=== PATIENT | male | born 1950 | race Caucasian/White ===

== ENCOUNTER → 2020-04-26 11:08 | Outpatient (BNVA) | payer OTHER, SELFPAY | PROVIDERS: Visit Provider Internal Medicine | DX: Z76.89 Persons encountering health services in other specified circumstances (principal) ==

== ENCOUNTER → 2020-10-27 07:27 | Outpatient (BNVA) | payer OTHER, SELFPAY | PROVIDERS: Visit Provider Internal Medicine ==

== ENCOUNTER 2020-11-18 07:53 | Outpatient (REF) | payer OTHER, SELFPAY ==
--- NOTE | ~2020-11-18 | US_ITS ---
EXAMINATION: US ABDOMEN COMPLETE CLINICAL INFORMATION: Epigastric pain. COMPARISON: CT abdomen and pelvis 09/20/2018. TECHNIQUE: Real-time imaging of the abdominal viscera. FINDINGS: PANCREAS: The pancreatic duct measures 0.15 cm. The pancreas has homogeneous echotexture. ABDOMINAL AORTA: The proximal, mid, and distal segments are normal in caliber. INFERIOR VENA CAVA: Visualized portions are normal. LIVER: The liver is normal in size. The liver contour is normal. Parenchymal echogenicity is normal. There is an anechoic cyst in the right hepatic lobe measuring 1.5 x 1.1 x 1.2 cm. There is no intrahepatic biliary duct dilatation seen. GALLBLADDER: Normal. The gallbladder is physiologically distended without evidence of stones, sludge, polyps, wall thickening or pericholecystic fluid. COMMON BILE DUCT: Normal in caliber measuring 0.3 cm in diameter. RIGHT KIDNEY: Multiple echogenic stones the largest in the midpole measuring 0.8 x 0.6 cm. There is anechoic cyst midpole measuring 0.8 x 0.5 x 0.4 cm. No hydronephrosis. The kidney measures 10.0 cm in maximum dimension. LEFT KIDNEY: There is anechoic cyst with thin septations measuring 2.4 x 2.0 x 1.5 cm. There is an echogenic stone in lower pole measuring 0.6 x 0.4 cm. There is no caliectasis or hydronephrosis. The kidney measures 11.2 cm in maximum dimension. SPLEEN: Normal. The spleen measures 11.7 cm in maximum dimension. FREE FLUID: None. US/US abdomen complete IMPRESSION: Right hepatic lobe cyst. Bilateral nonobstructive echogenic renal calculi. There is no caliectasis or hydronephrosis. Simple cyst midpole right kidney and complex cyst with thin septations lower pole left kidney.
== END 2020-11-18 07:54 | disposition home or self-care (01) ==
LOC: HO.US 07:53
PROVIDERS: PCP Nurse Practitioner Family; Visit Provider Internal Medicine
DX: R10.13 Epigastric pain (principal)
CPT/HCPCS: 76700

== ENCOUNTER → 2020-12-27 07:44 | Outpatient (BNVA) | payer OTHER, SELFPAY | PROVIDERS: Visit Provider Internal Medicine ==

== ENCOUNTER 2021-05-02 12:17 | Day surgery (SDC) | payer OTHER, SELFPAY ==
--- NOTE | 2021-04-29 09:48 | HO.ANESPROP2 ---
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 Mother No problems noted. Surgical History Surgical History History of surgery on wrist Hx of cataract surgery Hx of colonoscopy Hx of esophagogastroduodenoscopy Social History Social History Patient Tobacco Use Status: Former Tobacco user Second Hand Smoke Exposure: No Use of substances other than those prescribed or required for medical reasons: No Are you DNR?: No Advance Directives: No Advance Directives Information Provided: Yes Advance Directives on File: No Meds Allergies Allergy/AdvReac Type Severity Reaction Status Date / Time allopurinol Allergy Unknown Rash Verified 04/26/21 13:17 chlorthalidone Allergy Unknown Unknown Verified 04/26/21 13:17 colchicine [COLCHICINE] Allergy Unknown RASH Verified 04/26/21 13:17 flunisolide [FLUNISOLIDE] Allergy Unknown RASH Verified 04/26/21 13:17 meloxicam [MELOXICAM] Allergy Unknown SEVERE Verified 04/26/21 13:17 HIVES omeprazole [OMEPRAZOLE] Allergy Unknown RASH Verified 04/26/21 13:17 pravastatin Allergy Unknown Unknown Verified 04/26/21 13:17 zoledronic acid Allergy Unknown RASH Verified 04/26/21 13:17 [ZOLEDRONIC ACID] lisinopril AdvReac Cough Verified 04/26/21 13:29 Alendronate Sodium Allergy Unknown Unknown Uncoded 04/26/21 13:17 Contrast media Allergy Unknown Unknown Uncoded 04/26/21 13:17 Home Medications Medication Instructions Recorded Confirmed Last Taken Type amlodipine 10 mg tablet 10 mg PO DAILY 03/24/20 04/26/21 05/02/21 History aspirin 81 mg tablet,delayed 81 mg PO DAILY 03/24/20 04/26/21 Unknown History release (Adult Aspirin Regimen) atorvastatin 20 mg tablet 20 mg PO DAILY 03/24/20 04/26/21 Unknown History denosumab 60 mg/mL subcutaneous 60 mg SUBCUT [id number] 03/24/20 04/26/21 Unknown History syringe (Prolia) multivitamin 1 tab PO DAILY 03/24/20 04/26/21 Unknown History omega 1-jok-lhx-fish oil 60 mg-90 1 cap PO DAILY 03/24/20 04/26/21 Unknown History mg-500 mg capsule (Fish Oil) pantoprazole 40 mg tablet,delayed 40 mg PO DAILY 03/24/20 04/26/21 Unknown History release sildenafil 100 mg tablet 100 mg PO DAILY PRN 03/24/20 04/26/21 Unknown History tamsulosin 0.4 mg capsule 0.4 mg PO DAILY 03/24/20 04/26/21 Unknown History trazodone 100 mg tablet 100 mg PO BEDTIME PRN 03/24/20 04/26/21 Unknown History amiloride 5 mg tablet 10 mg PO BID tab 04/26/20 04/26/21 Unknown History doxazosin 2 mg tablet 8 mg PO DAILY tab 04/26/20 04/26/21 05/02/21 History atenolol 25 mg tablet 25 mg PO DAILY 04/26/21 04/26/21 05/02/21 History Exam Exam Date and Time: April 29, 2021 0948 Assessment and Plan Assessment Anesthesia Assessment: Chart Reviewed Documented by User: Reema Miranda MD 05/02/21 13:59 PMFSH Past Medical History Medical History (Updated 04/26/21 @ 13:22 by Hanane Abraham RN) Adrenal cortical adenoma of right adrenal gland Back pain BPH (benign prostatic hyperplasia) Elevated cholesterol Former smoker GERD (gastroesophageal reflux disease) Gout HTN (hypertension) Hx of migraines Hyperaldosteronism Hyperparathyroidism Osteoporosis Vitamin D deficiency Functional capacity: independent ambulation Family History Family History Father No problems noted. Mother No problems noted. Family history of problems with anesthesia: No Surgical History Surgical History History of surgery on wrist Hx of cataract surgery Hx of colonoscopy Hx of esophagogastroduodenoscopy History of Problems with Anesthesia: No Social History Social History Patient Tobacco Use Status: Former Tobacco user Second Hand Smoke Exposure: No Use of substances other than those prescribed or required for medical reasons: No Are you DNR?: No Advance Directives: No Advance Directives Information Provided: Yes Advance Directives on File: No Meds Allergies Allergy/AdvReac Type Severity Reaction Status Date / Time allopurinol Allergy Unknown Rash Verified 04/26/21 13:17 chlorthalidone Allergy Unknown Unknown Verified 04/26/21 13:17 colchicine [COLCHICINE] Allergy Unknown RASH Verified 04/26/21 13:17 flunisolide [FLUNISOLIDE] Allergy Unknown RASH Verified 04/26/21 13:17 meloxicam [MELOXICAM] Allergy Unknown SEVERE Verified 04/26/21 13:17 HIVES omeprazole [OMEPRAZOLE] Allergy Unknown RASH Verified 04/26/21 13:17 pravastatin Allergy Unknown Unknown Verified 04/26/21 13:17 zoledronic acid Allergy Unknown RASH Verified 04/26/21 13:17 [ZOLEDRONIC ACID] lisinopril AdvReac Cough Verified 04/26/21 13:29 Alendronate Sodium Allergy Unknown Unknown Uncoded 04/26/21 13:17 Contrast media Allergy Unknown Unknown Uncoded 04/26/21 13:17 Home Medications Medication Instructions Recorded Confirmed Last Taken Type amlodipine 10 mg tablet 10 mg PO DAILY 03/24/20 04/26/21 05/02/21 History aspirin 81 mg tablet,delayed 81 mg PO DAILY 03/24/20 04/26/21 Unknown History release (Adult Aspirin Regimen) atorvastatin 20 mg tablet 20 mg PO DAILY 03/24/20 04/26/21 Unknown History denosumab 60 mg/mL subcutaneous 60 mg SUBCUT [id number] 03/24/20 04/26/21 Unknown History syringe (Prolia) multivitamin 1 tab PO DAILY 03/24/20 04/26/21 Unknown History omega 1-zgf-drs-fish oil 60 mg-90 1 cap PO DAILY 03/24/20 04/26/21 Unknown History mg-500 mg capsule (Fish Oil) pantoprazole 40 mg tablet,delayed 40 mg PO DAILY 03/24/20 04/26/21 Unknown History release sildenafil 100 mg tablet 100 mg PO DAILY PRN 03/24/20 04/26/21 Unknown History tamsulosin 0.4 mg capsule 0.4 mg PO DAILY 03/24/20 04/26/21 Unknown History trazodone 100 mg tablet 100 mg PO BEDTIME PRN 03/24/20 04/26/21 Unknown History amiloride 5 mg tablet 10 mg PO BID tab 04/26/20 04/26/21 Unknown History doxazosin 2 mg tablet 8 mg PO DAILY tab 04/26/20 04/26/21 05/02/21 History atenolol 25 mg tablet 25 mg PO DAILY 04/26/21 04/26/21 05/02/21 History Exam Airway TM Dist: >3cm Neck ROM: Full Denture: Upper Heart: RRR Lungs: CTA Assessment and Plan Final Anesthetic Review Family History of Problems with Anesthesia: No History of Problems with Anesthesia: No ASA Class: II Final Preanesthetic Review: No Changes in Pt Med Stat Patient Risk: Intermediate Procedure Risk: Low Anesthetic Plan Anesthetic Plan: MAC: Disposition: Standard PACU
[2021-05-02 12:21] VITALS: BMI 24.3
[2021-05-02 12:55] VITALS: BP 124/62; PULSE 61; RESP 18; TEMP 36.7; O2SAT 94
[2021-05-02] MEDS: Lactated Ringers 1,000 ML 100 ML IVCONT (13:02)
--- NOTE | 2021-05-02 14:11 | P.CONAN_ITS ---
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 Mother No problems noted. Family history of problems with anesthesia: No Surgical History Surgical History History of surgery on wrist Hx of cataract surgery Hx of colonoscopy Hx of esophagogastroduodenoscopy History of Problems with Anesthesia: No Social History Social History Patient Tobacco Use Status: Former Tobacco user Second Hand Smoke Exposure: No Use of substances other than those prescribed or required for medical reasons: No Are you DNR?: No Advance Directives: No Advance Directives Information Provided: Yes Advance Directives on File: No Meds Allergies Allergy/AdvReac Type Severity Reaction Status Date / Time allopurinol Allergy Unknown Rash Verified 04/26/21 13:17 chlorthalidone Allergy Unknown Unknown Verified 04/26/21 13:17 colchicine [COLCHICINE] Allergy Unknown RASH Verified 04/26/21 13:17 flunisolide [FLUNISOLIDE] Allergy Unknown RASH Verified 04/26/21 13:17 meloxicam [MELOXICAM] Allergy Unknown SEVERE Verified 04/26/21 13:17 HIVES omeprazole [OMEPRAZOLE] Allergy Unknown RASH Verified 04/26/21 13:17 pravastatin Allergy Unknown Unknown Verified 04/26/21 13:17 zoledronic acid Allergy Unknown RASH Verified 04/26/21 13:17 [ZOLEDRONIC ACID] lisinopril AdvReac Cough Verified 04/26/21 13:29 Alendronate Sodium Allergy Unknown Unknown Uncoded 04/26/21 13:17 Contrast media Allergy Unknown Unknown Uncoded 04/26/21 13:17 Active Medications: Current Medications Lactated Ringer's (Lr) 1,000 mls @ 100 mls/hr IVCONT .Q10H CRISTELA Last Admin: 05/02/21 13:02 Dose: 100 mls/hr Documented by: Sodium Biphosphate/Sodium Phosphate (Sodium Phosphate,Nobles-Dibasic 133 Ml Enema) 133 ml IA ONCE PRN PRN Reason: Poor Colonoscopy Prep Results Home Medications Medication Instructions Recorded Confirmed Last Taken Type amlodipine 10 mg tablet 10 mg PO DAILY 03/24/20 04/26/21 05/02/21 History aspirin 81 mg tablet,delayed 81 mg PO DAILY 03/24/20 04/26/21 Unknown History release (Adult Aspirin Regimen) atorvastatin 20 mg tablet 20 mg PO DAILY 03/24/20 04/26/21 Unknown History denosumab 60 mg/mL subcutaneous 60 mg SUBCUT [id number] 03/24/20 04/26/21 Unknown History syringe (Prolia) multivitamin 1 tab PO DAILY 03/24/20 04/26/21 Unknown History omega 3-jon-nqs-fish oil 60 mg-90 1 cap PO DAILY 03/24/20 04/26/21 Unknown History mg-500 mg capsule (Fish Oil) pantoprazole 40 mg tablet,delayed 40 mg PO DAILY 03/24/20 04/26/21 Unknown History release sildenafil 100 mg tablet 100 mg PO DAILY PRN 03/24/20 04/26/21 Unknown History tamsulosin 0.4 mg capsule 0.4 mg PO DAILY 03/24/20 04/26/21 Unknown History trazodone 100 mg tablet 100 mg PO BEDTIME PRN 03/24/20 04/26/21 Unknown History amiloride 5 mg tablet 10 mg PO BID tab 04/26/20 04/26/21 Unknown History doxazosin 2 mg tablet 8 mg PO DAILY tab 04/26/20 04/26/21 05/02/21 History atenolol 25 mg tablet 25 mg PO DAILY 04/26/21 04/26/21 05/02/21 History Exam Exam Date and Time: May 02, 2021 1411 Height,Weight and Vital Signs: Height 5 ft 7 in Weight 70.307 kg Last Vital Signs Temp 98.0 F 05/02/21 12:55 Pulse 61 05/02/21 12:55 Resp 18 05/02/21 12:55 BP 124/62 05/02/21 12:55 Pulse Ox 94 05/02/21 12:55 Airway Mallampati Class: II TM Dist: >3cm Heart: RRR Lungs: CTA Assessment and Plan Final Anesthetic Review Family History of Problems with Anesthesia: No History of Problems with Anesthesia: No ASA Class: III Final Preanesthetic Review: No Changes in Pt Med Stat Patient Risk: Low Anesthetic Plan Anesthetic Plan: MAC:
[2021-05-02 14:55] VITALS: BP 105/58; PULSE 56; RESP 12; TEMP 36.4; O2SAT 96
--- NOTE | 2021-05-02 14:56 | P.BOP_ITS ---
Brief Operative Note Date of Service: 05/02/21 Pre-op diagnosis: Screening Post-op diagnosis: other (Colon polyp) Procedure: Colonoscopy to the cecum and TI with hot snare polypectomy Surgeon: Kevyn Rosenberg Anesthesia: MAC Was an Finance Business Manager used for this Procedure?: No Estimated blood loss (mL): 0 Pathology: other (A. Cecal polyp) Condition: stable Disposition: PACU
--- NOTE | 2021-05-02 15:09 | OP_ITS ---
SURGEON: Kevyn Rosenberg MD PREOPERATIVE DIAGNOSIS: Colorectal cancer screening. POSTOPERATIVE DIAGNOSIS: PROCEDURE PERFORMED: Colonoscopy to the cecum and terminal ileum with snare polypectomy. Full consent has been obtained from him for this, including risks of bleeding and perforation. ESTIMATED BLOOD LOSS: COMPLICATIONS: ANESTHESIA: Monitored anesthesia care. ASSISTANTS: SPECIMENS: POSTOPERATIVE DIAGNOSES: Colorectal cancer screening, colon polyp, diverticulosis and internal hemorrhoids. DESCRIPTION OF PROCEDURE: The patient was placed in the left lateral decubitus position. The digital rectal exam revealed no abnormalities. The Olympus video pediatric colonoscope was entered into the rectum and advanced easily to the cecum. Once in the cecum, I did identify cecal pouch with appendiceal orifice and a normal-appearing ileocecal valve. The terminal ileum was cannulated and appeared normal. Scope was withdrawn back in the colon. The entire cecum was well visualized. In the cecum, was an approximately 5 mm x 10 mm polyp, which was snared and recovered by suction with the hot snare. The polypectomy site appeared clean, without any sign of residual polyp nor bleeding. The remainder of the cecum appeared normal. The scope was then slowly withdrawn assessing all mucosal surfaces carefully. For the most part, preparation was excellent, although there was some small areas of liquid stool, which were irrigated and suctioned away as best as possible. I did not visualize any other polyps, colitis, nor angiodysplasia. There was a mild amount of sigmoid diverticulosis. In the rectum, scope was retroflexed visualizing small internal hemorrhoids, but no other pathology. The rectal mucosa appeared normal. The scope was straightened out and withdrawn from the patient. He tolerated the procedure well and was returned to the recovery area in stable condition. IMPRESSION: 1. Colon polyp, status post snare polypectomy. 2. Diverticulosis. 3. Internal hemorrhoids. PLAN: The results of the pathology will be checked. I would recommend a repeat colonoscopy in 3 years for further surveillance given his history of polyps and the somewhat limited prep. He was advised not to use any aspirin and NSAIDs for 1 week. MD KAMRON Martinez/CELIO / [id number]
[2021-05-02 15:10] VITALS: BP 117/69; PULSE 65; RESP 16; TEMP 36.4; O2SAT 94
== END 2021-05-02 15:38 | disposition home or self-care (01) ==
PROVIDERS: PCP Nurse Practitioner Family; Visit Provider Internal Medicine
PROC: 0DJD8ZZ Inspection of Lower Intestinal Tract, Via Natural or Artificial Opening Endoscopic (ICD-10-PCS; CPT 45378; principal; 2021-05-02 13:40)
DX: Z12.11 Encounter for screening for malignant neoplasm of colon (principal); Z86.010 Personal history of colon polyps; D12.0 Benign neoplasm of cecum; K57.30 Diverticulosis of large intestine without perforation or abscess without bleeding; K64.8 Other hemorrhoids; K21.9 Gastro-esophageal reflux disease without esophagitis; R97.20 Elevated prostate specific antigen [PSA]; I10 Essential (primary) hypertension; E55.9 Vitamin D deficiency, unspecified; M81.0 Age-related osteoporosis without current pathological fracture; Z79.899 Other long term (current) drug therapy; Z88.8 Allergy status to other drugs, medicaments and biological substances; Z87.891 Personal history of nicotine dependence
CPT/HCPCS: 45385; 88305

== ENCOUNTER → 2022-07-27 08:44 | Outpatient (BNVA) | payer OTHER, SELFPAY | PROVIDERS: PCP Nurse Practitioner Family; Visit Provider Urology | DX: Z13.9 Encounter for screening, unspecified (principal); N20.0 Calculus of kidney; N28.1 Cyst of kidney, acquired; N40.1 Benign prostatic hyperplasia with lower urinary tract symptoms; R35.1 Nocturia; N52.9 Male erectile dysfunction, unspecified | CPT/HCPCS: 51798; 99202 ==

== ENCOUNTER 2022-08-28 08:46 | Outpatient (REF) | payer OTHER, SELFPAY ==
--- NOTE | ~2022-08-28 | CT_ITS ---
EXAMINATION: CT ABDOMEN AND PELVIS WITHOUT AND WITH CONTRAST CLINICAL INFORMATION: Acquired cyst of kidneys. COMPARISON: None available. TECHNIQUE: Multidetector volumetric imaging was performed of the abdomen and pelvis before and after the IV administration of 85 mL of Omnipaque 300 intravenous contrast. Sagittal and coronal reformatted images were obtained on the technologist's workstation. This CT examination was performed using dose optimization techniques as appropriate, variously including the following: *Automated exposure control *Adjustment of mA and/or kV according to patient size (this includes techniques or standardized protocols for targeted exams where dose is matched to indication/reason for exam; i.e. extremities or head) *Use of iterative reconstruction technique DLP: 570 mGy-cm FINDINGS: LUNG BASES: There is mild emphysematous lung bases with no acute process. The heart size is enlarged. LIVER, GALLBLADDER, AND BILIARY TREE: The liver is normal in size, shape, and attenuation. There is a 6 mm hypodensity, left hepatic lobe, probable cyst, axial image 14/4. No probable punctate hypodensities in left hepatic lobe on either side of ligament teres. The gallbladder is unremarkable with no evidence of radiopaque gallstones, gallbladder wall thickening, or obvious pericholecystic inflammatory changes. PANCREAS: Unremarkable SPLEEN: Unremarkable ADRENAL GLANDS: There is a 1.0 x 1.0 cm right adrenal nodule measuring 12 Hounsfield units on precontrast and 62 Hounsfield units on postcontrast. The left adrenal gland is unremarkable. KIDNEYS AND URETERS: On noncontrast exam, there are several small 3 mm radiopaque calculi upper and lower pole kidneys. There are symmetrical bilateral nephrograms with lobulated contours and mild thinning of mid pole right renal cortex. There are bilateral small nonenhancing renal cysts, the largest cyst measures 2.4 cm in midpole left kidney. Postcontrast it measures 8 Hounsfield units and a simple cyst. Most likely all the small cysts are also simple cysts. No caliectasis or hydronephrosis seen. The ureters are normal caliber. BLADDER: There is mild anterior bladder wall thickening GASTROINTESTINAL TRACT: There is scattered stool, gas and diverticuli seen throughout the colon without significant distention. The small bowel loops are normal caliber. The appendix is normal caliber. There is no free fluid, inflammatory process or free air. ABDOMINAL WALL: No significant hernia is appreciated. LYMPH NODES: No abnormal size retroperitoneal lymph nodes seen. VASCULAR: There is atherosclerotic calcification of abdominal aorta without aneurysmal dilatation. PELVIC VISCERA: The prostate gland is normal size with central gland calcification. Periprostatic fat planes are preserved. OSSEOUS STRUCTURES: There is degenerative disc changes at the L4-L5 and L5-S1 disc levels with mild spondylosis. There is grade 1 anterolisthesis L4 over L5. No aggressive lytic or sclerotic process seen. CT/CT abdomen pelvis wo/w IV con IMPRESSION: 1. Bilateral simple renal cysts. There are bilateral small radiopaque renal calculi without caliectasis or hydronephrosis. 2. Mild anterior bladder wall thickening. 3. Colonic diverticulosis without diverticulitis. 4. Right adrenal 1.0 cm enhancing nodule. If clinically indicated, evaluation with CT adrenal protocol can be performed 5. Small left hepatic lobe cyst. 6. Emphysematous lung bases with mild cardiomegaly. 7. Degenerative disc changes L4-L5 and L5-S1 disc levels with grade 1 anterolisthesis L4 over L5. Fleischner guidelines were followed.
[2022-08-28] MEDS: iohexoL 350 MG/ML 100 ML INFUS..BTL IV (10:02)
[2022-08-30 11:20] LABS: Creatinine POC 0.9 mg/dL (0.5-1.4); GFR POC > 60
[2022-09-01 01:24] LABS: PSA, Ultra Sensitive 1.36 ng/mL
== END 2022-08-28 08:47 | disposition home or self-care (01) ==
LOC: HO.CT 08:46
PROVIDERS: PCP Nurse Practitioner Family; Visit Provider Urology
DX: Z12.5 Encounter for screening for malignant neoplasm of prostate (principal); N28.1 Cyst of kidney, acquired; N40.1 Benign prostatic hyperplasia with lower urinary tract symptoms
CPT/HCPCS: 36415; 74178; 82565; 84153; Q9967

== ENCOUNTER → 2022-09-15 11:23 | Outpatient (BNVA) | payer OTHER, SELFPAY | PROVIDERS: PCP Nurse Practitioner Family; Visit Provider Urology ==

== ENCOUNTER 2022-12-27 11:17 | Outpatient (AMB) | payer OTHER, SELFPAY ==
--- NOTE | 2022-12-27 11:21 | A.OFFVIS_ITS ---
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: No Accompanied by: Self / Same As Patient Allergies allopurinol Allergy (Unknown, Verified 12/27/22 11:22) Rash chlorthalidone Allergy (Unknown, Verified 12/27/22 11:22) Unknown colchicine [COLCHICINE] Allergy (Unknown, Verified 12/27/22 11:22) RASH flunisolide [FLUNISOLIDE] Allergy (Unknown, Verified 12/27/22 11:22) RASH meloxicam [MELOXICAM] Allergy (Unknown, Verified 12/27/22 11:22) SEVERE HIVES omeprazole [OMEPRAZOLE] Allergy (Unknown, Verified 12/27/22 11:22) RASH pravastatin Allergy (Unknown, Verified 12/27/22 11:22) Unknown zoledronic acid [ZOLEDRONIC ACID] Allergy (Unknown, Verified 12/27/22 11:22) RASH lisinopril Adverse Reaction (Verified 12/27/22 11:22) Cough Alendronate Sodium Allergy (Unknown, Uncoded 12/27/22 11:22) Unknown Contrast media Allergy (Unknown, Uncoded 12/27/22 11:22) Unknown HPI HPI Comments History of Present Illness Details Aj is a 72-year-old male who presents to the clinic today to review 24-hour urine results. 12/27/22-- He was last seen in the office on 09/15/22. He is followed for kidney stones and BPH. He has had urinary symptoms of urgency and nocturia. He has been [facility]. He previously was prescribed oxybutynin by me, but did not have significant improvement. However, I want him to continue the oxybutynin as well as the tamsulosin. Discussed 24 hour urine results Total volume 1.02 L, uine calcium 123 mg; Oxalate 46 mg, Sodium was 129, Citrate 282 mg. Instructed on importance of fluid intake, Low oxalate diet, low sodium diet. Evaluation today-- UA -- Blood: 10 Leonel/uL. Leukocytes: negative. Bladder scan PVR is 4 mm. Plan: FU in 6 months. 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 Mother No problems noted. Social History Patient Tobacco Use Status: Former Tobacco user Second Hand Smoke Exposure: No Review of Systems Const All systems reviewed & are unremarkable except as noted in HPI and below Reports no additional complaints Eyes Reports no additional complaints ENT Reports no additional complaints Card Denies dyspnea Resp Denies cough and Denies dyspnea GI Reports no additional complaints Musc Reports no additional complaints Skin/Breast Denies rash and Denies unusual bruising Neuro Reports no additional complaints Psych Reports no additional complaints Endo Reports no additional complaints Adam/Lymph Reports no additional complaints Aller/Immun Reports no additional complaints Office Procedures Post Void Residual Post Residual Void Post Void Residual (PVR): 4 52680-Liyn Void Residual by ultrasound Results AMB Urinalysis, Automated UA Leukoctes 0 Milena/uL Last Edit by SUMMER Owens on 12/27/22 11:47 UA Nitrite Negative Last Edit by SUMMER Owens on 12/27/22 11:47 UA Urobilinogen 0.2 mg/dL Last Edit by Rosey Bairdirez, A on 12/27/22 11:4 7 UA Protein 15 mg/dL Last Edit by Rosey Erasmo, A on 12/27/22 11:47 UA pH 6.0 Last Edit by Rosey Hendricksonz, RMA on 12/27/22 11:47 UA Blood 10 Leonel/uL Last Edit by Rosey Zimmerman A on 12/27/22 11:47 UA Specific [place] 1.020 Last Edit by Nicolejaqueline Erasmo, RMA on 12/27/22 11: 47 UA Ketone Negative Last Edit by Rosey Erasmo, RMA on 12/27/22 11:47 UA Bilirubin 0 mg/dL Last Edit by Rosey Erasmo, A on 12/27/22 11:47 UA Glucose 0 mg/dL Last Edit by Nicolejaqueline Erasmo, A on 12/27/22 11:47 Results Reviewed Results Reviewed: Laboratory Last Values Urine pH (Auto) 6.0 12/27/22 11:33 Specific [place] (Auto) 1.020 12/27/22 11:33 Urine Protein (Auto) 15 mg/dL 12/27/22 11:33 Glucose (UA)(Auto) 0 mg/dL 12/27/22 11:33 Urine Ketones (Auto) Negative 12/27/22 11:33 Urine Blood (Auto) 10 Leonel/uL 12/27/22 11:33 Urine Nitrite (Auto) Negative 12/27/22 11:33 Urine Bilirubin (Auto) 0 mg/dL 12/27/22 11:33 Urine Urobilinogen (Auto) 0.2 mg/dL 12/27/22 11:33 Leukocyte Esterase (Auto) 0 Milena/uL 12/27/22 11:33 Date - 08/28/22 FINDINGS: LUNG BASES: There is mild emphysematous lung bases with no acute process. The heart size is enlarged.? LIVER, GALLBLADDER, AND BILIARY TREE: The liver is normal in size, shape, and attenuation. There is a 6 mm hypodensity, left hepatic lobe, probable cyst, axial image 14/4. No probable punctate hypodensities in left hepatic lobe on either side of ligament teres. The gallbladder is unremarkable with no evidence of radiopaque gallstones, gallbladder wall thickening, or obvious pericholecystic inflammatory changes.? PANCREAS: Unremarkable? SPLEEN: Unremarkable? ADRENAL GLANDS: There is a 1.0 x 1.0 cm right adrenal nodule measuring 12 Hounsfield units on precontrast and 62 Hounsfield units on postcontrast. The left adrenal gland is unremarkable. KIDNEYS AND URETERS: On noncontrast exam, there are several small 3 mm radiopaque calculi upper and lower pole kidneys. There are symmetrical bilateral nephrograms with lobulated contours and mild thinning of mid pole right renal cortex. There are bilateral small nonenhancing renal cysts, the largest cyst measures 2.4 cm in midpole left kidney. Postcontrast it measures 8 Hounsfield units and a simple cyst. Most likely all the small cysts are also simple cysts. No caliectasis or hydronephrosis seen. The ureters are normal caliber.? BLADDER: There is mild anterior bladder wall thickening? GASTROINTESTINAL TRACT: There is scattered stool, gas and diverticuli seen throughout the colon without significant distention. The small bowel loops are normal caliber. The appendix is normal caliber. There is no free fluid, inflammatory process or free air.? ABDOMINAL WALL: No significant hernia is appreciated.? LYMPH NODES: No abnormal size retroperitoneal lymph nodes seen. VASCULAR: There is atherosclerotic calcification of abdominal aorta without aneurysmal dilatation. PELVIC VISCERA: The prostate gland is normal size with central gland calcification. Periprostatic fat planes are preserved.? OSSEOUS STRUCTURES: There is degenerative disc changes at the L4-L5 and L5-S1 disc levels with mild spondylosis. There is grade 1 anterolisthesis L4 over L5. No aggressive lytic or sclerotic process seen.? CT/CT abdomen pelvis wo/w IV con IMPRESSION: 1.? Bilateral simple renal cysts. There are bilateral small radiopaque renal calculi without caliectasis or hydronephrosis. ? 2. Mild anterior bladder wall thickening. ? 3. Colonic diverticulosis without diverticulitis. ? 4. Right adrenal 1.0 cm enhancing nodule. If clinically indicated, evaluation with CT adrenal protocol can be performed ? 5. Small left hepatic lobe cyst. ? 6. Emphysematous lung bases with mild cardiomegaly. ? 7. Degenerative disc changes L4-L5 and L5-S1 disc levels with grade 1 anterolisthesis L4 over L5. Assessment & Plan Assessment & Plan (1) Complex renal cyst: Code(s): N28.1 - Cyst of kidney, acquired (2) Bilateral kidney stones: Code(s): N20.0 - Calculus of kidney (3) OAB (overactive bladder): Code(s): N32.81 - Overactive bladder (4) BPH loc w urin obs/LUTS: Code(s): N40.1 - Benign prostatic hyperplasia with lower urinary tract symptoms Plan FU in 6 months. renal sono prior Orders: Orders AMB Urinalysis Automated 12/27/22 Z13.9 - Encounter for screening, unspecified AMB Post Void Residual by ultrasound 12/27/22 N39.8 - Other specified disorders of urinary system Patient Instructions: The patient had an opportunity to ask questions regarding treatment plan. All questions were answered. Imaging, Laboratory studies and physical exam results were discussed and reviewed in detail. No major barriers to understanding were identified. The patient expressed understanding and agreement with the above treatment plan. The patient is aware they should contact our office by phone for worsening of their current condition or the appearance of new symptoms. Compliance is encouraged with any medications and followup testing that is ordered. It is a privilege to be allowed the opportunity to participate in the urologic care of your patient. If you have any questions or concerns regarding treatment for the above conditions please do not hesitate to contact me. The office telephone contact is [phone]. This note is constructed in part using voice recognition software. While every effort has been made to ensure accuracy auto washer errors may have been included. Yours sincerely, Farzad Easley MD Coding Level of Care Code Est Pt Level 3 (41655) Diagnoses Complex renal cyst N28.1 Bilateral kidney stones N20.0 OAB (overactive bladder) N32.81 BPH loc w urin obs/LUTS N40.1 CPT Codes Post Residual Void - PVR CPT Code: 59144-Jgzo Void Residual by ultrasound ([id number])
== END 2022-12-28 10:33 | disposition left against medical advice (07) ==
PROVIDERS: Visit Provider Urology
DX: N28.1 Cyst of kidney, acquired (principal); N20.0 Calculus of kidney; N32.81 Overactive bladder; N40.1 Benign prostatic hyperplasia with lower urinary tract symptoms
CPT/HCPCS: 99213

== ENCOUNTER → 2022-12-27 11:17 | Outpatient (BNVA) | payer OTHER, SELFPAY | PROVIDERS: Visit Provider Urology | DX: N28.1 Cyst of kidney, acquired (principal); N20.0 Calculus of kidney; N32.81 Overactive bladder; N40.1 Benign prostatic hyperplasia with lower urinary tract symptoms; R35.1 Nocturia | CPT/HCPCS: 51798; 99212 ==

== ENCOUNTER 2024-09-24 10:44 | Outpatient (AMB) | payer OTHER, SELFPAY ==
[2024-09-24 10:56] VITALS: BMI 22.6
--- NOTE | 2024-09-24 10:56 | MHC.OFFVIS ---
Vital Signs 09/24/24 10:56 Height 5 ft 7 in Weight 144 lb BMI 22.6 Intake Visit Reasons: Bilateral shoulder pains, Neck pain Intake Note: Jah is a 74 year old right hand dominant male who presents with complaints of progressively worsening neck pain which radiates into his right arm as well as ?numbness and tingling? which runs from his neck down to his right hand. He states that the sensory changes involve all of his fingers. His symptoms have gotten worse over the last few years. He also reports intermittent bilateral shoulder pains. He has done physical therapy exercises which aggravated his pain. He has also tried Tylenol and anti-inflammatory medicines which gave him minimal relief. He also reports intermittent weakness in his right arm. Allergies allopurinol Allergy (Unknown, Verified 09/24/24 11:00) Rash chlorthalidone Allergy (Unknown, Verified 09/24/24 11:00) Unknown colchicine [COLCHICINE] Allergy (Unknown, Verified 09/24/24 11:00) RASH flunisolide [FLUNISOLIDE] Allergy (Unknown, Verified 09/24/24 11:00) RASH meloxicam [MELOXICAM] Allergy (Unknown, Verified 09/24/24 11:00) SEVERE HIVES omeprazole [OMEPRAZOLE] Allergy (Unknown, Verified 09/24/24 11:00) RASH pravastatin Allergy (Unknown, Verified 09/24/24 11:00) Unknown zoledronic acid [ZOLEDRONIC ACID] Allergy (Unknown, Verified 09/24/24 11:00) RASH lisinopril Adverse Reaction (Verified 09/24/24 11:00) Cough Alendronate Sodium Allergy (Unknown, Uncoded 09/24/24 11:00) Unknown Contrast media Allergy (Unknown, Uncoded 09/24/24 11:00) Unknown Medication List - Last Reviewed 09/24/24 by SUMMER Penn amiloride 10 mg PO BID amlodipine 10 mg PO DAILY aspirin (Adult Aspirin Regimen) 81 mg PO DAILY atorvastatin 20 mg PO DAILY cetirizine (Zyrtec) 10 mg PO DAILY PRN colchicine 0.3 mg PO DAILY denosumab 60 mg subcut [id number] diclofenac sodium 75 mg PO BID doxazosin 8 mg PO DAILY garlic 300 mg PO DAILY losartan 25 mg PO DAILY magnesium oxide 400 mg PO DAILY multivitamin 1 tab PO DAILY omega 6-xje-ppm-fish oil 60-90-500 mg (Fish Oil) 1 cap PO DAILY oxybutynin chloride ER 5 mg PO DAILY pantoprazole 40 mg PO DAILY potassium chloride ER 10 mEq PO DAILY tamsulosin (Flomax) 0.4 mg PO DAILY trazodone 100 mg PO BEDTIME PRN PFSH Medical History Abdominal hernia without obstruction and without gangrene 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 Mother No problems noted. Social History (Updated 09/24/24 @ 11:03 by SUMMER Penn) Patient Tobacco Use Status: Former Tobacco user Second Hand Smoke Exposure: No Current occupation: rt handed Physical Exam Vital Signs: BMI result Body Mass Index 22.6 Const Other: Well-nourished well-developed very friendly male awake alert and oriented x3 in no acute distress Neck Other: Cervical spine examination shows right-sided paraspinal muscle tenderness, pain with range of motion, positive Spurling's test, 4/5 strength with testing of his right biceps and wrist extensors when compared to 5/5 strength on his left side Extrem Other: Right wrist examination shows positive Tinel's test over his carpal tunnel, moderate thenar muscle wasting, decreased sensation to light touch along his median nerve distribution Bilateral shoulder examination shows forward flexion to 150 degrees, external rotation at 30 degrees, positive impingement signs, tenderness over his acromioclavicular joint, no instability Results Reviewed Results Reviewed: X-rays of the patient's bilateral shoulder show severe acromioclavicular joint narrowing, type 2 acromion, moderate glenohumeral joint degenerative changes Assessment & Plan Assessment & Plan (1) Right carpal tunnel syndrome: Code(s): G56.01 - Carpal tunnel syndrome, right upper limb Category: Medical (2) Neck pain, chronic: Code(s): M54.2 - Cervicalgia; G89.29 - Other chronic pain Category: Medical Plan Mr. Morgan presents with progressively worsening neck pain as well as associated right arm weakness possibly due to cervical stenosis or a disc herniation. Thus, I will send the patient for an MRI of his cervical spine for further evaluation. The patient also has numbness and tingling in his right hand possibly due to carpal tunnel syndrome. Thus, I will send him for nerve conduction studies. He also has bilateral shoulder pains due to glenohumeral joint degenerative changes, impingement syndrome and adhesive capsulitis. At this point his shoulder pains are tolerable to him. I will see him back after his EMG and MRI are completed to discuss the findings and treatment options. Feel free to call me at any time should questions regarding his orthopedic management arise. I spent 21 minutes in reviewing the patient's records and imaging studies, seeing the patient and documenting in the medical record. Orders: Orders XR shoulder LT min 2V 09/24/24 M25.512 - Pain in left shoulder XR shoulder RT min 2V 09/24/24 M25.511 - Pain in right shoulder NE electromyogram (EMG) Today G56.01 - Carpal tunnel syndrome, right upper limb MR cervical spine wo con Today G89.29 - Other chronic pain, M54.2 - Cervicalgia Coding Level of Care Code New Pt Level 3 (90911) Complex EM visit Add On G2211 Diagnoses Right carpal tunnel syndrome G56.01 Neck pain, chronic M54.2; G89.29
--- OUTSIDE RECORDS SUMMARY | 2024-09-24 12:43 | XMS_ITS ---
Author Organization [facility] Address [address] [place] [address] Care Team Providers Care Radiological Metallurgist Name Role Phone Alfreda Self N.P Primary Care Provider Unavail able Kevyn Rosenberg [phone] REASON FOR VISIT Pt no show Encounters Encounter Location Date Provider Diagnosis [facility] [address] [place] [address] 07/11/2024 Kevyn Rosenberg Plan Of Treatment Next Appt Details Provider Name:Kevyn Rosenberg , 12/02/2024 09:30:00 AM, [address], [address], [place], [address], Progress Notes * AYLINEZEQUIEL HermosilloESHADOB: [birth year] (74 yo M)Acc No.[id number]:07/11/2024 Patient:?NIGEL VIERA :1950???Age:74 Y???Sex:Male Address[address], [place], [address] * true * Date:? Generated for Printi ng/Famarcig/eTransmitting on:?09/24/2024 12:43 PM EDT
--- OUTSIDE RECORDS SUMMARY | 2024-09-24 12:43 | XMS_ITS | Patient Health Record ---
Author Organization [facility] Address [address] [place] [address] Care Team Providers Care Ticket Sales Supervisor Name Role Phone Alfreda Self N.P Primary Care Provider Unavail able Kevyn Rosenberg Unavailable [phone] Allergies Allergen (clinical drug ingredient) Drug/Non Drug Allergy documented on EMR Reaction Allergy Type Onset Date Status colchicine Colchicine rash Drug Allergy Activ e chlorthalidone Chlorthalidone Unknown Drug Allergy Active allopurinol Allopurinol Sodium rash Drug Allergy Active alendronate Alendronate Sodium Unknown Drug Allergy Active contrast (uncoded) Unknown Allergy A ctive pravastatin Pravastatin Unknown Drug Allergy Act anahi zoledronic acid Zoledronic Acid rash Drug Allergy Active omeprazole Omeprazole rash Drug Allergy Activ e meloxicam Meloxicam severe hives Drug Allergy Acti ve lisinopril Lisinopril cough Drug Allergy Activ e flunisolide Flunisolide rash Drug Allergy Act anahi Reason For Referral Referring Provider First Name Alfreda Referring Provider Last Name Clair Referred Organization [facility] Referred Provider Kevyn Rosenberg Referred Address [address] [place] [address],[address],[place], [place],[address], Referred Provider Specialty Gastroentero logy Referral Priority Routine Medications Medication SIG (Take, Route, Frequency, Duration) Notes Start Date End Date Status Calcium 500 MG 2 tablet with meals Orally Twice a day Active Prednisone 20 mg Not-Takin g Vitamin D 25 MCG (1000 UT) 1 tablet Orally Once a day Active Atenolol 25 MG 1 tablet Orally Once a day Active Pantoprazole Sodium 20 MG 1 tablet Orally Once a day 40 mg daily Active Allopurinol 100 MG as directed Orally Active Denosumab 60 MG/ML as directed Subcutaneous q6m Active Atorvastatin Calcium 20 MG 1 tablet Orally Once a day for 30 day(s) Active [place] 3 Active Doxazosin Mesylate 8 MG 1 tablet Orally Once a day for 30 day(s) Active Multivitamin - 1 tablet Orally Once a day for 30 day(s) Active Tamsulosin HCl 0.4 MG 1 capsule Orally O nce a day for 30 day(s) Active Aspirin Adult Low Dose 81 MG 1 tablet Orally Once a day for 30 day(s) Active traZODone HCl 100 MG 1 tablet at bedtime Orally Once a day for 30 day(s) Active amLODIPine Besylate 10 MG 1 tablet Orally Once a day for 30 day(s) Active Sildenafil Citrate 100 mg A ctive aMILoride HCl 5 MG 1 tablet with food Orally Once a day for 30 day(s) Active Tylenol 500 mg Active Immunizations Vaccine Route Administration Date Status Comme nts Influenza Unknown 03/05/2019 Refused Influenza Unknown 11/03/2020 Refused Social History Tobacco Use: Social History Observation Description Date Details (start date - stop date) Former Smoker NA - NA Tobacco Use/Smoking Question Answer Notes Patient is a former smoker How long has it been since you last smoked? > 10 years Alcohol Screen Question Answer Notes Did you have a drink containing alcohol in the p ast year? No Points 0 Interpretation Negative Section Notes: Nonsmoker, no sig alcohol Nonsmoker, no sig alcohol Nonsmoker, no sig alcohol Problems Problem Type SNOMED Code ICD Code Onset Dates Problem Status W/U Status Risk Notes Problem 78258564 Epigastric pain (R10.13) Active confirmed Problem 989431531 Encounter for screening for malignant neoplasm of colon (Z12.11) Active confirmed Problem 271686907 History of adenomatous polyp of colon (Z86.010) Active confirmed Problem 037793663 Personal history of colonic polyps (Z86.010) Active confirmed Problem 82932764 Weight loss (R63.4) Active confirmed Problem 734358348 Abdominal pain, generalized (R10.84) Active confirmed Problem Abdominal discomfort (39327218) Abdominal discomfort (R10.9) Active confirmed Problem Diverticulosis of colon (656049814) Diverticulosis of colon (K57.30) Active confirmed Encounters Encounter Location Date Provider Diagnosis [facility] [address] [place] [address] 07/11/2024 Kevyn Rosenberg Plan Of Treatment Pending Test Test Name Order Date US ABD 11/03/2020 Future Test Test Name Order Date UPPER GI ENDOSCOPY 03/05/2019 COLONOSCOPY 03/05/2019 COLONOSCOPY 04/19/2021 Next Appt Details Provider Name:Kevyn Rosenberg , 12/02/2024 09:30:00 AM, [address], [address], [place], [address], Insurance Providers Payer Name Payer Address Payer Phone Subscriber Number Group Number Insured Name Patient Relationship to Insured Coverage Start Date Coverage End Date [facility] [employer] [address] [place] [address] [id number] NIGEL VIERA Self - patient is the insured Medical (General) History Medical History History ICD Code Gastroesophageal reflux disease Hypertension Pseudogout Back pain Hyperlipidemia BPH Insomnia Osteoporosis Right Adrenal adenoma followed by Dr. Hung manuel from Endocrinology EGD 04/[address] Renato desir-no esophagitis nor Ellsworth's; mild gastritis, Negative H.pylori; normal duodenal biopsies-negative for celiac disease Colonoscopy 04/[address] Mckenzie-poor prep, single tubular adenoma removed Denies [place],DM,CVA,Lung disease,renal dise ase Finisihed 3 months of treatment for pulm onary TB in 03/2021 Colonoscopy in 04/2021 with removal of a single tubular adenoma, although prep was limited Surgical History Surgery Date(Month/Year) Right wrist surgery with scews and plate s Cataracts Shrapnel during [place] War
--- OUTSIDE RECORDS SUMMARY | 2024-09-24 12:43 | XMS_ITS ---
Author Organization [facility] Address [address] [place] [address] Care Team Providers Care Station Mechanic Helper Name Role Phone Alfreda Self N.P Primary Care Provider Kevyn Harris [phone] REASON FOR VISIT Patient presents today for a screening colon Encounters Encounter Location Date Provider Diagnosis [facility] [address] [place] [address] [address] [place] [address] 07/11/2024 Kevyn Rosenberg Plan Of Treatment Next Appt Details Provider Name:Kevyn Rosenberg , 12/02/2024 09:30:00 AM, [address], [address], [place], [address], Progress Notes * AYLINEZEQUIEL CHOUDHARYESHADOB: [birth year] (74 yo M)Acc No.[id number]:07/11/2024 Progress Notes Patient:?NIGEL VIERA Provider:?Kevyn Rosenberg MD :1950???Age:74 Y???Sex:Male Mata e:07/11/2024 Address:[address], [facility] Pcp:Alfreda Self N.P Subjective: * Chief Complaints: * ???1. Patient presents today for a screening colon. * Medical History:? Objective: * Vitals:? Assessment: Plan: * Treatment: * * The named appointment provid er may or may not be the originator of this progress note, and it is not deemed complete until electronically signed by the appointment provider. Sign off status: Pending * Provider:?Kevyn Rosenberg MD Date:? 025 Generated for Lauren steele/Yumiko/Malika on:?09/24/2024 12:43 PM EDT
== END 2024-09-24 11:16 | disposition home or self-care (01) ==
LOC: HO.HOS 10:44
PROVIDERS: PCP Nurse Practitioner Family; Visit Provider Orthopaedic Surgery
DX: G56.01 Carpal tunnel syndrome, right upper limb (principal); M54.2 Cervicalgia; M75.42 Impingement syndrome of left shoulder; M75.41 Impingement syndrome of right shoulder
CPT/HCPCS: 99203; G2211

== ENCOUNTER → 2024-09-24 10:46 | Outpatient (BNV) | payer OTHER, SELFPAY | PROVIDERS: Visit Provider Radiology Diagnostic Radiology | DX: M19.012 Primary osteoarthritis, left shoulder (principal); M25.511 Pain in right shoulder | CPT/HCPCS: 73030 ==

== ENCOUNTER 2024-09-24 11:06 | Outpatient (REF) | payer OTHER, SELFPAY ==
--- NOTE | ~2024-09-24 | XR_ITS ---
EXAMINATION: XR SHOULDER, RIGHT. CLINICAL INFORMATION: M25.511 - Pain in right shoulder COMPARISON: None available. TECHNIQUE: 2 views of the right shoulder. FINDINGS: There is loss of right glenohumeral and AC joint space with periarticular spurring. No acute fracture, dislocation or lytic process seen. The paravertebral soft tissues are normal. XR/XR shoulder RT min 2V IMPRESSION: Mild degenerative changes right shoulder joint. No acute fracture or dislocation seen. Electronically signed by: Jason Byrnes MD 09/25/2024 07:18 AM EDT
--- NOTE | ~2024-09-24 | XR_ITS ---
EXAMINATION: XR SHOULDER 2 OR MORE VIEWS LEFT HISTORY: M25.512 - Pain in left shoulder COMPARISON: There are no prior studies available for comparison. FINDINGS: Two views of the left shoulder are submitted. Osseous mineralization is normal. There is no fracture or dislocation. There is severe osteoarthritis of the glenohumeral joint, with joint space narrowing and osteophyte formation. There is mild degenerative change involving the AC joint. The soft tissues are unremarkable. XR/XR shoulder LT min 2V IMPRESSION: Osteoarthritis of the left shoulder as described. Electronically signed by: Kevyn Escamilla MD 09/25/2024 08:02 AM EDT
--- OUTSIDE RECORDS SUMMARY | 2024-09-25 13:38 | XMS_ITS ---
Author Organization [facility] Address [address] [place] [address] Care Team Providers Care Fish Pitcher Name Role Phone Alfreda Self N.P Primary Care Provider Unavail able Kevyn Rosenberg [phone] REASON FOR VISIT Pt no show Encounters Encounter Location Date Provider Diagnosis [facility] [address] [place] [address] 07/11/2024 Kevyn Rosenberg Plan Of Treatment Next Appt Details Provider Name:Kevyn Rosenberg , 12/02/2024 09:30:00 AM, [address], [address], [place], [address], Progress Notes * AYLINEZEQUIEL HermosilloESHADOB: [birth year] (74 yo M)Acc No.[id number]:07/11/2024 Patient:?NIGEL VIERA :1950???Age:74 Y???Sex:Male Address[address], [address] * true * Date:? Generated for Printi ng/Yumiko/eTransmitting on:?09/25/2024 01:37 PM EDT
--- OUTSIDE RECORDS SUMMARY | 2024-09-25 13:38 | XMS_ITS ---
Author Organization [facility] Address [address] [place] [address] Care Team Providers Care Senior Digital Designer Name Role Phone Alfreda Self N.P Primary Care Provider Kevyn Harris [phone] REASON FOR VISIT Patient presents today for a screening colon Encounters Encounter Location Date Provider Diagnosis [facility] [address] [place] [address] [address] [place] [address] 07/11/2024 Kevyn Rosenberg Plan Of Treatment Next Appt Details Provider Name:Kevyn Rosenberg , 12/02/2024 09:30:00 AM, [address], [address], [place], [address], Progress Notes * AYLINEZEQUIEL CHOUDHARYESHADOB: [birth year] (74 yo M)Acc No.[id number]:07/11/2024 Progress Notes Patient:?NIGEL VIERA Provider:?Kevyn Rosenberg MD :1950???Age:74 Y???Sex:Male Mata e:07/11/2024 Address[place], [facility] Pcp:Alfreda Self N.P Subjective: * Chief Complaints: [...] MD Date:? 025 Generated for Lauren steele/Yumiko/Malika on:?09/25/2024 01:37 PM EDT
--- OUTSIDE RECORDS SUMMARY | 2024-09-25 13:38 | XMS_ITS | Patient Health Record ---
Author Organization [facility] Address [address] [place] [address] Care Team Providers Care Maintenance Trainer Name Role Phone Alfreda Self N.P Primary Care Provider Unavail able Kevyn Rosenberg Unavailable [phone] Allergies Allergen (clinical drug ingredient) Drug/Non Drug [...] Referring Provider Last Name Clair Referred Organization [facility] Referred Provider Kevyn Rosenberg Referred Address [address] [place] [address],[address],[place], [place],[address], Referred Provider Specialty Gastroentero logy Referral Priority [...] Once a day for 30 day(s) Active [place] 3 Active Doxazosin Mesylate 8 MG 1 [...] Problem Status W/U Status Risk Notes Problem 70001689 Epigastric pain (R10.13) Active confirmed Problem 153467239 Encounter for screening for malignant neoplasm of colon (Z12.11) Active confirmed Problem 643314830 History of adenomatous polyp of colon (Z86.010) Active confirmed Problem 883188665 Personal history of colonic polyps (Z86.010) Active confirmed Problem 32079451 Weight loss (R63.4) Active confirmed Problem 606191657 Abdominal pain, generalized (R10.84) Active confirmed Problem Abdominal discomfort (83884294) Abdominal discomfort (R10.9) Active confirmed Problem Diverticulosis of colon (169830003) Diverticulosis of colon (K57.30) Active confirmed Encounters Encounter Location Date [facility] [address] [place] [address] 07/11/2024 Kevyn Rosenberg Plan Of Treatment Pending Test Test Name Order Date US ABD 11/03/2020 Future Test Test Name Order Date UPPER GI ENDOSCOPY 03/05/2019 COLONOSCOPY 03/05/2019 COLONOSCOPY 04/19/2021 Next Appt Details Provider Name:Kevyn Rosenberg , 12/02/2024 09:30:00 AM, [address], [address], [place], [address], Insurance Providers Payer Name Payer Address Payer Phone Subscriber Number Group Number Insured Name Patient Relationship to Insured Coverage Start Date Coverage End Date [facility] [employer] [address] [place] [address] [phone] [id number] NIGEL VIERA Self - patient is the [...] Mckenzie-poor prep, single tubular adenoma removed Denies [place],DM,CVA,Lung disease,renal dise ase Finisihed 3 months of treatment for pulm onary TB in 03/2021 Colonoscopy in 04/2021 with removal of a single tubular adenoma, although prep was limited Surgical History Surgery Date(Month/Year) Right wrist surgery with scews and plate s Cataracts Shrapnel during [place] War
== END 2024-09-24 11:07 | disposition home or self-care (01) ==
LOC: HO.HOSX 11:06
PROVIDERS: Visit Provider Orthopaedic Surgery
DX: G56.01 Carpal tunnel syndrome, right upper limb (principal); M54.2 Cervicalgia; G89.29 Other chronic pain; M25.512 Pain in left shoulder; M25.511 Pain in right shoulder; R20.0 Anesthesia of skin; R20.2 Paresthesia of skin
CPT/HCPCS: 73030; 99202

== ENCOUNTER 2024-10-04 07:46 | Outpatient (REF) | payer OTHER, SELFPAY ==
--- OUTSIDE RECORDS SUMMARY | 2024-10-04 07:51 | XMS_ITS ---
Author Name [facility] Address [address] [place] [id number] Care Team Providers Care Md Pediatric Allergist Name Role Phone LALA DUNBAR Primary Care Provider Unavailabl e Insurance Providers: [...] PART A Mar 11, 2013 PART A [id number] [phone] FR [place]O MORGAN PATIENT MEDICARE (WNR) MEDICARE (M) PART A Mar 11, 2013 PART A [id number] [phone] FR [place] MORGAN PATIENT MEDICARE (WNR) MEDICARE (M) PART A Mar 11, 2013 PART A [id number] [phone] FR [place] MORGAN PATIENT MEDICARE (WNR) MEDICARE (M) PART A Mar 11, 2013 PART A [id number] [phone] FR [place] MORGAN PATIENT Selected Encounter This section includes the information on record at [place] for the Encounter. Date/Time Encounter Type Encounter Description Reason Provider Source Oct 09, 2023 07:30 AM MANUAL THERAPY 1/> [facility] ICD-10-CM M77.02 Medial epicondylitis , left elbow DONNA SALMERON IHE Encounter Template Text not used by [facility] Assessments - Encounter Diagnoses This section includes the primary and secondary diagnoses documented for the Encounter. Date/Time Primary/Secondary Diagnosis Diagnosis Name Provider Source Oct 09, 2023 01:19 PM PRIMARY Medial epicondylitis, left elbow DONNA SALMERON E [facility] Plan of Treatment: Future Appointments (+ 6 months) and Future Tests (+/- 45 days) The Plan of Treatment section includes future care activities for the patient from all [place] treatmentfacilities. This section includes future appointments and future orders which are active, pending or scheduled. Future Appointments This section includes appointments that were scheduled to occur 6 months from the date of the Encounter, up to a maximum of 20 appointments. The data comes from all [place] treatment facilities. Appointment Date/Time Appointment Type Appointme nt Facility Name October 16, 2023 09:00 AM [facility]UL[facility]INE [facility] October 25, 2023 10:30 AM AMBULATORY - NONE [facility] October 31, 2023 09:00 AM AM[facility]ULATORY [facility] MEDICINE [facility] November 01, 2023 09:30 AM [facility]ULATORY [facility] MEDICINE [facility] Nov 12, 2023 11:00 AM AMBULATORY [facility] MEDICINE [facility] Nov 15, 2023 10:30 AM AMBULATORY - NONE [facility] Dec 11, 2023 09:00 AM [facility]ULATORY [facility] MEDICINE [facility] Jan 01, 2024 10:00 AM [facility]UL[facility]INE [facility] Jan 07, 2024 01:30 PM AMBULATORY - NONE [facility] Feb 20, 2024 09:00 AM AM[facility]ULATORY [facility]ICINE [facility] Mar 04, 2024 02:00 PM AMBULATORY - MEDICINE [facility] Mar 05, 2024 10:00 AM AM[facility]UL[facility]ORY [facility]INE [facility] Mar 25, 2024 02:30 PM AMBULATORY - MEDICINE [facility] Mar 27, 2024 10:30 AM AMBULATORY - MEDICINE [facility] Lab Results: +/- 30 days of the encounter This section includes the Chemistry and Hematology Lab Results on record with [place] for the patient. Radiology Reports and Pathology Reports are provided separately, in subsequent sections. Lab Results This section contains the Chemistry/Hematology Results that were resulted 30 days before or 30 daysafter the date of the Encounter. Date/Time Source Result Type Result - Unit Interpretation Reference Range Specimen Type Comment Sep 11, 2023 08:37 AM [facility] CALCIUM SERUM Specimen Type: SERUM No comment entered. Ordering Provider: MARCO ANTONIO LARKIN Report Released Date/Time: Aug 15, 2023 03:21 PM Reporting Lab: [address] [address] Performing Lab: [address] [address] CALCIUM 8.9 mg/dL 8.5-10.2 Sep 11, 2023 08:37 AM [facility] VITAMIN D (25-OH) SERUM Specimen Type: SERUM No comment entered. Ordering Provider: MARCO ANTONIO LARKIN Report Released Date/Time: Aug 15, 2023 03:21 PM Reporting Lab: [address] [address] Performing Lab: [address] [address] VITAMIN D (25-OH) 70 ng/mL H 20-50 Social History: Smoking Status (Most current) and Tobacco Use (All prior to encounter date) This section includes the most current, and the historical, smoking and tobacco- related health factors from the [place] facility where the Encounter took place. Current Smoking Status This section includes the most current smoking, or tobacco-related health factor, from the [place] facility where the Encounter took place. Date/Time Current Smoking Status Comment Facil [facility] May 09, 2023 09:00 AM VA-TOBACCO QUIT 15 YRS OR MORE [facility] Tobacco Use History This section includes a history of the smoking, or tobacco-related health factors, that were collected on or before the date of the Encounter. The data comes from the [place] facility where the Encounter took place. Date/Time Smoking Status/Tobac co Use Comment Facility May 09, 2023 09:00 AM VA-TOBACCO QUIT 15 YRS OR MORE [facility] Mar 30, 2022 09:45 AM VA-TOBACCO FORMER USER [facility] Mar 30, 2022 09:45 AM VA-TOBACCO QUIT 15 YRS OR MORE [facility] Mar 29, 2021 08:30 AM VA-TOBACCO FORMER USER [facility] Mar 29, 2021 08:30 AM VA-TOBACCO QUIT 15 YRS OR MORE [facility] Apr 05, 2020 08:00 AM VA-TOBACCO FORMER USER [facility] Apr 05, 2020 08:00 AM VA-TOBACCO QUIT 15 YRS OR MORE [facility] Dec 19, 2018 09:16 AM VA-TOBACCO FORMER USER [facility] Dec 19, 2018 09:16 AM VA-TOBACCO QUIT 15 YRS OR MORE [facility] Jan 25, 2018 08:57 AM QUIT TOBACCO USE > 7 YEARS AGO [facility] November 07, 2016 10:23 AM QUIT TOBACCO USE > 7 YEARS AGO [facility] Sep 15, 2015 09:35 AM LIFETIME NON-TOBACCO USER [facility] Feb 27, 2005 03:58 PM LIFETIME NON-SMOKER [facility] October 17, 2002 08:32 AM HISTORY OF SMOKING Smoke free since 1967 (35years) [facility] Jan 30, 2002 03:15 PM QUIT TOBACCO USE > 7 YEARS AGO [facility] Jul 25, 2001 03:17 PM HISTORY OF SMOKING [facility] Jul 25, 2001 03:17 PM NON-TOBACCO USER [facility] Radiology Reports: +/- 30 days of the encounter Radiology Reports For cases when an order for radiology services may have been completed prior to the date of the Encounter, the report list includes the Radiology Reports that were completed up to 30 days before dateof the Encounter. For cases when an order for radiology services may have been completed after the date of the Encounter, the report list also includes the Radiology Reports that were completed up to30 days after date of the Encounter. The data comes from all [place] treatment facilities. Date/Time Radiology Report Provider Source October 25, 2023 09:[address] NECK SOFT TISSUE W/O CONT: NIGEL MORGAN [id number] -[id number] M Exm Date: OCTOBER 25, 2023@09:59 Req Phys: FLACO VYAS Loc: CWM/NO/OTOLARYNGOLOGY (Req'g L Img Loc: [facility]/CT Service: Unknown [facility] , (Case [id number] COMPLETE) CT NECK SOFT TISSUE W/O CONT (CT Detailed) CPT:51397 Proc Modifiers : RIGHT Reason for Study: RIGHT NECK MASS Clinical History: RIGHT NECK MASS, STONE VS MASS Report Status: Verified Date Reported: OCTOBER 28, 2023 Date Verified: OCTOBER 28, 2023 Housing Director E-Sig: Report: CT NECK SOFT TISSUE W/O CONT HISTORY: 73 years-old Male with RIGHT NECK MASS. COMPARISON: None. TECHNIQUE: Noncontrast CT of the neck with multiplanar reformats was performed at the local [place] facility. 1171 images were received by the [place] National T[facility]ad[facility] (NTP) for interpretation. Lack of IV contrast limits the sensitivity examination. RADIATION DOSE (mGy*cm): 360 IV CONTRAST: None administered. FINDINGS: Lymph Nodes: No enlarged or abnormal appearing lymph nodes. Suprahyoid Neck: 4 mm nonobstructing stone is identified in the distal right sublingual duct at the floor the mouth (series 5, image 333). The nasopharynx, oropharynx, oral cavity, parapharyngeal space, and retropharyngeal space are normal. Infrahyoid Neck: The larynx and hypopharynx are normal. Salivary Glands: 2 mm small stone right submandibular gland. The remaining salivary glands are unremarkable. Thyroid: Normal. Brain and Skull Base: The visualized portions of the brain and skull base are normal. Orbits: Normal. Paranasal Sinuses: Normal. Partially Visualized Thorax: The visualized lung apices and upper thorax are within normal limits. Aberrant origin right subclavian artery. Mandible: Poor dentition. Edentulous upper jaw. Vasculature: Lack of IV contrast limited evaluation. Bilateral carotid arterial calcifications. Atherosclerotic vascular calcification is also identified in the thoracic aorta. Bones: No lytic or blastic osseous lesions. Minimal retrolisthesis C3 over C4 level. Facet and uncovertebral arthrosis identified throughout the cervical spine. Impression: 1. 2 mm small stone right submandibular gland. 4 mm nonobstructing stone in the right distal right sublingual duct at the floor the mouth. 2. Chronic findings in the cervical spine. 3. The remaining soft tissue neck unremarkable. READING PHYSICIAN: Adalid Neely M.D. -[id number] 10/28/2023 7:20 CDT [facility] National Teleradiology Program [phone] (For Medical Practitioner Use Only) Attention Patients / Veterans: If you have questions or concerns about these test results, please contact your ordering provider or primary care team. Primary Diagnostic Code: NO ALERT REQUIRED Primary Interpreting Staff: RADIOLOGY,OUTSIDE SERVICE, Staff Physician / RADIOLOGY,OUTSIDE SERVICE [facility] Encounter Notes: All associated encounter notes This section contains the clinical notes associated to the Encounter. Date/Time Encounter Note(s) Provider Source Oct 09, 2023 07:02 AM OCCUPATIONAL MEDICINE CONSULT: [facility] TITLE: CONSULT REPORT/OCCUPATIONAL THERAPY STANDARD TITLE: OCCUPATIONAL MEDICINE CONSULT DATE OF NOTE: OCT 09, 2023@07:02 ENTRY DATE: OCT 09, 2023@07:02:22 AUTHOR: DONNA SALMERON COSIGNER: LALA DUNBAR URGENCY: STATUS: COMPLETED Initial Evaluation date: Sep Progress Note Date: Treatment #: eval Treatment time: 45 minutes Diagnosis: Medial Epicondylitis, left Elbow(ICD-10-CM M77.02) Provider: [facility] OT Treatment Precautions: Patient identified by full name and date of S: Mr. Morgan is a 73 y/o 70% SC male who was referred to OT for L elbow pain. He was seen in the OT clinic on 10/09/2023. PMH: Active problems - Computerized Problem List is the source for the followin. Benign essential hypertension 2. Insomnia 3. Pain of right knee 4. Exposure to potentially hazardous substance 5. LTBI - Latent tuberculosis infection 6. Gynecomastia 7. Recent weight loss 8. Osteoporosis 9. Hernia of abdominal wall 10. Adrenal adenoma 11. Osteoarthritis of knee 12. Calcium pyrophosphate deposition disease 13. 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 Posterior Vitreous Detachment 16. Osteoporosis (SNOMED CT 87372604) 17. Low back pain (SNOMED CT 104010426) 18. Hyperlipidemia 19. Benign prostatic hypertrophy (SNOMED CT 516554300) 20. Pseudogout 21. Rhinitis (SNOMED CT 61127537) 22. Dermatitis or Eczema * 23. History of polyp of colon 24. Posttraumatic Stress Disorder 25. Erectile dysfunction (SNOMED CT 403483028) 26. Gastroesophageal reflux disease (SNOMED CT 036906405) PATRICK: Pt was seen in the OT clinic for pain at L medial elbow. Pt reports the pain started a couple months ago and has stayed the same since onset. He reports pain with pushing and pulling objects, flushing the toilet, wrist flexion, supination, and pronation. The pain wakes him at night if he rolls onto his arm or moves it at all. Pain Level: 7/10 at rest, increasing to 10/10 at worst Pain Location: medial epi Aggravating Factors: lifting, flexing/extending elbow, raking, shoveling Alleviating Factors: not moving it O: Pt is R hand dominant. 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 hx; [employer] -, Retired. Enjoys traveling, driving, and yardwork. Clinical Presentation: no edema nor erythema about lateral/medial elbow. pt grimacing when flexing elbow and wrist. Special Testing: Resisted Supination: (+) L Resisted Pronation: (+) L Resisted Wrist Flexion: (+) L Palpation: ttp and tightness noted throughout common flexor tendon and flexor musculature [employer] Pilot Strength Per Dynamometer: measured in pounds per pressure (norms: age) [R] [L] 1. 52# (norm:85#) 14# (norm:80#) 2. 59# 17# 3. 52# 18# Ext Elbow: 51# 22# (+) pain 10/10 on L Sensation: pt endorses intermittent paresthesia's b/l; will monitor. TX: *US 1.4 w/cm2 100% 3MHz over L common flexor tendon/mobile wad, x7' *mobilization/IASTM/FDM to L common flexor tendon/mobile wad, x8' *instructed pt in prayer stretch and wrist flexor stretch, 30 second hold x2. pt able to r/d and v/u. *issued pt MEDIUM neoprene elbow sleeve from [employer]. pt understands wear, care and precautions. able to don/doff I'ly. Access Code: [email or web address] URL: [email or web address] Date: 10/09/2023 Prepared by: [facility] Exercises - Wrist Prayer Stretch - 1 x daily - 7 x weekly - 3 sets - 3 reps - 30 hold - Wrist Flexor Stretch in Pronation - 1 x daily - 7 x weekly - 3 sets - 3 reps - 30 hold ASSESSMENT: Filiberto is a 73 y/o male who presents to the OT clinic w/ s/s of L non- dominant medial epicondylitis as evidenced by pt report, clinical presentation and positive provocative testing. 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 Pt was interested in trialing tx. He tolerated tx well this date but reports some discomfort following tx. He will trial HEP and sleeve and report back re: progress. PLAN: pt will f/u in 2 weeks and may engage in another tx. he will also trial HEP and sleeve wear. he may cx that appt if his sx's resolve. Pt is in agreement w/ this POC. GOALS: (4 weeks) 1. compliant w/ HEP, sleeve wear 2. pt will report 50% improvement in sx's since initiating tx 3. pain <7/10 at rest This treatment was primarily performed by ODESSA Ortega, however, I, Donna Salmeron, MS GREYR/RANDY Vicente, was present during the course of this treatment in its entirety providing direct supervision for this student, I agree with treatment and plan of care as stated above. The practitioner's co-signature on this note signifies agreement with plan of care and clinical diagnosis code. /sharla/ MS ZAINA Sue/RANDY Vicente Occupational Therapist Signed: 10/09/2023 13:19 /sharla/ PIPPA CALVERT Nurse Practitioner Cosigned: 10/09/2023 14:12 Receipt Acknowledged By: 10/09/2023 14:30 /es/ KORY VALLADARES OCCUPATIONAL THERAPY STUDENT DONNA SALMERON [facility]
--- OUTSIDE RECORDS SUMMARY | 2024-10-04 07:51 | XMS_ITS | Encounter Summary ---
Author Name [facility] Organization [facility] [place] Address [address] [place] [id number] Care Team Providers Care Director Regulatory Compliance Name Role Phone LALA DUNBAR Primary Care [...] PART A Mar 11, 2013 PART A [id number] [phone] FR [place] VI[place]A PATIENT MEDICARE (WNR) MEDICARE (M) PART A Mar 11, 2013 PART A [id number] [phone] FR [place] PATIENT MEDICARE (WNR) MEDICARE (M) PART A Mar 11, 2013 PART A [id number] [phone] FR [place]A PATIENT MEDICARE (WNR) MEDICARE (M) PART A Mar 11, 2013 PART A [id number] [phone] FR [place] VIERA PATIENT Selected Encounter This section includes the information on record at [place] for the Encounter. Date/Time Encounter Type Encounter Description Reason Pro vider Source October 31, 2023 09:00 AM Outpatient Encounter OTOLARYNGOLOGY/ENT IHE Encounter Template Text not used by [place] Plan of Treatment: Future Appointments (+ 6 months) and Future Tests (+/- 45 days) The Plan of Treatment section includes future care activities for the patient from [facility] [place] [facility] This section includes future appointments and future orders which are active, pending or scheduled. Future Appointments This section includes appointments that were scheduled to occur 6 months from the date of the Encounter, up to a maximum of 20 appointments. The data comes from all [place] treatment facilities. Appointment Date/Time Appointment Type Appointme nt Facility Name November 01, 2023 09:30 AM AMBULATORY - MEDICINE [place] [facility] [place] [facility] Nov 12, 2023 11:00 AM AMBULATORY - MEDICINE [facility] [place] [facility] Nov 15, 2023 10:30 AM AMBULATORY - NONE [facility] [place] [facility] Dec 11, 2023 09:00 AM AMBULATORY - MEDICINE [facility] [place] [facility] Jan 01, 2024 10:00 AM AMBULATORY - MEDICINE [place] [facility] [place] [facility] Jan 07, 2024 01:30 PM AMBULATORY - NONE [facility] [place] [facility] Feb 20, 2024 09:00 AM AMBULATORY - MEDICINE [facility] [place] [facility] Mar 04, 2024 02:00 PM AMBULATORY - MEDICINE [facility] [place] [facility] Mar 05, 2024 10:00 AM AMBULATORY - MEDICINE [facility] [place] [facility] Mar 25, 2024 02:30 PM AMBULATORY - MEDICINE [facility] [place] [facility] Mar 27, 2024 10:30 AM AMBULATORY - MEDICINE [facility] [place] [facility] Apr 25, 2024 08:30 AM AMBULATORY - NONE [facility] [place] [facility] Social History: Smoking Status (Most current) and Tobacco Use (All prior to encounter date) This section includes the most current, and the historical, smoking and tobacco- related health factors from the [facility] facility where the Encounter took place. Current Smoking Status This section includes the most current smoking, or tobacco-related health factor, from the [place] facility where the Encounter took place. Date/Time Current Smoking Status Comment Facil ity May 09, 2023 09:00 AM VA-TOBACCO FORMER USER [place] [facility] [place] [facility] Tobacco Use History This section includes a history of the smoking, or tobacco-related health factors, that were collected on or before the date of the Encounter. The data comes from the [place] facility where the Encounter took place. Date/Time Smoking Status/Tobac co Use Comment Facility May 09, 2023 09:00 AM VA-TOBACCO QUIT 15 YRS OR MORE [facility] [place] [facility] Mar 30, 2022 09:45 AM VA-TOBACCO FORMER USER [facility] [place] [facility] Mar 30, 2022 09:45 AM VA-TOBACCO QUIT 15 YRS OR MORE [facility] [place] [facility] Mar 29, 2021 08:30 AM VA-TOBACCO FORMER USER [facility] [place] [facility] Mar 29, 2021 08:30 AM VA-TOBACCO QUIT 15 YRS OR MORE [facility] [place] [facility] Apr 05, 2020 08:00 AM VA-TOBACCO FORMER USER [facility] [place] [facility] Apr 05, 2020 08:00 AM VA-TOBACCO QUIT 15 YRS OR MORE [facility] [place] [facility] Dec 19, 2018 09:16 AM VA-TOBACCO FORMER USER [facility] [place] [facility] Dec 19, 2018 09:16 AM VA-TOBACCO QUIT 15 YRS OR MORE [facility] [place] [facility] Jan 25, 2018 08:57 AM QUIT TOBACCO USE > 7 YEARS AGO [facility] [place] [facility] November 07, 2016 10:23 AM QUIT TOBACCO USE > 7 YEARS AGO [facility] [place] [facility] Sep 15, 2015 09:35 AM LIFETIME NON-TOBACCO USER [facility] [place] [facility] Feb 27, 2005 03:58 PM LIFETIME NON-SMOKER [facility] [place] [facility] October 17, 2002 08:32 AM HISTORY OF SMOKING Smoke free since 1967 (35years) [facility] [place] [facility] Jan 30, 2002 03:15 PM QUIT TOBACCO USE > 7 YEARS AGO [facility] [place] [facility] Jul 25, 2001 03:17 PM HISTORY OF SMOKING [facility] Jul 25, 2001 03:17 PM NON-TOBACCO USER [facility] Radiology Reports: +/- 30 days of the [...] the Encounter. The data comes from all [place] treatment facilities. Date/Time Radiology Report Provider Source Nov 12, 2023 11:38 AM FOOT 3 OR MORE VIEWS(LEFT): NIGEL VIERA [id number] -1950 M Exm Date: NOV 12, 2023@11:38 Req Phys: LALA DUNBAR Pat Loc: CWM/NO/PACT 5 (Req'g Loc) Img Loc: [facility] 1 Service: Unknown [facility] , (Case [id number] COMPLETE) FOOT 3 OR MORE VIEWS(LEFT) (RAD Detailed) CPT:59239 Proc Modifiers : LEFT CPT Modifiers : LT LEFT SIDE Reason for Study: right plantar foot base of pinky Clinical History: Left lateral base of toe pain with center punctum ? Foreign body denies stepping on glass although I know that is not readiopaque Report Status: Verified Date Reported: NOV 12, 2023 Date Verified: NOV 12, 2023 Priming Machine Operator E-Sig:/ES/CANDI LEZAMA JR Report: Study: AP, lateral, and oblique views of the left foot COMPARISON: None. FINDINGS: No radiopaque foreign body is identified. No subcutaneous gas or abnormal soft tissue calcifications are seen. The plantar arch is maintained. No calcaneal spurs are identified. The left foot joint spaces are normal and well-maintained. No bony fracture, dislocation or subluxation is identified. Impression: No focal abnormality identified. Primary Diagnostic Code: No immediate attention required Primary Interpreting Staff: CANDI LEZAMA JR, Radiologist (Priming Machine Operator) /CANDI BENNETT JR [facility] October 25, 2023 09:[address] NECK SOFT TISSUE W/O CONT: NIGEL VIERA [id number] -1950 M Exm Date: OCTOBER 25, 2023@09:59 Req Phys: FLACO VYAS Loc: CWM/NO/OTOLARYNGOLOGY (Req'g L Img Loc: [facility]/CT Service: Unknown [facility] , (Case [id number] COMPLETE) CT NECK SOFT TISSUE W/O CONT (CT Detailed) CPT:84216 Proc Modifiers : RIGHT Reason for Study: RIGHT NECK MASS Clinical History: RIGHT NECK MASS, STONE VS MASS Report Status: Verified Date Reported: OCTOBER 28, 2023 Date Verified: OCTOBER 28, 2023 Priming Machine Operator E-Sig: Report: CT NECK SOFT TISSUE W/O CONT HISTORY: 73 years-old Male with RIGHT NECK MASS. COMPARISON: None. TECHNIQUE: Noncontrast CT of the neck with multiplanar reformats was performed at the local [place] facility. 1171 images were received by the [place] National [facility] (NTP) for interpretation. Lack [...] neck unremarkable. READING PHYSICIAN: Adalid Neely M.D. -[id number] 10/28/2023 7:20 CDT [facility] National Teleradiology Program [phone] (For Medical Practitioner Use Only) Attention Patients / Veterans: If you have questions or concerns about these test results, please contact your ordering provider or primary care team. Primary Diagnostic Code: NO ALERT REQUIRED Primary Interpreting Staff: RADIOLOGY,OUTSIDE SERVICE, Staff Physician / RADIOLOGY,OUTSIDE SERVICE [facility] Encounter Notes: All associated encounter notes This section contains the clinical notes associated to the Encounter. Date/Time Encounter Note(s) Provider Source October 31, 2023 02:46 PM CLERICAL NOTE: LOCAL TITLE: APPOINTMENT NO SHOW STANDARD TITLE: CLERICAL NOTE DATE OF NOTE: OCTOBER 31, 2023@14:46 ENTRY DATE: OCTOBER 31, 2023@14:46:12 AUTHOR: WOODY BRAVO EXP COSIGNER: URGENCY: STATUS: COMPLETED Patient Name: NIGEL VIERA Patient SSN: [id number] Date and time of Appointment No show : 10/31/23 09:00 PATIENT PHONE - PHONE NUMBER [CELLULAR] - NONE FOUND Patient's medical record was reviewed. 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
--- OUTSIDE RECORDS SUMMARY | 2024-10-04 07:51 | XMS_ITS ---
Author Name [facility] [place] Organization [place] Address [address] [place] [address] Care Team Providers Care Automotive Specialty Technician Name Role Phone LALA DUNBAR Primary Care [...] PART A Mar 11, 2013 PART A [id number] [phone] FR AUGUSTO VIERA PATIENT MEDICARE (WNR) MEDICARE (M) PART A Mar 11, 2013 PART A [id number] [phone] FR AUG[place]O VIERA PATIENT MEDICARE (WNR) MEDICARE (M) PART A Mar 11, 2013 PART A [id number] [phone] FR AUG[place]O VIERA PATIENT MEDICARE (WNR) MEDICARE (M) PART A Mar 11, 2013 PART A [id number] [phone] FR AUGUSTO VIERA PATIENT Selected Encounter This section includes the information on record at CT for the Encounter. Date/Time Encounter Type Encounter Description Reason Provider Source Mar 04, 2024 02:00 PM OFFICE O/P EST MOD 30 MIN PODIATRY ICD-10-CM M77.42 Metatarsalgia , left foot SURINDER MONTOYA [facility] Encounter Template Text not used by CT Assessments - Encounter Diagnoses This section includes the primary and secondary diagnoses documented for the Encounter. Date/Time Primary/Secondary Diagnosis Diagnosis Name Provider Source Mar 04, 2024 02:43 PM PRIMARY Metatarsalgia, left foot SURINDER MONTOYA [facility] [place] [facility] Mar 04, 2024 02:43 PM SECONDARY Nondisp fx of distal phalanx of right great toe, init [facility] [place] [facility] Plan of Treatment: Future Appointments (+ 6 months) and Future Tests (+/- 45 days) The Plan of Treatment section includes future care activities for the [facility] This section includes future appointments and future orders which are active, pending or scheduled. Future Appointments This section includes appointments that were scheduled to occur 6 months from the date of the Encounter, up to a maximum of 20 appointments. The data comes from all CT treatment facilities. Appointment Date/Time Appointment Type Appointme nt Facility Name Mar 05, 2024 10:00 AM AMBULATORY - MEDICINE CT C [facility] [place] [facility] Mar 25, 2024 02:30 PM AMBULATORY - MEDICINE CT C [place] [place] [facility] Mar 27, 2024 10:30 AM AMBULATORY - MEDICINE CT C [place] [place] [facility] Apr 25, 2024 08:30 AM AMBULATORY - NONE CT [facility] [place] [facility] May 27, 2024 11:00 AM AMBULATORY - MEDICINE CT C [place] [place] [facility] Jul 11, 2024 01:40 PM AMBULATORY - NONE CT [facility] [place] [facility] Jul 21, 2024 09:00 AM AMBULATORY - MEDICINE CT C [place] [place] [facility] Aug 05, 2024 09:30 AM AMBULATORY - MEDICINE CT C [place] [place] [facility] Aug 27, 2024 09:00 AM AMBULATORY - MEDICINE CT C [place] [place] [facility] Active, Pending, and Scheduled Orders This section includes a listing of several types of active, pending, and scheduled orders, including clinic medications orders, diagnostic test orders, procedure orders and consult orders; where the start date of the order is 45 days before the date of the Encounter or 45 days after the date of theEncounter. The data comes from all CT treatment facilities. Test Date/Time Test Type Test Details Facility Name Mar 05, 2024 10:55 AM Consult Order [facility]-COLONOSCOPY SCREENING Cons Bulk System Operator's Choice [facility] Lab Results: +/- 30 days of the encounter This section includes the Chemistry and Hematology Lab Results on record with CT for the patient. Radiology Reports and Pathology Reports are provided separately, in subsequent sections. Lab Results This section contains the Chemistry/Hematology Results that were resulted 30 days before or 30 daysafter the date of the Encounter. Date/Time Source Result Type Result - Unit Interpretation Reference Range Specimen Type Comment Mar 25, 2024 03:29 PM [facility] FERRITIN SERUM Specimen Type: SERUM No comment entered. Ordering Provider: LALA DUNBAR Report Released Date/Time: Mar 25, 2024 03:12 PM Reporting Lab: [facility] [place] [facility] [address] [address] Performing Lab: [facility] [address] [address] FERRITIN 140 ng/mL 20-300 Mar 25, 2024 03:29 PM [facility] MAGNESIUM SERUM Specimen Type: SERUM No comment entered. Ordering Provider: LALA DUNBAR Report Released Date/Time: Mar 25, 2024 03:12 PM Reporting Lab: [facility] [place] [facility] [address] [address] Performing Lab: [facility] [address] [address] MAGNESIUM 2.3 mg/dL 1.6-2.6 Mar 25, 2024 03:29 PM [facility] CALCIUM SERUM Specimen Type: SERUM No comment entered. Ordering Provider: LALA DUNBAR Report Released Date/Time: Mar 25, 2024 03:17 PM Reporting Lab: [facility] [address] [address] Performing Lab: [facility] [address] [address] CALCIUM 8.5 mg/dL 8.5-10.2 Mar 25, 2024 03:29 PM [facility] BASIC METABOLIC PANEL (non-fasting) SERUM Spe cimen Type: SERUM No comment entered. Ordering Provider: LALA DUNBAR Report Released Date/Time: Mar 25, 2024 03:12 PM Reporting Lab: [address] [address] Performing Lab: [address] [address] UREA NITROGEN 20 mg/dL 7-25 GLUCOSE 94 mg/dL 65-100 SODIUM 140 mmol/L 135-145 POTASSIUM 3.7 mmol/L 3.5-5.0 CHLORIDE 107 mmol/L 100-110 CO2 24 meq/L 20-30 CREATININE, Serum 1.14 mg/dL 0.50-1.40 eGFR(CKD-EPI 2020) 67 mL/min >60 Mar 11, 2024 10:15 AM [facility] BASIC METABOLIC PANEL (non-fasting) SERUM Spe cimen Type: SERUM No comment entered. Ordering Provider: LALA DUNBAR Report Released Date/Time: Mar 05, 2024 10:44 AM Reporting Lab: [address] [address] Performing Lab: [address] [address] UREA NITROGEN 19 mg/dL 7-25 GLUCOSE 218 mg/dL H 65-100 SODIUM 138 mmol/L 135-145 POTASSIUM 4.6 mmol/L 3.5-5.0 CHLORIDE 106 mmol/L 100-110 CO2 18 meq/L L 20-30 CREATININE, Serum 1.41 mg/dL H 0.50-1.40 eGFR(CKD-EPI 2020) 52 mL/min L >60 Mar 05, 2024 08:14 AM [facility] BASIC METABOLIC PANEL (non-fasting) SERUM Spe cimen Type: SERUM No comment entered. Ordering Provider: LALA DUNBAR Report Released Date/Time: Mar 04, 2024 06:37 PM Reporting Lab: [facility] [address] [address] Performing Lab: [facility] [address] [address] UREA NITROGEN 17 mg/dL 7-25 GLUCOSE 157 mg/dL H 65-100 SODIUM 143 mmol/L 135-145 POTASSIUM 3.9 mmol/L 3.5-5.0 CHLORIDE 104 mmol/L 100-110 CO2 28 meq/L 20-30 CREATININE, Serum 1.08 mg/dL 0.50-1.40 eGFR(CKD-EPI 2020) 71 mL/min >60 Mar 05, 2024 08:14 AM [facility] RENIN ACTIVITY (PLASMA) PLASMA Specimen Type: PLASMA Comment: This test was developed and its analytical performance characteristics have been determined by [employer] [place], [place]. It has not been cleared or approved by the U.S. Food and Drug Administration. This assay has been validated pursuant to the CLIA regulations and is used for clinical purposes. Test Performed by [facility], [employer] [facility], [address] [place] [address] Pb Gilmore M.D., Ph.D., Director of Laboratories , CLIA [id number] TEST PERFORMED AT: , Ordering Provider: MARCO ANTONIO LARKIN Report Released Date/Time: Mar 05, 2024 07:05 AM Reporting Lab: [facility] [address] [address] Performing Lab: [facility] [address] [address] RENIN ACTIVITY (PLASMA) 0.47 0.25-5.8 2 Mar 05, 2024 08:14 AM [facility] ALDOSTERONE UPRIGHT,LC/MS/MS SERUM Specimen T ype: SERUM Comment: Unable to flag abnormal result(s), please refer Unable to flag abnormal result(s), please refer to reference range(s) below: to reference range(s) below: Adult Reference Ranges for Aldosterone, LC/MS/MS: Adult Reference Ranges for Aldosterone, LC/MS/MS: Upright 8:00 - 10:00 am < or = 28 ng/dL Upright 8:00 - 10:00 am < or = 28 ng/dL Upright 4:00 - 6:00 pm < or = 21 ng/dL Upright 4:00 - 6:00 pm < or = 21 ng/dL Supine 8:00 - 10:00 am 3 - 16 ng/dL Supine 8:00 - 10:00 am 3 - 16 ng/dL This test was developed and its analytical performance This test was developed and its analytical performance characteristics have been determined by [employer] characteristics have been determined by [employer] [place], [place]. It has Diagnostics [place], [place]. It has not been cleared or approved by the U.S. Food and Drug not been cleared or approved by the U.S. Food and Drug Administration. This assay has been validated pursuant Administration. This assay has been validated pursuant to the CLIA regulations and is used for clinical to the CLIA regulations and is used for clinical purposes. purposes. Test Performed by [employer] [place], Test Performed by [employer], [employer], [address] [place] [address] [place] [address] Pb Gilmore M.D., Ph.D., Director of Laboratories Pb Gilmore M.D., Ph.D., Director of Laboratories , CLIA [id number] , CLIA [id number] TEST PERFORMED AT: TEST PERFORMED AT: , , Ordering Provider: MARCO ANTONIO LARKIN Report Released Date/Time: Mar 05, 2024 07:05 AM Reporting Lab: [facility] Contemporary [facility]UN[facility] [address] [address] Performing Lab: [facility] [address] [address] ALDOSTERONE UPRIGHT,LC/MS/MS 18 ng/dL * Mar 04, 2024 01:21 PM [facility] BASIC METABOLIC PANEL (non-fasting) SERUM Spe cimen Type: SERUM Comment: Verified by repeat analysis. POTASSIUM Ordering Provider: LALA DUNBAR Report Released Date/Time: Feb 20, 2024 09:25 AM Reporting Lab: [facility] [address] [address] Performing Lab: [facility] [address] [address] UREA NITROGEN 17 mg/dL 7-25 GLUCOSE 103 mg/dL H 65-100 SODIUM 144 mmol/L 135-145 POTASSIUM 2.7 mmol/L LL 3.5-5.0 CHLORIDE 103 mmol/L 100-110 CO2 32 meq/L H 20-30 CREATININE, Serum 1.10 mg/dL 0.50-1.40 eGFR(CKD-EPI 2020) 70 mL/min >60 Feb 13, 2024 09:45 AM [facility] ALDOSTERONE UPRIGHT,LC/MS/MS SERUM Specimen T ype: SERUM Comment: Unable to flag abnormal result(s), please refer Unable to flag abnormal result(s), please refer to reference range(s) below: to reference range(s) below: Adult Reference Ranges for Aldosterone, LC/MS/MS: Adult Reference Ranges for Aldosterone, LC/MS/MS: Upright 8:00 - 10:00 am < or = 28 ng/dL Upright 8:00 - 10:00 am < or = 28 ng/dL Upright 4:00 - 6:00 pm < or = 21 ng/dL Upright 4:00 - 6:00 pm < or = 21 ng/dL Supine 8:00 - 10:00 am 3 - 16 ng/dL Supine 8:00 - 10:00 am 3 - 16 ng/dL This test was developed and its analytical performance This test was developed and its analytical performance characteristics have been determined by [employer] characteristics have been determined by [employer] [place], [place]. It has Diagnostics [employer] [place], [place]. It has not been cleared or approved by the U.S. Food and Drug not been cleared or approved by the U.S. Food and Drug Administration. This assay has been validated pursuant Administration. This assay has been validated pursuant to the CLIA regulations and is used for clinical to the CLIA regulations and is used for clinical purposes. purposes. Test Performed by [facility], Test Performed by [facility], [employer] [facility], [employer], [address] [place] [address] [place] [address] Pb Gilmore M.D., Ph.D., Director of Laboratories Pb Gilmore M.D., Ph.D., Director of Laboratories , CLIA [id number] , CLIA [id number] TEST PERFORMED AT: TEST PERFORMED AT: , , Ordering Provider: MARCO ANTONIO LARKIN Report Released Date/Time: Dec 18, 2023 05:49 PM Reporting Lab: [facility]N [facility]UN[facility] [address] [address] Performing Lab: [facility] [address] [address] ALDOSTERONE UPRIGHT,LC/MS/MS 142 ng/dL Feb 13, 2024 09:45 AM [facility] RENIN ACTIVITY (PLASMA) PLASMA Specimen Type: PLASMA Comment: This test was developed and its analytical performance characteristics have been determined by [employer] [place], [place]. It has not been cleared or approved by the U.S. Food and Drug Administration. This assay has been validated pursuant to the CLIA regulations and is used for clinical purposes. Test Performed by [facility], [employer] [place], [address] [place] [address] Pb Gilmore M.D., Ph.D., Director of Laboratories , CLIA [id number] TEST PERFORMED AT: , Ordering Provider: MARCO ANTONIO LARKIN Report Released Date/Time: Dec 18, 2023 05:49 PM Reporting Lab: [facility] TechnologiesN [facility]USEBRUNSWICK [facility] [address] [address] Performing Lab: [facility] [address] [address] RENIN ACTIVITY (PLASMA) 0.50 0.25-5.8 2 Feb 13, 2024 09:45 AM [facility] CALCIUM SERUM Specimen Type: SERUM No comment entered. Ordering Provider: MARCO ANTONIO LARKIN Report Released Date/Time: Dec 18, 2023 05:49 PM Reporting Lab: [facility] [address] [address] Performing Lab: [address] [address] CALCIUM 8.5 mg/dL 8.5-10.2 Feb 13, 2024 09:45 AM [facility] BASIC METABOLIC PANEL (non-fasting) SERUM Spe cimen Type: SERUM No comment entered. Ordering Provider: MARCO ANTONIO LARKIN Report Released Date/Time: Dec 18, 2023 05:49 PM Reporting Lab: [address] [address] Performing Lab: [address] [address] UREA NITROGEN 18 mg/dL 7-25 GLUCOSE 90 mg/dL 65-100 SODIUM 142 mmol/L 135-145 POTASSIUM 4.4 mmol/L 3.5-5.0 CHLORIDE 110 mmol/L 100-110 CO2 25 meq/L 20-30 CREATININE, Serum 1.33 mg/dL 0.50-1.40 eGFR(CKD-EPI 2020) 55 mL/min L >60 Feb 13, 2024 09:44 AM [facility] HEMOGLOBIN A1C PANEL BLOOD Specimen Type: BLO OD Comment: Values obtained from A1C measurements can vary. For atypical A1C assays, a reported value of 7.0 could actually be between 6.72 and 7.28 if measured by a reference method. A reported value of 9.0 could actually be between 8.73 and 9.27. Ref: http://www.ngsp.org/CAPdata.asp Ordering Provider: LALA DUNBAR Report Released Date/Time: Feb 08, 2024 02:19 PM Reporting Lab: [address] [address] Performing Lab: [address] [address] HEMOGLOBIN A1C 5.2 4.0-5.6 Feb 13, 2024 09:44 AM [facility] LIPID PANEL FASTING SERUM Specimen Type: SERU M No comment entered. Ordering Provider: LALA DUNBAR Report Released Date/Time: Feb 08, 2024 02:19 PM Reporting Lab: [address] [address] Performing Lab: [address] [address] CHOLESTEROL 126 mg/dL TRIGLYCERIDE 73 mg/dL 0-150 LDL calculated 55 mg/dL 0-129 CHOL/HDL 2.3 HDL CHOLESTEROL 56 mg/dL 40-60 Feb 13, 2024 09:44 AM [facility] LIVER FUNCTION SERUM Specimen Type: SERUM No comment entered. Ordering Provider: LALA DUNBAR Report Released Date/Time: Feb 08, 2024 02:19 PM Reporting Lab: [address] [address] Performing Lab: [address] [address] PROTEIN,TOTAL 6.0 g/dL 6.0-8.3 ALBUMIN 3.9 g/dL 3.5-5.0 ALKALINE PHOSPHATASE 64 U/L 40-150 AST 13 U/L 5-34 ALT 13 U/L BILIRUBIN, TOTAL 1.0 mg/dL 0.2-1.2 Feb 13, 2024 09:44 AM [facility] BASIC METABOLIC PANEL (fasting) SERUM Specime n Type: SERUM No comment entered. Ordering Provider: LALA DUNBAR Report Released Date/Time: Feb 08, 2024 02:19 PM Reporting Lab: [address] [address] Performing Lab: [address] [address] UREA NITROGEN 18 mg/dL 7-25 GLUCOSE 91 mg/dL 65-100 SODIUM 143 mmol/L 135-145 POTASSIUM 4.1 mmol/L 3.5-5.0 CHLORIDE 110 mmol/L 100-110 CO2 25 meq/L 20-30 CREATININE, Serum 1.30 mg/dL 0.50-1.40 eGFR(CKD-EPI 2020) 57 mL/min L >60 Feb 13, 2024 09:44 AM [facility] TSH SERUM Specimen Type: SERUM No comment entered. Ordering Provider: LALA DUNBAR Report Released Date/Time: Feb 08, 2024 02:19 PM Reporting Lab: [facility] [address] [address] Performing Lab: [address] [address] TSH 1.40 u[IU]/mL 0.35-5.00 Feb 13, 2024 09:44 AM [facility] CBC AND DIFF (AUTO) BLOOD Specimen Type: BLOO D No comment entered. Ordering Provider: LALA DUNBAR Report Released Date/Time: Feb 08, 2024 02:19 PM Reporting Lab: [facility] [address] [address] Performing Lab: [address] [address] WBC 6.59 10*3/uL 4.50-11.00 RBC 5.11 10*6/uL 4.23-5.66 HGB 15.4 g/dL 12.8-17 HCT 44.5 39.2-50.4 MCV 87.1 fL 82-99 MCHC 34.6 g/dL 30.8-35.1 PLT 216 10*3/uL 140-360 RDW-CV 12.9 12.0-16.0 MONO, ABS 0.39 10*3/uL 0.30-1.10 MCH 30.1 pg 26.2-32.6 NEUT % 60.4 43.7-75.8 LYMPH % 30.0 14.0-42.3 MONO % 5.9 5.1-13.7 EOS % 2.6 0.4-6.8 BASO % 0.8 0.1-2.0 NEUT, ABS 3.98 10*3/uL 2.20-7.60 LYMPH, ABS 1.98 10*3/uL 1.00-3.20 EOS, ABS 0.17 10*3/uL 0.03-0.44 BASO, ABS 0.05 10*3/uL 0.01-0.13 IMMATURE GRAN % 0.3 0.0-0.7 IMMATURE GRAN, ABS 0.02 10*3/uL 0.00-0.0 6 NRBC % 0.0 0.0-0.0 NRBC, ABS 0.00 10*3/uL 0.00-0.00 Vital Signs: All taken on the encounter date This section contains inpatient and outpatient Vital Signs collected on the date of the Encounter. Date/Time Temperature Pulse Blood Pressure Respiratory Rate SP02 Pain Height Weight Body Mass Index Source Mar 04, 2024 01:53 PM 98.8 68 144/[address] [facility] Social History: Smoking Status (Most current) and Tobacco Use (All prior to encounter date) This section includes the most current, and the historical, smoking and tobacco- related health factors from the CT facility where the Encounter took place. Current Smoking Status This section includes the most current smoking, or tobacco-related health factor, from the CT facility where the Encounter took place. Date/Time Current Smoking Status Comment [facility] May 09, 2023 09:00 AM VA-TOBACCO FORMER USER [facility] Tobacco Use History This section includes a history of the smoking, or tobacco-related health factors, that were collected on or before the date of the Encounter. The data comes from the CT facility where the Encounter took place. Date/Time Smoking Status/Tobac co Use Comment Facility May 09, 2023 09:00 AM VA-TOBACCO QUIT [address] [facility] Mar 30, 2022 09:45 AM VA-TOBACCO FORMER USER [facility] Mar 30, 2022 09:45 AM VA-TOBACCO QUIT [address] [facility] Mar 29, 2021 08:30 AM VA-TOBACCO FORMER USER [facility] Mar 29, 2021 08:30 AM VA-TOBACCO QUIT 15 YRS OR MORE [facility] [place] [facility] Apr 05, 2020 08:00 AM VA-TOBACCO FORMER USER CT [facility] [place] [facility] Apr 05, 2020 08:00 AM VA-TOBACCO QUIT [address] [facility] Dec 19, 2018 09:16 AM VA-TOBACCO FORMER USER CT [facility] [place] [facility] Dec 19, 2018 09:16 AM VA-TOBACCO QUIT [facility] YRS OR [facility] Jan 25, 2018 08:57 AM QUIT TOBACCO USE > [address] [facility] [place] [place] [facility] November 07, 2016 10:23 AM QUIT TOBACCO USE > [address] [facility] [place] [facility] Sep 15, 2015 09:35 AM LIFETIME NON-TOBACCO USER [facility] [place] [facility] Feb 27, 2005 03:58 PM LIFETIME NON-SMOKER [facility] October 17, 2002 08:32 AM HISTORY OF SMOKING Smoke free since 1967 (33years) [facility] Jan 30, 2002 03:15 PM QUIT TOBACCO USE > [address] [facility] Jul 25, 2001 03:17 PM HISTORY OF SMOKING [facility] Jul 25, 2001 03:17 PM NON-TOBACCO USER [facility]TR[facility] Radiology Reports: +/- 30 days of the [...] the Encounter. The data comes from all CT treatment facilities. Date/Time Radiology Report Provider Source Mar 04, 2024 02:16 PM TOE(S) 2 OR MORE V IEWS: NIGEL VIERA [id number] -[phone] M Exm Date: MAR 04, 2024@14:16 Req Phys: FOSTER,SURINDER D Pat Loc: C[facility]/NO/PODIATRY A (Req'g Loc) Img Loc: [facility]/BUILDING 1 Service: Unknown [place] [id number] (Case [id number] COMPLETE) TOE(S) 2 OR MORE VIEWS (RAD Detailed) CPT:62821 Proc Modifiers : RIGHT Reason for Study: subbed hallux. r/o fxt Clinical History: 3 weeks ago stubbed on a pallet parts remover, was deeply BnB according to his report. 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 Comparison: None. Findings: Mild soft tissue swelling is seen around the right first distal phalanx. No radiopaque foreign body or abnormal soft tissue calcifications are identified. Moderate degenerative osteoarthritic changes are present to the first MTP joint space with hypertrophic bone formation resulting. There is a nondisplaced transverse fracture through the midportion of the right first distal phalanx with some bone callus formation present dorsally consistent with subacute, healing fracture without significant fracture fragment displacement. There is no evidence of involvement of the first IP joint. No other acute bony abnormality is identified. Incidental bifid lateral first ray sesamoid. Impression: Healing transverse fracture of the right first distal phalanx, as described above. Primary Diagnostic Code: Significant Abnormality Attention Needed Primary Interpreting Staff: CANDI LEZAMA JR, Radiologist (Insole Channeler) /CANDI BENNETT JR [facility] Encounter Notes: All associated encounter notes This section contains the clinical notes associated to the Encounter. Date/Time Encounter Note(s) Provider Source Mar 04, 2024 01:59 PM PODIATRY CONSULT: LOCAL TITLE: CONSULT REPORT/PODIATRY STANDARD TITLE: PODIATRY CONSULT DATE OF NOTE: MAR 04, 2024@13:59 ENTRY DATE: MAR 04, 2024@14:01:06 AUTHOR: SURINDER MONTOYA EXP COSIGNER: URGENCY: STATUS: COMPLETED Podiatry [facility] New Consult Provider: Surinder Montoya Date: MAR 04, 2024 NIGEL VIERA [address] [place] [id number] Mar 73 MALE [phone] PATIENT PHONE - [employer] FROM Jun TO Apr Primary Care: LALA DUNBAR Consult Concern:Patient referred by primary for Nodule lesion under the fifth metatarsal left foot. Patient with second complaint of stubbed right great toe 3 weeks ago still painful. Noted significant amount of black and blue stubbed it on a pallet parts remover leg got stuck and pallet parts remover rammed into foot came over top. Patient remains tender at IP joint and MPJ but has degenerative changes on clinical exam at baseline at the MPJ. Primary gave patient topical salicylic acid gel to apply to lesion he has been using every day or every other day for several days to week. Medical problems active: Active Problem Benign essential hypertension I10. 08/08/2022 LALA DUNBAR Insomnia G47.00 08/08/2022 LALA DUNBAR Pain of right knee M25.561 08/08/2022 JAMMIE CASH Exposure to potentially hazardous s 06/29/2022 YEFRI GUERRA [facility]BI - Latent tuberculosis infectio 12/29/2020 JIMMY WILLSON Gynecomastia R69., Onset 05/16/2019 LUIS ENRIQUE ZAIDI Recent weight loss R63.4, Onset 09/24/2020 LEONARDO WALLS Osteoporosis M81.8 06/16/2019OctoberTRINIDAD Hernia of abdominal wall K45.8 12/25/2018 LUIS ENRIQUE ZAIDI Adrenal adenoma I10. 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 08/18/2011 ARLENE DELUCA Posterior Vitreous Detachment 379.2 08/26/2010 ARLENE DELUCA Osteoporosis (SNOMED CT 90259081) M 08/17/2021 MARCO ANTONIO LARKIN Low back pain (SNOMED CT 267969622) 11/07/2022 BETTINA,LALA THANG Hyperlipidemia (SNOMED CT 07983334) 02/20/2024 BETTINA,LALA THANG Benign prostatic hypertrophy (SNOME 03/30/2015 JIMMY JASON Gout (SNOMED CT 82913807) M10.9 02/20/2024 BETTINA,LALA THANG Rhinitis (SNOMED CT 56466813) J30.2 08/08/2022 BETTINA,LALA THANG Dermatitis or Eczema * (ICD-9-CM 69 07/07/2008 JIMMY JASON History of polyp of colon K63.5 04/21/2022 JAMMIE CASH Posttraumatic stress disorder (SNOM 02/20/2024 BETTINA,LALA THANG Erectile dysfunction (SNOMED CT 860 08/08/2022 BETTINA,LALA THANG Gastroesophageal reflux disease (SN 09/15/2015 JIMMY JASON Active mediciation: Active Outpatient Medications (including Supplies): Active Outpatient Medications Status 1) AMILORIDE HCL 5MG TAB TAKE TWO TABLETS BY MOUTH TWICE ACTIVE DAILY WITH FOOD 2) AMLODIPINE BESYLATE 10MG TAB TAKE ONE TABLET BY MOUTH ACTIVE ONCE DAILY FOR BLOOD PRESSURE/HEART, DO NOT TAKE WITH GRAPEFRUIT JUICE 3) ATORVASTATIN CALCIUM 20MG TAB TAKE ONE TABLET BY ACTIVE MOUTH ONCE DAILY FOR CHOLESTEROL 4) CALCIUM 500MG (CA CARB-1.25GM) TAB TAKE TWO TABLETS ACTIVE BY MOUTH ONCE DAILY 5) CAPSAICIN 0.075% CREAM APPLY A THIN FILM TOPICALLY ACTIVE TWICE DAILY FOR BACKACHE 6) CETIRIZINE HCL 10MG TAB TAKE ONE TABLET BY MOUTH ONCE ACTIVE DAILY FOR ALLERGIES FOR ALLERGIES 7) CHOLECALCIF 25MCG (D3-1,000UNIT) TAB TAKE ONE TABLET ACTIVE BY MOUTH ONCE DAILY FOR VITAMIN SUPPLEMENTATION 8) DOXAZOSIN MESYLATE 8MG TAB TAKE ONE TABLET BY MOUTH ACTIVE ONCE DAILY DIRECTED BY PRESCRIBER. NOTE TABLET STRENGTH 9) FLUTICASONE PROP 50MCG 120D NASAL INHL INSTILL 1 ACTIVE SPRAY INTO EACH NOSTRIL ONCE DAILY 10) GUAIFENESIN 200MG TAB TAKE ONE TABLET BY MOUTH TWICE ACTIVE (S) DAILY FOR COUGH 11) KETOCONAZOLE 2% CREAM APPLY A THIN LAYER TOPICALLY ACTIVE TWICE DAILY FUNGAL RASH APPLY TO AFFECTED AREAS ON CHEST FOR 4 WEEKS, THEN NEEDED 12) LOSARTAN 25MG TAB TAKE ONE TABLET BY MOUTH ONCE DAILY ACTIVE FOR BLOOD PRESSURE/HEART 13) MAGNESIUM OXIDE 400MG TAB TAKE ONE TABLET BY MOUTH ACTIVE ONCE DAILY FOR MAGNESIUM SUPPLEMENTATION 14) PANTOPRAZOLE NA 40MG EC TAB TAKE ONE TABLET BY MOUTH ACTIVE (S) EVERY MORNING 30 MINUTES BEFORE BREAKFAST 15) PREDNISONE 20MG TAB TAKE THREE TABLETS BY MOUTH ONCE ACTIVE DAILY FOR 3 DAYS, THEN TAKE TWO TABLETS ONCE DAILY FOR 3 DAYS, THEN TAKE ONE TABLET ONCE DAILY FOR 3 DAYS GOUT FLARE 16) SALICYLIC ACID 17% SOLN,TOP APPLY DIRECTED ACTIVE TOPICALLY TWICE DAILY FOR PLANTAR WARTS (APPLY TO WART ONLY) 17) SILDENAFIL CITRATE 100MG TAB TAKE ONE TABLET BY MOUTH ACTIVE ONCE DAILY FOR ERECTILE DYSFUNCTION TAKE 1 HOUR PRIOR TO SEXUAL ACTIVITY 18) TAMSULOSIN HCL 0.4MG CAP TAKE ONE CAPSULE BY MOUTH ACTIVE ONCE DAILY DIRECTED BY PROVIDER 19) TRAZODONE HCL 100MG TAB TAKE TWO TABLETS BY MOUTH AT ACTIVE (S) BEDTIME - MAY TAKE A 3RD TABLET IF NOT ASLEEP BY 2AM 20) TRIAMCINOLONE ACETONIDE 0.1% CREAM APPLY A THIN LAYER ACTIVE TOPICALLY TWICE DAILY NEEDED FOR ITCHING -MAX 14 DAYS PER MONTH Active Non-VA Medications Status 1) Non-VA ASPIRIN 81MG EC TAB 81MG BY MOUTH EVERY DAY ACTIVE 2) Non-VA FLAXSEED MISCELLANEOUS EVERY DAY ACTIVE 3) Non-VA FLUTICASONE NASAL SOLN,NASAL INTO EACH ACTIVE NOSTRIL 4) Non-VA GARLIC CAP,ORAL BY MOUTH EVERY DAY ACTIVE 5) Non-VA MULTIVITAMIN W/MINERAL TAB BY MOUTH ACTIVE 25 Total Medications Allergies: Data on this list may not be complete. Please check [facility]. FACILITY ALLERGY/ADR -------- [facility] ALENDRONATE [facility] CETIR[facility] CHLORTHALIDONE [facility] COLCHICINE [facility] CONTRAST MEDIA [facility] CYCLOB[facility]ZAPRINE [facility] EPLERENONE [facility] FLUNISOL[facility] L[facility]INOPRIL [facility] OMEPRAZO[facility] PRAVASTATIN [facility] SPIRONOLACTONE [facility] ZOLEDRONIC [facility] Lab data: CBC TREND Collection DT Spec WBC RBC HGB HCT MCV MCH PLT 02/13/2024 09:44 BLOOD 6.59 5.11 15.4 44.5 87.1 30.1 216 05/09/2023 10:03 BLOOD 7.52 5.58 16.4 48.6 87.1 29.4 227 07/10/2022 12:10 BLOOD 9.11 5.36 15.5 46.3 86.4 28.9 254 04/19/2022 10:20 BLOOD 7.01 5.22 15.3 45.7 87.5 29.3 217 12/20/2021 09:16 BLOOD 7.70 5.02 15.3 45.2 90.0 30.5 198 -- -- PT INR TREND Collection DT Spec INR PT 05/29/2009 10:23 PLASM 1.3 14.7 H 04/11/2002 12:28 PLASM 1.2 12.4 -- Imaging Reports: === Include data from 03/05/2023 to 03/04/2024 03/04/2024 14:01 CONFIDENTIAL IMAGING REPORTS SUMMARY pg. 1 AYLINNIGEL J [id number] : 1950 II - Imaging Impression (max 1 occurrence) Date Procedure CPT Status Case # 01/07/2024 ULTRASOUND EXTREMITY, [id number] Verified 39 NONVASCULAR (COMPLETE) No foreign body identified, as described above. === REVIEW OF SYSTEMS: Except for above chief complaint unremarkable CONSTITUTIONAL: No fever/chills, unintended wgt loss. SKIN: No rashes, pruritis, new/changed skin lesions. ENDOCRINE: No excess thirst, heat/cold intolerance ALLERGY/IMMUNE: No recurrent infections. HEMATOL/LYMPH: No hx of abnl bleeding/bruising, no night sweats. EYES: No change in vision, no eye pain. ENMT: no tinnitus and hearing loss, has had audiology exam. No nasal yuliana/rhinorrhea, sore throat/gums/mouth, difficulty swallowing. CARDIOVASCULAR: No chest pain, palpitations, no orthopnea/pnd. RESPIRATORY: No dyspnea at rest or with exertion. No cough, wheezing GI: No n/v, abd pain, change in bowel habits, blood in stool, melena. : No dysuria, hematuria, frequency. No difficulty starting the stream, hesitancy, nocturia. No difficulty achieving or maintaining erection. MSC-SKEL: No arthralgias, myalgias. NEURO: No vertigo, espinosa, numbness/weakness, unstable balance or falls. PSYCHIATRIC: no depressed mood, racing thought, anxiety, or difficulty sleeping Vital signs: Date Vital Measurement Qualifiers 03/04/2024 13:53 Temp F (C) 98.8 (37.1) Pulse 68 Respir 18 BP 144/64 POx (L/Min)(%) 94 At Rest LE Exam: Palpable pulses warm pink skin no edema bilateral Area of concern under fifth metatarsal MPJ left foot under magnification shows erosion of skin with early breakdown, skin lines not interrupted, no capitalization, no pinpoint bleeding. Area is somewhat tender but no clinical sign of infection structural exam reveals mild pes planus Right foot with palpable enlargement without edema of the first MPJ characteristic of degenerative arthritis. No erythema or ecchymosis. But swelling at the IP joint dorsally and pain with palpation. Structural deformity of hallux valgus also present. X-rays taken: X-rays show nondisplaced fracture of the proximal phalanx healing. Impression: -Because of implementation of salicylic acid area of concern is distorted but there at present is no clinical sign of a wart there. The skin is irritated and breaking down and salicylic acid should be discontinued. It may be that because of patient's foot type he is developing callus and metatarsalgia rather than a wart in this area and at least at present this is what things look like. At one time he was getting arch supports but has not had them in many years may benefit from a gel insert with gentle support for cushioning and arch support. X-rays of right great toe show degenerative changes and nondisplaced fracture of right great toe proximal phalanx. Plan: -Discontinue salicylic acid -Start applying Band-Aids over area until healed -Fit and dispensed size 9 gel inserts/patient felt improved comfort over what he had in his shoes -With regard to right great toe...... no heavy pushing or pulling lifting. Stiff soled shoes boots. Should go on to heal without consequence Follow-up: Offered follow-up into my admin time in 2 to 3 weeks but patient states he is traveling and will be in [place] and then going south. Feels okay to come back in July. Will call sooner if any issues. /sharla/ SURINDER MONTOYA DPM PODIATRY ATTENDING Signed: 03/04/2024 14:42 SURINDER MONTOYA [facility]
--- OUTSIDE RECORDS SUMMARY | 2024-10-04 07:52 | XMS_ITS | Encounter Summary ---
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 Date/Time Encounter Type Encounter Description Reason Provider Source Sep 08, 2024 08:30 AM COMPRE OPH EXAM EST PT 1/> OPTOMETRY ICD-10-CM 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, bilateral ELENA DELUCA Lien Encounter Template Text not used by [place] Assessments - Encounter Diagnoses This section includes the primary and secondary diagnoses documented for the Encounter. Date/Time Primary/Secondary Diagnosis Diagnosis Name Provider Source Sep 08, 2024 08:46 AM PRIMARY Focal chorioretin inflammation of posterior pole, bilateral ELENA DELUCA [place] [facility] [place] [facility] Sep 08, 2024 08:46 AM SECONDARY Presence of intraocular lens ELENA DELUCA [facility] [place] [facility] Sep 08, 2024 08:46 AM SECONDARY Puckering of macula, bilateral ELENA DELUCA [facility] [place] [facility] Sep 08, 2024 08:46 AM SECONDARY Unspecified disorder of refraction ELENA DELUCA [facility] [place] [facility] Plan of Treatment: Future Appointments (+ 6 months) and Future Tests (+/- 45 days) The Plan of Treatment section includes future care activities for the patient from all [place] treatmentfacilities. This section includes future appointments and future orders which are active, pending or scheduled. Future Appointments This section includes appointments that were scheduled to occur 6 months from the date of the Encounter, up to a maximum of 20 appointments. The data comes from all [place] treatment facilities. Appointment Date/Time Appointment Type Appointme nt Facility Name Sep 12, 2024 09:30 AM AMBULATORY - PSYCHIATRY [facility] [place] [facility] Sep 16, 2024 02:15 PM AMBULATORY - MEDICINE [facility] [place] [facility] Sep 16, 2024 02:45 PM AMBULATORY - MEDICINE [facility] [place] [facility] Sep 24, 2024 11:00 AM AMBULATORY - MEDICINE [facility] [place] [facility] Oct 07, 2024 09:30 AM AMBULATORY - PS[facility]IATRY [facility] [place] [facility] October 30, 2024 01:00 PM AMBULATORY - MEDICINE [facility] [place] [facility] November 06, 2024 09:45 AM AMBULATORY - NONE [facility] [place] [facility] Dec 02, 2024 09:30 AM AMBULATORY - NONE [facility] [place] [facility] Dec 03, 2024 10:00 AM AMBULATORY - MEDICINE [facility] [place] [facility] Jan 20, 2025 09:30 AM AMBULATORY - MEDICINE [facility] [place] [facility] Jan 21, 2025 09:30 AM [facility] Active, Pending, and Scheduled Orders This section includes a listing of several types of active, pending, and scheduled orders, including clinic medications orders, diagnostic test orders, procedure orders and consult orders; where the start date of the order is 45 days before the date of the Encounter or 45 days after the date of theEncounter. The data comes from all [place] treatment facilities. Test Date/Time Test Type Test Details Facility Name Aug 12, 2024 11:50 AM Consult Order [facility] Cons Sterilization Specialist's Choice [facility] Lab Results: +/- 30 days of the encounter This section includes the Chemistry and Hematology Lab Results on record with [place] for the patient. Radiology Reports and Pathology Reports are provided separately, in subsequent sections. Lab Results This section contains the Chemistry/Hematology Results that were resulted 30 days before or 30 daysafter the date of the Encounter. Date/Time Source Result Type Result - Unit Interpretation Reference Range Specimen Type Comment Sep 12, 2024 07:31 AM [facility] CALCIUM SERUM Specimen Type: SERUM No comment entered. Ordering Provider: MARCO ANTONIO LARKIN Report Released Date/Time: Sep 09, 2024 01:54 PM Reporting Lab: [facility] [address] Performing Lab: [facility] [address] CALCIUM 8.6 mg/dL 8.5-10.2 Sep 12, 2024 07:31 AM [facility] VITAMIN D (25-OH) SERUM Specimen Type: SERUM No comment entered. Ordering Provider: MARCO ANTONIO LARKIN Report Released Date/Time: Sep 09, 2024 01:54 PM Reporting Lab: [address] [address] Performing Lab: [facility] [address] [facility] [address] VITAMIN D (25-OH) 72 ng/mL H 20-50 Sep 12, 2024 07:31 AM [facility] BASIC METABOLIC PANEL (non-fasting) SERUM Spe cimen Type: SERUM No comment entered. Ordering Provider: MARCO ANTONIO LARKIN Report Released Date/Time: Sep 09, 2024 01:54 PM Reporting Lab: [facility] [address] [facility] [address] Performing Lab: [address] [address] UREA NITROGEN 11 mg/dL 7-25 GLUCOSE 90 mg/dL 65-100 SODIUM 140 mmol/L 135-145 POTASSIUM 4.0 mmol/L 3.5-5.0 CHLORIDE 106 mmol/L 100-110 CO2 23 meq/L 20-30 CALCIUM 8.6 mg/dL 8.5-10.2 CREATININE, Serum 0.98 mg/dL 0.50-1.40 eGFR(CKD-EPI 2020) 79 mL/min >60 Social History: Smoking Status (Most current) and Tobacco Use (All prior to encounter date) This section includes the most current, and the historical, smoking and tobacco- related health factors from the [place] facility where the Encounter took place. Current Smoking Status This section includes the most current smoking, or tobacco-related health factor, from the [place] facility where the Encounter took place. Date/Time Current Smoking Status Comment Keith garcia May 27, 2024 11:00 AM VA-TOBACCO USE FOR COLLIN CIGARETTES [facility] Tobacco Use History This section includes a history of the smoking, or tobacco-related health factors, that were collected on or before the date of the Encounter. The data comes from the [place] facility where the Encounter took place. Date/Time Smoking Status/Tobac co Use Comment Facility May 27, 2024 11:00 AM VA-TOBACCO USE FORMER CIGARETTES [facility] May 09, 2023 09:00 AM VA-TOBACCO FORMER USER [facility] May 09, 2023 09:00 AM VA-TOBACCO QUIT 15 YRS OR MORE [facility] Mar 30, 2022 09:45 AM VA-TOBACCO FORMER USER [facility] [place] [facility] Mar 30, 2022 09:45 AM VA-TOBACCO QUIT 15 YRS OR MORE [facility] [place] [facility] Mar 29, 2021 08:30 AM VA-TOBACCO FORMER USER [facility] [place] [facility] Mar 29, 2021 08:30 AM VA-TOBACCO QUIT 15 YRS OR MORE [facility] [place] [facility] Apr 05, 2020 08:00 AM VA-TOBACCO FORMER USER [facility] [place] [facility] Apr 05, 2020 08:00 AM VA-TOBACCO QUIT 15 YRS OR MORE [facility] [place] [facility] Dec 19, 2018 09:16 AM VA-TOBACCO FORMER USER [facility] [place] [facility] Dec 19, 2018 09:16 AM VA-TOBACCO QUIT 15 YRS OR MORE [facility] [place] [facility] Jan 25, 2018 08:57 AM QUIT TOBACCO USE > 7 YEARS AGO [facility] [place] [facility] November 07, 2016 10:23 AM QUIT TOBACCO USE > 7 YEARS AGO [facility] [place] [facility] Sep 15, 2015 09:35 AM LIFETIME NON-TOBACCO USER [facility] [place] [facility] Feb 27, 2005 03:58 PM LIFETIME NON-SMOKER [facility] [place] [facility] October 17, 2002 08:32 AM HISTORY OF SMOKING Smoke free since 1967 (35years) [facility] [place] [facility] Jan 30, 2002 03:15 PM QUIT TOBACCO USE > 7 YEARS AGO [facility] [place] [facility] Jul 25, 2001 03:17 PM HISTORY OF SMOKING [facility] [place] [facility] Jul 25, 2001 03:17 PM NON-TOBACCO USER [facility] [place] [facility] Encounter Notes: All associated encounter notes This section contains the clinical notes associated to the Encounter. Date/Time Encounter Note(s) Provider Source Sep 08, 2024 11:26 AM ADDENDUM: LOCAL TITLE: Addendum STANDARD TITLE: ADDENDUM DATE OF NOTE: SEP 08, 2024@11:26:39 ENTRY DATE: SEP 08, 2024@11:26:40 AUTHOR: ARLENE DELUCA EXP COSIGNER: URGENCY: STATUS: COMPLETED Please order the following: RX INFORMATION OD +2.25 -2.00 X106 Add:+2.50 Pzm:0.00 Dir: Prz2:0.00 Dir2: OS +1.00 -3.00 X60 Add:+2.50 Pzm:0.00 Dir: Prz2:0.00 Dir2: FITTING INFORMATION FPD:66 NPD:63 Dolores:R: L: SEG HT:R:14 L:14 Tint:None Shade:None [facility] Billable Items FRAME: MINOR ZEE 60-20-524 Right Lens: PLASTIC BIFOCAL FT28 PHOTOCHROMIC AVILES 1.498 PLASTIC CR39 Left Lens: PLASTIC BIFOCAL FT28 PHOTOCHROMIC AVILES 1.498 PLASTIC CR39 /es/ ARLENE DELUCA OD STAFF BULK RECEIVER Signed: 09/08/2024 11:27 Receipt Acknowledged By: 09/08/2024 14:00 /sharla/ Susana Valdivia [facility] Pipe Layer Helper --- Original Document --- 09/08/24 OPTOMETRY NOTE(T): Active Problems: Active Problem Benign essential hypertension I10. 08/08/2022 LALA DUNBAR Insomnia G47.00 08/08/2022 LALA DUNBAR Pain of right knee M25.561 08/08/2022 JAMMIE CASH Exposure to potentially hazardous s 06/29/2022 YEFRI GUERRA LTBI - Latent tuberculosis infectio 12/29/2020 JIMMY WILLSON Gynecomastia R69., Onset 05/16/2019 LUIS ENRIQUE ZAIDI Recent weight loss R63.4, Onset 09/24/2020 LEONARDO WALLS Osteoporosis M81.8 06/16/2019 MAYTRINIDAD Hernia of abdominal wall K45.8 12/25/2018 LUIS ENRIQUE ZAIDI Adrenal adenoma I10. 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.3 08/18/2011 ARLENE DELUCA Posterior Vitreous Detachment 379.2 08/26/2010 ARLENE DELUCA Osteoporosis (SNOMED CT 78572274) M 08/17/2021 MARCO ANTONIO LARKIN Low back pain (SNOMED CT 333245741) 11/07/2022 BETTINA,LALA THANG Hyperlipidemia (SNOMED CT 28724558) 02/20/2024 BETTINA,LALA THANG Benign prostatic hypertrophy (SNOME 03/30/2015 JIMMY JASON Gout (SNOMED CT 43056302) M10.9 02/20/2024 BETTINA,LALA THANG Rhinitis (SNOMED CT 93201118) J30.2 08/08/2022 BETTINA,LALA THANG Dermatitis or Eczema * (ICD-9-CM 69 07/07/2008 JIMMY JASON History of polyp of colon K63.5 04/21/2022 JAMMIE CASH Posttraumatic stress disorder (SNOM 02/20/2024 BETTINA,LALA THANG Erectile dysfunction (SNOMED CT 860 08/08/2022 BETTINA,LALA THANG Gastroesophageal reflux disease (SN 09/15/2015 JIMMY JASON Medications ([facility]): Active Outpatient Medications (including Supplies): Active Outpatient [...] FOR EXCESSIVE PRODUCTION OF STOMACH ACID 10) PREDNISONE 20MG TAB TAKE THREE TABLETS BY MOUTH ONCE DAILY ACTIVE FOR 3 DAYS, THEN TAKE TWO TABLETS ONCE DAILY FOR 3 DAYS, THEN TAKE ONE TABLET ONCE DAILY FOR 3 DAYS FOR Indication: GOUT FLARE 11) SILDENAFIL CITRATE 100MG TAB TAKE ONE TABLET BY MOUTH ONCE ACTIVE DAILY TAKE 1 HOUR PRIOR TO SEXUAL ACTIVITY Indication: FOR ERECTILE DYSFUNCTION 12) SODIUM FLUORIDE 1.1% TOOTHPASTE BRUSH SMALL AMOUNT TO TEETH ACTIVE TWICE DAILY Indication: FOR TOOTH DECAY PREVENTION 13) TAMSULOSIN HCL 0.4MG CAP TAKE ONE CAPSULE BY MOUTH ONCE ACTIVE DAILY DIRECTED BY PROVIDER 14) TRAMADOL HCL 50MG TAB TAKE ONE TABLET BY MOUTH AT BEDTIME ACTIVE NEEDED Indication: FOR PAIN 15) TRAZODONE HCL 100MG TAB TAKE TWO TABLETS BY MOUTH AT BEDTIME ACTIVE - MAY TAKE A 3RD TABLET IF NOT ASLEEP BY 2AM Indication: FOR INSOMNIA ASSOCIATED WITH DEPRESSION Active Non-VA Medications Status 1) Non-VA ASPIRIN 81MG EC TAB 81MG BY MOUTH EVERY DAY ACTIVE 2) Non-VA FLAXSEED MISCELLANEOUS EVERY DAY ACTIVE 3) Non-VA GARLIC CAP,ORAL BY MOUTH EVERY DAY ACTIVE 4) Non-VA MULTIVITAMIN W/MINERAL TAB BY MOUTH ACTIVE 19 Total Medications Allergies: OMEPRAZOLE, FLUNISOLIDE, ZOLEDRONIC, PRAVASTATIN, ALENDRONATE, CHLORTHALIDONE CONTRAST MEDIA, SPIRONOLACTONE, EPLERENONE, CETIRIZINE, LISINOPRIL CYCLOBENZAPRINE S: 74-year-old male is in for annual follow-up with a history of toxoplasmosis scarring OU and trace epiretinal membrane OU and posterior chamber lenses.OS is slightly weaker than OD over the past few years. He wears bifocals for driving and reading and denies any eye injury or disease since his last exam. He also notices floaters OU. CANDIDA 09/07/2023 (-) Pain: (-) IRVIN: (-) Diplopia: (-) Flashes: (-) Floaters: (-) Amaurosis Fugax/Tia's: (-) Eye Injury: (-) Eye Surgery: CE with PCIOL OU and YAG CAP OS (-) TBI O: Visual acuity with current correction was 20/25+ OD and 20/20 OS. Pupils were equal and round and reactive to light with no afferent defect. Extraocular muscles were intact and facial confrontation richardson were full. Dermatochalasis was seen OU with lid edema and eyelid bags OD greater than OS. Also OD lower lid punctum is stenosed. Corneas and conjunctiva were clear both eyes. Anterior chambers were deep clear and quiet with open angles. Iris was flat both eyes. Posterior chamber lenses were in place with peripheral posterior capsular opacity not in his line of sight OS. Current Rx with last BCVA: OD: +1.50-1.78a192 20/20 OS: +0.75-3.15p730 20/20- Add: +2.25 20/25 Refraction OD: + 2.25-2.00 X1 106 20/25+ OS: + 1.00-3.00 x 60 20/20 Add: +2.25 20/20 Intraocular pressures at 8:20 AM were 16 mmHg OU. Dilating Drops: 1GTT 1 % Tropicamide OU & 1GTT 2.5% Phenylephrine OU (Pt. ed. on side effects, dilation warning given and verbal consent obtained) Patient advised not to drive if they feel they have any symptoms which could affect their ability to drive safely. Patient advised not to engage in any activities which could put themselves or others at risk if they feel they have any symptoms which could affect their ability to perform those activities safely. Vitreous syneresis was floaters OS greater than OD was seen. Approximately 35% horizontal and vertical cupping was seen OU with healthy rims and margins. Normal pigmentary architecture of the macula was seen with a two third artery to vein ratio. Couple chorioretinal scars were seen at the posterior pole OU away from the macula. Trace ERM was seen OU. Retinal peripheries were intact in all quadrants OU. A: Toxoplasmosis chorioretinitis stable and inactive OU. Trace epiretinal membrane OU. Pseudophakia OU. Refraction disorder. P: Ordered bifocals at the patient's request with photo marino extra (secondary to glare sensitivity.) The patient will return in 12 months or sooner if any problems arise. Education: After discussion and answering all 's questions, demonstrated and verbalized understanding of diagnosis and treatment. Yes [x] No [ ] Medication Reconciliation: Outpatient: Has the patient been taking medications as documented in the EMLR? YES: The patient has been taking medications as documented in the EMLR. Essential Medication List for Review used to complete this medication reconciliation. INCLUDED IN THIS LIST: Alphabetical list of active outpatient prescriptions dispensed from this [facility] (local) and dispensed from another VA or DoD facility (remote) as well as inpatient orders [...] whether with a VA or non-VA provider. /sharla/ ARLENE DELUCA OD STAFF BULK RECEIVER Signed: 09/08/2024 08:46 ARLENE DELUCA [place] [facility] [place] [facility] Sep 08, 2024 08:10 AM OPTOMETRY NOTE: LOCAL TITLE: OPTOMETRY NOTE(T) STANDARD TITLE: OPTOMETRY NOTE DATE OF NOTE: SEP 08, 2024@08:10 ENTRY DATE: SEP 08, 2024@08:10:27 AUTHOR: ARLENE DELUCA EXP COSIGNER: URGENCY: STATUS: COMPLETED OPTOMETRY NOTE(T) Has ADDENDA Active Problems: Active Problem Benign essential hypertension I10. 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 08/18/2011 ARLENE DELUCA Posterior Vitreous Detachment 379.2 08/26/2010 ARLENE DELUCA Osteoporosis (SNOMED CT 88544954) M 08/17/2021 MARCO ANTONIO LARKIN Low back pain (SNOMED CT 446031505) 11/07/2022 BETTINA,LALA THANG Hyperlipidemia (SNOMED CT 66523909) 02/20/2024 BETTINA,LALA THANG Benign prostatic hypertrophy (SNOME 03/30/2015 JIMMY JASON Gout (SNOMED CT 32503234) M10.9 02/20/2024 BETTINA,LALA THANG Rhinitis (SNOMED CT 56767724) J30.2 08/08/2022 BETTINA,LALA THANG Dermatitis or Eczema * (ICD-9-CM 69 07/07/2008 JIMMY JASON History of polyp of colon K63.5 04/21/2022 JAMMIE CASH Posttraumatic stress disorder (SNOM 02/20/2024 LALA DUNBAR Erectile dysfunction (SNOMED CT 860 08/08/2022 LALA DUNBAR Gastroesophageal reflux disease (SN 09/15/2015 JIMMY JASON Medications ([facility]): Active Outpatient Medications (including Supplies): Active Outpatient [...] FOR EXCESSIVE PRODUCTION OF STOMACH ACID 10) PREDNISONE 20MG TAB TAKE THREE TABLETS BY MOUTH ONCE DAILY ACTIVE FOR 3 DAYS, THEN TAKE TWO TABLETS ONCE DAILY FOR 3 DAYS, THEN TAKE ONE TABLET ONCE DAILY FOR 3 DAYS FOR Indication: GOUT FLARE 11) SILDENAFIL CITRATE 100MG TAB TAKE ONE TABLET BY MOUTH ONCE ACTIVE DAILY TAKE 1 HOUR PRIOR TO SEXUAL ACTIVITY Indication: FOR ERECTILE DYSFUNCTION 12) SODIUM FLUORIDE 1.1% TOOTHPASTE BRUSH SMALL AMOUNT TO TEETH ACTIVE TWICE DAILY Indication: FOR TOOTH DECAY PREVENTION 13) TAMSULOSIN HCL 0.4MG CAP TAKE ONE CAPSULE BY MOUTH ONCE ACTIVE DAILY DIRECTED BY PROVIDER 14) TRAMADOL HCL 50MG TAB TAKE ONE TABLET BY MOUTH AT BEDTIME ACTIVE NEEDED Indication: FOR PAIN 15) TRAZODONE HCL 100MG TAB TAKE TWO TABLETS BY MOUTH AT BEDTIME ACTIVE - MAY TAKE A 3RD TABLET IF NOT ASLEEP BY 2AM Indication: FOR INSOMNIA ASSOCIATED WITH DEPRESSION Active Non-VA Medications Status 1) Non-VA ASPIRIN 81MG EC TAB 81MG BY MOUTH EVERY DAY ACTIVE 2) Non-VA FLAXSEED MISCELLANEOUS EVERY DAY ACTIVE 3) Non-VA GARLIC CAP,ORAL BY MOUTH EVERY DAY ACTIVE 4) Non-VA MULTIVITAMIN W/MINERAL TAB BY MOUTH ACTIVE 19 Total Medications Allergies: OMEPRAZOLE, FLUNISOLIDE, ZOLEDRONIC, PRAVASTATIN, ALENDRONATE, CHLORTHALIDONE CONTRAST MEDIA, SPIRONOLACTONE, EPLERENONE, CETIRIZINE, LISINOPRIL CYCLOBENZAPRINE S: 74-year-old male is in for annual follow-up with a history of toxoplasmosis scarring OU and trace epiretinal membrane OU and posterior chamber lenses.OS is slightly weaker than OD over the past few years. He wears bifocals for driving and reading and denies any eye injury or disease since his last exam. He also notices floaters OU. CANDIDA 09/07/2023 (-) Pain: (-) IRVIN: (-) Diplopia: (-) Flashes: (-) Floaters: (-) Amaurosis Fugax/Tia's: (-) Eye Injury: (-) Eye Surgery: CE with PCIOL OU and YAG CAP OS (-) TBI O: Visual acuity with current correction was 20/25+ OD and 20/20 OS. Pupils were equal and round and reactive to light with no afferent defect. Extraocular muscles were intact and facial confrontation richardson were full. Dermatochalasis was seen OU with lid edema and eyelid bags OD greater than OS. Also OD lower lid punctum is stenosed. Corneas and conjunctiva were clear both eyes. Anterior chambers were deep clear and quiet with open angles. Iris was flat both eyes. Posterior chamber lenses were in place with peripheral posterior capsular opacity not in his line of sight OS. Current Rx with last BCVA: OD: +1.50-1.61f814 20/20 OS: +0.75-3.75c021 20/20- Add: +2.25 20/25 Refraction OD: + 2.25-2.00 X1 106 20/25+ OS: + 1.00-3.00 x 60 20/20 Add: +2.25 20/20 Intraocular pressures at 8:20 AM were 16 mmHg OU. Dilating Drops: 1GTT 1 % Tropicamide OU & 1GTT 2.5% Phenylephrine OU (Pt. ed. on side effects, dilation warning given and verbal consent obtained) Patient advised not to drive if they feel they have any symptoms which could affect their ability to drive safely. Patient advised not to engage in any activities which could put themselves or others at risk if they feel they have any symptoms which could affect their ability to perform those activities safely. Vitreous syneresis was floaters OS greater than OD was seen. Approximately 35% horizontal and vertical cupping was seen OU with healthy rims and margins. Normal pigmentary architecture of the macula was seen with a two third artery to vein ratio. Couple chorioretinal scars were seen at the posterior pole OU away from the macula. Trace ERM was seen OU. Retinal peripheries were intact in all quadrants OU. A: Toxoplasmosis chorioretinitis stable and inactive OU. Trace epiretinal membrane OU. Pseudophakia OU. Refraction disorder. P: Ordered bifocals at the patient's request with photo marino extra (secondary to glare sensitivity.) The patient will return in 12 months or sooner if any problems arise. Education: After discussion and answering all 's questions, demonstrated and verbalized understanding of diagnosis and treatment. Yes [x] No [ ] Medication Reconciliation: Outpatient: Has the patient been taking medications as documented in the EMLR? YES: The patient has been taking medications as documented in the EMLR. Essential Medication List for Review used to complete this medication reconciliation. INCLUDED IN THIS LIST: Alphabetical list of active outpatient prescriptions dispensed from this [facility] (local) and dispensed from another VA or [facility]D facility (remote) as well as inpatient orders [...] whether with a VA or non-VA provider. /sharla/ ARLENE DELUCA OD STAFF BULK RECEIVER Signed: 09/08/2024 08:46 09/08/2024 ADDENDUM STATUS: COMPLETED Please order the following: RX INFORMATION OD +2.25 -2.00 X106 Add:+2.50 Pzm:0.00 Dir: Prz2:0.00 Dir2: OS +1.00 -3.00 X60 Add:+2.50 Pzm:0.00 Dir: Prz2:0.00 Dir2: FITTING INFORMATION FPD:66 NPD:63 Dolores:R: L: SEG HT:R:14 L:14 Tint:None Shade:None VA Billable Items FRAME: MINOR ZEE 54-20-140 Right Lens: PLASTIC BIFOCAL FT28 PHOTOCHROMIC AVILES 1.498 PLASTIC CR39 Left Lens: PLASTIC BIFOCAL FT28 PHOTOCHROMIC AVILES 1.498 PLASTIC CR39 /sharla/ ARLENE DELUCA OD STAFF BULK RECEIVER Signed: 09/08/2024 11:27 Receipt Acknowledged By: 09/08/2024 14:00 /celia Valdivia [facility] Pipe Layer Helper 09/08/2024 ADDENDUM STATUS: COMPLETED [facility] Pipe Layer Helper ordered patient 1 pair(s) of ft28 eyeglasses on 09/08/24 as directed by provider. OPT HT entered consult(s) for order on behalf of provider. /celia Valdivia [facility] Pipe Layer Helper Signed: 09/08/2024 14:02 ARLENE DELUCA [facility]
--- OUTSIDE RECORDS SUMMARY | 2024-10-04 07:52 | XMS_ITS ---
Author Name [facility] Organization [facility] [place] Address [address] [place] [id number] Care Team Providers Care Senior Financial Reporting Accountant Name Role Phone LALA DUNBAR Primary Care [...] PART A Mar 11, 2013 PART A [id number] [phone] FR AUGUSTO VIERA PATIENT MEDICARE (WNR) MEDICARE (M) PART A Mar 11, 2013 PART A [id number] [phone] FR AUGUSTO VIERA PATIENT MEDICARE (WNR) MEDICARE (M) PART A Mar 11, 2013 PART A [id number] [phone] FR AUGUSTO VIERA PATIENT MEDICARE (WNR) MEDICARE (M) PART A Mar 11, 2013 PART A [id number] [phone] FR AUGUSTO VIERA PATIENT Selected Encounter This section includes the information on record at [place] for the Encounter. Date/Time Encounter Type Encounter Description Reason Provider Source October 16, 2023 09:00 AM OFFICE O/P EST MOD 30 MIN DERMATOLOGY ICD-10-CM I78.1 Nevus, non-neoplasti c IZABEL ARAUZ IN IHE Encounter Template Text not used by [place] Assessments - Encounter Diagnoses This section includes the primary and secondary diagnoses documented for the Encounter. Date/Time Primary/Secondary Diagnosis Diagnosis Name Provider Source October 16, 2023 09:35 AM PRIMARY Nevus, non-neoplastic [facility] [place] [facility] October 16, 2023 09:35 AM SECONDARY Dermatitis, unspecified [facility] [place] [facility] October 16, 2023 09:35 AM SECONDARY Hemangioma of skin and subcutaneous tissue [facility] [place] [facility] October 16, 2023 09:35 AM SECONDARY Other hypertrophic disorders of the skin [facility] [place] [facility] October 16, 2023 09:35 AM SECONDARY Other melanin hyperpigmentation [facility] [place] [facility] October 16, 2023 09:35 AM SECONDARY Other seborrheic keratosis [facility] [place] [facility] Plan of Treatment: Future Appointments (+ 6 months) and Future Tests (+/- 45 days) The Plan of Treatment section includes future care activities for the [facility] This section includes future appointments and future orders which are active, pending or scheduled. Future Appointments This section includes appointments that were scheduled to occur 6 months from the date of the Encounter, up to a maximum of 20 appointments. The data comes from all [place] treatment facilities. Appointment Date/Time Appointment Type Appointme nt Facility Name October 25, 2023 10:30 AM AMBULATORY - NONE [facility] [place] [facility] October 31, 2023 09:00 AM AMBULATORY - MEDICINE [place] [facility] [place] [facility] November 01, 2023 09:30 AM AMBULATORY - MEDICINE [facility] [place] [facility] Nov 12, 2023 11:00 AM AMBULATORY - MEDICINE [place] [facility] [place] [facility] Nov 15, 2023 10:30 AM AMBULATORY - NONE [facility] [place] [facility] Dec 11, 2023 09:00 AM AMBULATORY - MEDICINE [facility] [place] [facility] Jan 01, 2024 10:00 AM AMBULATORY - MEDICINE [facility] [place] [facility] Jan 07, 2024 01:30 PM AMBULATORY - NONE [facility] [place] [facility] Feb 20, 2024 09:00 AM AMBULATORY - MEDICINE [facility] [place] [facility] Mar 04, 2024 02:00 PM AMBULATORY - MEDICINE [facility] [place] [facility] Mar 05, 2024 10:00 AM AMBULATORY - MEDICINE [facility] [place] [facility] Mar 25, 2024 02:30 PM AMBULATORY - MEDICINE [facility] [place] [facility] Mar 27, 2024 10:30 AM AMBULATORY - MEDICINE [facility] [place] [facility] Social History: Smoking Status (Most current) and Tobacco Use (All prior to encounter date) This section includes the most current, and the historical, smoking and tobacco- related health factors from the NE facility where the Encounter took place. Current Smoking Status This section includes the most current smoking, or tobacco-related health factor, from the NE facility where the Encounter took place. Date/Time Current Smoking Status Comment [facility] May 09, 2023 09:00 AM VA-TOBACCO QUIT 15 YRS OR MORE [place] [facility] [place] [facility] Tobacco Use History This section includes a history of the smoking, or tobacco-related health factors, that were collected on or before the date of the Encounter. The data comes from the NE facility where the Encounter took place. Date/Time Smoking Status/Tobac co Use Comment Facility May 09, 2023 09:00 AM VA-TOBACCO QUIT 15 YRS OR MORE [facility] [place] [facility] Mar 30, 2022 09:45 AM VA-TOBACCO FORMER USER [facility] [place] [facility] Mar 30, 2022 09:45 AM VA-TOBACCO QUIT 15 YRS OR MORE [facility] [place] [facility] Mar 29, 2021 08:30 AM VA-TOBACCO FORMER USER [facility] [place] [facility] Mar 29, 2021 08:30 AM VA-TOBACCO QUIT 15 YRS OR MORE [facility] [place] [facility] Apr 05, 2020 08:00 AM VA-TOBACCO FORMER USER [place] [facility] [place] [facility] Apr 05, 2020 08:00 AM VA-TOBACCO QUIT 15 YRS OR MORE [facility] Dec 19, 2018 09:16 AM VA-TOBACCO FORMER USER [place] [facility] [place] [facility] Dec 19, 2018 09:16 AM VA-TOBACCO QUIT 15 YRS OR MORE [facility] Jan 25, 2018 08:57 AM QUIT TOBACCO USE > 7 YEARS AGO [facility] [place] [facility] November 07, 2016 10:23 AM QUIT TOBACCO USE > 7 YEARS AGO [facility] [place] [facility] Sep 15, 2015 09:35 AM LIFETIME NON-TOBACCO USER [place] [facility] [place] [facility] Feb 27, 2005 03:58 PM LIFETIME NON-SMOKER [facility] October 17, 2002 08:32 AM HISTORY OF SMOKING Smoke free since 1967 (35years) [facility] Jan 30, 2002 03:15 PM QUIT TOBACCO USE > 7 YEARS AGO [facility] Jul 25, 2001 03:17 PM HISTORY OF SMOKING NE [facility] Jul 25, 2001 03:17 PM [facility]-TO[facility]ACCO [facility] Radiology Reports: +/- 30 days of [...] the Encounter. The data comes from all [place] treatment facilities. Date/Time Radiology Report Provider Source Nov 12, 2023 11:38 AM FOOT 3 OR MORE VIEWS(LEFT): NIGEL VIERA [id number] -1950 M Exm Date: NOV 12, 2023@11:38 Req Phys: LALA DUNBAR Loc: CWM/NO/PACT 5 (Req'g Loc) Img Loc: [facility]/BUILDING 1 Service: Unknown [facility] , (Case [id number] COMPLETE) FOOT 3 OR MORE VIEWS(LEFT) (RAD Detailed) CPT:09014 Proc Modifiers : LEFT CPT Modifiers : LT LEFT SIDE Reason for Study: right plantar foot base of pinky Clinical History: Left lateral base of toe pain with center punctum ? Foreign body denies stepping on glass although I know that is not readiopaque Report Status: Verified Date Reported: NOV 12, 2023 Date Verified: NOV 12, 2023 Ballpoint Pen Assembly Machine Operator E-Sig:/ES/CANDI LEZAMA JR Report: Study: [...] Primary Interpreting Staff: CANDI LEZAMA JR, Radiologist (Ballpoint Pen Assembly Machine Operator) /EACANDI SAUNDERS JR [facility] October 25, 2023 09:[address] NECK SOFT TISSUE W/O CONT: NIGEL VIERA [id number] -1950 M Ex Date: OCTOBER 25, 2023@09:59 Req Phys: FLACO VYAS Loc: CWM/NO/OTOLARYNGOLOGY (Req'g L Img Loc: [place] Service: Unknown [facility] , (Case [id number] COMPLETE) CT NECK SOFT TISSUE W/O CONT (CT Detailed) CPT:66762 Proc Modifiers : RIGHT Reason for Study: RIGHT NECK MASS Clinical History: RIGHT NECK MASS, STONE VS MASS Report Status: Verified Date Reported: OCTOBER 28, 2023 Date Verified: OCTOBER 28, 2023 Ballpoint Pen Assembly Machine Operator E-Sig: Report: CT NECK SOFT TISSUE W/O CONT HISTORY: 73 years-old Male with RIGHT NECK MASS. COMPARISON: None. TECHNIQUE: Noncontrast CT of the neck with multiplanar reformats was performed at the local [place] facility. 1171 images were received by the [place] National Teleradiology Program (NTP) for interpretation. Lack [...] neck unremarkable. READING PHYSICIAN: Adalid Neely M.D. -[id number] 10/28/2023 7:20 CDT [facility] National Teleradiology Program [phone] (For Medical Practitioner Use Only) Attention Patients / Veterans: If you have questions or concerns about these test results, please contact your ordering provider or primary care team. Primary Diagnostic Code: NO ALERT REQUIRED Primary Interpreting Staff: RADIOLOGY,OUTSIDE SERVICE, Staff Physician / RADIOLOGY,OUTSIDE SERVICE [facility] Encounter Notes: All associated encounter notes This section contains the clinical notes associated to the Encounter. Date/Time Encounter Note(s) Provider Source October 16, 2023 08:56 AM DERMATOLOGY OUTPATIENT NOTE: LOCAL TITLE: DERMATOLOGY CLINIC NOTE STANDARD TITLE: DERMATOLOGY OUTPATIENT NOTE DATE OF NOTE: OCTOBER 16, 2023@08:56 ENTRY DATE: OCTOBER 16, 2023@08:56:43 AUTHOR: SOLO ARAUZ EXP COSIGNER: URGENCY: STATUS: COMPLETED OCTOBER 16, 2023 NIGEL VIERA Jaycob Mar 73 PATIENT PHONE - Patient here for Annual Full Body Skin Screening Exam CHIEF COMPLAINT: Eczema, Skin Tags HPI: [place] reports to still have red itchy rash on occasion that flares on chest, upper legs, groin since [place]. Unsure if he trialed the topical ketoconazole or topical steroid prescribed from last year. denies any other new/changing/bleeding/non- healing lesions. Reviewed records from last Dermatology visit: 10/10/22 REVIEW OF SYSTEMS: Constitutional-neg Skin/Hair/Nails-see HPI DermHx: Denies h/o MM and NMSC Family Hx: Denies known fam h/o MM PastMedHx: Reviewed. History of Sun Exposure/Sunburns: Denies h/o blistering nelson Active Outpatient Medications (including Supplies): Active Outpatient Medications Status 1) AMILORIDE HCL 5MG TAB TAKE TWO TABLETS BY MOUTH TWICE ACTIVE DAILY WITH FOOD 2) ATORVASTATIN CALCIUM 20MG TAB TAKE ONE TABLET BY ACTIVE MOUTH ONCE DAILY FOR CHOLESTEROL 3) CALCIUM 500MG (CA CARB-1.25GM) TAB TAKE TWO TABLETS ACTIVE BY MOUTH ONCE DAILY 4) CAPSAICIN 0.075% CREAM APPLY A THIN FILM TOPICALLY ACTIVE TWICE DAILY FOR BACKACHE 5) CETIRIZINE HCL 10MG TAB TAKE ONE TABLET BY MOUTH ONCE ACTIVE DAILY FOR ALLERGIES FOR ALLERGIES 6) CHOLECALCIF 25MCG (D3-1,000UNIT) TAB TAKE ONE TABLET ACTIVE BY MOUTH ONCE DAILY FOR VITAMIN SUPPLEMENTATION 7) GUAIFENESIN 200MG TAB TAKE ONE TABLET BY MOUTH TWICE ACTIVE DAILY FOR COUGH 8) LOSARTAN 25MG TAB TAKE ONE TABLET BY MOUTH ONCE DAILY ACTIVE FOR BLOOD PRESSURE/HEART 9) MAGNESIUM OXIDE 400MG TAB TAKE ONE TABLET BY MOUTH ACTIVE ONCE DAILY FOR MAGNESIUM SUPPLEMENTATION 10) PANTOPRAZOLE NA 40MG EC TAB TAKE ONE TABLET BY MOUTH ACTIVE EVERY MORNING 30 MINUTES BEFORE BREAKFAST 11) SILDENAFIL CITRATE 100MG TAB TAKE ONE TABLET BY MOUTH ACTIVE ONCE DAILY FOR ERECTILE DYSFUNCTION TAKE 1 HOUR PRIOR TO SEXUAL ACTIVITY 12) TAMSULOSIN HCL 0.4MG CAP TAKE ONE CAPSULE BY MOUTH ACTIVE ONCE DAILY DIRECTED BY PROVIDER 13) TRAZODONE HCL 100MG TAB TAKE TWO TABLETS BY MOUTH AT ACTIVE BEDTIME - MAY TAKE A 3RD TABLET IF NOT ASLEEP BY 2AM Active Non-VA Medications Status 1) Non-VA ASPIRIN 81MG EC TAB 81MG BY MOUTH EVERY DAY ACTIVE 2) Non-VA FLAXSEED MISCELLANEOUS EVERY DAY ACTIVE 3) Non-VA FLUTICASONE NASAL SOLN,NASAL INTO EACH ACTIVE NOSTRIL 4) Non-VA GARLIC CAP,ORAL BY MOUTH EVERY DAY ACTIVE 5) Non-VA MULTIVITAMIN W/MINERAL TAB BY MOUTH ACTIVE 18 Total Medications PHYSICAL EXAM: Martinez Skintype II General-AxOx3, NAD, pleasant, breathing unlabored, speech clear Cutaneous examination, as permitted by the patient, including scalp, face, eyes, ears, neck, chest, back, abdomen, arms, hands, fingers, legs, feet, toes Pertinent findings per below: -Multiple scattered stuck-on appearing waxy harris and brown papules and plaques with noted milia-like cysts, comedo-like openings and fissures/ridges on dermoscopy. -Scattered uniformly pigmented light harris and brown jagged macules in sun distributed areas. -Mutiple discrete, soft, fleshy, skin-tone pedunculated papules around the neck and bilateral axillae, <5mm -Scattered fabian-red dome shaped papules on chest/back and L cheek and L upper back with ~5mm violaceous papule, all with noted red-blue homogeneous areas and lacunes on dermoscopy -Multiple scattered symmetrical evenly pigmented brown macules and papules, most under 6mm. -Upper chest scattered with faint pink maculopapular eruption Diagnosis/Plan: #Benign Appearing Nevi: -ABCDEs of melanotic lesions discussed, self examinations encouraged -No concerning lesions today on examination -A full body skin check is recommended yearly -Photoprotection discussed. #Skin Tags -The [place] was educated regarding the benign nature. #Seborrheic Keratoses: -The was educated regarding the benign nature, but to return with any growth, change or symptoms in area. #Solar Lentigines -The was educated regarding the benign nature and relation to chronic sun exposure, but to return with any growth, change or symptoms in area. -Photoprotection discussed. #Fabian Angiomas #Hemangiomas #Venous Melo -The was educated regarding the benign nature, but to return with any growth, change or symptoms in area. #Dermatitis, Unspecified -Chronic, unclear etiology. -Location: chest -DDx: tinea vs atopic dermatitis. -Keto 2% cream and TAC 0.1% cream renewed. RTC 1 yr sooner PRN * [place] educated to RTC geeta if any new, changing, non-healing, or symptomatic lesions. * Education on sun protection and avoidance strategies was provided. * Encouraged monthly skin self exams for lesions changing in size, shape, or color, or non-healing lesions * Differential diagnosis, prescription options and risks/benefits were discussed with the patient, who consented to treatment plan. * [place] consented to photography for documentation if indicated. * A dermatoscope was used during the exam. * NUB = Neoplasm of Uncertain Behavior of Skin ------TIME ESTIMATION To include but not limied to: -Review of medical records -Time spent with patient including obtaining history, physical exam, shared decision making, procedures and counseling -Post visit documentation; HPI and physical exam findings, clinical researching, medical decision making, medication and lab ordering Total estimated time = 30 min ------- Medication Reconciliation: Outpatient: Has the patient been taking medications as documented in the EMLR? YES: The patient has been taking medications as documented in the EMLR. Essential Medication List for Review used to complete this medication reconciliation. INCLUDED IN THIS LIST: Alphabetical list of active outpatient prescriptions dispensed from this [facility] (local) and dispensed from another [place] or [facility] facility (remote) as well as inpatient [...] whether with a VA or non-VA provider. JLV Link Data on this list may not be complete. Please check JLV. Allergies/ADRs (Tool #5) FACILITY ALLERGY/ADR -------- [facility] [place] [...] SPIRONOLACTONE [facility] [place] [facility] Med Recon NoGloary (Tool #1) INCLUDED IN THIS LIST: Alphabetical list of active outpatient prescriptions dispensed from this [facility] (local) and dispensed from another [place] or [facility] facility (remote) as well as inpatient orders (local pending and active), local clinic medications, locally documented non-VA medications, and local prescriptions that have or been discontinued in the past 90 days. Non-VA Meds Last Documented On: Oct 01, 2023 NOTE The display of VA prescriptions dispensed from another NE or [facility] facility (remote) is limited to active outpatient prescription entries matched to National Drug File at the originating site and may not include some items such as investigational drugs, compounds, etc. NOT INCLUDED IN THIS LIST: Medications self-entered by the patient into personal health records (i.e. [employer]) are NOT included in this list. Non-VA medications documented outside this [place], remote inpatient orders (regardless of status) and remote clinic medications are NOT included in this list. The patient and provider must always discuss medications the patient is taking, regardless of where the medication was dispensed or obtained. OUTPT AMILORIDE HCL 5MG TAB (Status = Active) TAKE TWO TABLETS BY MOUTH TWICE DAILY WITH FOOD Rx# [id number] Last Released: 07/18/23 Qty/Days Supply: 360/ Rx Expiration Date: 01/09/24 Refills Remainin OUTPT AMLODIPINE BESYLATE 10MG TAB (Status = ) TAKE ONE TABLET BY MOUTH ONCE DAILY FOR BLOOD PRESSURE/HEART, DO NOT TAKE WITH GRAPEFRUIT JUICE Rx# [id number] Last Released: 09/14/23 Qty/Days Supply: Rx Expiration Date: 09/29/23 Refills Remainin Non-VA ASPIRIN 81MG EC TAB TAKE ONE TABLET BY MOUTH DAILY Patient wants to buy from Non-VA pharmacy. Medication prescribed by Non-VA provider. OUTPT ATORVASTATIN CALCIUM 20MG TAB (Status = Discontinued) TAKE ONE TABLET BY MOUTH ONCE DAILY FOR CHOLESTEROL Rx# [id number] Last Released: 04/26/23 Qty/Days Supply: 90 Rx Expiration Date: 07/25/23 Refills Remainin OUTPT ATORVASTATIN CALCIUM 20MG TAB (Status = Active) TAKE ONE TABLET BY MOUTH ONCE DAILY FOR CHOLESTEROL Rx# [id number] Last Released: 08/14/23 Qty/Days Supply: Rx Expiration Date: 08/14/24 Refills Remainin OUTPT CALCIUM 500MG (CA CARB-1.25GM) TAB (Status = Active) TAKE TWO TABLETS BY MOUTH ONCE DAILY Rx# [id number] Last Released: 05/02/23 Qty/Days Supply: Rx Expiration Date: 01/09/24 Refills Remainin OUTPT CAPSAICIN 0.075% CREAM (Status = Discontinued) APPLY A THIN FILM TOPICALLY TWICE DAILY FOR BACKACHE Rx# [id number] Last Released: 05/09/23 Qty/Days Supply: 60 Rx Expiration Date: 05/09/24 Refills Remainin Indication: FOR BACKACHE OUTPT CAPSAICIN 0.075% CREAM (Status = Active) APPLY A THIN FILM TOPICALLY TWICE DAILY FOR BACKACHE Rx# [id number] Last Released: 08/02/23 Qty/Days Supply: Rx Expiration Date: 08/02/24 Refills Remainin Indication: FOR BACKACHE OUTPT CETIRIZINE HCL 10MG TAB (Status = Active) TAKE ONE TABLET BY MOUTH ONCE DAILY FOR ALLERGIES FOR ALLERGIES Rx# [id number] Last Released: 08/17/23 Qty/Days Supply: Rx Expiration Date: 05/09/24 Refills Remainin Indication: FOR ALLERGIES OUTPT CHOLECALCIF 25MCG (D3-1,000UNIT) TAB (Status = Active) TAKE ONE TABLET BY MOUTH ONCE DAILY FOR VITAMIN SUPPLEMENTATION Rx# [id number] Last Released: 08/17/23 Qty/Days Supply: Rx Expiration Date: 04/23/24 Refills Remainin Indication: FOR VITAMIN D DEFICIENCY OUTPT DENOSUMAB 60MG/ML INJ SYRINGE 1ML (Status = ) INJECT 60MG/1ML SUBCUTANEOUSLY ONE TIME FOR OSTEOPOROSIS Rx# [id number] Last Released: 08/14/23 Qty/Days Supply: 07/10 Rx Expiration Date: 09/13/23 Refills Remainin Indication: FOR OSTEOPOROSIS OUTPT DICLOFENAC NA 1% TOP GEL (Status = Discontinued) APPLY 2 GRAMS TOPICALLY FOUR TIMES A DAY FOR OSTEOARTHRITIS - USE DOSING CARD PROVIDED IN BOX Rx# [id number] Last Released: 07/31/23 Qty/Days Supply: 10030 Rx Expiration Date: 08/30/23 Refills Remainin Indication: FOR JOINT PAIN OUTPT DOXAZOSIN MESYLATE 8MG TAB (Status = ) TAKE ONE TABLET BY MOUTH ONCE DAILY DIRECTED BY PRESCRIBER. NOTE TABLET STRENGTH Rx# [id number] Last Released: 07/19/23 Qty/Days Supply: 90 Rx Expiration Date: 09/29/23 Refills Remainin Non-VA FLAXSEED MISCELLANEOUS EVERY DAY Non-VA FLUTICASONE NASAL SOLN,NASAL INSTILL INTO EACH NOSTRIL OUTPT FLUTICASONE PROP 50MCG 120D NASAL INHL (Status = ) INSTILL 1 SPRAY INTO EACH NOSTRIL ONCE DAILY Rx# [id number] Last Released: 08/17/23 Qty/Days Supply: 07/10 Rx Expiration Date: 09/14/23 Refills Remainin Indication: FOR NASAL IRRITATION/INFLAMMATION Non-VA GARLIC CAP,ORAL TAKE BY MOUTH EVERY DAY OUTPT GUAIFENESIN 200MG TAB (Status = Active) TAKE ONE TABLET BY MOUTH TWICE DAILY FOR COUGH Rx# [id number] Last Released: 09/27/23 Qty/Days Supply: 180/ Rx Expiration Date: 12/25/23 Refills Remainin Indication: FOR COUGH OUTPT LOSARTAN 25MG TAB (Status = Active) TAKE ONE TABLET BY MOUTH ONCE DAILY FOR BLOOD PRESSURE/HEART Rx# [id number] Last Released: 09/14/23 Qty/Days Supply: 90 Rx Expiration Date: 05/09/24 Refills Remainin Indication: FOR HIGH BLOOD PRESSURE OUTPT MAGNESIUM OXIDE 250MG TAB (Status = Discontinued) TAKE ONE TABLET BY MOUTH ONCE DAILY Rx# [id number] Last Released: 07/31/23 Qty/Days Supply: 90 Rx Expiration Date: 10/29/23 Refills Remainin Indication: FOR MAGNESIUM SUPPLEMENTATION OUTPT MAGNESIUM OXIDE 400MG TAB (Status = Active) TAKE ONE TABLET BY MOUTH ONCE DAILY FOR MAGNESIUM SUPPLEMENTATION Rx# [id number] Last Released: 08/10/23 Qty/Days Supply: 120/90 Rx Expiration Date: 08/08/24 Refills Remainin Indication: FOR MAGNESIUM SUPPLEMENTATION Non-VA MULTIVITAMIN W/MINERAL TAB TAKE BY MOUTH OUTPT PANTOPRAZOLE NA 40MG EC TAB (Status = Active) TAKE ONE TABLET BY MOUTH EVERY MORNING 30 MINUTES BEFORE BREAKFAST Rx# [id number] Last Released: 09/14/23 Qty/Days Supply: 90 Rx Expiration Date: 06/15/24 Refills Remainin Indication: FOR EXCESSIVE PRODUCTION OF STOMACH ACID OUTPT SILDENAFIL CITRATE 100MG TAB (Status = Active) TAKE ONE TABLET BY MOUTH ONCE DAILY FOR ERECTILE DYSFUNCTION TAKE 1 HOUR PRIOR TO SEXUAL ACTIVITY Rx# [id number] Last Released: 05/09/23 Qty/Days Supply: 12/08 Rx Expiration Date: 05/09/24 Refills Remainin Indication: FOR ERECTILE DYSFUNCTION OUTPT TAMSULOSIN HCL 0.4MG CAP (Status = Active) TAKE ONE CAPSULE BY MOUTH ONCE DAILY DIRECTED BY PROVIDER Rx# [id number] Last Released: 09/27/23 Qty/Days Supply: Rx Expiration Date: 01/09/24 Refills Remainin OUTPT TRAZODONE HCL 100MG TAB (Status = Active) TAKE TWO TABLETS BY MOUTH AT BEDTIME - MAY TAKE A 3RD TABLET IF NOT ASLEEP BY 2AM Rx# [id number] Last Released: 08/17/23 Qty/Days Supply: 180 Rx Expiration Date: 02/17/24 Refills Remainin Indication: FOR INSOMNIA ASSOCIATED WITH DEPRESSION SUPPLIES /sharla/ SOLO ARAUZ DNP, ASPHALT HEATER OPERATOR-C NURSE PRACTITIONER Signed: 10/16/2023 09:35 SOLO ARAUZ [facility]
--- OUTSIDE RECORDS SUMMARY | 2024-10-04 07:52 | XMS_ITS ---
Author Name [facility] [place] Organization [facility] [place] Address [address] [place] [address] Care Team Providers Care Media Senior Recruiter Name Role Phone LALA DUNBAR Primary Care [...] PART A Mar 11, 2013 PART A [id number] [phone] FR [place] VIERA PATIENT MEDICARE (WNR) MEDICARE (M) PART A Mar 11, 2013 PART A [id number] [phone] FR [place] VIERA PATIENT MEDICARE (WNR) MEDICARE (M) PART A Mar 11, 2013 PART A [id number] [phone] FR [place] VIERA PATIENT MEDICARE (WNR) MEDICARE (M) PART A Mar 11, 2013 PART A [id number] [phone] FR AUG[place]O VIERA PATIENT Selected Encounter This section includes the information on record at [place] for the Encounter. Date/Time Encounter Type Encounter Description Reason Provider Source Mar 05, 2024 10:00 AM OFFICE O/P EST MOD 30 MIN PRIMARY CARE/MEDICINE ICD-10-CM E87.6 Hypokalemia LALA DUNBAR [facility] Encounter Template Text not used by [place] Assessments - Encounter Diagnoses This section includes the primary and secondary diagnoses documented for the Encounter. Date/Time Primary/Secondary Diagnosis Diagnosis Name Provider Source Mar 05, 2024 10:55 AM PRIMARY Hypokalemia LALA DUNBAR [facility] Plan of Treatment: Future Appointments (+ 6 months) and Future Tests (+/- 45 days) The Plan of Treatment section includes future care activities for the patient from all [place] [facility]. This section includes future appointments and future orders which are active, pending or scheduled. Future Appointments This section includes appointments that were scheduled to occur 6 months from the date of the Encounter, up to a maximum of 20 appointments. The data comes from all [facility]. Appointment Date/Time Appointment Type Appointme nt Facility Name Mar 25, 2024 02:30 PM AMBULATORY - MEDICINE [place] [facility] [place] [facility] Mar 27, 2024 10:30 AM AMBULATORY - MEDICINE [place] [facility] [place] [facility] Apr 25, 2024 08:30 AM AMBULATORY - NONE [place] [facility] [facility] May 27, 2024 11:00 AM AMBULATORY - MEDICINE [place] [facility] [place] [facility] Jul 11, 2024 01:40 PM AMBULATORY - NONE [place] [facility] [facility] Jul 21, 2024 09:00 AM AMBULATORY - MEDICINE [place] [facility] [place] [facility] Aug 05, 2024 09:30 AM AMBULATORY - MEDICINE [place] [facility] [place] [facility] Aug 27, 2024 09:00 AM AM[facility]ULATORY - MEDICINE [facility] [place] [facility] Active, Pending, and Scheduled Orders This section includes a listing of several types of active, pending, and scheduled orders, including clinic medications orders, diagnostic test orders, procedure orders and consult orders; where the start date of the order is 45 days before the date of the Encounter or 45 days after the date of theEncounter. The data comes from all [facility]. Test Date/Time Test Type Test Details Facility Name Mar 05, 2024 10:55 AM Consult Order COMMUNITY CARE-COLONOSCOPY SCREENING Cons Project Systems Engineer's Choice [facility] Lab Results: +/- 30 days of the encounter This section includes the Chemistry and Hematology Lab Results on record with [place] for the patient. Radiology Reports and Pathology Reports are provided separately, in subsequent sections. Lab Results This section contains the Chemistry/Hematology Results that were resulted 30 days before or 30 daysafter the date of the Encounter. Date/Time Source Result Type Result - Unit Interpretation Reference Range Specimen Type Comment Mar 25, 2024 03:29 PM [facility] FERRITIN SERUM Specimen Type: SERUM No comment entered. Ordering Provider: LALA DUNBAR Report Released Date/Time: Mar 25, 2024 03:12 PM Reporting Lab: [facility] [address] [address] Performing Lab: [facility] [address] [address] FERRITIN 140 ng/mL 20-300 Mar 25, 2024 03:29 PM [facility] CALCIUM SERUM Specimen Type: SERUM No comment entered. Ordering Provider: LALA DUNBAR Report Released Date/Time: Mar 25, 2024 03:17 PM Reporting Lab: [facility] [address] [address] Performing Lab: [facility] [address] [address] CALCIUM 8.5 mg/dL 8.5-10.2 Mar 25, 2024 03:29 PM [facility] MAGNESIUM SERUM Specimen Type: SERUM No comment entered. Ordering Provider: LALA DUNBAR Report Released Date/Time: Mar 25, 2024 03:12 PM Reporting Lab: [facility] [address] [address] Performing Lab: [facility] [address] [address] MAGNESIUM 2.3 mg/dL 1.6-2.6 Mar 25, 2024 03:29 PM [facility] BASIC METABOLIC PANEL (non-fasting) SERUM Spe cimen Type: SERUM No comment entered. Ordering Provider: LALA DUNBAR Report Released Date/Time: Mar 25, 2024 03:12 PM Reporting Lab: [address] [address] Performing Lab: [address] [address] UREA NITROGEN 20 mg/dL 7-25 GLUCOSE 94 mg/dL 65-100 SODIUM 140 mmol/L 135-145 POTASSIUM 3.7 mmol/L 3.5-5.0 CHLORIDE 107 mmol/L 100-110 CO2 24 meq/L 20-30 CREATININE, Serum 1.14 mg/dL 0.50-1.40 eGFR(CKD-EPI 2020) 67 mL/min >60 Mar 11, 2024 10:15 AM [facility] BASIC METABOLIC PANEL (non-fasting) SERUM Spe cimen Type: SERUM No comment entered. Ordering Provider: LALA DUNBAR Report Released Date/Time: Mar 05, 2024 10:44 AM Reporting Lab: [address] [address] Performing Lab: [address] [address] UREA NITROGEN 19 mg/dL 7-25 GLUCOSE 218 mg/dL H 65-100 SODIUM 138 mmol/L 135-145 POTASSIUM 4.6 mmol/L 3.5-5.0 CHLORIDE 106 mmol/L 100-110 CO2 18 meq/L L 20-30 CREATININE, Serum 1.41 mg/dL H 0.50-1.40 eGFR(CKD-EPI 2020) 52 mL/min L >60 Mar 05, 2024 08:14 AM [facility] BASIC METABOLIC PANEL (non-fasting) SERUM Spe cimen Type: SERUM No comment entered. Ordering Provider: LALA DUNBAR Report Released Date/Time: Mar 04, 2024 06:37 PM Reporting Lab: [address] [address] Performing Lab: [address] [address] UREA NITROGEN 17 mg/dL 7-25 GLUCOSE 157 mg/dL H 65-100 SODIUM 143 mmol/L 135-145 POTASSIUM 3.9 mmol/L 3.5-5.0 CHLORIDE 104 mmol/L 100-110 CO2 28 meq/L 20-30 CREATININE, Serum 1.08 mg/dL 0.50-1.40 eGFR(CKD-EPI 2020) 71 mL/min >60 Mar 05, 2024 08:14 AM [facility] RENIN ACTIVITY (PLASMA) PLASMA Specimen Type: PLASMA Comment: This test was developed and its analytical performance characteristics have been determined by [facility] [place], [place]. It has not been cleared or approved by the U.S. Food and Drug Administration. This assay has been validated pursuant to the CLIA regulations and is used for clinical purposes. Test Performed by [facility], [employer] [facility], [address] [place] [address] Pb Gilmore M.D., Ph.D., Director of Laboratories , CLIA [id number] TEST PERFORMED AT: , Ordering Provider: MARCO ANTONIO LARKIN Report Released Date/Time: Mar 05, 2024 07:05 AM Reporting Lab: [facility] [address] [address] Performing Lab: [facility] [address] [address] RENIN ACTIVITY (PLASMA) 0.47 0.25-5.8 2 Mar 05, 2024 08:14 AM [facility] ALDOSTERONE UPRIGHT,LC/MS/MS SERUM Specimen T ype: SERUM [...] analytical performance characteristics have been determined by [employer] characteristics have been determined by [employer] [place], [place]. It has [facility] [place]. It has not been cleared or approved by the U.S. Food and Drug not been cleared or approved by the U.S. Food and Drug Administration. This assay has been validated pursuant Administration. This assay has been validated pursuant to the CLIA regulations and is used for clinical to the CLIA regulations and is used for clinical purposes. purposes. Test Performed by [facility], Test Performed by [employer] [place], [employer] [facility], [facility] [place], [address] [place] [address] [place] [address] Pb Gilmore M.D., Ph.D., Director of Laboratories Pb Gilmore M.D., Ph.D., Director of Laboratories , CLIA [id number] , CLIA [id number] TEST PERFORMED AT: TEST PERFORMED AT: , , Ordering Provider: MARCO ANTONIO LARKIN Report Released Date/Time: Mar 05, 2024 07:05 AM Reporting Lab: [address] [address] Performing Lab: [facility] [address] [address] ALDOSTERONE UPRIGHT,LC/MS/MS 18 ng/dL * Mar 04, 2024 01:21 PM [facility] BASIC METABOLIC PANEL (non-fasting) SERUM Spe cimen Type: SERUM Comment: Verified by repeat analysis. POTASSIUM Ordering Provider: LALA DUNBAR Report Released Date/Time: Feb 20, 2024 09:25 AM Reporting Lab: [facility] [address] [address] Performing Lab: [facility] [address] [address] UREA NITROGEN 17 mg/dL 7-25 GLUCOSE 103 mg/dL H 65-100 SODIUM 144 mmol/L 135-145 POTASSIUM 2.7 mmol/L LL 3.5-5.0 CHLORIDE 103 mmol/L 100-110 CO2 32 meq/L H 20-30 CREATININE, Serum 1.10 mg/dL 0.50-1.40 eGFR(CKD-EPI 2020) 70 mL/min >60 Feb 13, 2024 09:45 AM [facility] RENIN ACTIVITY (PLASMA) PLASMA Specimen Type: PLASMA Comment: This test was developed and its analytical performance characteristics have been determined by [employer] [place]. It has not been cleared or approved by the U.S. Food and Drug Administration. This assay has been validated pursuant to the CLIA regulations and is used for clinical purposes. Test Performed by [facility], [employer] [facility], [address] [place] [address] Pb Gilmore M.D., Ph.D., Director of Laboratories , CLIA [id number] TEST PERFORMED AT: , Ordering Provider: MARCO ANTONIO LARKIN Report Released Date/Time: Dec 18, 2023 05:49 PM Reporting Lab: [facility] [address] [address] Performing Lab: [facility] [address] [address] RENIN ACTIVITY (PLASMA) 0.50 0.25-5.8 2 Feb 13, 2024 09:45 AM [facility] ALDOSTERONE UPRIGHT,LC/MS/MS SERUM Specimen T ype: SERUM [...] analytical performance characteristics have been determined by [employer] characteristics have been determined by [employer] [place]. It has [facility] [place]. It has not been cleared or approved by the U.S. Food and Drug not been cleared or approved by the U.S. Food and Drug Administration. This assay has been validated pursuant Administration. This assay has been validated pursuant to the CLIA regulations and is used for clinical to the CLIA regulations and is used for clinical purposes. purposes. Test Performed by [facility], Test Performed by [facility], [employer] [facility] [facility], [employer] [facility], [address] [place] [address] [place] [address] Pb Gilmore M.D., Ph.D., Director of Laboratories Pb Gilmore M.D., Ph.D., Director of Laboratories , CLIA [id number] , CLIA [id number] TEST PERFORMED AT: TEST PERFORMED AT: , , Ordering Provider: MARCO ANTONIO LARKIN Report Released Date/Time: Dec 18, 2023 05:49 PM Reporting Lab: [facility] [address] [address] Performing Lab: [facility] [address] [address] ALDOSTERONE UPRIGHT,LC/MS/MS 142 ng/dL Feb 13, 2024 09:45 AM [facility] CALCIUM SERUM Specimen Type: SERUM No comment entered. Ordering Provider: MARCO ANTONIO LARKIN Report Released Date/Time: Dec 18, 2023 05:49 PM Reporting Lab: [facility] [address] [address] Performing Lab: [facility] [address] [address] CALCIUM 8.5 mg/dL 8.5-10.2 Feb 13, 2024 09:45 AM [facility] BASIC METABOLIC PANEL (non-fasting) SERUM Spe cimen Type: SERUM No comment entered. Ordering Provider: MARCO ANTONIO LARKIN Report Released Date/Time: Dec 18, 2023 05:49 PM Reporting Lab: [facility] [address] [address] Performing Lab: [facility] [address] [address] UREA NITROGEN 18 mg/dL 7-25 GLUCOSE 90 mg/dL 65-100 SODIUM 142 mmol/L 135-145 POTASSIUM 4.4 mmol/L 3.5-5.0 CHLORIDE 110 mmol/L 100-110 CO2 25 meq/L 20-30 CREATININE, Serum 1.33 mg/dL 0.50-1.40 eGFR(CKD-EPI 2020) 55 mL/min L >60 Feb 13, 2024 09:44 AM [facility] HEMOGLOBIN A1C PANEL BLOOD Specimen Type: BLO [...] Feb 08, 2024 02:19 PM Reporting Lab: [facility] [address] [address] Performing Lab: [address] [address] HEMOGLOBIN A1C 5.2 4.0-5.6 Feb 13, 2024 09:44 AM [facility] LIPID PANEL FASTING SERUM Specimen Type: SERU M No comment entered. Ordering Provider: LALA DUNBAR Report Released Date/Time: Feb 08, 2024 02:19 PM Reporting Lab: [facility] [address] [address] Performing Lab: [address] [address] CHOLESTEROL 126 mg/dL TRIGLYCERIDE 73 mg/dL 0-150 LDL calculated 55 mg/dL 0-129 CHOL/HDL 2.3 HDL CHOLESTEROL 56 mg/dL 40-60 Feb 13, 2024 09:44 AM [facility] BASIC METABOLIC PANEL (fasting) SERUM Specime n Type: SERUM No comment entered. Ordering Provider: LALA DUNBAR Report Released Date/Time: Feb 08, 2024 02:19 PM Reporting Lab: [facility] [address] [address] Performing Lab: [address] [address] UREA NITROGEN 18 mg/dL 7-25 GLUCOSE 91 mg/dL 65-100 SODIUM 143 mmol/L 135-145 POTASSIUM 4.1 mmol/L 3.5-5.0 CHLORIDE 110 mmol/L 100-110 CO2 25 meq/L 20-30 CREATININE, Serum 1.30 mg/dL 0.50-1.40 eGFR(CKD-EPI 2020) 57 mL/min L >60 Feb 13, 2024 09:44 AM [facility] LIVER FUNCTION SERUM Specimen Type: SERUM No comment entered. Ordering Provider: LALA DUNBAR Report Released Date/Time: Feb 08, 2024 02:19 PM Reporting Lab: [facility] [address] [address] Performing Lab: [address] [address] PROTEIN,TOTAL 6.0 g/dL 6.0-8.3 ALBUMIN 3.9 g/dL 3.5-5.0 ALKALINE PHOSPHATASE 64 U/L 40-150 AST 13 U/L 5-34 ALT 13 U/L BILIRUBIN, TOTAL 1.0 mg/dL 0.2-1.2 Feb 13, 2024 09:44 AM [facility] TSH SERUM Specimen Type: SERUM No comment entered. Ordering Provider: LALA DUNBAR Report Released Date/Time: Feb 08, 2024 02:19 PM Reporting Lab: [facility] [address] [address] Performing Lab: [address] [address] TSH 1.40 u[IU]/mL 0.35-5.00 Feb 13, 2024 09:44 AM [facility] CBC AND DIFF (AUTO) BLOOD Specimen Type: BLOO D No comment entered. Ordering Provider: LALA DUNBAR Report Released Date/Time: Feb 08, 2024 02:19 PM Reporting Lab: [facility] [address] [address] Performing Lab: [address] [address] WBC 6.59 10*3/uL 4.50-11.00 RBC 5.11 10*6/uL [...] Height Weight Body Mass Index Source Mar 05, 2024 10:19 AM 156.5 25 [place] [facility] [place] [place] [facility] Mar 05, 2024 10:15 AM 82 136/75 16 94 [place] [facility] [place] [facility] Social History: Smoking Status (Most current) and Tobacco Use (All prior to encounter date) This section includes the most current, and the historical, smoking and tobacco- related health factors from the AL facility where the Encounter took place. Current Smoking Status This section includes the most current smoking, or tobacco-related health factor, from the AL facility where the Encounter took place. Date/Time Current Smoking Status Comment [facility] May 09, 2023 09:00 AM VA-TOBACCO FORMER USER [facility] Tobacco Use History This section includes a history of the smoking, or tobacco-related health factors, that were collected on or before the date of the Encounter. The data comes from the AL facility where the Encounter took place. Date/Time Smoking Status/Tobac co Use Comment Facility May 09, 2023 09:00 AM VA-TOBACCO QUIT 15 YRS OR MORE [place] [facility] [place] [facility] Mar 30, 2022 09:45 AM VA-TOBACCO FORMER USER [facility] [place] [facility] Mar 30, 2022 09:45 AM VA-TOBACCO QUIT 15 YRS OR MORE [facility] [facility] Mar 29, 2021 08:30 AM VA-TOBACCO FORMER USER [facility] [place] [facility] Mar 29, 2021 08:30 AM VA-TOBACCO QUIT 15 YRS OR MORE [facility] [place] [facility] Apr 05, 2020 08:00 AM VA-TOBACCO FORMER USER [facility] [facility] Apr 05, 2020 08:00 AM VA-TOBACCO QUIT 15 YRS OR MORE [facility] Dec 19, 2018 09:16 AM VA-TOBACCO FORMER USER [facility] Dec 19, 2018 09:16 AM VA-TOBACCO QUIT 15 YRS OR MORE [facility] [facility] Jan 25, 2018 08:57 AM QUIT TOBACCO USE > [facility]GO [facility] November 07, 2016 10:23 AM QUIT TOBACCO USE > 7 YEARS AGO [facility] Sep 15, 2015 09:35 AM LIFETIME NON-TOBACCO USER [facility] Feb 27, 2005 03:58 PM LIFETIME NON-SMOKER [facility] October 17, 2002 08:32 AM HISTORY OF SMOKING Smoke free since 1967 (35years) [facility] Jan 30, 2002 03:15 PM QUIT TOBACCO USE > 7 YEARS AGO [facility] Jul 25, 2001 03:17 PM HISTORY OF SMOKING [facility] Jul 25, 2001 03:17 PM [facility]AC[facility] Radiology Reports: +/- 30 days [...] the Encounter. The data comes from all [facility] facilities. Date/Time Radiology Report Provider Source Mar 04, 2024 02:16 PM TOE(S) 2 OR MORE V IEWS: NIGEL VIERA [id number] -[id number] M Exm Date: MAR 04, 2024@14:16 Req Phys: SURINDER LOZOYA Loc: CWM/NO/PODIATRY A (Req'g Loc) Img Loc: [facility]BUILDING 1 Service: Unknown [facility] [place] [id number] (Case 128 COMPLETE) TOE(S) 2 OR MORE VIEWS (RAD Detailed) CPT:02319 Proc Modifiers : RIGHT Reason for Study: subbed hallux. r/o fxt Clinical History: 3 weeks ago stubbed on a pallet grease remover, was deeply BnB according to his report. 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 Date/Time Encounter Note(s) Provider Source Mar 05, 2024 10:16 AM PREVENTIVE MEDICINE NURSING NOTE: LOCAL TITLE: CLINICAL REMINDERS/NURSING STANDARD TITLE: PREVENTIVE MEDICINE NURSING NOTE DATE OF NOTE: MAR 05, 2024@10:16 ENTRY DATE: MAR 05, 2024@10:16:36 AUTHOR: LISETH LEMUS COSIGNER: URGENCY: STATUS: COMPLETED Influenza Immunization: Deferral / Refusal The patient declines to receive the recommended dose of seasonal influenza vaccine. Immunization: INFLUENZA, UNSPECIFIED FORMULATION Refusal Reason: PATIENT DECISION Patient refuses all immunization(s) in the FLU group Date Documented: 03/05/24 10:17 COVID-19 Immunization: Refused Moderna Monovalent COVID-19 vaccine Immunization: COVID-19 (MODERNA), MRNA, LNP-S, PF, 50 MCG/0.5 ML (AGES 12+ YEARS) Refusal Reason: PATIENT DECISION Patient refuses all immunization(s) in the COVID-19 group Date Documented: 03/05/24 10:17 Herpes Zoster (Shingles) Vaccine: The patient declines to receive the recommended dose of zoster (shingles) vaccine. Immunization: ZOSTER RECOMBINANT Refusal Reason: PATIENT DECISION Patient refuses all immunization(s) in the ZOSTER group Date Documented: 03/05/24 10:18 /sharla/ LISETH LEMUS, MSN, RN, CNL PRIMARY CARE TEAM NURSE Signed: 03/05/2024 10:18 LISETH LEMUS [facility] [place] [facility] Mar 05, 2024 08:28 AM PRIMARY CARE NURSE PRACTITIONER OUTPATIENT NOTE: LOCAL TITLE: NURSE PRACTITIONER OUTPATIENT NOTE STANDARD TITLE: PRIMARY CARE NURSE PRACTITIONER OUTPATIENT NOTE DATE OF NOTE: MAR 05, 2024@08:28 ENTRY DATE: MAR 05, 2024@08:28:04 AUTHOR: LALA DUNBAR EXP COSIGNER: URGENCY: STATUS: COMPLETED Pt is a 73 who comes in for follow up of medical problems as noted below. HPI: Filiberto had routine labs checked and has hypokalemia at 2.7 last visit we tried to see how he would do off the Amiloride but clearly that has dropped his K+ he used to be on eplerone but I don't see that he has continued that. He used to see Dr beard at [facility] for his adrenal mass but then he started seeing Dr Larkin at [facility] in about 2020 He was seen in 2014 for hyperaldosteronism, per Endocrine note he had aldosterone of 20 and suppressed renin. He has been on amiloride, but declined surgery. He has had recheck of K+ this morning and has increased back to 3.9, he notes he had some muscle cramping but that has resolved since eating more bananas and potatoes and getting back on Amiloride. Explained to Filiberto that aldosterone helps regulate the body's fluid levels and blood pressure by controlling the amount of salt retained by the kidneys. Excess aldosterone causes the kidneys to retain more salt than normal, which increases the body's fluid levels and blood pressure. People with an aldosterone-producing adenoma may develop severe high blood pressure (hypertension), and they have an increased risk of heart attack, stroke, or an irregular heart beat (atrial fibrillation). He is aware and declined wanting any f/u with endocrinology. Of note he had been on eplerone in the past but has been off that since 2019 I have reached back out to Endocrine on secure teams to check if he should be on or not PMH: Active problems - Computerized Problem List [...] 7. Recent weight loss EGD DR Mckenzie [facility] Impression :Gastritis Await biopsy report to r/u H. pylori [facility] Dr Mckenzie 8. Osteoporosis consult: [facility] MED: Prolia Solution 60mg/ml( approved NON FORM) 9. Hernia of abdominal wall SEEn GI surgery 11/2018 - elective surgery - if vet wishes to schedule 10. Adrenal adenoma consult: [facility], DO MED: aldosterone receptor antagonist- ( 05/2019- EPLERENONE) - 11. Osteoarthritis of knee 12. Calcium pyrophosphate deposition disease -- by joint aspiration 06/19 13. 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 Posterior Vitreous Detachment 16. Osteoporosis (SNOMED CT 87717904) -- hip T-score -2.8, 08/18 17. Low back pain (SNOMED CT 803501596) chronic. 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 Sees Chiropractor Dr Surinder Patel at [address] [place] [address] 18. Hyperlipidemia (SNOMED CT 00558705) 19. Benign prostatic hypertrophy (SNOMED CT 998681163) 20. Gout (SNOMED CT 11405785) Right knee 21. Rhinitis (SNOMED CT 84742333) 22. Dermatitis or Eczema * 23. History of polyp of colon -- tubular adenoma 05/16 normal colonoscopy 11/20 last c-scope 2020; due for 2023 due to Hx of tubular adenoma and limited prep on 2020 c-scope 24. Posttraumatic stress disorder (SNOMED CT 86161508) update Reviewed 25. Erectile dysfunction (SNOMED CT 923759414) 26. Gastroesophageal reflux disease (SNOMED CT 793000324) Allergies: COLCHICINE, OMEPRAZOLE, FLUNISOLIDE, ZOLEDRONIC, PRAVASTATIN, ALENDRONATE CHLORTHALIDONE, CONTRAST MEDIA, SPIRONOLACTONE, EPLERENONE, CETIRIZINE LISINOPRIL, CYCLOBENZAPRINE The following VA and Non-VA meds [...] DAILY FOR 3 DAYS GOUT FLARE 16) SILDENAFIL CITRATE 100MG TAB TAKE ONE TABLET BY MOUTH ACTIVE ONCE DAILY FOR ERECTILE DYSFUNCTION TAKE 1 HOUR PRIOR TO SEXUAL ACTIVITY 17) TAMSULOSIN HCL 0.4MG CAP TAKE ONE CAPSULE BY MOUTH ACTIVE ONCE DAILY DIRECTED BY PROVIDER 18) TRAZODONE HCL 100MG TAB TAKE TWO TABLETS BY MOUTH AT ACTIVE (S) BEDTIME - MAY TAKE A 3RD TABLET IF NOT ASLEEP BY 2AM 19) TRIAMCINOLONE ACETONIDE 0.1% CREAM APPLY A THIN [...] Non-VA MULTIVITAMIN W/MINERAL TAB BY MOUTH ACTIVE 24 Total Medications Allergies: COLCHICINE, OMEPRAZOLE, FLUNISOLIDE, ZOLEDRONIC, PRAVASTATIN, ALENDRONATE CHLORTHALIDONE, CONTRAST MEDIA, SPIRONOLACTONE, EPLERENONE, CETIRIZINE LISINOPRIL, CYCLOBENZAPRINE VITAL SIGNS: 98.8 F [37.1 C] (03/04/2024 13:53) 68 (03/04/2024 13:53) 18 (03/04/2024 13:53) 144/64 (03/04/2024 13:53) 1 (02/20/2024 08:48) 67 in [170.2 cm] (02/20/2024 08:48) 151.7 lb [68.81 kg] (02/20/2024 08:48) BMI: 23.8 ROS General: no fever, no unexplained weight loss or gain CV: denies CP, palpitations Lung: denies Dyspnea or wheezing Abd: denies n/v/d gets occasional nausea from all the SZ activity Ext: denies edema Psych: denies SI Neuro: denies dizziness, falls, IRVIN PHYSI MIHAELA EXAM GENERAL: well appearing [place] in NAD, speaking in clear sentences. RESP: CTAB, no wheezing or Rales. Cards: S1 S2 RRR, No m/r/g no JVD, No Pedal Edema, Distal Pulses palpable NEURO CN II-XII grossly intact, gait steady without shuffle MENTAL A&Ox3 Appropriate, Pleasant, Cooperative GLUCOSE: 103 H UREA NITROGEN: 17 SODIUM: 144 POTASSIUM: 2.7 L* Rechecked at 3.9 improved CHLORIDE: 103 CO2: 32 H CREATININE-EGFR: 1.10 eGFR CKD-EPI 2020: 70 GLUCOSE: 90 UREA NITROGEN: 18 SODIUM: 142 POTASSIUM: 4.4 CHLORIDE: 110 CO2: 25 CALCIUM: 8.5 CREATININE-EGFR: 1.33 eGFR CKD-EPI 2020: 55 L RENIN ACTIVITY, (QU): 0.50 ALDOSTERONE (UPRIGHT-QU): 142 HGB A1C (WR): 5.2 WBC: 6.59 RBC: 5.11 HGB: 15.4 HCT: 44.5 MCV: 87.1 MCHC: 34.6 RDW: 12.9 PLT: 216 MCH: 30.1 Neut %: 60.4 Lymph %: 30.0 [place] %: 5.9 Eos %: 2.6 Baso %: 0.8 Neut, Abs: 3.98 Lymph, Abs: 1.98 [place], Abs: 0.39 Eos, Abs: 0.17 Baso, Abs: 0.05 Immature Granulocytes %: 0.3 Immature Granulocytes, Abs: 0.02 NRBC%: 0.0 NRBC#: 0.00 TSH (Access): 1.40 GLUCOSE: 91 UREA NITROGEN: 18 SODIUM: 143 POTASSIUM: 4.1 CHLORIDE: 110 CO2: 25 CHOLESTEROL: 126 PROTEIN,TOTAL: 6.0 ALBUMIN: 3.9 ALKALINE PHOSPHATASE: 64 SGOT: 13 SGPT: 13 TRIGLYCERIDE: 73 LDL CHOL: 55 CHOL/HDL RATIO: 2.3 HDL: 56 BILIRUBIN,TOT.: 1.0 CREATININE-EGFR: 1.30 eGFR CKD-EPI 2020: 57 L Future Clinic Visits 03/05/2024 10:00 CWM/NO/PACT 5 03/27/2024 07:30 NHM DENTAL RDH 2 AM NEW 03/27/2024 09:15 NHM DENTAL DMD 4 09/08/2024 08:30 NHM/OPTOMETRY/[place] 10/09/2024 10:00 CWM/NO/DERMATOLOGY VAULT MECHANIC AM ASSESSMENT AND PLAN: #Hypokamelia -Likely from stopping Amiloride in the setting of aldostesterone secreting adrenal adenoma -has already restarted Amiloride and can continue -BP stable cont. 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 Clinical Reminders Follow Up Colonoscopy: Colonoscopy is due based on information available to this reminder. Colonoscopy consult has been ordered. See orders tab for details. Medication Reconciliation: Outpatient: Has the patient been taking medications as documented in the EMLR? YES: The patient has been taking medications as documented in the EMLR. Essential Medication List for Review used to complete this medication reconciliation. INCLUDED IN THIS LIST: Alphabetical list of active outpatient [facility] and dispensed from another [place] or [facility] facility (remote) as well as inpatient orders [...] with a VA or non-VA provider. /sharla/ PIPPA CALVERT Nurse Practitioner Signed: 03/05/2024 10:55 [facility] DUNBAR [facility]
--- OUTSIDE RECORDS SUMMARY | 2024-10-04 07:52 | XMS_ITS ---
Author Name [facility] [place] [facility] [place] [facility] [place] Address [address] [place] [id number] Care Team Providers Care Marketing Information Manager Name Role Phone LALA DUNBAR Primary Care [...] PART A Mar 11, 2013 PART A [id number] [phone] FR AUG[place]O VIERA PATIENT MEDICARE (WNR) MEDICARE (M) PART A Mar 11, 2013 PART A [id number] [phone] FR [place] VIERA PATIENT MEDICARE (WNR) MEDICARE (M) PART A Mar 11, 2013 PART A [id number] [phone] FR [place] VIERA PATIENT MEDICARE (WNR) MEDICARE (M) PART A Mar 11, 2013 PART A [id number] [phone] FR AUG[place]O VIERA PATIENT Selected Encounter This section includes the information on record at [place] for the Encounter. Date/Time Encounter Type Encounter Description Reason Provider Source November 01, 2023 09:30 AM OFFICE O/P EST MOD 30 MIN OTOLARYNGOLOGY/E NT ICD-10-CM K11.5 Sialolithiasis ADIA MORRIS [facility] Encounter Template Text not used by [place] Assessments - Encounter Diagnoses This section includes the primary and secondary diagnoses documented for the Encounter. Date/Time Primary/Secondary Diagnosis Diagnosis Name Provider Source November 01, 2023 10:18 AM PRIMARY Sialolithiasis FLACO MORRIS [place] [facility] [place] [facility] Plan of Treatment: Future Appointments (+ 6 months) and Future Tests (+/- 45 days) The Plan of Treatment section includes future care activities for the patient from all [place] treatmentfacilities. This section includes future appointments and future orders which are active, pending or scheduled. Future Appointments This section includes appointments that were scheduled to occur 6 months from the date of the Encounter, up to a maximum of 20 appointments. The data comes from all [place] treatment facilities. Appointment Date/Time Appointment Type Appointme nt Facility Name Nov 12, 2023 11:00 AM AM[facility]ULATORY [facility]INE [facility] [place] [facility] Nov 15, 2023 10:30 AM AMBULATORY - NONE [facility] [place] [facility] Dec 11, 2023 09:00 AM AMBULATORY [facility] MEDICINE [facility] [place] [facility] Jan 01, 2024 10:00 AM AMBULATORY [facility] MEDICINE [facility] [place] [facility] Jan 07, 2024 01:30 PM AMBULATORY - NONE [facility] [place] [facility] Feb 20, 2024 09:00 AM AM[facility]ULATORY [facility]ICINE [facility] [place] [facility] Mar 04, 2024 02:00 PM AMBULATORY [facility] MEDICINE [facility] [place] [facility] Mar 05, 2024 10:00 AM AMBULATORY [facility] MEDICINE [facility] [place] [facility] Mar 25, 2024 02:30 PM AMBULATORY [facility] MEDICINE [facility] [place] [facility] Mar 27, 2024 10:30 AM AMBULATORY [facility] MEDICINE [facility] [place] [facility] Apr 25, 2024 08:30 AM AMBULATORY - NONE [facility] [place] [facility] Vital Signs: All taken on the encounter date This section contains inpatient and outpatient Vital Signs collected on the date of the Encounter. Date/Time Temperature Pulse Blood Pressure Respiratory Rate SP02 Pain Height Weight Body Mass Index Source November 01, 2023 09:33 AM 97.8 83 126/68 18 94 0 154.6 24 [place] [facility] [place] [facility] Social History: Smoking Status (Most current) and Tobacco Use (All prior to encounter date) This section includes the most current, and the historical, smoking and tobacco- related health factors from the [place] facility where the Encounter took place. Current Smoking Status This section includes the most current smoking, or tobacco-related health factor, from the [place] facility where the Encounter took place. Date/Time Current Smoking Status Comment [facility] it May 09, 2023 09:00 AM VA-TOBACCO FORMER [facility]ER [place] [facility] Tobacco Use History This section includes a history of the smoking, or tobacco-related health factors, that were collected on or before the date of the Encounter. The data comes from the [place] facility where the Encounter took place. Date/Time Smoking Status/Tobac co Use Comment Facility May 09, 2023 09:00 AM VA-TOBACCO QUIT 15 YRS OR MORE [place] [facility] [place] [facility] Mar 30, 2022 09:45 AM VA-TOBACCO FORMER USER [place] [facility] [place] [facility] Mar 30, 2022 09:45 AM VA-TOBACCO QUIT 15 YRS OR MORE [place] [facility] [place] [facility] Mar 29, 2021 08:30 AM VA-TOBACCO FORMER USER [place] [facility] [place] [facility] Mar 29, 2021 08:30 AM VA-TOBACCO QUIT 15 YRS OR MORE [place] [facility] [place] [facility] Apr 05, 2020 08:00 AM VA-TOBACCO FORMER USER [place] [facility] [place] [facility] Apr 05, 2020 08:00 AM VA-TOBACCO QUIT 15 YRS OR MORE [facility] [place] [facility] Dec 19, 2018 09:16 AM VA-TOBACCO FORMER USER [facility] [place] [facility] Dec 19, 2018 09:16 AM VA-TOBACCO QUIT 15 YRS OR MORE [facility] [place] [facility] Jan 25, 2018 08:57 AM QUIT TOBACCO USE > 7 YEARS AGO [facility] [place] [facility] November 07, 2016 10:23 AM QUIT TOBACCO USE > 7 YEARS AGO [facility] Sep 15, 2015 09:35 AM LIFETIME NON-TOBACCO USER [facility] Feb 27, 2005 03:58 PM LIFETIME NON-SMOKER [facility] October 17, 2002 08:32 AM HISTORY OF SMOKING Smoke free since 1967 (35years) [facility] Jan 30, 2002 03:15 PM QUIT TOBACCO USE > 7 YEARS AGO [facility] Jul 25, 2001 03:17 PM HISTORY OF SMOKING [facility] Jul 25, 2001 03:17 PM NON-TOBACCO USER [facility] Radiology Reports: +/- 30 days of [...] the Encounter. The data comes from all [place] treatment facilities. Date/Time Radiology Report Provider Source Nov 12, 2023 11:38 AM FOOT 3 OR MORE VIEWS(LEFT): NIGEL VIERA Jaycob [id number] -1950 M Exm Date: NOV 12, 2023@11:38 Req Phys: LALA DUNBAR Pat Loc: CWM/NO/PACT 5 (Req'g Loc) Img Loc: [facility]/BUILDING 1 Service: Unknown [facility] , (Case [id number] COMPLETE) FOOT 3 OR MORE VIEWS(LEFT) (RAD Detailed) CPT:47537 Proc Modifiers : LEFT CPT Modifiers : LT LEFT SIDE Reason for Study: right plantar foot base of pinky Clinical History: Left lateral base of toe pain with center punctum ? Foreign body denies stepping on glass although I know that is not readiopaque Report Status: Verified Date Reported: NOV 12, 2023 Date Verified: NOV 12, 2023 Vehicle Operator Technician E-Sig:/ES/CNADI LEZAMA JR Report: Study: AP, lateral, and [...] Primary Interpreting Staff: CANDI LEZAMA JR, Radiologist (Vehicle Operator Technician) /EAD CANDI LEZAMA JR [facility] October 25, 2023 09:[address] NECK SOFT TISSUE W/O CONT: NIGEL VIERA [id number] -1950 M Ex Date: OCTOBER 25, 2023@09:59 Req Phys: FLACO MORRIS Pat Loc: CWM/NO/OTOLARYNGOLOGY (Req'g L Img Loc: [facility]/CT Service: Unknown [facility] , (Case [id number] COMPLETE) CT NECK SOFT TISSUE W/O CONT (CT Detailed) CPT:44882 Proc Modifiers : RIGHT Reason for Study: RIGHT NECK MASS Clinical History: RIGHT NECK MASS, STONE VS MASS Report Status: Verified Date Reported: OCTOBER 28, 2023 Date Verified: OCTOBER 28, 2023 Vehicle Operator Technician E-Sig: Report: CT NECK SOFT TISSUE W/O CONT HISTORY: 73 years-old Male with RIGHT NECK MASS. COMPARISON: None. TECHNIQUE: Noncontrast CT of the neck with multiplanar reformats was performed at the local [place] facility. 1171 images were received by the [place] National Teleradiology Program (NTP) for interpretation. Lack [...] neck unremarkable. READING PHYSICIAN: Adalid Neely M.D. -[id number] 10/28/2023 7:20 CDT [facility] National Teleradiology Program [phone] (For Medical Practitioner Use Only) Attention Patients / Veterans: If you have questions or concerns about these test results, please contact your ordering provider or primary care team. Primary Diagnostic Code: NO ALERT REQUIRED Primary Interpreting Staff: RADIOLOGY,OUTSIDE SERVICE, Staff Physician / RADIOLOGY,OUTSIDE SERVICE [facility] Encounter Notes: All associated encounter notes This section contains the clinical notes associated to the Encounter. Date/Time Encounter Note(s) Provider Source November 01, 2023 10:04 AM OTOLARYNGOLOGY NOTE: LOCAL TITLE: OTOLARYNGOLOGY CLINIC NOTE STANDARD TITLE: OTOLARYNGOLOGY NOTE DATE OF NOTE: NOVEMBER 01, 2023@10:04 ENTRY DATE: NOVEMBER 01, 2023@10:04:11 AUTHOR: FLACO MORRIS EXP COSIGNER: URGENCY: STATUS: COMPLETED NIGEL VIERA is a 73 y/o FORMER smoker WHITE MALE, previously in [employer] FROM Jun TO Apr from [employer] [place], f/u CT of the neck 73-year-old male, former smoker stopped 51 years ago here for follow-up of the CT of the neck. When last seen patient had been complaining of a right neck mass. He states that it is significantly improved. He states he hardly notices it atnow. It is not painful. CT of the neck was done without contrast because patient had some unknown documented allergy to contrast dye. Results of the CAT scan show a 2 mm small stone right submandibular gland. 4 mm nonobstructing stone in the right distal right sublingual duct at the floor the mouth. Only when asked the patient states that he had facial trauma when in [place] and has had numbness of the rightness of his face since that time. There is no change. Previous visit: 73-year-old male, former smoker stopped 51 years ago, referred secondary to right neck mass. Patient states that for the last 6 weeks he has noticed a right neck mass. He states that it just popped out . He says that it is not painful. It does fluctuate in size ever so slightly. There is no radiating pain. Patient denies ear pain. Patient does have hoarseness which he states he has had for years. He attributes it to constant phlegm and states that he clears his voice frequently. He has no dysphagia. He has had weight fluctuation. He states that he was 176 pounds went down as low as 144 and now is back to 154 though he states that this is lower because he had things in his pockets in his shoes on. Patient states that he drinks very little water. He only likes ice water and therefore drinks about 16 ounces daily. He does have a history of kidney stones when he was younger and sometimes feels as though he is passing stones. He was recently started on Flonase for his postnasal drip he thinks it helps a little bit. He has longstanding very mild right epistaxis. Mostly when he blows his nose. PMHx: Active problems - Computerized Problem List is [...] deposition disease 13. 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 Osteoporosis (SNOMED CT 28211940) 17. Low back pain (SNOMED CT 045951602) 18. Hyperlipidemia 19. Benign prostatic hypertrophy (SNOMED CT 153529368) 20. Pseudogout 21. Rhinitis (SNOMED CT 36427173) 22. Dermatitis or Eczema * 23. History of polyp of colon 24. Posttraumatic Stress Disorder 25. Erectile dysfunction (SNOMED CT 130294117) 26. Gastroesophageal reflux disease (SNOMED CT 400875232) MEDS: Active Outpatient Medications (including Supplies): AMILORIDE HCL 5MG TAB TAKE TWO TABLETS BY MOUTH TWICE ACTIVE DAILY WITH FOOD AMLODIPINE BESYLATE 10MG TAB TAKE ONE TABLET BY MOUTH ONCE ACTIVE DAILY FOR BLOOD PRESSURE/HEART, DO NOT TAKE WITH GRAPEFRUIT JUICE ATORVASTATIN CALCIUM 20MG TAB TAKE ONE TABLET BY MOUTH ACTIVE ONCE DAILY FOR CHOLESTEROL CALCIUM 500MG (CA CARB-1.25GM) TAB TAKE TWO TABLETS BY ACTIVE MOUTH ONCE DAILY CAPSAICIN 0.075% CREAM APPLY A THIN FILM TOPICALLY TWICE ACTIVE DAILY FOR BACKACHE CETIRIZINE HCL 10MG TAB TAKE ONE TABLET BY MOUTH ONCE ACTIVE DAILY FOR ALLERGIES FOR ALLERGIES CHOLECALCIF 25MCG (D3-1,000UNIT) TAB TAKE ONE TABLET BY ACTIVE MOUTH ONCE DAILY FOR VITAMIN SUPPLEMENTATION DOXAZOSIN MESYLATE 8MG TAB TAKE ONE TABLET BY MOUTH ONCE ACTIVE DAILY DIRECTED BY PRESCRIBER. NOTE TABLET STRENGTH LOSARTAN 25MG TAB TAKE ONE TABLET BY MOUTH ONCE DAILY FOR ACTIVE BLOOD PRESSURE/HEART MAGNESIUM OXIDE 400MG TAB TAKE ONE TABLET BY MOUTH ONCE ACTIVE DAILY FOR MAGNESIUM SUPPLEMENTATION PANTOPRAZOLE NA 40MG EC TAB TAKE ONE TABLET BY MOUTH EVERY ACTIVE MORNING 30 MINUTES BEFORE BREAKFAST SILDENAFIL CITRATE 100MG TAB TAKE ONE TABLET BY MOUTH ONCE ACTIVE DAILY FOR ERECTILE DYSFUNCTION TAKE 1 HOUR PRIOR TO SEXUAL ACTIVITY TAMSULOSIN HCL 0.4MG CAP TAKE ONE CAPSULE BY MOUTH ONCE ACTIVE DAILY DIRECTED BY PROVIDER TRAZODONE HCL 100MG TAB TAKE TWO TABLETS BY MOUTH AT ACTIVE BEDTIME - MAY TAKE A 3RD TABLET IF NOT ASLEEP BY 2AM Non-VA ASPIRIN 81MG EC TAB 81MG BY MOUTH EVERY DAY ACTIVE Non-VA FLAXSEED MISCELLANEOUS EVERY DAY ACTIVE Non-VA GARLIC CAP,ORAL BY MOUTH EVERY DAY ACTIVE Non-VA MULTIVITAMIN W/MINERAL TAB BY MOUTH ACTIVE ALL: COLCHICINE, OMEPRAZOLE, FLUNISOLIDE, ZOLEDRONIC, PRAVASTATIN, ALENDRONATE CHLORTHALIDONE, CONTRAST MEDIA, SPIRONOLACTONE, EPLERENONE, CETIRIZINE LISINOPRIL, CYCLOBENZAPRINE Fam Hx: Non - contributory Soc Hx: FORMER - STOPPED 51 YEARS AGO ROS: Denies any other relavent ROS 11/01/23 09:33 T: 97.8 F (36.6 C) P: 83 R: 18 B/P: 126/68 Wt: 154.60 lb (70.13 kg) Body Mass Index: 24 Pulse Oximetry: 94% via AT REST Pain: 0 - No pain CONSTITUTION: GENERAL APPEARANCE:Well developed, well nourished and groomed. No apparent acute or chronic distress. HEAD, FACE, SALIVARY GLANDS AND TMJ: Palpation of Parotid and Submandibular glands: Normal parotids bilaterally, normal left submandibular gland, RIGHT SUBMANDIBULAR GLAND NORMAL TO PALPATION, NO MASS, SOFT Facial Mobility: Normal. EAR, NOSE, MOUTH AND THROAT: Pinnas - normal. Otoscopic exam: RIGHT EAR: External auditory canal normal, tympanic membrane mobile LEFT EAR: External auditory canal normal, tympanic membrane mobile Hearing: Moderate Hearing loss Nasal Interior: Turbinates and middle meatus - Inferior turbinates +2 HYPERTROPHY, MODERATE RHINITIS, DILATED VESSELS ON THE RIGHT SEPTUM Normal mucosa with no swelling, polyps, active bleeding or evidence of bleeding. Lips, Teeth and Gums: Lips normal. EDENTULOUS ON MAXILLA Oral Cavity and Oropharynx: Oral mucosa with normal color and moisture. Anterior 2/3rds of tongue normal. Breath quality normal. Hard palate normal. Normal floor of mouth, Posterior pharynx normal. SMALL 2 MM MASS IN RIGHT SUBLINGUAL DUCT AT THE FLOOR OF THE MOUTH, NONTENDER. NECK AND THYROID: Neck: no adenopathy; no neck masses. RESPIRATORY: Respiratory effort normal. LYMPH NODES: Neck nodes: normal. NEUROLOGIC: Higher integrative functions: Normal orientation, memory, attention span and concentration, language, and fund of knowledge. Cranial nerves: CRANIAL NERVES PATIENT WITH SMALL AREA OF PARESTHESIA ON THE RIGHT V2, THE REMAINDER OF II-XII GROSSLY INTACT AND SYMMETRICAL. PSYCHIATRIC: Mood and affect: normal and appropriate to the situation. CT NECK SOFT TISSUE W/O CONT Exm Date: OCTOBER 25, 2023@09:59 Req Phys: FLACO MORRIS Loc: CWM/NO/OTOLARYNGOLOGY (Req'g L Img Loc: [facility]/CT Service: Unknown [facility] [place] [facility] (Case 353 COMPLETE) CT NECK SOFT TISSUE W/O CONT (CT Detailed) CPT:94404 Proc Modifiers : RIGHT Reason for Study: RIGHT NECK MASS Clinical History: RIGHT NECK MASS, STONE VS MASS Report Status: Verified Date Reported: OCTOBER 28, 2023 Date Verified: OCTOBER 28, 2023 Vehicle Operator Technician E-Sig: Report: CT NECK SOFT TISSUE W/O CONT HISTORY: 73 years-old Male with RIGHT NECK MASS. COMPARISON: None. FINDINGS: Lymph Nodes: No enlarged or abnormal [...] neck unremarkable. READING PHYSICIAN: Adalid Neely M.D. -[id number] /sharla/ Flaco Morris MD Otolaryngology Signed: 10/29/2023 08:10 Assessment/Plan SEP 26, 2023: 73-year-old male here for follow-up of the CT without contrast (due to contrast dye allergy). CT was reviewed personally and reviewed with the patient. As expected it shows 2 submandibular stones. The patient feels as though the firmness has resolved likely consistent with passing of at least one of the stones. I continue to feel a small stone on the floor of the mouth. This too is likely to pass. I discussed the importance of increased hydration and sialagogues. He will follow-up as needed. All questions were answered. Complete encounter includes: Review of past medical records Time spent with patient including obtaining history, physical exam, shared decision making, procedures Counseling and answering questions Post visit documentation to include but not limited to medication and lab ordering. Total time = Minimum 30 min MEDICATION RECONCILIATION Outpatient: Has the patient been taking medications as documented in the EMLR? YES: The patient has been taking medications as documented in the EMLR. Essential Medication List for Review used to complete this medication reconciliation. INCLUDED IN THIS LIST: Alphabetical list of active outpatient prescriptions dispensed from this [facility] (local) and dispensed from another [place] or [facility] facility (remote) as well as [...] SPIRONOLACTONE [facility] [place] [facility] ZOLEDRONIC [facility] COLCHICINE Med Recon NoGlossary (Tool #1) INCLUDED IN THIS LIST: Alphabetical list of active outpatient prescriptions dispensed from this [facility] (local) and dispensed from another [place] or [facility] facility (remote) as well as inpatient orders (local pending and active), local clinic medications, locally documented non-VA medications, and local prescriptions that have or been discontinued in the past 90 days. Non-VA Meds Last Documented On: Oct 01, 2023 NOTE The display of VA prescriptions dispensed from another [place] or [facility]D facility (remote) is limited to active outpatient prescription entries matched to National Drug File at the originating site and may not include some items such as investigational drugs, compounds, etc. NOT INCLUDED IN THIS LIST: Medications self-entered by the patient into personal health records (i.e. [employer]) are NOT included in this list. Non-VA medications documented outside this [place], remote inpatient orders (regardless of status) and remote clinic medications are NOT included in this list. The patient and provider must always discuss medications the patient is taking, regardless of where the medication was dispensed or obtained. OUTPT AMILORIDE HCL 5MG TAB (Status = Active) TAKE TWO TABLETS BY MOUTH TWICE DAILY WITH FOOD Rx# [id number] Last Released: 10/17/23 Qty/Days Supply: 360/ Rx Expiration Date: 01/09/24 Refills Remainin OUTPT AMLODIPINE BESYLATE 10MG TAB (Status = ) TAKE ONE TABLET BY MOUTH ONCE DAILY FOR BLOOD PRESSURE/HEART, DO NOT TAKE WITH GRAPEFRUIT JUICE Rx# [id number] Last Released: 09/14/23 Qty/Days Supply: 90 Rx Expiration Date: 09/29/23 Refills Remainin Non-VA ASPIRIN 81MG EC TAB TAKE ONE TABLET BY MOUTH Once daily Patient wants to buy from Non-VA pharmacy. Medication prescribed by Non-VA provider. OUTPT ATORVASTATIN CALCIUM 20MG TAB (Status = Active) TAKE ONE TABLET BY MOUTH ONCE DAILY FOR CHOLESTEROL Rx# [id number] Last Released: 08/14/23 Qty/Days Supply: 90 Rx Expiration Date: 08/14/24 Refills Remainin OUTPT CALCIUM 500MG (CA CARB-1.25GM) TAB (Status = Active) TAKE TWO TABLETS BY MOUTH ONCE DAILY Rx# [id number] Last Released: 05/02/23 Qty/Days Supply: 200/90 Rx Expiration Date: 01/09/24 Refills Remainin OUTPT CAPSAICIN 0.075% CREAM (Status = Active) APPLY A THIN FILM TOPICALLY TWICE DAILY FOR BACKACHE Rx# [id number] Last Released: 08/02/23 Qty/Days Supply: 60/30 Rx Expiration Date: 08/02/24 Refills Remainin Indication: FOR BACKACHE OUTPT CETIRIZINE HCL 10MG TAB (Status = Active) TAKE ONE TABLET BY MOUTH ONCE DAILY FOR ALLERGIES FOR ALLERGIES Rx# [id number] Last Released: 10/31/23 Qty/Days Supply: Rx Expiration Date: 05/09/24 Refills Remainin Indication: FOR ALLERGIES OUTPT CHOLECALCIF 25MCG (D3-1,000UNIT) TAB (Status = Active) TAKE ONE TABLET BY MOUTH ONCE DAILY FOR VITAMIN SUPPLEMENTATION Rx# [id number] Last Released: 08/17/23 Qty/Days Supply: Rx Expiration Date: 04/23/24 Refills Remainin Indication: FOR VITAMIN D DEFICIENCY OUTPT DENOSUMAB 60MG/ML INJ SYRINGE 1ML (Status = ) INJECT 60MG/1ML SUBCUTANEOUSLY ONE TIME FOR OSTEOPOROSIS Rx# [id number] Last Released: 08/14/23 Qty/Days Supply: 07/10 Rx Expiration Date: 09/13/23 Refills Remainin Indication: FOR OSTEOPOROSIS OUTPT DICLOFENAC NA 1% TOP GEL (Status = Discontinued) APPLY 2 GRAMS TOPICALLY FOUR TIMES A DAY FOR OSTEOARTHRITIS - USE DOSING CARD PROVIDED IN BOX Rx# [id number] Last Released: 07/31/23 Qty/Days Supply: Rx Expiration Date: 08/30/23 Refills Remainin Indication: FOR JOINT PAIN OUTPT DOXAZOSIN MESYLATE 8MG TAB (Status = Discontinued) TAKE ONE TABLET BY MOUTH ONCE DAILY DIRECTED BY PRESCRIBER. NOTE TABLET STRENGTH Rx# [id number] Last Released: 07/19/23 Qty/Days Supply: Rx Expiration Date: 09/29/23 Refills Remainin OUTPT DOXAZOSIN MESYLATE 8MG TAB (Status = Active) TAKE ONE TABLET BY MOUTH ONCE DAILY DIRECTED BY PRESCRIBER. NOTE TABLET STRENGTH Rx# [id number] Last Released: 10/18/23 Qty/Days Supply: Rx Expiration Date: 10/17/24 Refills Remainin Non-VA FLAXSEED MISCELLANEOUS EVERY DAY Non-VA FLUTICASONE NASAL SOLN,NASAL INSTILL INTO EACH NOSTRIL OUTPT FLUTICASONE PROP 50MCG 120D NASAL INHL (Status = ) INSTILL 1 SPRAY INTO EACH NOSTRIL ONCE DAILY Rx# [id number] Last Released: 08/17/23 Qty/Days Supply: 07/10 Rx Expiration Date: 09/14/23 Refills Remainin Indication: FOR NASAL IRRITATION/INFLAMMATION Non-VA GARLIC CAP,ORAL TAKE BY MOUTH EVERY DAY OUTPT GUAIFENESIN 200MG TAB (Status = Active) TAKE ONE TABLET BY MOUTH TWICE DAILY FOR COUGH Rx# [id number] Last Released: 09/27/23 Qty/Days Supply: 180/ Rx Expiration Date: 12/25/23 Refills Remainin Indication: FOR COUGH OUTPT KETOCONAZOLE 2% CREAM (Status = Active) APPLY A THIN LAYER TOPICALLY TWICE DAILY FUNGAL RASH APPLY TO AFFECTED AREAS ON CHEST FOR 4 WEEKS, THEN NEEDED Rx# [id number] Last Released: 10/18/23 Qty/Days Supply: 12030 Rx Expiration Date: 10/16/24 Refills Remainin Indication: FUNGAL RASH OUTPT LOSARTAN 25MG TAB (Status = Active) TAKE ONE TABLET BY MOUTH ONCE DAILY FOR BLOOD PRESSURE/HEART Rx# [id number] Last Released: 09/14/23 Qty/Days Supply: 90 Rx Expiration Date: 05/09/24 Refills Remainin Indication: FOR HIGH BLOOD PRESSURE OUTPT MAGNESIUM OXIDE 250MG TAB (Status = Discontinued) TAKE ONE TABLET BY MOUTH ONCE DAILY Rx# [id number] Last Released: 07/31/23 Qty/Days Supply: 90 Rx Expiration Date: 10/29/23 Refills Remainin Indication: FOR MAGNESIUM SUPPLEMENTATION OUTPT MAGNESIUM OXIDE 400MG TAB (Status = Active) TAKE ONE TABLET BY MOUTH ONCE DAILY FOR MAGNESIUM SUPPLEMENTATION Rx# [id number] Last Released: 08/10/23 Qty/Days Supply: 120/90 Rx Expiration Date: 08/08/24 Refills Remainin Indication: FOR MAGNESIUM SUPPLEMENTATION Non-VA MULTIVITAMIN W/MINERAL TAB TAKE BY MOUTH OUTPT PANTOPRAZOLE NA 40MG EC TAB (Status = Active) TAKE ONE TABLET BY MOUTH EVERY MORNING 30 MINUTES BEFORE BREAKFAST Rx# [id number] Last Released: 09/14/23 Qty/Days Supply: 90/90 Rx Expiration Date: 06/15/24 Refills Remainin Indication: FOR EXCESSIVE PRODUCTION OF STOMACH ACID OUTPT SILDENAFIL CITRATE 100MG TAB (Status = Active) TAKE ONE TABLET BY MOUTH ONCE DAILY FOR ERECTILE DYSFUNCTION TAKE 1 HOUR PRIOR TO SEXUAL ACTIVITY Rx# [id number] Last Released: 05/09/23 Qty/Days Supply: 12/08 Rx Expiration Date: 05/09/24 Refills Remainin Indication: FOR ERECTILE DYSFUNCTION OUTPT TAMSULOSIN HCL 0.4MG CAP (Status = Discontinued) TAKE ONE CAPSULE BY MOUTH ONCE DAILY DIRECTED BY PROVIDER Rx# [id number] Last Released: 09/27/23 Qty/Days Supply: Rx Expiration Date: 01/09/24 Refills Remainin OUTPT TAMSULOSIN HCL 0.4MG CAP (Status = Active) TAKE ONE CAPSULE BY MOUTH ONCE DAILY DIRECTED BY PROVIDER Rx# [id number] Last Released: 10/18/23 Qty/Days Supply: Rx Expiration Date: 10/17/24 Refills Remainin OUTPT TRAZODONE HCL 100MG TAB (Status = Active) TAKE TWO TABLETS BY MOUTH AT BEDTIME - MAY TAKE A 3RD TABLET IF NOT ASLEEP BY 2AM Rx# [id number] Last Released: 08/17/23 Qty/Days Supply: Rx Expiration Date: 02/17/24 Refills Remainin Indication: FOR INSOMNIA ASSOCIATED WITH DEPRESSION OUTPT TRIAMCINOLONE ACETONIDE 0.1% CREAM (Status = Active) APPLY A THIN LAYER TOPICALLY TWICE DAILY NEEDED FOR ITCHING -MAX 14 DAYS PER MONTH Rx# [id number] Last Released: 10/18/23 Qty/Days Supply: Rx Expiration Date: 10/16/24 Refills Remainin Indication: FOR ITCHING SUPPLIES /sharla/ Flaco Morris MD Otolaryngology Signed: 11/01/2023 10:19 FLACO MORRIS [facility]
--- OUTSIDE RECORDS SUMMARY | 2024-10-04 07:52 | XMS_ITS | Encounter Summary ---
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 Date/Time Encounter Type Encounter Description Reason Pro vider Source IHE Encounter Template Text not used by VA
--- OUTSIDE RECORDS SUMMARY | 2024-10-04 07:52 | XMS_ITS ---
Author Name [facility] [place] [place] [facility] [place] Address [address] [place] [id number] Care Team Providers Care Fire Coordinator Name Role Phone LALA DUNBAR Primary Care [...] PART A Mar 11, 2013 PART A [id number] [phone] FR AUG[place]O VIERA PATIENT MEDICARE (WNR) MEDICARE (M) PART A Mar 11, 2013 PART A [id number] [phone] FR [place] VIERA PATIENT MEDICARE (WNR) MEDICARE (M) PART A Mar 11, 2013 PART A [id number] FR [place]UG[place]O VIERA PATIENT MEDICARE (WNR) MEDICARE (M) PART A Mar 11, 2013 PART A [id number] [phone] FR AUGUSTO VIERA PATIENT Selected Encounter This section includes the information on record at [place] for the Encounter. Date/Time Encounter Type Encounter Description Reason Provider Source Jul 21, 2024 09:00 AM OFFICE O/P EST MOD 30 MIN PRIMARY CARE/MEDICINE ICD-10-CM I10 Essential (primary) hypertension BETTINALALA E Encounter Template Text not used by VA Assessments - Encounter Diagnoses This section includes the primary and secondary diagnoses documented for the Encounter. Date/Time Primary/Secondary Diagnosis Diagnosis Name Provider Source Jul 22, 2024 08:38 AM PRIMARY Essential (primary) hypertension BETTINA,LALA DESIR [facility] Jul 22, 2024 08:38 AM SECONDARY Age-related osteoporosis w/o current pathological fracture BETTINA,LALA [place]ACKSONNE [facility] Jul 22, 2024 08:38 AM SECONDARY Benign prostatic hyperplasia with lower urinary tract symp BETTINA,LALA [place]ACK[place]NE [facility] Jul 22, 2024 08:38 AM SECONDARY Gastro-esophageal reflux disease without esophagitis BETTINA,LALA [place]ACK[place]NE [facility] Jul 22, 2024 08:38 AM SECONDARY Gout, unspecified BETTINA,LALA [place]ACK[place]NE [facility] Jul 22, 2024 08:38 AM SECONDARY Insomnia, unspecified BETTINA,LALA JACK[place]NE [facility] Jul 22, 2024 08:38 AM SECONDARY Low back pain, unspecified BETTINA,LALA JACKSONNE [facility] Jul 22, 2024 08:38 AM SECONDARY Male erectile dysfunction, unspecified BETTINA,LALA [place]ACK[place]NE [facility] Jul 22, 2024 08:38 AM SECONDARY Mixed hyperlipidemia BETTINA,LALA THANG [facility] Jul 22, 2024 08:38 AM SECONDARY Other seasonal allergic rhinitis BETTINA,LALA JACKSONNE [facility] Jul 22, 2024 08:38 AM SECONDARY Pain in right shoulder BETTINA,LALA JACKSONNE [facility] Jul 22, 2024 08:38 AM SECONDARY Post-traumatic stress disorder, chronic BETTINA,LALA JACKSONNE [facility] Plan of Treatment: Future Appointments (+ 6 months) and Future Tests (+/- 45 days) The Plan of Treatment section includes future care activities [facility] the [facility] This section includes future appointments and future orders which are active, pending or scheduled. Future Appointments This section includes appointments that were scheduled to occur 6 months from the date of the Encounter, up to a maximum of 20 appointments. The data comes from all [place] [facility]. Appointment Date/Time Appointment Type Appointme nt Facility Name Aug 05, 2024 09:30 AM AMBULATORY - MEDICINE [facility] Aug 27, 2024 09:00 AM AMBULATORY - MEDICINE OR C [facility] Sep 08, 2024 08:30 AM AMBULATORY - MEDICINE OR C [facility] Sep 12, 2024 09:30 AM AMBULATORY - PSYCHIATRY [facility] Sep 16, 2024 02:15 PM AMBULATORY - MEDICINE OR C [facility] Sep 16, 2024 02:45 PM AMBULATORY - MEDICINE OR C [facility] Sep 24, 2024 11:00 AM AMBULATORY - MEDICINE OR C [facility] [facility] Oct 07, 2024 09:30 AM AMBULATORY - PSYCHIATRY [facility] [place] [facility] October 30, 2024 01:00 PM AMBULATORY - MEDICINE OR C [facility] November 06, 2024 09:45 AM AMBULATORY - NONE [facility] [facility] Dec 02, 2024 09:30 AM AMBULATORY - NONE [facility] [facility] Dec 03, 2024 10:00 AM AMBULATORY - MEDICINE OR C [facility] Active, Pending, and Scheduled Orders This section includes a listing of several types of active, pending, and scheduled orders, including clinic medications orders, diagnostic test orders, procedure orders and consult orders; where the start date of the order is 45 days before the date of the Encounter or 45 days after the date of theEncounter. The data comes from all [place] [facility]. Test Date/Time Test Type Test Details Facility Name Aug 12, 2024 11:50 AM Consult Order [facility] Tunnel Worker's Choice [facility] [facility] Vital Signs: All taken on the encounter date This section contains inpatient and outpatient Vital Signs collected on the date of the Encounter. Date/Time Temperature Pulse Blood Pressure Respiratory Rate SP02 Pain Height Weight Body Mass Index Source Jul 21, 2024 09:24 AM 123/66 [facility] [facility] [facility] Jul 21, 2024 09:00 AM 97.6 90 147/75 16 95 10 [place] [facility] [place] [facility] [facility] Social History: Smoking Status (Most current) and Tobacco Use (All prior to encounter date) This section includes the most current, and the historical, smoking and tobacco- related health factors from the OR facility where the Encounter took place. Current Smoking Status This section includes the most current smoking, or tobacco-related health factor, from the [place] facility where the Encounter took place. Date/Time Current Smoking Status Comment [facility] May 27, 2024 11:00 AM VA-TOBACCO USE FOR COLLIN CIGARETTES [facility] Tobacco Use History This section includes a history of the smoking, or tobacco-related health factors, that were collected on or before the date of the Encounter. The data comes from the [place] facility where the Encounter took place. Date/Time Smoking Status/Tobac co Use Comment Facility May 27, 2024 11:00 AM VA-TOBACCO USE FORMER CIGARETTES [facility] [place] [facility] May 09, 2023 09:00 AM VA-TOBACCO FORMER USER [facility] [facility] May 09, 2023 09:00 AM VA-TOBACCO QUIT 15 YRS OR MORE [facility] [place] Mar 30, 2022 09:45 AM VA-TOBACCO FORMER USER [facility] [facility] Mar 30, 2022 09:45 AM VA-TOBACCO QUIT 15 YRS OR MORE [facility] [facility] Mar 29, 2021 08:30 AM VA-TOBACCO FORMER USER [facility] [place] [facility] Mar 29, 2021 08:30 AM VA-TOBACCO QUIT 15 YRS OR MORE [facility] [place] [facility] Apr 05, 2020 08:00 AM VA-TOBACCO FORMER USER [facility] [place] [facility] Apr 05, 2020 08:00 AM VA-TOBACCO QUIT 15 YRS OR MORE [facility] [place] [facility] Dec 19, 2018 09:16 AM VA-TOBACCO [facility] Dec 19, 2018 09:16 AM VA-TOBACCO QUIT 15 YRS OR MORE [facility] [place] [facility] Jan 25, 2018 08:57 AM QUIT TOBACCO USE > 7 YEARS AGO [facility] [place] [facility] November 07, 2016 10:23 AM QUIT TOBACCO USE > 7 YEARS AGO [facility] [place] [facility] Sep 15, 2015 09:35 AM LIFETIME NON-TOBACCO USER [facility] [place] [facility] Feb 27, 2005 03:58 PM LIFETIME NON-SMOKER [facility] October 17, 2002 08:32 AM HISTORY OF SMOKING Smoke free since 1967 (35years) [facility] Jan 30, 2002 03:15 PM QUIT TOBACCO USE > 7 YEARS AGO [facility] Jul 25, 2001 03:17 PM HISTORY OF SMOKING [facility] Jul 25, 2001 03:17 PM [facility] Encounter Notes: All associated encounter notes This section contains the clinical notes associated to the Encounter. Date/Time Encounter Note(s) Provider Source Jul 21, 2024 09:07 AM PRIMARY CARE NURSE PRACTITIONER OUTPATIENT NOTE: LOCAL TITLE: NURSE PRACTITIONER OUTPATIENT NOTE STANDARD TITLE: PRIMARY CARE NURSE PRACTITIONER OUTPATIENT NOTE DATE OF NOTE: JUL 21, 2024@09:07 ENTRY DATE: JUL 21, 2024@09:07:18 AUTHOR: LALA DUNBAR EXP COSIGNER: URGENCY: STATUS: COMPLETED Pt is a 74 who comes in for follow up of medical problems as noted below. HPI: Filiberto is having worsening Chronic pain in left shoulder, bilateral knee (has known OA), He has pain in right shoulder but left is worse, he is not sleeping well despite taking trazodone for insomnia, pain is keeping him awake, Benign essential hypertension takes amlodipine and losartan Insomnia on high dose trazodone, sleep has been disrupted from Osteoporosis is on Prolia shots, also takes Ca+ Kristy D Adrenal adenoma was on aldosterone receptor antagonist was on EPLERENONE, he since stopped seeing endocrine for this and does not want to pursue f/u at this time I mentioned that i am not a specialist for this condition he is aware Hyperkalemia is on amiloride Hyperlipidemia stable on atorva Benign prostatic hypertrophy takes tamsulosin and doxazosin suggested from Urology seems to help flow, Erectile dysfunction takes sildenafil PRN Gout Right knee has been on many rounds of prednisone states he cannot tolerate Colchicine, has not seen rheumatology for any of this Rhinitis uses Flonase and Zyrtec Posttraumatic stress disorder stable denies wanting MH Gastroesophageal reflux disease takes pantoprazole PMH: Active problems - Computerized Problem List [...] 7. Recent weight loss EGD DR Mckenzie [facility] Impression :Gastritis Await biopsy report to r/u H. pylori [facility] Dr Mckenzie 8. Osteoporosis consult: [facility] ENDOCRINE - Elsychelsey Keane, DO MED: Prolia Solution 60mg/ml( approved NON FORM) 9. Hernia of abdominal wall Seen GI surgery 11/2018 - elective surgery - if vet wishes to schedule 10. Adrenal adenoma consult: [facility] ENDOCRINE - Elsychelsey Keane, DO MED: aldosterone receptor antagonist- ( 05/2019- EPLERENONE) - 11. Osteoarthritis of knee 12. Calcium pyrophosphate deposition disease -- by joint aspiration 06/19 13. 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 Posterior Vitreous Detachment 16. Osteoporosis (SNOMED CT 05568927) -- hip T-score -2.8, 08/18 17. Low back pain (SNOMED CT 768577099) chronic. Finds child care assistant helpful. Sees Chiropractor Dr Surinder Patel at [address] [place] [address] 18. Hyperlipidemia (SNOMED CT 97685339) 19. Benign prostatic hypertrophy (SNOMED CT 054297033) 20. Gout (SNOMED CT 73470591) Right knee 21. Rhinitis (SNOMED CT 23189955) 22. Dermatitis or Eczema * 23. History of polyp of colon -- tubular adenoma 05/16 normal colonoscopy 11/20 last c-scope 2020; due for 2023 due to Hx of tubular adenoma and limited prep on 2020 c-scope 24. Posttraumatic stress disorder (SNOMED CT 14423618) update Reviewed 25. Erectile dysfunction (SNOMED CT 397609568) 26. Gastroesophageal reflux disease (SNOMED CT 119436056) Allergies: OMEPRAZOLE, FLUNISOLIDE, ZOLEDRONIC, PRAVASTATIN, ALENDRONATE, CHLORTHALIDONE [...] MOUTH ONCE ACTIVE DAILY FOR CHOLESTEROL 4) CALCIUM 500MG (CA CARB-1.25GM) TAB TAKE TWO TABLETS BY MOUTH ACTIVE ONCE DAILY 5) CAPSAICIN 0.075% CREAM APPLY A THIN FILM TOPICALLY TWICE ACTIVE DAILY Indication: FOR BACKACHE 6) CETIRIZINE HCL 10MG TAB TAKE ONE TABLET BY MOUTH ONCE DAILY ACTIVE Indication: FOR ALLERGIES 7) CHOLECALCIF 25MCG (D3-1,000UNIT) TAB TAKE ONE TABLET BY ACTIVE MOUTH ONCE DAILY FOR VITAMIN SUPPLEMENTATION Indication: FOR VITAMIN D DEFICIENCY 8) DOXAZOSIN MESYLATE 8MG TAB TAKE ONE TABLET BY MOUTH ONCE ACTIVE DAILY DIRECTED BY PRESCRIBER. NOTE TABLET STRENGTH 9) FLUTICASONE PROP 50MCG 120D NASAL INHL INSTILL 1 SPRAY INTO ACTIVE EACH NOSTRIL ONCE DAILY Indication: FOR NASAL IRRITATION/INFLAMMATION 10) GUAIFENESIN 200MG TAB TAKE ONE TABLET BY MOUTH TWICE DAILY ACTIVE Indication: FOR COUGH 11) KETOCONAZOLE 2% CREAM APPLY A THIN LAYER TOPICALLY TWICE ACTIVE DAILY APPLY TO AFFECTED AREAS ON CHEST FOR 4 WEEKS, THEN NEEDED Indication: FUNGAL RASH 12) MAGNESIUM OXIDE 400MG TAB TAKE ONE TABLET BY MOUTH ONCE ACTIVE DAILY Indication: FOR MAGNESIUM SUPPLEMENTATION 13) PANTOPRAZOLE NA 40MG EC TAB TAKE ONE TABLET BY MOUTH EVERY ACTIVE MORNING 30 MINUTES BEFORE BREAKFAST Indication: FOR EXCESSIVE PRODUCTION OF STOMACH ACID 14) SODIUM FLUORIDE 1.1% TOOTHPASTE BRUSH SMALL AMOUNT TO TEETH ACTIVE TWICE DAILY Indication: FOR TOOTH DECAY PREVENTION 15) TAMSULOSIN HCL 0.4MG CAP TAKE ONE CAPSULE BY MOUTH ONCE ACTIVE DAILY DIRECTED BY PROVIDER 16) TRAZODONE HCL 100MG TAB TAKE TWO TABLETS BY MOUTH AT BEDTIME ACTIVE (S) - MAY TAKE A 3RD TABLET IF NOT ASLEEP BY 2AM Indication: FOR INSOMNIA ASSOCIATED WITH DEPRESSION 17) TRIAMCINOLONE ACETONIDE 0.1% CREAM APPLY A THIN LAYER ACTIVE TOPICALLY TWICE DAILY NEEDED -MAX 14 DAYS PER MONTH Indication: FOR ITCHING Inactive Outpatient Medications Status 1) COLCHICINE 0.6MG TAB TAKE TWO TABLETS BY MOUTH ONE TIME THEN TAKE ONE TABLET ONE TIME ONE HOUR LATER FOR ONE DAY, THEN TAKE ONE TABLET TWICE DAILY UNTIL GOUT FLARE RESOLVED Indication: FOR ACUTE GOUT ATTACK 2) PREDNISONE 20MG TAB TAKE THREE TABLETS BY MOUTH ONCE DAILY FOR 3 DAYS, THEN TAKE TWO TABLETS ONCE DAILY FOR 3 DAYS, THEN TAKE ONE TABLET ONCE DAILY FOR 3 DAYS FOR Indication: GOUT FLARE Active Non-VA Medications Status 1) Non-VA ASPIRIN 81MG EC TAB 81MG BY MOUTH EVERY DAY ACTIVE 2) Non-VA FLAXSEED MISCELLANEOUS EVERY DAY ACTIVE 3) Non-VA GARLIC CAP,ORAL BY MOUTH EVERY DAY ACTIVE 22 Total Medications Allergies: OMEPRAZOLE, FLUNISOLIDE, ZOLEDRONIC, PRAVASTATIN, ALENDRONATE, CHLORTHALIDONE CONTRAST MEDIA, SPIRONOLACTONE, EPLERENONE, CETIRIZINE, LISINOPRIL CYCLOBENZAPRINE VITAL SIGNS: 97.6 F [36.4 C] (07/21/2024 09:00) 90 (07/21/2024 09:00) 16 (07/21/2024 09:00) 123/66 (07/21/2024 09:24) 10 (07/21/2024 09:00) 67 in [170.2 cm] (02/20/2024 08:48) Unavailable (07/21/2024 09:00) BMI: 0.0 ROS General: no fever, no unexplained weight loss or gain CV: denies CP, palpitations Lung: denies Dyspnea or wheezing Ext: denies edema Psych: denies SI Neuro: denies dizziness, falls, IRVIN PHYSI MIHAELA EXAM GENERAL: well appearing [place] in NAD, speaking in clear sentences. RESP: CTAB, no wheezing or Rales. Cards: S1 S2 RRR, No m/r/g no JVD, No Pedal Edema, Distal Pulses palpable NEURO CN II-XII grossly intact, gait steady without shuffle MENTAL A&Ox3 Appropriate, Pleasant, Cooperative LAB RESULTS LAST 1440 HRS - NONE FOUND Future Clinic Visits 08/05/2024 09:30 [facility] PODIATRY 1 09/08/2024 08:30 [facility] OPTOMETRY 4 10/09/2024 10:00 [facility] DERMATOLOGY TOBACCO SORTER 1 AM 10/30/2024 13:00 [facility] RHEUMATOLOGY 2 11/06/2024 09:45 [facility] DENTAL RDH 2 AM ASSESSMENT AND PLAN: #Chronic pain -left shoulder and bilateral knee (has known OA) -referral to pain management #HTN -Cont. amlodipine and losartan Insomnia -on high dose trazodone -Referral to pain as that seems to be interfering with pain the most -consider MH consult as likely trazodone not working Osteoporosis -Cont. Prolia shots -Cont. weight bearing Ca+ Kristy D -Follows with Endocrinology Adrenal adenoma -was on aldosterone receptor antagonist was on EPLERENON -declined further f/u on medications or seeing Endo for this will encourage again next visit Hyperkalemia -Cont. monitoring and daily amiloride Hyperlipidemia -Cont. atorva BPH -Cont. tamsulosin and doxazosin -sildenafil PRN Gout -Right knee -Has endocrinology in place Rhinitis -Cont. Flonase and Zyrtec Posttraumatic stress disorder -stable -denies wanting MH Gastroesophageal reflux disease - pantoprazole Consider [facility] med review ? polypharamcy Return to clinic to see me in 6months, RTC sooner if needed. Clinical Reminders Medication Reconciliation: Outpatient: Has the patient been taking medications as documented in the EMLR? YES: The patient has been taking medications as documented in the EMLR. Essential Medication List for Review used to complete this medication reconciliation. INCLUDED IN THIS LIST: Alphabetical list of active outpatient prescriptions dispensed from this OR (local) and dispensed from another OR or DoD facility (remote) as well as [...] whether with a VA or non-VA provider. Follow Up Colonoscopy: Colonoscopy is due based on information available to this reminder. A colonoscopy is currently scheduled or in process of being scheduled. /sharla/ PIPPA CALVERT Nurse Practitioner Signed: 07/22/2024 08:37 LALA DUNBAR [facility] Jul 21, 2024 08:56 AM PREVENTIVE MEDICINE NURSING NOTE: LOCAL TITLE: CLINICAL REMINDERS/NURSING STANDARD TITLE: PREVENTIVE MEDICINE NURSING NOTE DATE OF NOTE: JUL 21, 2024@08:56 ENTRY DATE: JUL 21, 2024@08:56:07 AUTHOR: SRINI HDEZ EXP COSIGNER: URGENCY: STATUS: COMPLETED Influenza Immunization: Deferral / Refusal The patient declines to receive the recommended dose of seasonal influenza vaccine. Immunization: INFLUENZA, UNSPECIFIED FORMULATION Refusal Reason: PATIENT DECISION Patient refuses all immunization(s) in the FLU group Date Documented: 07/21/24 09:15 RSV Immunization: Respiratory Syncytial Virus (RSV) Vaccine: Refused GlaxIT MOVES IT (RSV vaccine, adjuvanted, Arexvy). Immunization: RSV, RECOMBINANT, PROTEIN SUBUNIT RSVPREF3, ADJUVANT RECONSTITUTED, 0.5 ML, PF Refusal Reason: PATIENT DECISION Patient refuses all immunization(s) in the RSV group Date Documented: 07/21/24 09:15 Pneumococcal Conjugate Vaccine (PCV15/PCV20): Refuses PCV vaccine Immunization: PNEUMOCOCCAL CONJUGATE, UNSPECIFIED FORMULATION Refusal Reason: PATIENT DECISION Patient refuses all immunization(s) in the PneumoPCV group Date Documented: 07/21/24 09:15 /celia HDEZ REGISTERED NURSE Signed: 07/21/2024 09:16 SRINI HDEZ [facility]
--- OUTSIDE RECORDS SUMMARY | 2024-10-04 07:52 | XMS_ITS ---
Author Name [facility] Organization [facility] Address [address] [place] [address] Care Team Providers Care Director Talent Acquisition Name Role Phone LALA DUNBAR Primary Care [...] PART A Mar 11, 2013 PART A [id number] [phone] FR AUGUSTO VIERA PATIENT MEDICARE (WNR) MEDICARE (M) PART A Mar 11, 2013 PART A [id number] [phone] FR [place]O VIERA PATIENT MEDICARE (WNR) MEDICARE (M) PART A Mar 11, 2013 PART A [id number] [phone] FR [place] VIERA PATIENT MEDICARE (WNR) MEDICARE (M) PART A Mar 11, 2013 PART A [id number] [phone] FR AUG[place]O VIERA PATIENT Selected Encounter This section includes the information on record at ID for the Encounter. Date/Time Encounter Type Encounter Description Reason Provider Source Mar 25, 2024 02:30 PM OFFICE O/P EST MOD 30 MIN PRIMARY CARE/MEDICINE ICD-10-CM M79.651 Pain in right thigh LALA DUNBAR E Encounter Template Text not used by ID Assessments - Encounter Diagnoses This section includes the primary and secondary diagnoses documented for the Encounter. Date/Time Primary/Secondary Diagnosis Diagnosis Name Provider Source Mar 25, 2024 03:42 PM PRIMARY Pain in right thigh LALA DUNBAR [facility] [place] [facility] Plan of Treatment: Future Appointments (+ 6 months) and Future Tests (+/- 45 days) The Plan of Treatment section includes future care activities for the patient from all [facility]. This section includes future appointments and future orders which are active, pending or scheduled. Future Appointments This section includes appointments that were scheduled to occur 6 months from the date of the Encounter, up to a maximum of 20 appointments. The data comes from all ID treatment facilities. Appointment Date/Time Appointment Type Appointme nt Facility Name Mar 27, 2024 10:30 AM AMBULATORY - MEDICINE ID [facility] [place] [facility] Apr 25, 2024 08:30 AM AMBULATORY - NONE [facility] [place] [facility] May 27, 2024 11:00 AM AMBULATORY - MEDICINE ID [facility] [place] [facility] Jul 11, 2024 01:40 PM AMBULATORY - NONE [facility] [place] [facility] Jul 21, 2024 09:00 AM AMBULATORY - MEDICINE ID [facility] [place] [facility] Aug 05, 2024 09:30 AM AMBULATORY - MEDICINE ID [facility] [place] [facility] Aug 27, 2024 09:00 AM AMBULATORY - MEDICINE ID [facility] [place] [facility] Sep 08, 2024 08:30 AM AMBULATORY - MEDICINE ID [facility] [place] [facility] Sep 12, 2024 09:30 AM AMBULATORY - PSYCHIATRY [facility] [place] [facility] Sep 16, 2024 02:15 PM AMBULATORY - MEDICINE ID [facility] [place] [facility] Sep 16, 2024 02:45 PM AMBULATORY - MEDICINE ID [facility] [place] [facility] Active, Pending, and Scheduled Orders This section includes a listing of several types of active, pending, and scheduled orders, including clinic medications orders, diagnostic test orders, procedure orders and consult orders; where the start date of the order is 45 days before the date of the Encounter or 45 days after the date of theEncounter. The data comes from all ID treatment facilities. Test Date/Time Test Type Test Details Facility Name Mar 05, 2024 10:55 AM Consult Order [facility]COLONOS[facility] SCREENING Cons Retail Inventory Control Clerk's Choice [facility] Lab Results: +/- 30 days of the encounter This section includes the Chemistry and Hematology Lab Results on record with ID for the patient. Radiology Reports and Pathology Reports are provided separately, in subsequent sections. Lab Results This section contains the Chemistry/Hematology Results that were resulted 30 days before or 30 daysafter the date of the Encounter. Date/Time Source Result Type Result - Unit Interpretation Reference Range Specimen Type Comment Mar 25, 2024 03:29 PM [facility] FERRITIN SERUM Specimen Type: SERUM No comment entered. Ordering Provider: LALA DUNBAR Report Released Date/Time: Mar 25, 2024 03:12 PM Reporting Lab: [facility] [place] [facility] [address] [facility] [address] Performing Lab: [facility] [address] [facility] [address] FERRITIN 140 ng/mL 20-300 Mar 25, 2024 03:29 PM [facility] MAGNESIUM SERUM Specimen Type: SERUM No comment entered. Ordering Provider: LALA DUNBAR Report Released Date/Time: Mar 25, 2024 03:12 PM Reporting Lab: [facility] [address] [facility] [address] Performing Lab: [facility] [address] [facility] [address] MAGNESIUM 2.3 mg/dL 1.6-2.6 Mar 25, 2024 03:29 PM [facility] CALCIUM SERUM Specimen Type: SERUM No comment entered. Ordering Provider: LALA DUNBAR Report Released Date/Time: Mar 25, 2024 03:17 PM Reporting Lab: [facility] [address] [facility] [phone] Performing Lab: [address] [address] CALCIUM 8.5 mg/dL 8.5-10.2 Mar 25, 2024 03:29 PM [facility] BASIC METABOLIC PANEL (non-fasting) SERUM Spe cimen Type: SERUM No comment entered. Ordering Provider: LALA DUNBAR Report Released Date/Time: Mar 25, 2024 03:12 PM Reporting Lab: [address] [address] Performing Lab: [address] [address] UREA NITROGEN 20 mg/dL 7-25 GLUCOSE 94 mg/dL 65-100 SODIUM 140 mmol/L 135-145 POTASSIUM 3.7 mmol/L 3.5-5.0 CHLORIDE 107 mmol/L 100-110 CO2 24 meq/L 20-30 CREATININE, Serum 1.14 mg/dL 0.50-1.40 eGFR(CKD-EPI 2020) 67 mL/min >60 Mar 11, 2024 10:15 AM [facility] BASIC METABOLIC PANEL (non-fasting) SERUM Spe cimen Type: SERUM No comment entered. Ordering Provider: LALA DUNBAR Report Released Date/Time: Mar 05, 2024 10:44 AM Reporting Lab: [address] [address] Performing Lab: [address] [address] UREA NITROGEN 19 mg/dL 7-25 GLUCOSE 218 mg/dL H 65-100 SODIUM 138 mmol/L 135-145 POTASSIUM 4.6 mmol/L 3.5-5.0 CHLORIDE 106 mmol/L 100-110 CO2 18 meq/L L 20-30 CREATININE, Serum 1.41 mg/dL H 0.50-1.40 eGFR(CKD-EPI 2020) 52 mL/min L >60 Mar 05, 2024 08:14 AM [facility] BASIC METABOLIC PANEL (non-fasting) SERUM Spe cimen Type: SERUM No comment entered. Ordering Provider: LALA DUNBAR Report Released Date/Time: Mar 04, 2024 06:37 PM Reporting Lab: [facility] [address] [facility] [address] Performing Lab: [facility] [address] [facility] [address] UREA NITROGEN 17 mg/dL 7-25 GLUCOSE 157 mg/dL H 65-100 SODIUM 143 mmol/L 135-145 POTASSIUM 3.9 mmol/L 3.5-5.0 CHLORIDE 104 mmol/L 100-110 CO2 28 meq/L 20-30 CREATININE, Serum 1.08 mg/dL 0.50-1.40 eGFR(CKD-EPI 2020) 71 mL/min >60 Mar 05, 2024 08:14 AM [facility] RENIN ACTIVITY (PLASMA) PLASMA Specimen Type: PLASMA Comment: This test was developed and its analytical performance characteristics have been determined by [facility] [place], [place]. It has not been cleared or approved by the U.S. Food and Drug Administration. This assay has been validated pursuant to the CLIA regulations and is used for clinical purposes. Test Performed by [facility] [place], [facility], [address] [place], [place] Pb Gilmore M.D., Ph.D., Director of Laboratories , CLIA [id number] TEST PERFORMED AT: , Ordering Provider: MARCO ANTONIO LARKIN Report Released Date/Time: Mar 05, 2024 07:05 AM Reporting Lab: [facility] [address] [facility] [phone] Performing Lab: [facility] [address] [address] RENIN ACTIVITY (PLASMA) 0.47 0.25-5.8 2 Mar 05, 2024 08:14 AM [facility] ALDOSTERONE UPRIGHT,LC/MS/MS SERUM Specimen T ype: [...] analytical performance characteristics have been determined by [employer] characteristics have been determined by [facility] [place], [place]. It has Diagnostics [employer] [place], [place]. It has not been cleared or approved by the U.S. Food and Drug not been cleared or approved by the U.S. Food and Drug Administration. This assay has been validated pursuant Administration. This assay has been validated pursuant to the CLIA regulations and is used for clinical to the CLIA regulations and is used for clinical purposes. purposes. Test Performed by [facility] [place], Test Performed by [employer], [employer], [employer], [address] [place] [address] [place] [address] Pb Gilmore M.D., Ph.D., Director of Laboratories Pb Gilmore M.D., Ph.D., Director of Laboratories , CLIA [id number] , CLIA [id number] TEST PERFORMED AT: TEST PERFORMED AT: , , Ordering Provider: MARCO ANTONIO LARKIN Report Released Date/Time: Mar 05, 2024 07:05 AM Reporting Lab: [facility] [address] [facility] [address] Performing Lab: [facility] [address] [address] ALDOSTERONE UPRIGHT,LC/MS/MS 18 ng/dL * Mar 04, 2024 01:21 PM [facility] BASIC METABOLIC PANEL (non-fasting) SERUM Spe cimen Type: SERUM Comment: Verified by repeat analysis. POTASSIUM Ordering Provider: LALA DUNBAR Report Released Date/Time: Feb 20, 2024 09:25 AM Reporting Lab: [facility] [address] [facility] [address] Performing Lab: [facility] [address] [facility] [address] UREA NITROGEN 17 mg/dL 7-25 GLUCOSE 103 mg/dL H 65-100 SODIUM 144 mmol/L 135-145 POTASSIUM 2.7 mmol/L LL 3.5-5.0 CHLORIDE 103 mmol/L 100-110 CO2 32 meq/L H 20-30 CREATININE, Serum 1.10 mg/dL 0.50-1.40 eGFR(CKD-EPI 2020) 70 mL/min >60 Vital Signs: All taken on the encounter date This section contains inpatient and outpatient Vital Signs collected on the date of the Encounter. Date/Time Temperature Pulse Blood Pressure Respiratory Rate SP02 Pain Height Weight Body Mass Index Source Mar 25, 2024 02:55 PM 98.5 88 147/72 16 94 10 [facility] Social History: Smoking Status (Most current) and Tobacco Use (All prior to encounter date) This section includes the most current, and the historical, smoking and tobacco- related health factors from the ID facility where the Encounter took place. Current Smoking Status This section includes the most current smoking, or tobacco-related health factor, from the ID facility where the Encounter took place. Date/Time Current Smoking Status Comment Keith garcia May 09, 2023 09:00 AM VA-TOBACCO FORMER USER [facility] Tobacco Use History This section includes a history of the smoking, or tobacco-related health factors, that were collected on or before the date of the Encounter. The data comes from the ID facility where the Encounter took place. Date/Time Smoking Status/Tobac co Use Comment Facility May 09, 2023 09:00 AM VA-TOBACCO QUIT 15 YRS OR MORE [facility] Mar 30, 2022 09:45 AM VA-TOBACCO FORMER USER [facility] Mar 30, 2022 09:45 AM VA-TOBACCO QUIT 15 YRS OR MORE [facility] [place] [facility] Mar 29, 2021 08:30 AM VA-TOBACCO FORMER USER [facility] [place] [facility] Mar 29, 2021 08:30 AM VA-TOBACCO QUIT 15 YRS OR MORE [facility] [place] [facility] Apr 05, 2020 08:00 AM VA-TOBACCO FORMER USER [facility] [place] [facility] Apr 05, 2020 08:00 AM VA-TOBACCO QUIT 15 YRS OR MORE [facility] [place] [facility] Dec 19, 2018 09:16 AM VA-TOBACCO FORMER USER [facility] [place] [facility] Dec 19, 2018 09:16 AM VA-TOBACCO QUIT 15 YRS OR MORE [facility] [place] [facility] Jan 25, 2018 08:57 AM QUIT TOBACCO USE > 7 YEARS AGO [facility] [place] [facility] November 07, 2016 10:23 AM QUIT TOBACCO USE > 7 YEARS AGO [facility] [place] [facility] Sep 15, 2015 09:35 AM LIFETIME NON-TOBACCO USER [facility] [place] [facility] Feb 27, 2005 03:58 PM LIFETIME NON-SMOKER ID [facility] [place] [facility] October 17, 2002 08:32 AM HISTORY OF SMOKING Smoke free since 1967 (35years) [facility] [place] [facility] Jan 30, 2002 03:15 PM QUIT TOBACCO USE > 7 YEARS AGO [facility] [place] [facility] Jul 25, 2001 03:17 PM HISTORY OF SMOKING [facility] [place] [facility] Jul 25, 2001 03:17 PM NON-TOBACCO USER [facility] [place] [facility] Radiology Reports: +/- 30 days [...] 2 OR MORE V IEWS: NIGEL VIERA [id number] -[phone] M Exm Date: MAR 04, 2024@14:16 Req Phys: SURINDER LOZOYA Pat Loc: CWM/NO/PODIATRY A (Req'g Loc) Img Loc: [facility]/BUILDING 1 Service: Unknown [facility] [address] (Case [id number] COMPLETE) TOE(S) 2 OR MORE VIEWS (RAD Detailed) CPT:35558 Proc Modifiers : RIGHT Reason for Study: subbed hallux. 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 Date/Time Encounter Note(s) Provider Source Mar 25, 2024 03:08 PM PRIMARY CARE NURSE PRACTITIONER OUTPATIENT NOTE: LOCAL TITLE: NURSE PRACTITIONER OUTPATIENT NOTE STANDARD TITLE: PRIMARY CARE NURSE PRACTITIONER OUTPATIENT NOTE DATE OF NOTE: MAR 25, 2024@15:08 ENTRY DATE: MAR 25, 2024@15:08:22 AUTHOR: LALA DUNBAR EXP COSIGNER: URGENCY: STATUS: COMPLETED NURSE PRACTITIONER OUTPATIENT NOTE Has ADDENDA Pt is a 74 who comes in for follow up of medical problems as noted below. HPI: Right lateral thigh Pain pain with bearing weight feels like intense muscle cramping in upper right thigh also with low back pain that is baseline but his gait is off so walking slightly diffierent He denies being sedentary Pain started about 1.5 weeks ago last month he had Hypokalemia, could be from being off Amiloride but not back on it when his K+ was low he was also having some palpitations denies that currently denies chest pain or diaphoresis PMH: Active problems - Computerized Problem List [...] 7. Recent weight loss EGD DR Mckenzie [facility] Impression :Gastritis Await biopsy report to r/u H. pylori [facility] Dr Mckenzie 8. Osteoporosis consult: [facility] - Elsychelsey Keane, DO MED: Prolia Solution 60mg/ml( approved NON FORM) 9. Hernia of abdominal wall SEEn GI surgery 11/2018 - elective surgery - if vet wishes to schedule 10. Adrenal adenoma consult: [facility] - Elsychelsey Keane, DO MED: aldosterone receptor antagonist- ( 05/2019- EPLERENONE) - 11. Osteoarthritis of knee 12. Calcium pyrophosphate deposition disease -- by joint aspiration 06/19 13. 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 Posterior Vitreous Detachment 16. Osteoporosis (SNOMED CT 64033000) -- hip T-score -2.8, 08/18 17. Low back pain (SNOMED CT 722041261) chronic. Finds direct care provider helpful. Sees Chiropractor Dr Surinder Patel at [address] [place] [address] 18. Hyperlipidemia (SNOMED CT 44048672) 19. Benign prostatic hypertrophy (SNOMED CT 070319630) 20. Gout (SNOMED CT 92489141) Right knee 21. Rhinitis (SNOMED CT 09777107) 22. Dermatitis or Eczema * 23. History of polyp of colon -- tubular adenoma 05/16 normal colonoscopy 11/20 last c-scope 2020; due for 2023 due to Hx of tubular adenoma and limited prep on 2020 c-scope 24. Posttraumatic stress disorder (SNOMED CT 65224934) update Reviewed 25. Erectile dysfunction (SNOMED CT 816910979) 26. Gastroesophageal reflux disease (SNOMED CT 310769138) Allergies: COLCHICINE, OMEPRAZOLE, FLUNISOLIDE, ZOLEDRONIC, PRAVASTATIN, ALENDRONATE [...] TAKE ONE TABLET BY MOUTH ONCE ACTIVE (S) DAILY FOR ALLERGIES FOR ALLERGIES 7) CHOLECALCIF 25MCG (D3-1,000UNIT) TAB TAKE ONE TABLET ACTIVE (S) BY MOUTH ONCE DAILY FOR VITAMIN SUPPLEMENTATION 8) DENOSUMAB 60MG/ML INJ SYRINGE 1ML INJECT 60MG/1ML ACTIVE SUBCUTANEOUSLY ONE TIME FOR OSTEOPOROSIS 9) DOXAZOSIN MESYLATE 8MG TAB TAKE ONE TABLET BY MOUTH ACTIVE ONCE DAILY DIRECTED BY PRESCRIBER. NOTE TABLET STRENGTH 10) FLUTICASONE PROP 50MCG 120D NASAL INHL INSTILL 1 ACTIVE SPRAY INTO EACH NOSTRIL ONCE DAILY 11) GUAIFENESIN 200MG TAB TAKE ONE TABLET BY MOUTH TWICE ACTIVE (S) DAILY FOR COUGH 12) KETOCONAZOLE 2% CREAM APPLY A THIN LAYER TOPICALLY ACTIVE TWICE DAILY FUNGAL RASH APPLY TO AFFECTED AREAS ON CHEST FOR 4 WEEKS, THEN NEEDED 13) LOSARTAN 25MG TAB TAKE ONE TABLET BY MOUTH ONCE DAILY ACTIVE FOR BLOOD PRESSURE/HEART 14) MAGNESIUM OXIDE 400MG TAB TAKE ONE TABLET BY MOUTH ACTIVE ONCE DAILY FOR MAGNESIUM SUPPLEMENTATION 15) PANTOPRAZOLE NA 40MG EC TAB TAKE ONE TABLET BY MOUTH ACTIVE (S) EVERY MORNING 30 MINUTES BEFORE BREAKFAST 16) PREDNISONE 20MG TAB TAKE THREE TABLETS BY MOUTH ONCE ACTIVE DAILY FOR 3 DAYS, THEN TAKE TWO TABLETS ONCE DAILY FOR 3 DAYS, THEN TAKE ONE TABLET ONCE DAILY FOR 3 DAYS GOUT FLARE 17) SILDENAFIL CITRATE 100MG TAB TAKE ONE [...] BY MOUTH ACTIVE 25 Total Medications Allergies: COLCHICINE, OMEPRAZOLE, FLUNISOLIDE, ZOLEDRONIC, PRAVASTATIN, ALENDRONATE CHLORTHALIDONE, CONTRAST MEDIA, SPIRONOLACTONE, EPLERENONE, CETIRIZINE LISINOPRIL, CYCLOBENZAPRINE VITAL SIGNS: 98.5 F [36.9 C] (03/25/2024 14:55) 88 (03/25/2024 14:55) 16 (03/25/2024 14:55) 147/72 (03/25/2024 14:55) 10 (03/25/2024 14:55) 67 in [170.2 cm] (02/20/2024 08:48) 156.5 lb [70.99 kg] (03/05/2024 10:19) BMI: 24.6 ROS General: no fever, no unexplained weight loss or gain CV: denies CP, palpitations Lung: denies Dyspnea or wheezing Abd: denies n/v/d Ext: denies edema Psych: denies SI Neuro: denies dizziness, falls, IRVIN PHYSI MIHAELA EXAM GENERAL: well appearing in NAD, speaking in clear sentences. SKIN: no dermatomal rashes RESP: CTAB, no wheezing or Rales. Cards: S1 S2 RRR, No m/r/g no JVD, No Pedal Edema, Distal Pulses palpable Musculo: Hips with FROM and equal strength. Knees without crepitus, FROM and equal strength Spine normal 3 curvature, no paraspinal TTP NEURO CN II-XII grossly intact, gait steady without shuffle, Normal sensation to feet bilaterally MENTAL A&Ox3 Appropriate, Pleasant, Cooperative GLUCOSE: 218 H UREA NITROGEN: 19 SODIUM: 138 POTASSIUM: 4.6 CHLORIDE: 106 CO2: 18 L CREATININE-EGFR: 1.41 H eGFR CKD-EPI 2020: 52 L GLUCOSE: 157 H UREA NITROGEN: 17 SODIUM: 143 POTASSIUM: 3.9 CHLORIDE: 104 CO2: 28 CREATININE-EGFR: 1.08 eGFR CKD-EPI 2020: 71 RENIN ACTIVITY, (QU): 0.47 ALDOSTERONE (UPRIGHT-QU): 18 GLUCOSE: 103 H UREA NITROGEN: 17 SODIUM: 144 POTASSIUM: 2.7 L* CHLORIDE: 103 CO2: 32 H CREATININE-EGFR: 1.10 [...] 30.1 Neut %: 60.4 Lymph %: 30.0 Turner %: 5.9 Eos %: 2.6 Baso %: 0.8 Neut, Abs: 3.98 Lymph, Abs: 1.98 Turner, Abs: 0.39 Eos, Abs: 0.17 Baso, Abs: [...] CKD-EPI 2020: 57 L Future Clinic Visits 03/27/2024 09:15 [facility] DENTAL DMD 4 03/27/2024 10:30 CWM/NO/SPECIALTY/NURSING 06/09/2024 09:30 CWM/NO/PACT 5 07/11/2024 13:40 COM CARE-COLO SCRN 08/05/2024 09:30 CWM/NO/PODIATRY A 09/08/2024 08:30 NHM/OPTOMETRY/BORASKI 10/09/2024 10:00 CWM/NO/DERMATOLOGY STEEL DIE PRINTER AM ASSESSMENT AND PLAN: 1)Right upper thigh pain -Ddx broad, low risk wells criteria thus low suspicion of Upper leg DVT, he has h/o Hypokalemia, last month was 2.7 needing repletion at ER since then got back on Amiloride repeat K+ was normal -check Lytes, ca+ mag -home with methocarbamol for a day -Consider imaging if Lytes all WNL also could consider lower intensity statin in case that is causing myalgia -I will call him in morning with labs Return to clinic to see me in dec, RTC sooner if needed. Clinical Reminders HTN Assess for Elevated BP>=140/90: The patient's blood pressure is usually adequately controlled. No medication changes are indicated at this time. Comment: currently in pain will check when he returns Medication Reconciliation: Outpatient: Has the patient been taking medications as documented in the EMLR? YES: The patient has been taking medications as documented in the EMLR. Essential Medication List for Review used to complete this medication reconciliation. INCLUDED IN THIS LIST: Alphabetical list of active outpatient prescriptions [facility] ([facility]) and dispensed from another ID or [facility] facility (remote) as [...] provider. /sharla/ PIPPA CALVERT Nurse Practitioner Signed: 03/25/2024 15:41 03/26/2024 ADDENDUM STATUS: COMPLETED Consulted with radiology if CT is warranted given unilateral anterior thigh pain despite normal labs (no electrolyte disturbance) and given location of pain and sx that include stabbing, tingling numbness it sounds clinically like it could be Meralgia paresthetica i have explained this to Filiberto and he is amenable to trying a NSAID like diclofenac BID for 7 days then I will call him Sunday to check in, if pain persists likely will order Pelvic CT to ensure not other underlying cause. Filiberto was happy with this plan, also of note he tried methocarbamol and no pain relief Could consider PT in a week if slowly getting better and needing more rehab on thigh /es/ LALA PIPPA NO Nurse Practitioner Signed: 03/26/2024 13:51 05/21/2024 ADDENDUM STATUS: COMPLETED Filiberto having more Gout Flares consider Allopurinol /es/ LALA PIPPA NO Nurse Practitioner Signed: 05/21/2024 09:06 BETTINA,LALA [facility]ANG [facility] Mar 25, 2024 02:56 PM PREVENTIVE MEDICINE NURSING NOTE: LOCAL TITLE: CLINICAL REMINDERS/NURSING STANDARD TITLE: PREVENTIVE MEDICINE NURSING NOTE DATE OF NOTE: MAR 25, 2024@14:56 ENTRY DATE: MAR 25, 2024@14:56:47 AUTHOR: LISETH LEMUS COSIGNER: URGENCY: STATUS: COMPLETED Falls & Incontinence Screen: Falls Screen: 4. No falls within the past year. Incontinence Screen No incontinence. RHS Screen: RHS Screen Session Format: Face to Face Environmental Check Upon inquiry, the individual reports that the environment is safe to proceed. Informed Consent to Screen and Document The individual consents to proceed with screening. The individual consents to documentation of responses. PRIMARY SCREEN: In the past 12 months, how often did a current or former intimate partner (e.g., boyfriend, girlfriend, , , sexual partner): 1. Scream or curse at you Never 2. Insult or talk down to you Never 3. Threaten you with harm Never 4. Physically hurt you Never 5. Force or pressure you to have sexual contact against your will, or when you were unable to say no Never ?? The HITS tool (items 1-4 above) is US copyright protected by Jordan Spencer MD, and the user has full rights to use it throughout the [facility] system. PRIMARY SCREEN RESULT: The Primary Screen is NEGATIVE. The individual answered never to all forms of IPV above (i.e., answered never to all 5 items) The individual accepts education and/or resources: No EDUCATION: The individual indicated readiness to learn. Education offered during this session as noted above. The individual indicated understanding by asking relevant questions and making appropriate comments. No barriers to learning were observed or identified. /sharla/ LISETH LEMUS, MSN, RN, CNL PRIMARY CARE TEAM NURSE Signed: 03/25/2024 14:57 LISETH LEMUS ID CNTL [facility]
--- OUTSIDE RECORDS SUMMARY | 2024-10-04 07:53 | XMS_ITS | Encounter Summary ---
Author Name [facility] Organization [facility] Address [address] [place] [id number] Care Team Providers Care Ict Business Analyst Name Role Phone LALA DUNBAR Primary Care [...] PART A Mar 11, 2013 PART A [id number] [phone] FR [place]O VIERA PATIENT MEDICARE (WNR) MEDICARE (M) PART A Mar 11, 2013 PART A [id number] [phone] FR [place] VIERA PATIENT MEDICARE (WNR) MEDICARE (M) PART A Mar 11, 2013 PART A [id number] [phone] FR [place] VIERA PATIENT MEDICARE (WNR) MEDICARE (M) PART A Mar 11, 2013 PART A [id number] [phone] FR [place]O VIERA PATIENT Selected Encounter This section includes the information on record at MD for the Encounter. Date/Time Encounter Type Encounter Description Reason Pro vider Source Nov 16, 2023 12:53 PM Outpatient Encounter ADMIN PAT ACTIVTIES (MASNONCT) IHE Encounter Template Text not used by MD Plan of Treatment: Future Appointments (+ 6 months) and Future Tests (+/- 45 days) The Plan of Treatment section includes future care activities for the [facility] This section includes future appointments and future orders which are active, pending or scheduled. Future Appointments This section includes appointments that were scheduled to occur 6 months from the date of the Encounter, up to a maximum of 20 appointments. The data comes from all MD treatment facilities. Appointment Date/Time Appointment Type Appointme nt Facility Name Dec 11, 2023 09:00 AM AMBULATORY - MEDICINE [facility] [place] [facility] Jan 01, 2024 10:00 AM AMBULATORY - MEDICINE [facility] [place] [facility] Jan 07, 2024 01:30 PM AMBULATORY - NONE [facility] [place] [facility] Feb 20, 2024 09:00 AM AMBULATORY - MEDICINE [facility] [place] [facility] Mar 04, 2024 02:00 PM AMBULATORY - MEDICINE [facility] [place] [facility] Mar 05, 2024 10:00 AM AMBULATORY - MEDICINE [facility] [place] [facility] Mar 25, 2024 02:30 PM AMBULATORY - MEDICINE [facility] [place] [facility] Mar 27, 2024 10:30 AM AMBULATORY - MEDICINE [facility] [place] [facility] Apr 25, 2024 08:30 AM AMBULATORY - NONE [facility] [place] [facility] Social History: Smoking Status (Most current) and Tobacco Use (All prior to encounter date) This section includes the most current, and the historical, smoking and tobacco- related health factors from the MD facility where the Encounter took place. Current Smoking Status This section includes the most current smoking, or tobacco-related health factor, from the MD facility where the Encounter took place. Date/Time Current Smoking Status Comment Keith orozco May 09, 2023 09:00 AM VA-TOBACCO FORMER USER [facility] [place] [facility] Tobacco Use History This section includes a history of the smoking, or tobacco-related health factors, that were collected on or before the date of the Encounter. The data comes from the MD facility where the Encounter took place. Date/Time Smoking Status/Tobac co Use Comment Facility May 09, 2023 09:00 AM VA-TOBACCO QUIT 15 YRS OR MORE [facility] [place] [facility] Mar 30, 2022 09:45 AM VA-TOBACCO FORMER USER [facility] [place] [facility] Mar 30, 2022 09:45 AM VA-TOBACCO QUIT 15 YRS OR MORE [facility] [place] [facility] Mar 29, 2021 08:30 AM VA-TOBACCO FORMER USER [facility] [place] [facility] Mar 29, 2021 08:30 AM VA-TOBACCO QUIT 15 YRS OR MORE [facility] [place] [facility] Apr 05, 2020 08:00 AM VA-TOBACCO FORMER USER [facility] [place] [facility] Apr 05, 2020 08:00 AM VA-TOBACCO QUIT 15 YRS OR MORE [facility] [place] [facility] Dec 19, 2018 09:16 AM VA-TOBACCO FORMER USER [facility] [place] [facility] Dec 19, 2018 09:16 AM VA-TOBACCO QUIT 15 YRS OR MORE [facility] [place] [facility] Jan 25, 2018 08:57 AM QUIT TOBACCO USE > 7 YEARS AGO [facility] [place] [facility] November 07, 2016 10:23 AM QUIT TOBACCO USE > 7 YEARS AGO [facility] [place] [facility] Sep 15, 2015 09:35 AM LIFETIME NON-TOBACCO USER [facility] [place] [facility] Feb 27, 2005 03:58 PM LIFETIME NON-SMOKER [facility] [place] [facility] October 17, 2002 08:32 AM HISTORY OF SMOKING Smoke free since 1967 (35years) [facility] [place] [facility] Jan 30, 2002 03:15 PM QUIT TOBACCO USE > 7 YEARS AGO [facility] [place] [facility] Jul 25, 2001 03:17 PM HISTORY OF SMOKING [facility] [place] [facility] Jul 25, 2001 03:17 PM NON-TOBACCO USER [facility] [place] [facility] Radiology Reports: +/- 30 days [...] the Encounter. The data comes from all [facility] treatment facilities. Date/Time Radiology Report Provider Source Nov 12, 2023 11:38 AM FOOT 3 OR MORE VIEWS(LEFT): NIGEL VIERA [id number] -1950 M Exm Date: NOV 12, 2023@11:38 Req Phys: LALA DUNBAR Loc: CWM/NO/PACT 5 (Req'g Loc) Img Loc: [facility] 1 Service: Unknown [facility] , (Case [id number] COMPLETE) FOOT 3 OR MORE VIEWS(LEFT) (RAD Detailed) CPT:29159 Proc Modifiers : LEFT CPT Modifiers : LT LEFT SIDE Reason for Study: right plantar foot base of pinky Clinical History: Left lateral base of toe pain with center punctum ? Foreign body denies stepping on glass although I know that is not readiopaque Report Status: Verified Date Reported: NOV 12, 2023 Date Verified: NOV 12, 2023 Senior Health Consultant E-Sig:/ES/CANDI LEZMAA JR Report: Study: AP, lateral, and oblique [...] Primary Interpreting Staff: CANDI LEZAMA JR, Radiologist (Senior Health Consultant) /CANDI BENNETT JR [facility] October 25, 2023 09:[address] NECK SOFT TISSUE W/O CONT: NIGEL VIERA [id number] -1950 M Exm Date: OCTOBER 25, 2023@09:59 Req Phys: FLACO VYAS Pat Loc: CWM/NO/OTOLARYNGOLOGY (Req'g L Img Loc: [facility]/CT Service: Unknown [facility] , (Case [id number] COMPLETE) CT NECK SOFT TISSUE W/O CONT (CT Detailed) CPT:78317 Proc Modifiers : RIGHT Reason for Study: RIGHT NECK MASS Clinical History: RIGHT NECK MASS, STONE VS MASS Report Status: Verified Date Reported: OCTOBER 28, 2023 Date Verified: OCTOBER 28, 2023 Senior Health Consultant E-Sig: Report: CT NECK SOFT TISSUE W/O CONT HISTORY: 73 years-old Male with RIGHT NECK MASS. COMPARISON: None. TECHNIQUE: Noncontrast CT of the neck with multiplanar reformats was performed at the local MD facility. 1171 images were received by the MD National Teleradiology Program (NTP) for interpretation. Lack [...] neck unremarkable. READING PHYSICIAN: Adalid Neely M.D. -[id number] 10/28/2023 7:20 CDT [facility] National Teleradiology Program [phone] (For Medical Practitioner Use Only) Attention Patients / Veterans: If you have questions or concerns about these test results, please contact your ordering provider or primary care team. Primary Diagnostic Code: NO ALERT REQUIRED Primary Interpreting Staff: RADIOLOGY,OUTSIDE SERVICE, Staff Physician / RADIOLOGY,OUTSIDE SERVICE [facility] Encounter Notes: All associated encounter notes This section contains the clinical notes associated to the Encounter. Date/Time Encounter Note(s) Provider Source Nov 16, 2023 12:53 PM ADMINISTRATIVE NOT E: LOCAL TITLE: CCC: SCHEDULING ADMINISTRATION STANDARD TITLE: ADMINISTRATIVE NOTE DATE OF NOTE: NOV 16, 2023@12:53 ENTRY DATE: NOV 16, 2023@12:53:53 AUTHOR: RIAZ AUSTIN COSIGNER: URGENCY: STATUS: COMPLETED Patient Demographics Patient Name: NIGEL VIERA Patient Primary Phone: [phone] Patient Primary [address]: [address] [place] [address] Patient : 1950 Patient Age: 73 Call Back Number: [phone] Caller/Recipient Relation to Patient: Self called stating surgeon in podiatry is not getting back to him or the clinic and foot is not getting better. agrees to speak to triage as well /sharla/ RIAZ HERNANDEZ 1 [facility] Signed: 11/16/2023 12:55 Receipt Acknowledged By: 11/16/2023 16:05 /sharla/ LISETH LEMUS, MSN, RN, CNL PRIMARY CARE TEAM NURSE 11/16/2023 16:05 /sharla/ LISETH LEMUS, MSN, RN, CNL PRIMARY CARE TEAM NURSE for RIAZ GUZMÁN [facility]
--- OUTSIDE RECORDS SUMMARY | 2024-10-04 07:53 | XMS_ITS ---
Author Name [facility] Organization [facility] Address [address] [place] [id number] Care Team Providers Care Lead Mechanical Engineer Name Role Phone LALA DUNBAR Primary Care [...] PART A Mar 11, 2013 PART A [id number] [phone] FR AUGUSTO VIERA PATIENT MEDICARE (WNR) MEDICARE (M) PART A Mar 11, 2013 PART A [id number] [phone] FR AUGUSTO VIERA PATIENT MEDICARE (WNR) MEDICARE (M) PART A Mar 11, 2013 PART A [id number] [phone] FR AUGUSTO VIERA PATIENT MEDICARE (WNR) MEDICARE (M) PART A Mar 11, 2013 PART A [id number] [phone] FR AUGUSTO VIERA PATIENT Selected Encounter This section includes the information on record at [place] for the Encounter. Date/Time Encounter Type Encounter Description Reason Provider Source Feb 20, 2024 09:00 AM OFFICE O/P EST MOD 30 MIN PRIMARY CARE/MEDICINE ICD-10-CM I10 Essential (primary) hypertension LALA DUNBAR [facility] Encounter Template Text not used by [place] Assessments - Encounter Diagnoses This section includes the primary and secondary diagnoses documented for the Encounter. Date/Time Primary/Secondary Diagnosis Diagnosis Name Provider Source Feb 20, 2024 03:51 PM PRIMARY Essential (primary) hypertension LALA DUNBAR [facility] [place] [facility] Feb 20, 2024 03:51 PM SECONDARY Age-related osteoporosis w/o current pathological fracture BETTINALALA IRWIN [facility] [place] [facility] Feb 20, 2024 03:51 PM SECONDARY Benign prostatic hyperplasia with lower urinary tract symp BETTINALALA [facility] [place] [facility] Feb 20, 2024 03:51 PM SECONDARY Gastro-esophageal reflux disease without esophagitis BETTINALALA [facility] [place] [facility] Feb 20, 2024 03:51 PM SECONDARY Gout, unspecified BETTINA,LALA DESIR [facility] [place] [facility] Feb 20, 2024 03:51 PM SECONDARY Male erectile dysfunction, unspecified BETTINA,LALA DESIR [facility] [place] [facility] Feb 20, 2024 03:51 PM SECONDARY Mixed hyperlipidemia BETTINA,LALA DESIR [facility] [place] [facility] Feb 20, 2024 03:51 PM SECONDARY Other osteoporosis without current pathological fracture BETTINALALA [facility] [place] [facility] Feb 20, 2024 03:51 PM SECONDARY Post-traumatic stress disorder, chronic BETTINA,LALA DESIR [facility] [place] [facility] Plan of Treatment: Future Appointments (+ 6 months) and Future Tests (+/- 45 days) The Plan of Treatment section includes future care activities for the patient from all [place] treatmentfacilities. This section includes future appointments and future orders which are active, pending or scheduled. Future Appointments This section includes appointments that were scheduled to occur 6 months from the date of the Encounter, up to a maximum of 20 appointments. The data comes from all [place] treatment facilities. Appointment Date/Time Appointment Type Appointme nt Facility Name Mar 04, 2024 02:00 PM AMBULATORY - MEDICINE [place] [facility] [place] [facility] Mar 05, 2024 10:00 AM AMBULATORY - MEDICINE [place] [facility] [place] [facility] Mar 25, 2024 02:30 PM AMBULATORY - MEDICINE [place] [facility] [place] [facility] Mar 27, 2024 10:30 AM AMBULATORY - MEDICINE [place] [facility] [place] [facility] Apr 25, 2024 08:30 AM AMBULATORY - NONE [facility] [place] [facility] May 27, 2024 11:00 AM AMBULATORY - MEDICINE [place] [facility] [place] [facility] Jul 11, 2024 01:40 PM AMBULATORY - NONE [facility] [place] [facility] Jul 21, 2024 09:00 AM [facility] Aug 05, 2024 09:30 AM [facility]ATORY [facility] MEDICINE [facility] Active, Pending, and Scheduled Orders This section includes a listing of several types of active, pending, and scheduled orders, including clinic medications orders, diagnostic test orders, procedure orders and consult orders; where the start date of the order is 45 days before the date of the Encounter or 45 days after the date of theEncounter. The data comes from all [place] treatment facilities. Test Date/Time Test Type Test Details Facility Name Mar 05, 2024 10:55 AM Consult Order COMMUNITY CARE-COLONOSCOPY SCREENING Cons [employer] Specialist[facility] Lab Results: +/- 30 days of the encounter This section includes the Chemistry and Hematology Lab Results on record with [place] for the patient. Radiology Reports and Pathology Reports are provided separately, in subsequent sections. Lab Results This section contains the Chemistry/Hematology Results that were resulted 30 days before or 30 daysafter the date of the Encounter. Date/Time Source Result Type Result - Unit Interpretation Reference Range Specimen Type Comment Mar 11, 2024 10:15 AM [facility] BASIC METABOLIC PANEL (non-fasting) SERUM Spe cimen Type: SERUM No comment entered. Ordering Provider: LALA DUNBAR Report Released Date/Time: Mar 05, 2024 10:44 AM Reporting Lab: [facility] [address] [address] Performing Lab: [facility] [address] [facility] [address] UREA NITROGEN 19 mg/dL 7-25 GLUCOSE 218 mg/dL H 65-100 SODIUM 138 mmol/L 135-145 POTASSIUM 4.6 mmol/L 3.5-5.0 CHLORIDE 106 mmol/L 100-110 CO2 18 meq/L L 20-30 CREATININE, Serum 1.41 mg/dL H 0.50-1.40 eGFR(CKD-EPI 2020) 52 mL/min L >60 Mar 05, 2024 08:14 AM [facility] BASIC METABOLIC PANEL (non-fasting) SERUM Spe cimen Type: SERUM No comment entered. Ordering Provider: LALA DUNBAR Report Released Date/Time: Mar 04, 2024 06:37 PM Reporting Lab: [address] [address] Performing Lab: [address] [address] UREA NITROGEN 17 mg/dL 7-25 GLUCOSE 157 mg/dL H 65-100 SODIUM 143 mmol/L 135-145 POTASSIUM 3.9 mmol/L 3.5-5.0 CHLORIDE 104 mmol/L 100-110 CO2 28 meq/L 20-30 CREATININE, Serum 1.08 mg/dL 0.50-1.40 eGFR(CKD-EPI 2020) 71 mL/min >60 Mar 05, 2024 08:14 AM [facility] RENIN ACTIVITY (PLASMA) PLASMA Specimen Type: PLASMA Comment: This test was developed and its analytical performance characteristics have been determined by [employer] [place], [place]. It has not been cleared or approved by the U.S. Food and Drug Administration. This assay has been validated pursuant to the CLIA regulations and is used for clinical purposes. Test Performed by [facility], [facility] [place], [address] [place] [address] Pb Gilmore M.D., Ph.D., Director of Laboratories , CLIA [id number] TEST PERFORMED AT: , Ordering Provider: MARCO ANTONIO LARKIN Report Released Date/Time: Mar 05, 2024 07:05 AM Reporting Lab: [facility] [address] [facility] [address] Performing Lab: [facility] [address] [address] RENIN ACTIVITY (PLASMA) 0.47 0.25-5.8 2 Mar 05, 2024 08:14 AM [facility] ALDOSTERONE UPRIGHT,LC/MS/MS SERUM Specimen T ype: SERUM [...] analytical performance characteristics have been determined by [employer] characteristics have been determined by [employer]. It has Diagnostics [place], [place]. It has not been cleared or approved by the U.S. Food and Drug not been cleared or approved by the U.S. Food and Drug Administration. This assay has been validated pursuant Administration. This assay has been validated pursuant to the CLIA regulations and is used for clinical to the CLIA regulations and is used for clinical purposes. purposes. Test Performed by [facility] [place], Test Performed by [employer], [employer] [place], [employer] [place], [address] [place] [address] [place] [address] Pb Gilmore M.D., Ph.D., Director of Laboratories Pb Gilmore M.D., Ph.D., Director of Laboratories , CLIA [id number] , CLIA [id number] TEST PERFORMED AT: TEST PERFORMED AT: , , Ordering Provider: MARCO ANTONIO LARKIN Report Released Date/Time: Mar 05, 2024 07:05 AM Reporting Lab: [facility] [address] [facility] [address] Performing Lab: [facility] [address] [facility], [address] [place] [address] ALDOSTERONE UPRIGHT,LC/MS/MS 18 ng/dL * Mar 04, 2024 01:21 PM [facility] BASIC METABOLIC PANEL (non-fasting) SERUM Spe cimen Type: SERUM Comment: Verified by repeat analysis. POTASSIUM Ordering Provider: LALA DUNBAR Report Released Date/Time: Feb 20, 2024 09:25 AM Reporting Lab: [facility] [address] [facility] [address] Performing Lab: [facility] [address] [facility] [address] UREA NITROGEN 17 mg/dL 7-25 GLUCOSE 103 mg/dL H 65-100 SODIUM 144 mmol/L 135-145 POTASSIUM 2.7 mmol/L LL 3.5-5.0 CHLORIDE 103 mmol/L 100-110 CO2 32 meq/L H 20-30 CREATININE, Serum 1.10 mg/dL 0.50-1.40 eGFR(CKD-EPI 2020) 70 mL/min >60 Feb 13, 2024 09:45 AM [facility] ALDOSTERONE UPRIGHT,LC/MS/MS SERUM Specimen T ype: SERUM [...] analytical performance characteristics have been determined by [employer] characteristics have been determined by [employer] [place]. It has [facility] [place], [place]. It has not been cleared or approved by the U.S. Food and Drug not been cleared or approved by the U.S. Food and Drug Administration. This assay has been validated pursuant Administration. This assay has been validated pursuant to the CLIA regulations and is used for clinical to the CLIA regulations and is used for clinical purposes. purposes. Test [facility] by [facility], Test Performed by [employer] [place], [facility], [facility], [address] [place] [address] [place] [address] Pb Gilmore M.D., Ph.D., Director of Laboratories Pb Gilmore M.D., Ph.D., Director of Laboratories , CLIA [id number] , CLIA [id number] TEST PERFORMED AT: TEST PERFORMED AT: , , Ordering Provider: MARCO ANTONIO LARKIN Report Released Date/Time: Dec 18, 2023 05:49 PM Reporting Lab: [facility] [address] [facility] [address] Performing Lab: [facility] [address] [address] ALDOSTERONE UPRIGHT,LC/MS/MS 142 ng/dL Feb 13, 2024 09:45 AM [facility] RENIN ACTIVITY (PLASMA) PLASMA Specimen Type: PLASMA Comment: This test was developed and its analytical performance characteristics have been determined by [employer]. It has not been cleared or approved by the U.S. Food and Drug Administration. This assay has been validated pursuant to the CLIA regulations and is used for clinical purposes. Test Performed by [facility], [facility], [address] [place], [place] Pb Gilmore M.D., Ph.D., Director of Laboratories , CLIA [id number] TEST PERFORMED AT: , Ordering Provider: MARCO ANTONIO LARKIN Report Released Date/Time: Dec 18, 2023 05:49 PM Reporting Lab: [facility] [address] [facility] [address] Performing Lab: [facility] [address] [address] RENIN ACTIVITY (PLASMA) 0.50 0.25-5.8 2 Feb 13, 2024 09:45 AM [facility] CALCIUM SERUM Specimen Type: SERUM No comment entered. Ordering Provider: MARCO ANTONIO LARKIN Report Released Date/Time: Dec 18, 2023 05:49 PM Reporting Lab: [facility] [address] [facility] [address] Performing Lab: [facility] [address] [facility] [address] CALCIUM 8.5 mg/dL 8.5-10.2 Feb 13, 2024 09:45 AM [facility] BASIC METABOLIC PANEL (non-fasting) SERUM Spe cimen Type: SERUM No comment entered. Ordering Provider: MARCO ANTONIO LARKIN Report Released Date/Time: Dec 18, 2023 05:49 PM Reporting Lab: [facility] [address] [facility] [address] Performing Lab: [address] [address] UREA NITROGEN 18 mg/dL 7-25 GLUCOSE 90 mg/dL 65-100 SODIUM 142 mmol/L 135-145 POTASSIUM 4.4 mmol/L 3.5-5.0 CHLORIDE 110 mmol/L 100-110 CO2 25 meq/L 20-30 CREATININE, Serum 1.33 mg/dL 0.50-1.40 eGFR(CKD-EPI 2020) 55 mL/min L >60 Feb 13, 2024 09:44 AM [facility] HEMOGLOBIN A1C PANEL BLOOD Specimen Type: BLO [...] Feb 08, 2024 02:19 PM Reporting Lab: [address] [address] Performing Lab: [address] [address] HEMOGLOBIN A1C 5.2 4.0-5.6 Feb 13, 2024 09:44 AM [facility] LIPID PANEL FASTING SERUM Specimen Type: SERU M No comment entered. Ordering Provider: LALA DUNBAR Report Released Date/Time: Feb 08, 2024 02:19 PM Reporting Lab: [address] [address] Performing Lab: [address] [address] CHOLESTEROL 126 mg/dL TRIGLYCERIDE 73 mg/dL 0-150 LDL calculated 55 mg/dL 0-129 CHOL/HDL 2.3 HDL CHOLESTEROL 56 mg/dL 40-60 Feb 13, 2024 09:44 AM [facility] LIVER FUNCTION SERUM Specimen Type: SERUM No comment entered. Ordering Provider: LALA DUNBAR Report Released Date/Time: Feb 08, 2024 02:19 PM Reporting Lab: [address] [address] Performing Lab: [address] [address] PROTEIN,TOTAL 6.0 g/dL 6.0-8.3 ALBUMIN 3.9 g/dL 3.5-5.0 ALKALINE PHOSPHATASE 64 U/L 40-150 AST 13 U/L 5-34 ALT 13 U/L BILIRUBIN, TOTAL 1.0 mg/dL 0.2-1.2 Feb 13, 2024 09:44 AM [facility] BASIC METABOLIC PANEL (fasting) SERUM Specime n Type: SERUM No comment entered. Ordering Provider: LALA DUNBAR Report Released Date/Time: Feb 08, 2024 02:19 PM Reporting Lab: [address] [address] Performing Lab: [address] [address] UREA NITROGEN 18 mg/dL 7-25 GLUCOSE 91 mg/dL 65-100 SODIUM 143 mmol/L 135-145 POTASSIUM 4.1 mmol/L 3.5-5.0 CHLORIDE 110 mmol/L 100-110 CO2 25 meq/L 20-30 CREATININE, Serum 1.30 mg/dL 0.50-1.40 eGFR(CKD-EPI 2020) 57 mL/min L >60 Feb 13, 2024 09:44 AM [facility] TSH SERUM Specimen Type: SERUM No comment entered. Ordering Provider: LALA DUNBAR Report Released Date/Time: Feb 08, 2024 02:19 PM Reporting Lab: [address] [address] Performing Lab: [address] [address] TSH 1.40 u[IU]/mL 0.35-5.00 Feb 13, 2024 09:44 AM [facility] CBC AND DIFF (AUTO) BLOOD Specimen Type: BLOO D No comment entered. Ordering Provider: LALA DUNBAR Report Released Date/Time: Feb 08, 2024 02:19 PM Reporting Lab: [address] [address] Performing Lab: [address] [address] WBC 6.59 10*3/uL 4.50-11.00 RBC 5.11 10*6/uL [...] Pain Height Weight Body Mass Index Source Feb 20, 2024 08:48 AM 97.9 94 133/68 16 94 1 67 151.7 24 [facility] Social History: Smoking Status (Most current) and Tobacco Use (All prior to encounter date) This section includes the most current, and the historical, smoking and tobacco- related health factors from the [place] facility where the Encounter took place. Current Smoking Status This section includes the most current smoking, or tobacco-related health factor, from the [place] facility where the Encounter took place. Date/Time Current Smoking Status Comment Keith ity May 09, 2023 09:00 AM [place]-TOBACCO FORMER USER [facility] Tobacco Use History This section includes a history of the smoking, or tobacco-related health factors, that were collected on or before the date of the Encounter. The data comes from the [place] facility where the Encounter took place. Date/Time Smoking Status/Tobac co Use Comment Facility May 09, 2023 09:00 AM VA-TOBACCO QUIT 15 YRS OR MORE [facility] [place] [facility] Mar 30, 2022 09:45 AM VA-TOBACCO FORMER USER [facility] [place] [facility] Mar 30, 2022 09:45 AM VA-TOBACCO QUIT 15 YRS OR MORE [facility] [place] [facility] Mar 29, 2021 08:30 AM VA-TOBACCO FORMER USER [facility] [place] [facility] Mar 29, 2021 08:30 AM VA-TOBACCO QUIT 15 YRS OR MORE [facility] [place] [facility] Apr 05, 2020 08:00 AM VA-TOBACCO FORMER USER [facility] [place] [facility] Apr 05, 2020 08:00 AM VA-TOBACCO QUIT 15 YRS OR MORE [facility] [place] [facility] Dec 19, 2018 09:16 AM VA-TOBACCO FORMER USER [facility] [place] [facility] Dec 19, 2018 09:16 AM VA-TOBACCO QUIT 15 YRS OR MORE [facility] [place] [facility] Jan 25, 2018 08:57 AM QUIT TOBACCO USE > 7 YEARS AGO [facility] [place] [facility] November 07, 2016 10:23 AM QUIT TOBACCO USE > 7 YEARS AGO [facility] [place] [facility] Sep 15, 2015 09:35 AM LIFETIME NON-TOBACCO USER [facility] [place] [facility] Feb 27, 2005 03:58 PM LIFETIME NON-SMOKER [facility] [place] [facility] October 17, 2002 08:32 AM HISTORY OF SMOKING Smoke free since 1967 (35years) [facility] [place] [facility] Jan 30, 2002 03:15 PM QUIT TOBACCO USE > 7 YEARS AGO [facility] [place] [facility] Jul 25, 2001 03:17 PM HISTORY OF SMOKING [facility] [place] [facility] Jul 25, 2001 03:17 PM NON-TOBACCO USER [facility] [place] [facility] Radiology Reports: +/- 30 days of the [...] the Encounter. The data comes from all [place] treatment facilities. Date/Time Radiology Report Provider Source Mar 04, 2024 02:16 PM TOE(S) 2 OR MORE V IEWS: NIGEL VIERA [id number] -[id number] M Exm Date: MAR 04, 2024@14:16 Req Phys: SURINDER LOZOYA Loc: CWM/NO/PODIATRY A (Req'g Loc) Img Loc: [facility] 1 Service: [place] [address] (Case [id number] COMPLETE) TOE(S) 2 OR MORE VIEWS (RAD Detailed) CPT:86053 Proc Modifiers : RIGHT Reason for Study: subbed hallux. 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 Date/Time Encounter Note(s) Provider Source Mar 04, 2024 03:45 PM PRIMARY CARE TELEPHONE ENCOUNTER NOTE: LOCAL TITLE: TELEPHONE NOTE/PRIMARY CARE STANDARD TITLE: PRIMARY CARE TELEPHONE ENCOUNTER NOTE DATE OF NOTE: MAR 04, 2024@15:45 ENTRY DATE: MAR 04, 2024@15:46:05 AUTHOR: LALA DUNBAR EXP COSIGNER: URGENCY: STATUS: COMPLETED freds K+ came back low at 2.7 he denies weakness muscle cramps palpitations chest pain or dyspnea. I have eadvised he go to ER for possible repletion he states he is not going to do that he has bananas and OJ at home and denilson take in today he has appt with me tomorrow at 10am and will get repeat potassium tommorrow he states he has had to be on oral potassium in the past will discuss that with eleni tomorrow if he has palpitations msucle cramps or any chest will go to ER tonight Of note meds reviewed he is on Amiloride which is potassium sparing which usually causes increase potassium. again I have encouarged going to ER he declined but denilson get rechecked inmorning and will go to ER tonight if above sx or any change in status i see him tomorrow /sharla/ PIPPA CALVERT Nurse Practitioner Signed: 03/04/2024 15:50 LALA DUNBAR [facility] Feb 20, 2024 08:52 AM PREVENTIVE MEDICINE NURSING NOTE: LOCAL TITLE: CLINICAL REMINDERS/NURSING STANDARD TITLE: PREVENTIVE MEDICINE NURSING NOTE DATE OF NOTE: FEB 20, 2024@08:52 ENTRY DATE: FEB 20, 2024@08:52:18 AUTHOR: CHELO LOPEZ EXP COSIGNER: URGENCY: STATUS: COMPLETED Homelessness/Food Insecurity Screen: In the past 2 months, have you been living in stable housing that you own, rent, or stay in as part of a household? Yes - Living in stable housing. Are you worried or concerned that in the next 2 months you may NOT have stable housing that you own, rent, or stay in as part of a household? No - Not worried about housing near future [facility] reports the following: Within the past 12 months, you worried whether your food would run out before you got money to buy more. Never true Within the past 12 months, the food you bought just didn't last and you didn't have money to get more. Never true (Optional) Whole Health Documentation: What matters the most to you? What motivates you to be healthy? (MAP) [facility] PTSD Screening: PC-PTSD-5 A PTSD screening test (PC-PTSD-5) was negative (score=0). IN THE PAST MONTH, have you ever had any experience that was so frightening, horrible or traumatic. For example: A serious accident or fire a physical or sexual assault or abuse An earthquake or flood A war Seeing someone be killed or seriously injured Having a loved one through homicide or suicide 1. Have you ever experienced this kind of event? YES 2. Had nightmares about the event(s) or thought about the event(s) when you did not want to? NO 3. Tried hard not to think about the event(s) or went out of your way to avoid situations that reminded you of the event(s)? NO 4. Been constantly on guard, watchful, or easily startled? NO 5. [place] numb or detached from people, activities, or your surroundings? NO 6. [place] guilty or unable to stop blaming yourself or others for the event(s) or any problems the event(s) may have caused? NO Influenza Immunization: Deferral / Refusal The patient declines to receive the recommended dose of seasonal influenza vaccine. Immunization: INFLUENZA, UNSPECIFIED FORMULATION Refusal Reason: PATIENT DECISION Patient refuses all immunization(s) in the FLU group Date Documented: 02/20/24 08:56 /sharla/ CHELO LOPEZ LPN LPN Signed: 02/20/2024 08:58 CHELO LOPEZ [facility] [place] [facility] Feb 20, 2024 08:52 AM PRIMARY CARE NURSE PRACTITIONER OUTPATIENT NOTE: LOCAL TITLE: NURSE PRACTITIONER OUTPATIENT NOTE STANDARD TITLE: PRIMARY CARE NURSE PRACTITIONER OUTPATIENT NOTE DATE OF NOTE: FEB 20, 2024@08:52 ENTRY DATE: FEB 20, 2024@08:52:51 AUTHOR: LALA DUNBAR EXP COSIGNER: URGENCY: STATUS: COMPLETED Pt is a 73 who comes in for follow up of medical problems as noted below. HPI: Benign essential hypertension Amiloride, amlodipine and losartan, his BP is well controlled on those. Does not currently have any lower extremity swelling but given his recent lower GFR and elevated in Aldosterone will dc the diuretic he is fine with that and returning will also check home readings Insomnia Takes trazodone and doing well Osteoporosis still doing DENOSUMAB (PROLIA) every 6 mo last Dexa [address] Larkin Low back pain used to follow with Chiropracter Dr Surinder Patel in [place] but that is no longer covered since we have Chiro here so has not been seen Hyperlipidemia doing well on Atorvastatin Benign prostatic hypertrophy has tamsulosin Erectile dysfunction tales Viagra as needed Rhinitis takes cetirine Eczema uses topical steroid and following with Derm Posttraumatic Stress Disorder stable Gastroesophageal reflux disease Stable on pravastatin Pseeuodgout currently having a flare and traveling to [place] and DIL he is asking for a Prednisone Rx with refill for flares Right foot plantar wart, initially we thought he had FB in foot like glass or other FB he had xray but many things are not radiopaque also saw Dr Rolanda Capellan who did not think FB and likely more Plantar wart he had been cutting away at it so was not able to see any root for now will try salcylic acid PMH: Active problems - Computerized Problem List is the source for the followin. Benign essential hypertension 2. Insomnia 3. Pain of right knee abnml MRI 06/2022- chronic high grade partial thickness tearing of proximal ACL, medial and lateral meniscal tears, distal quad tenidinopathy, mild tricomrtmental degenerative change abnml MRI 06/2022- chronic high grade partial thickness tearing of proximal ACL, medial and lateral meniscal tears, distal quad tenidinopathy, mild tricomrtmental degenerative change 4. Exposure to potentially hazardous substance 5. LTBI - Latent tuberculosis infection 6. Gynecomastia 2nd to 7. Recent weight loss EGD DR Mck[facility] Impression :Gastritis Await biopsy report to r/u H. pylori [facility] Dr Jonah 8. Osteoporosis consult[facility] - Elsy Keane DO MED: Prolia Solution 60mg/ml( approved NON FORM) 9. Hernia of abdominal wall SEEn GI surgery 11/2018 - elective surgery - if vet wishes to schedule 10. Adrenal adenoma [facility] Elsy Keane, DO MED: aldosterone receptor antagonist- ( 05/2019- EPLERENONE) - 11. Osteoarthritis of knee 12. Calcium pyrophosphate deposition disease -- by joint aspiration 06/19 13. 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 Posterior Vitreous Detachment 16. Osteoporosis (SNOMED CT 62077576) -- hip T-score -2.8, 08/18 17. Low back pain (SNOMED CT 274257560) chronic. Finds respiratory care specialist helpful. Sees Chiropracter Dr Surinder Patel at [address] [place] [address] 18. Hyperlipidemia 19. Benign prostatic hypertrophy (SNOMED CT 481585587) 20. Pseudogout Right knee 21. Rhinitis (SNOMED CT 88740919) 22. Dermatitis or Eczema * 23. History of polyp of colon -- tubular adenoma 05/16 normal colonoscopy 11/20 last c-scope 2020; due for 2023 due to Hx of tubular adenoma and limited prep on 2020 c-scope 24. Posttraumatic Stress Disorder update Reviewed 25. Erectile dysfunction (SNOMED CT 062579555) 26. Gastroesophageal reflux disease (SNOMED CT 647290337) Allergies: COLCHICINE, OMEPRAZOLE, FLUNISOLIDE, ZOLEDRONIC, PRAVASTATIN, ALENDRONATE [...] BY MOUTH TWICE ACTIVE DAILY FOR COUGH 11) KETOCONAZOLE 2% CREAM [...] EVERY MORNING 30 MINUTES BEFORE BREAKFAST 15) SILDENAFIL CITRATE 100MG TAB TAKE ONE TABLET BY MOUTH ACTIVE ONCE DAILY FOR ERECTILE DYSFUNCTION TAKE 1 HOUR PRIOR TO SEXUAL ACTIVITY 16) TAMSULOSIN HCL 0.4MG CAP TAKE ONE CAPSULE BY MOUTH ACTIVE ONCE DAILY DIRECTED BY PROVIDER 17) TRAZODONE HCL 100MG TAB TAKE TWO TABLETS BY MOUTH AT ACTIVE BEDTIME - MAY TAKE A 3RD TABLET IF NOT ASLEEP BY 2AM 18) TRIAMCINOLONE ACETONIDE 0.1% CREAM APPLY A THIN [...] Non-VA MULTIVITAMIN W/MINERAL TAB BY MOUTH ACTIVE 23 Total Medications Allergies: COLCHICINE, OMEPRAZOLE, FLUNISOLIDE, ZOLEDRONIC, PRAVASTATIN, ALENDRONATE CHLORTHALIDONE, CONTRAST MEDIA, SPIRONOLACTONE, EPLERENONE, CETIRIZINE LISINOPRIL, CYCLOBENZAPRINE VITAL SIGNS: 97.9 F [36.6 C] (02/20/2024 08:48) 94 (02/20/2024 08:48) 16 (02/20/2024 08:48) 133/68 (02/20/2024 08:48) 1 (02/20/2024 08:48) 67 in [170.2 cm] (02/20/2024 08:48) 151.7 lb [68.81 kg] (02/20/2024 08:48) BMI: 23.8 ROS General: no fever, no unexplained weight loss or gain CV: denies CP, palpitations Ext: denies edema Psych: denies SI Neuro: denies dizziness, falls, IRVIN PHYSI MIHAELA EXAM GENERAL: well appearing [place] in NAD, speeking in clear sentences. SKIN: right ball of plantar foot with small firm nodule that has callus RESP: CTAB, no wheezing or Rales. Cards: S1 S2 RRR, No m/r/g no JVD, No Pedal Edema, Distal Pulses palpable NEURO CN II-XII grossly intact, gait steady without shuffle, NOrmal sensation tofeet bilaterally MENTAL A&Ox3 Appropriate, Pleasant, Cooperative GLUCOSE: 90 UREA NITROGEN: 18 SODIUM: 142 POTASSIUM: 4.4 CHLORIDE: 110 CO2: 25 CALCIUM: 8.5 CREATININE-EGFR: 1.33 eGFR CKD-EPI 2020: 55 L RENIN ACTIVITY, (QU): 0.50 ALDOSTERONE (UPRIGHT-QU): 142 HGB A1C (WR): 5.2 WBC: 6.59 RBC: 5.11 HGB: 15.4 HCT: 44.5 MCV: 87.1 MCHC: 34.6 RDW: 12.9 PLT: 216 MCH: 30.1 Neut %: 60.4 Lymph %: 30.0 Cocke %: 5.9 Eos %: 2.6 Baso %: 0.8 Neut, Abs: 3.98 Lymph, Abs: 1.98 Cocke, Abs: 0.39 Eos, Abs: 0.17 Baso, Abs: [...] CKD-EPI 2020: 57 L Future Clinic Visits 02/20/2024 09:00 CWM/NO/PACT 5 03/04/2024 14:00 CWM/NO/PODIATRY A 03/27/2024 07:30 [facility] RDH 2 AM NEW 03/27/2024 09:15 [facility] DMD 4 09/08/2024 08:30 NHM/OPTOMETRY/[place]ORASKI 10/09/2024 10:00 CWM/NO/DERMATOLOGY CHRONIC CONDITION NURSE AM ASSESSMENT AND PLAN: #HTN -Well controlled -DC Amiloride given recent GFR and Aldosterone -Contonie amlodipine and losartan -He will monitor homes readings and any lower extremity edema, at least 3-5 a week over next 2 weeks -return for BP check in 2-3 weeks -Check #Insomnia -Cont trazodone and doing well #Osteoporosis -Cont following with Dr Larkin and takes DENOSUMAB (PROLIA) every 6 mo #Low back pain -Chiro PRN #Hyperlipidemia -Cont Atorvastatin #Benign prostatic hypertrophy -Cont tamsulosin #Erectile dysfunction -Cont Viagra as needed #Rhinitis -Cont cetirine #Eczema -following with Derm #Posttraumatic Stress Disorder -stable #Gastroesophageal reflux disease -Cont pravastatin #Pseeuodgout -Current flare -Predisone ordered #Right foot pain -Likely plantar wart -trial of daily or BID salcylic acid -Follows with POD in 2 weeks Return to clinic to see me in 2 weeks for HTN and 6 months for routine care RTC sooner if needed. Clinical Reminders Medication Reconciliation: Outpatient: Has the patient been taking medications as documented in the EMLR? YES: The patient has been taking medications as documented in the EMLR. Essential Medication List for Review used to complete this medication reconciliation. INCLUDED IN THIS LIST: Alphabetical list of active outpatient prescriptions dispensed from this [place] (local) and dispensed from another [place] or [facility] facility (remote) as well as inpatient [...] provider. /sharla/ PIPPA CALVERT Nurse Practitioner Signed: 02/20/2024 15:52 LALA DUNBAR [place] [facility]
--- OUTSIDE RECORDS SUMMARY | 2024-10-04 07:53 | XMS_ITS ---
Author Name [facility] [place] [place] Organization [facility] [place] [facility] [place] Address [address] [place] [id number] Care Team Providers Care Cement Handler Name Role Phone LALA DUNBAR Primary Care [...] PART A Mar 11, 2013 PART A [id number] [phone] FR [place] VIERA PATIENT MEDICARE (WNR) MEDICARE (M) PART A Mar 11, 2013 PART A [id number] [phone] FR [place] VI[place]A PATIENT MEDICARE (WNR) MEDICARE (M) PART A Mar 11, 2013 PART A [id number] [phone] FR [place] VIERA PATIENT MEDICARE (WNR) MEDICARE (M) PART A Mar 11, 2013 PART A [id number] [phone] FR [place]O VIERA PATIENT Selected Encounter This section includes the information on record at [place] for the Encounter. Date/Time Encounter Type Encounter Description Reason Provider Source Nov 12, 2023 11:00 AM OFFICE O/P EST MOD 30 MIN PRIMARY CARE/MEDICINE ICD-10-CM M79.672 Pain in left foot LALA DUNBAR [facility] Encounter Template Text not used by [place] Assessments - Encounter Diagnoses This section includes the primary and secondary diagnoses documented for the Encounter. Date/Time Primary/Secondary Diagnosis Diagnosis Name Provider Source Nov 13, 2023 07:58 AM PRIMARY Pain in left foot LALA DUNBAR [place] [facility] [place] [facility] Plan of Treatment: Future Appointments (+ 6 months) and Future Tests (+/- 45 days) The Plan of Treatment section includes future care activities for the patient [facility] [place] [facility] This section includes future appointments and future orders which are active, pending or scheduled. Future Appointments This section includes appointments that were scheduled to occur 6 months from the date of the Encounter, up to a maximum of 20 appointments. The data comes from all [place] treatment facilities. Appointment Date/Time Appointment Type Appointme nt Facility Name Nov 15, 2023 10:30 AM AMBULATORY - NONE [place] [facility] [facility] Dec 11, 2023 09:00 AM AMBULATORY - MEDICINE [place] [facility] [facility] Jan 01, 2024 10:00 AM AMBULATORY - MEDICINE [place] [facility] [facility] Jan 07, 2024 01:30 PM AMBULATORY - NONE [facility] [place] [facility] Feb 20, 2024 09:00 AM AMBULATORY - MEDICINE [place] [facility] [place] [facility] Mar 04, 2024 02:00 PM AMBULATORY - MEDICINE [place] [facility] [place] [facility] Mar 05, 2024 10:00 AM AMBULATORY - MEDICINE [place] [facility] [place] [facility] Mar 25, 2024 02:30 PM AMBULATORY - MEDICINE [place] [facility] [place] [facility] Mar 27, 2024 10:30 AM AMBULATORY - MEDICINE [place] [facility] [facility] Apr 25, 2024 08:30 AM AMBULATORY - NONE [place] [facility] [facility] Vital Signs: All taken on the encounter date This section contains inpatient and outpatient Vital Signs collected on the date of the Encounter. Date/Time Temperature Pulse Blood Pressure Respiratory Rate SP02 Pain Height Weight Body Mass Index Source Nov 12, 2023 10:42 AM 97.9 81 126/71 16 96 8 67 150 24 [place] [facility] [place] [facility] Social History: Smoking Status (Most current) and Tobacco Use (All prior to encounter date) This section includes the most current, and the historical, smoking and tobacco- related health factors from the [place] facility where the Encounter took place. Current Smoking Status This section includes the most current smoking, or tobacco-related health factor, from the [place] facility where the Encounter took place. Date/Time Current Smoking Status Comment Facil it May 09, 2023 09:00 AM VA-TOBACCO FORMER USER [place] [facility] [facility] Tobacco Use History This section includes a history of the smoking, or tobacco-related health factors, that were collected on or before the date of the Encounter. The data comes from the [place] facility where the Encounter took place. Date/Time Smoking Status/Tobac co Use Comment Facility May 09, 2023 09:00 AM VA-TOBACCO QUIT 15 YRS OR MORE [place] [facility] [place] [facility] Mar 30, 2022 09:45 AM VA-TOBACCO FORMER USER [facility] [facility] Mar 30, 2022 09:45 AM VA-TOBACCO QUIT 15 YRS OR MORE [facility] [place] [facility] Mar 29, 2021 08:30 AM VA-TOBACCO FORMER USER [facility] [place] [facility] Mar 29, 2021 08:30 AM VA-TOBACCO QUIT 15 YRS OR MORE [place] [facility] [facility] Apr 05, 2020 08:00 AM VA-TOBACCO FORMER USER [facility] [facility] Apr 05, 2020 08:00 AM VA-TOBACCO QUIT 15 YRS OR MORE [facility] [facility] Dec 19, 2018 09:16 AM VA-TOBACCO FORMER USER [facility] [facility] Dec 19, 2018 09:16 AM VA-TOBACCO QUIT 15 YRS OR MORE [facility] [facility] Jan 25, 2018 08:57 AM QUIT TOBACCO USE > 7 YEARS AGO [facility] [place] [facility] November 07, 2016 10:23 AM QUIT TOBACCO USE > 7 YEARS AGO [facility] [place] [facility] Sep 15, 2015 09:35 AM LIFETIME [facility]ACCO [facility] Feb 27, 2005 03:58 PM LIFETIME [facility]-SMOKER [facility] October 17, 2002 08:32 AM HISTORY OF SMOKING Smoke free since 1967 (35years) [facility] Jan 30, 2002 03:15 PM QUIT TOBACCO USE > 7 YEARS AGO [facility] Jul 25, 2001 03:17 PM HISTORY OF SMOKING [facility] Jul 25, 2001 03:17 PM NON-TOBACCO USER [facility] Radiology Reports: +/- 30 days of the [...] the Encounter. The data comes from all [place] treatment facilities. Date/Time Radiology Report Provider Source Nov 12, 2023 11:38 AM FOOT 3 OR MORE VIEWS(LEFT): NIGEL VIERA Jaycob [id number] -[id number] M Ex Date: NOV 12, 2023@11:38 Req Phys: LALA DUNBAR Pat Loc: CWM/NO/PACT 5 (Req'g Loc) Img Loc: [facility] 1 Service: Unknown [facility] , (Case [id number] COMPLETE) FOOT 3 OR MORE VIEWS(LEFT) (RAD Detailed) CPT:71481 Proc Modifiers : LEFT CPT Modifiers : LT LEFT SIDE Reason for Study: right plantar foot base of pinky Clinical History: Left lateral base of toe pain with center punctum ? Foreign body denies stepping on glass although I know that is not readiopaque Report Status: Verified Date Reported: NOV 12, 2023 Date Verified: NOV 12, 2023 Electrician Second E-Sig:/ES/CANDI LEZAMA JR Report: Study: AP, lateral, [...] Primary Interpreting Staff: CANDI LEZAMA JR, Radiologist (Electrician Second) /EACANDI SAUNDERS JR [facility] October 25, 2023 09:[address] NECK SOFT TISSUE W/O CONT: NIGEL VIERA [id number] -[id number] M Exm Date: OCTOBER 25, 2023@09:59 Req Phys: FLACO VYAS Loc: CWM/NO/OTOLARYNGOLOGY (Req'g L Img Loc: MNM/CT Service: Unknown [facility] , (Case [id number] COMPLETE) CT NECK SOFT TISSUE W/O CONT (CT Detailed) CPT:15817 Proc Modifiers : RIGHT Reason for Study: RIGHT NECK MASS Clinical History: RIGHT NECK MASS, STONE VS MASS Report Status: Verified Date Reported: OCTOBER 28, 2023 Date Verified: OCTOBER 28, 2023 Electrician Second E-Sig: Report: CT NECK SOFT TISSUE W/O CONT HISTORY: 73 years-old Male with RIGHT NECK MASS. COMPARISON: None. TECHNIQUE: Noncontrast CT of the neck with multiplanar reformats was performed at the local [place] facility. 1171 images were received by the [place] National Teleradiology Program (NTP) for interpretation. Lack [...] neck unremarkable. READING PHYSICIAN: Adalid Neely M.D. -[id number] 10/28/2023 7:20 CDT [facility] National Teleradiology Program [phone] (For Medical Practitioner Use Only) Attention Patients / Veterans: If you have questions or concerns about these test results, please contact your ordering provider or primary care team. Primary Diagnostic Code: NO ALERT REQUIRED Primary Interpreting Staff: RADIOLOGY,OUTSIDE SERVICE, Staff Physician / RADIOLOGY,OUTSIDE SERVICE [facility] Encounter Notes: All associated encounter notes This section contains the clinical notes associated to the Encounter. Date/Time Encounter Note(s) Provider Source Nov 12, 2023 10:56 AM PRIMARY CARE NURSE PRACTITIONER OUTPATIENT NOTE: LOCAL TITLE: NURSE PRACTITIONER OUTPATIENT NOTE STANDARD TITLE: PRIMARY CARE NURSE PRACTITIONER OUTPATIENT NOTE DATE OF NOTE: NOV 12, 2023@10:56 ENTRY DATE: NOV 12, 2023@10:56:47 AUTHOR: LALA DUNBAR EXP COSIGNER: URGENCY: STATUS: COMPLETED Chief complaint: Pt is a 73 who comes in for follow up of medical problems as noted below. HPI: Left foot pain on plantar proximal phalange lateral side he never walks barefoot in the home or outside he has slippers that he notes are very thin not sure if anything got in skin. Denies fevers drainage or severe redness or hot to touch, He has h/o gout that he has had in Knee but this does not feel like Gout. Given location it is now painful to bear weight on it and his gait is becoming altered from compensation PMH: Active problems - Computerized Problem List [...] 7. Recent weight loss EGD DR Mckenzie [facility] Impression :Gastritis Await biopsy report to r/u H. pylori [facility] Dr Mckenzie 8. Osteoporosis consult: [facility] ENDOCRINE - Elsychelsey Keane DO MED: Prolia Solution 60mg/ml( approved NON FORM) 9. Hernia of abdominal wall Seen GI surgery 11/2018 - elective surgery - if vet wishes to schedule 10. Adrenal adenoma consult: [facility] - Elsychelsey Keane, DO MED: aldosterone receptor antagonist- ( 05/2019- EPLERENONE) - 11. Osteoarthritis of knee 12. Calcium pyrophosphate deposition disease -- by joint aspiration 06/19 13. 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 Posterior Vitreous Detachment 16. Osteoporosis (SNOMED CT 04474666) -- hip T-score -2.8, 08/18 17. Low back pain (SNOMED CT 661751861) chronic. Finds lead caregiver helpful. Sees Chiropractor Dr Surinder Patel at [address] [place] [address] 18. Hyperlipidemia 19. Benign prostatic hypertrophy (SNOMED CT 230842910) 20. Pseudogout Right knee 21. Rhinitis (SNOMED CT 50265888) 22. Dermatitis or Eczema * 23. History of polyp of colon -- tubular adenoma 05/16 normal colonoscopy 11/20 last c-scope 2020; due for 2023 due to Hx of tubular adenoma and limited prep on 2020 c-scope 24. Posttraumatic Stress Disorder update Reviewed 25. Erectile dysfunction (SNOMED CT 759226264) 26. Gastroesophageal reflux disease (SNOMED CT 240574333) Allergies: COLCHICINE, OMEPRAZOLE, FLUNISOLIDE, ZOLEDRONIC, PRAVASTATIN, ALENDRONATE [...] MOUTH ONCE DAILY FOR VITAMIN SUPPLEMENTATION 7) DOXAZOSIN MESYLATE 8MG TAB TAKE ONE TABLET BY MOUTH ACTIVE ONCE DAILY DIRECTED BY PRESCRIBER. NOTE TABLET STRENGTH 8) GUAIFENESIN 200MG TAB TAKE ONE TABLET BY MOUTH TWICE ACTIVE DAILY FOR COUGH 9) KETOCONAZOLE 2% CREAM APPLY A THIN LAYER TOPICALLY ACTIVE TWICE DAILY FUNGAL RASH APPLY TO AFFECTED AREAS ON CHEST FOR 4 WEEKS, THEN NEEDED 10) LOSARTAN 25MG TAB TAKE ONE TABLET BY MOUTH ONCE DAILY ACTIVE FOR BLOOD PRESSURE/HEART 11) MAGNESIUM OXIDE 400MG TAB TAKE ONE TABLET BY MOUTH ACTIVE ONCE DAILY FOR MAGNESIUM SUPPLEMENTATION 12) PANTOPRAZOLE NA 40MG EC TAB TAKE ONE TABLET BY MOUTH ACTIVE EVERY MORNING 30 MINUTES BEFORE BREAKFAST 13) SILDENAFIL CITRATE 100MG TAB TAKE ONE TABLET BY MOUTH ACTIVE ONCE DAILY FOR ERECTILE DYSFUNCTION TAKE 1 HOUR PRIOR TO SEXUAL ACTIVITY 14) TAMSULOSIN HCL 0.4MG CAP TAKE ONE CAPSULE BY MOUTH ACTIVE ONCE DAILY DIRECTED BY PROVIDER 15) TRAZODONE HCL 100MG TAB TAKE TWO TABLETS BY MOUTH AT ACTIVE BEDTIME - MAY TAKE A 3RD TABLET IF NOT ASLEEP BY 2AM 16) TRIAMCINOLONE ACETONIDE 0.1% CREAM APPLY A THIN [...] Non-VA MULTIVITAMIN W/MINERAL TAB BY MOUTH ACTIVE 21 Total Medications Allergies: COLCHICINE, OMEPRAZOLE, FLUNISOLIDE, ZOLEDRONIC, PRAVASTATIN, ALENDRONATE CHLORTHALIDONE, CONTRAST MEDIA, SPIRONOLACTONE, EPLERENONE, CETIRIZINE LISINOPRIL, CYCLOBENZAPRINE VITAL SIGNS: 97.9 F [36.6 C] (11/12/2023 10:42) 81 (11/12/2023 10:42) 16 (11/12/2023 10:42) 126/71 (11/12/2023 10:42) 8 (11/12/2023 10:42) 67 in [170.2 cm] (11/12/2023 10:42) 150 lb [68.04 kg] (11/12/2023 10:42) BMI: 23.5 ROS SKIN: denies any rashes has mild redness with pain plantar left lateral foot Musculo: denies weakness or joint pain just hard to put pressure on area of pain on left foot NEURO: denies paresthesia's Mental Health: Denies SI, HI PHYSI MIHAELA EXAM GENERAL: well appearing [place] in NAD, speaking in clear sentences. SKIN: Clean, dry intact Left foot pain on plantar proximal phalange lateral side also with point tenderness on firm nodule underneath calloused skin, cleaned area and used #18 needle to unroof the calluses area no FB felt did not attempt to dig more will check Xray NEURO CN II-XII grossly intact, gait steady without shuffle, Normal sensation to feet bilaterally MENTAL A&Ox3 Appropriate, Pleasant, Cooperative LAB RESULTS LAST 1440 HRS - NONE FOUND Future Clinic Visits 11/12/2023 11:00 CWM/NO/PACT 5 11/15/2023 10:30 CWM/NO/DENTAL/DMD4 12/19/2023 11:30 NHM/ENDOCRINE 02/20/2024 09:00 CWM/NO/PACT 5 03/27/2024 07:15 CWM/NO/DENTAL/RDH2 AM 09/08/2024 08:30 NHM/OPTOMETRY/[place]ORASKI 10/09/2024 10:00 CWM/NO/DERMATOLOGY ASSISTANT CROSS COUNTRY COACH AM ASSESSMENT AND PLAN: 1)Foot pain -Xray showing: No radiopaque foreign body is identified. No subcutaneous gas or abnormal soft tissue calcifications are seen. The plantar arch is maintained. No calcaneal spurs are identified. The left foot joint spaces are normal and well-maintained. No bony fracture, dislocation or subluxation is identified However glass and wood often not radiopaque I don't see any signed of possible plantar wart which often can feel like FB, given mild erythema likely FB he will go home and do warm foot soaks 2-3 times daily with salt water. I have encouraged he use Donuts to avoid putting pressure on area referral to either Podiatry vs Surgery Go to evaluated and wonder if he might need more exploration. He will return to clinic or urgent/ER if fevers worsening pain redness Return to clinic to see me in 3 months already has routine appt scheduled, RTC sooner if needed. Clinical Reminders Medication [...] provider. /sharla/ PIPPA CALVERT Nurse Practitioner Signed: 11/13/2023 07:58 LALA DUNBAR [place] [facility] [facility] Nov 12, 2023 10:45 AM PREVENTIVE MEDICINE NURSING NOTE: LOCAL TITLE: CLINICAL REMINDERS/NURSING STANDARD TITLE: PREVENTIVE MEDICINE NURSING NOTE DATE OF NOTE: NOV 12, 2023@10:45 ENTRY DATE: NOV 12, 2023@10:45:37 AUTHOR: CATALINO COTTER EXP COSIGNER: URGENCY: STATUS: COMPLETED Suicide Screen: C-SSRS Screening [place] Suicide Severity Rating Scale (C-SSRS) screener 1. Over the past month, have you wished you were or wished you could go to sleep and not wake up? No 2. Over the past month, have you had any actual thoughts of killing yourself? No 3. Over the past month, have you been thinking about how you might do this? Response not required due to responses to other questions. 4. Over the past month, have you had these thoughts and had some intention of acting on them? Response not required due to responses to other questions. 5. Over the past month, have you started to work out or worked out the details of how to kill yourself? Response not required due to responses to other questions. 6. If yes, at any time in the past month did you intend to carry out this plan? Response not required due to responses to other questions. 7. In your lifetime, have you ever done anything, started to do anything, or prepared to do anything to end your life (for example, collected pills, obtained a gun, gave away valuables, went to the roof but didn't jump)? No 8. If YES, was this within the past 3 months? Response not required due to responses to other questions. Depression Screening: Perform PHQ-2 A PHQ-2 screen was performed. The score was 0 which is a negative screen for depression. Over the past two weeks, how often have you been bothered by the following problems? 1. Little interest or pleasure in doing things Not at all 2. Feeling down, depressed, or hopeless Not at all /sharla/ CATALINO COTTER LPN License Practical Nurse Signed: 11/12/2023 10:46 CATALINO COTTER [place] [facility] [place] [facility]
--- OUTSIDE RECORDS SUMMARY | 2024-10-04 07:53 | XMS_ITS | Encounter Summary ---
Author Name [facility] Organization [facility] Address [address] [place] [id number] Care Team Providers Care Concrete Block Molder Name Role Phone LALA DUNBAR Primary Care [...] PART A Mar 11, 2013 PART A [id number] [phone] FR AUGUSTO VIERA PATIENT MEDICARE (WNR) MEDICARE (M) PART A Mar 11, 2013 PART A [id number] [phone] FR AUG[place]O VIERA PATIENT MEDICARE (WNR) MEDICARE (M) PART A Mar 11, 2013 PART A [id number] [phone] FR AUG[place]O VIERA PATIENT MEDICARE (WNR) MEDICARE (M) PART A Mar 11, 2013 PART A [id number] [phone] FR AUGUSTO VIERA PATIENT Selected Encounter This section includes the information on record at [facility] for the Encounter. Date/Time Encounter Type Encounter Description Reason Provider Source May 27, 2024 11:00 AM OFFICE O/P EST MOD 30 MIN PRIMARY CARE/MEDICINE ICD-10-CM M25.562 Pain in left knee LALA DUNBAR E Encounter Template Text not used by [facility] Assessments - Encounter Diagnoses This section includes the primary and secondary diagnoses documented for the Encounter. Date/Time Primary/Secondary Diagnosis Diagnosis Name Provider Source May 27, 2024 11:26 AM PRIMARY Pain in left knee LALA DUNBAR [facility] [place] Plan of Treatment: Future Appointments (+ 6 months) and Future Tests (+/- 45 days) The Plan of Treatment section includes future care activities for the [facility] This section includes future appointments and future orders which are active, pending or scheduled. Future Appointments This section includes appointments that were scheduled to occur 6 months from the date of the Encounter, up to a maximum of 20 appointments. The data comes from all [facility] treatment facilities. Appointment Date/Time Appointment Type Appointme nt Facility Name Jul 11, 2024 01:40 PM AMBULATORY - NONE [facility] [place] [facility] Jul 21, 2024 09:00 AM AMBULATORY - MEDICINE [facility] [place] [facility] Aug 05, 2024 09:30 AM AMBULATORY - MEDICINE [facility] [place] [facility] Aug 27, 2024 09:00 AM AMBULATORY - MEDICINE [facility] [place] [facility] Sep 08, 2024 08:30 AM AMBULATORY - MEDICINE [facility] [place] [facility] Sep 12, 2024 09:30 AM AMBULATORY - PSYCHIATRY [facility] [place] [facility] Sep 16, 2024 02:15 PM AMBULATORY - MEDICINE [facility] [place] [facility] Sep 16, 2024 02:45 PM AMBULATORY - MEDICINE [facility] [place] [facility] Sep 24, 2024 11:00 AM AMBULATORY - MEDICINE [facility] [place] [facility] Oct 07, 2024 09:30 AM AMBULATORY - PSYCHIATRY [facility] [place] [facility] October 30, 2024 01:00 PM AMBULATORY - MEDICINE [facility] [place] [facility] November 06, 2024 09:45 AM AMBULATORY - NONE [facility] [place] [facility] Active, Pending, and Scheduled Orders This section includes a listing of several types of active, pending, and scheduled orders, including clinic medications orders, diagnostic test orders, procedure orders and consult orders; where the start date of the order is 45 days before the date of the Encounter or 45 days after the date of theEncounter. The data comes from all [facility] treatment facilities. Test Date/Time Test Type Test Details Facility Name May 27, 2024 11:19 AM Consult Order RHEUMATOLO GY/[facility] (OUTPT) Cons Executive Business Coach's Choice [facility] Vital Signs: All taken on the encounter date This section contains inpatient and outpatient Vital Signs collected on the date of the Encounter. Date/Time Temperature Pulse Blood Pressure Respiratory Rate SP02 Pain Height Weight Body Mass Index Source May 27, 2024 10:58 AM 82 125/[address] [facility] Social History: Smoking Status (Most current) and Tobacco Use (All prior to encounter date) This section includes the most current, and the historical, smoking and tobacco- related health factors from the [facility] facility where the Encounter took place. Current Smoking Status This section includes the most current smoking, or tobacco-related health factor, from the [facility] facility where the Encounter took place. Date/Time Current Smoking Status Comment Keith garcia May 27, 2024 11:00 AM VA-TOBACCO USE FOR COLLIN CIGARETTES [facility] Tobacco Use History This section includes a history of the smoking, or tobacco-related health factors, that were collected on or before the date of the Encounter. The data comes from the [facility] facility where the Encounter took place. Date/Time Smoking Status/Tobac co Use Comment Facility May 27, 2024 11:00 AM VA-TOBACCO USE FORMER CIGARETTES [facility] May 09, 2023 09:00 AM [facility] May 09, 2023 09:00 AM VA-TOBACCO QUIT 15 YRS OR MORE [facility] Mar 30, 2022 09:45 AM VA-TOBACCO [facility] Mar 30, 2022 09:45 AM VA-TOBACCO QUIT 15 YRS OR MORE [facility] [place] [facility] Mar 29, 2021 08:30 AM VA-TOBACCO FORMER USER [facility] [place] [facility] Mar 29, 2021 08:30 AM VA-TOBACCO QUIT 15 YRS OR MORE [facility] [place] [facility] Apr 05, 2020 08:00 AM VA-TOBACCO FORMER USER [facility] [place] [facility] Apr 05, 2020 08:00 AM VA-TOBACCO QUIT 15 YRS OR MORE [facility] [place] [facility] Dec 19, 2018 09:16 AM VA-TOBACCO FORMER USER [facility] [place] [facility] Dec 19, 2018 09:16 AM VA-TOBACCO QUIT 15 YRS OR MORE [facility] [place] [facility] Jan 25, 2018 08:57 AM QUIT TOBACCO USE > 7 YEARS AGO [facility] [place] [facility] November 07, 2016 10:23 AM QUIT TOBACCO USE > 7 YEARS AGO [facility] [place] [facility] Sep 15, 2015 09:35 AM LIFETIME NON-TOBACCO USER [facility] [place] [facility] Feb 27, 2005 03:58 PM LIFETIME NON-SMOKER [facility] [place] [facility] October 17, 2002 08:32 AM HISTORY OF SMOKING Smoke free since 1967 (35years) [facility] [place] Jan 30, 2002 03:15 PM QUIT TOBACCO USE > 7 YEARS AGO [facility] [place] [facility] Jul 25, 2001 03:17 PM HISTORY OF SMOKING [facility] [place] [facility] Jul 25, 2001 03:17 PM [facility] Radiology Reports: +/- 30 days of [...] the Encounter. The data comes from all [facility] treatment facilities. Date/Time Radiology Report Provider Source May 27, 2024 11:26 AM KNEE 3 VIEWS (LEFT): NIGEL VIERA [id number] -[id number] M Exm Date: MAY 27, 2024@11:26 Req Phys: LALA DUNBAR Pat Loc: CWM/NO/PACT 5 (Req'g Loc) Img Loc: [facility]BUILDING 1 Service: [place] [address] (Case [id number] COMPLETE) KNEE 3 VIEWS (LEFT) (RAD Detailed) CPT:50085 Reason for Study: left knee pain Clinical History: ?Gout flare h/o Pseudogout and tophus Report Status: Verified Date Reported: MAY 27, 2024 Date Verified: MAY 27, 2024 Machine Feeder E-Sig:/ES/CANDI LEZAMA JR Report: Study: AP weight-bearing views of the knees with lateral and sunrise views of the left knee. Comparison: None. Findings: Moderate diffuse medial and lateral joint compartment narrowing is present to the medial and lateral joint compartments bilaterally with trace meniscal chondrocalcinosis present bilaterally. Narrowing can be seen secondary to osteoarthritis versus CPPD arthropathy. The left patella is normally located with maintenance of the left patellofemoral joint space. Trace vascular calcifications present. There is no suprapatellar joint effusion present. No bony fracture, dislocation or subluxation is seen. The bony mineralization is normal. Impression: Bilateral knee joint space narrowing, as described above. Primary Diagnostic Code: No immediate attention required Primary Interpreting Staff: CANDI LEZAMA JR, Radiologist (Machine Feeder) /EAD CANDI LEZAMA JR [facility] Encounter Notes: All associated encounter notes This section contains the clinical notes associated to the Encounter. Date/Time Encounter Note(s) Provider Source May 27, 2024 11:19 AM PRIMARY CARE NURSE PRACTITIONER OUTPATIENT NOTE: LOCAL TITLE: NURSE PRACTITIONER OUTPATIENT NOTE STANDARD TITLE: PRIMARY CARE NURSE PRACTITIONER OUTPATIENT NOTE DATE OF NOTE: MAY 27, 2024@11:19 ENTRY DATE: MAY 27, 2024@11:20:01 AUTHOR: LALA DUNBAR EXP COSIGNER: URGENCY: STATUS: COMPLETED NURSE PRACTITIONER OUTPATIENT NOTE Has ADDENDA Pt is a 74 who comes in for follow up of medical problems as noted below. HPI: 20 years of intermittent arthritis previously diagnosed as gout, has had arthrocentesis in the past suggestive of pseudogout. He has had hyperuricemia in the past, only a few flares over the last 10 + years but recently has had about 4-5 over 4 months, cannot tolerate Allopurinol or colchicine 2/2 rash that he has experienced he states only prednisone taper works for him. no recent x-rays, denies ETOH or high purine diet PMH: Active problems - Computerized Problem List [...] 7. Recent weight loss EGD DR Mckenzie [facility] Impression :Gastritis Await biopsy report to r/u H. pylori [facility] Dr Mckenzie 8. Osteoporosis consult: [facility] MED: Prolia Solution 60mg/ml( approved NON FORM) 9. Hernia of abdominal wall SEEn GI surgery 11/2018 - elective surgery - if vet wishes to schedule 10. Adrenal adenoma consult: [facility] ENDOCRINE - Elsychelsey Keane, DO MED: aldosterone receptor antagonist- ( 05/2019- EPLERENONE) - 11. Osteoarthritis of knee 12. Calcium pyrophosphate deposition disease -- by joint aspiration 06/19 13. 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 Posterior Vitreous Detachment 16. Osteoporosis (SNOMED CT 89230452) -- hip T-score -2.8, 08/18 17. Low back pain (SNOMED CT 162583170) chronic. Finds ambulatory care nurse helpful. Sees Chiropractor Dr Surinder Patel at [address] [place] [address] 18. Hyperlipidemia (SNOMED CT 36403163) 19. Benign prostatic hypertrophy (SNOMED CT 774025783) 20. Gout (SNOMED CT 51096670) Right knee 21. Rhinitis (SNOMED CT 69522897) 22. Dermatitis or Eczema * 23. History of polyp of colon -- tubular adenoma 05/16 normal colonoscopy 11/20 last c-scope 2020; due for 2023 due to Hx of tubular adenoma and limited prep on 2020 c-scope 24. Posttraumatic stress disorder (SNOMED CT 87859471) update Reviewed 25. Erectile dysfunction (SNOMED CT 223734430) 26. Gastroesophageal reflux disease (SNOMED CT 221887948) Allergies: COLCHICINE, OMEPRAZOLE, FLUNISOLIDE, ZOLEDRONIC, PRAVASTATIN, ALENDRONATE [...] ONE TABLET BY MOUTH TWICE DAILY ACTIVE (S) Indication: FOR COUGH 11) KETOCONAZOLE 2% CREAM [...] FOR EXCESSIVE PRODUCTION OF STOMACH ACID 14) PREDNISONE 20MG TAB TAKE THREE TABLETS BY MOUTH ONCE DAILY ACTIVE FOR 3 DAYS, THEN TAKE TWO TABLETS ONCE DAILY FOR 3 DAYS, THEN TAKE ONE TABLET ONCE DAILY FOR 3 DAYS Indication: GOUT FLARE 15) SODIUM FLUORIDE 1.1% TOOTHPASTE BRUSH SMALL AMOUNT TO TEETH ACTIVE TWICE DAILY Indication: FOR TOOTH DECAY PREVENTION 16) TAMSULOSIN HCL 0.4MG CAP TAKE ONE CAPSULE BY MOUTH ONCE ACTIVE DAILY DIRECTED BY PROVIDER 17) TRAZODONE HCL 100MG TAB TAKE TWO TABLETS BY MOUTH AT BEDTIME ACTIVE - MAY TAKE A 3RD TABLET IF NOT ASLEEP BY 2AM Indication: FOR INSOMNIA ASSOCIATED WITH DEPRESSION 18) TRIAMCINOLONE ACETONIDE 0.1% CREAM APPLY A THIN LAYER ACTIVE TOPICALLY TWICE DAILY NEEDED -MAX 14 DAYS PER MONTH Indication: FOR ITCHING Pending Outpatient Medications Status 1) PREDNISONE 20MG TAB TAKE THREE TABLETS BY MOUTH ONCE DAILY PENDING FOR 3 DAYS, THEN TAKE TWO TABLETS ONCE DAILY FOR 3 DAYS, THEN TAKE ONE TABLET ONCE DAILY FOR 3 DAYS Indication: GOUT FLARE Inactive Outpatient Medications Status 1) LOSARTAN 25MG TAB TAKE ONE TABLET BY MOUTH ONCE DAILY FOR BLOOD PRESSURE/HEART Indication: FOR HIGH BLOOD PRESSURE 2) SILDENAFIL CITRATE 100MG TAB TAKE ONE TABLET BY MOUTH ONCE DAILY TAKE 1 HOUR PRIOR TO SEXUAL ACTIVITY Indication: FOR ERECTILE DYSFUNCTION Active Non-VA Medications Status 1) Non-VA ASPIRIN 81MG EC TAB 81MG BY MOUTH EVERY DAY ACTIVE 2) Non-VA FLAXSEED MISCELLANEOUS EVERY DAY ACTIVE 3) Non-VA GARLIC CAP,ORAL BY MOUTH EVERY DAY ACTIVE 24 Total Medications Allergies: COLCHICINE, OMEPRAZOLE, FLUNISOLIDE, ZOLEDRONIC, PRAVASTATIN, ALENDRONATE CHLORTHALIDONE, CONTRAST MEDIA, SPIRONOLACTONE, EPLERENONE, CETIRIZINE LISINOPRIL, CYCLOBENZAPRINE VITAL SIGNS: 98.5 F [36.9 C] (03/25/2024 14:55) 82 (05/27/2024 10:58) 19 (05/27/2024 10:58) 125/71 (05/27/2024 10:58) 10 (03/25/2024 14:55) 67 in [170.2 cm] (02/20/2024 08:48) 156.5 lb [70.99 kg] (03/05/2024 10:19) BMI: 24.6 ROS General: no fever, no unexplained weight loss or gain CV: denies CP, palpitations Lung: denies Dyspnea or wheezing Ext: denies edema (+) left knee pain Psych: denies SI Neuro: denies dizziness, falls, IRVIN PHYSI MIHAELA EXAM GENERAL: well appearing in NAD, speaking in clear sentences. SKIN: Clean, dry intact no rashes , lesions or nodules observed. Musculo: left and right Knees without crepitus, Right knee and left FROM and equal strength, (+) posterior TTP of left knee, no redness or hot to touch no edema MENTAL A&Ox3 Appropriate, Pleasant, Cooperative LAB RESULTS LAST 1440 HRS - NONE FOUND Future Clinic Visits 06/09/2024 09:30 CWM/NO/PACT 5 07/11/2024 13:40 COM CARE-COLO SCRN 08/05/2024 09:30 CWM/NO/PODIATRY A 09/08/2024 08:30 NHM/OPTOMETRY/BORASKI 10/09/2024 10:00 CWM/NO/DERMATOLOGY SCRIPT READER AM 11/06/2024 09:45 SDM DENTAL RDH 2 AM ASSESSMENT AND PLAN: 1)Left knee pain he thinks he pseudogout, Counseled that I have concerns about how many flares he is having, check for other underlying causes and possible treatments, has been many years since seeing Rheum, only med he thinks that helps is taper prednisone no current flare Xray obtained referral to Rheum Return to clinic to see me in months, RTC sooner if needed. Clinical Reminders Medication [...] provider. /sharla/ PIPPA CALVERT Nurse Practitioner Signed: 05/27/2024 11:25 05/29/2024 ADDENDUM STATUS: COMPLETED called with Xray results, has narrowing of joints whoch certainly could be the cause of pain vs gout, I am concerned about how much prednisone had has taken, when i called him he said pain is still ongoing, he would like to try the gout flare med again colchicine, he has this listed as allergy but wants it as error wants to try med again states he just had itchy eyes and no anaphylaxis or angiedema in past will take off allergy list and patient will try again for his gout flare Can also check Uric acid levels if having another flare. he would like med mailed he appreciated call if pain worsening he will call or go to urgent /es/ PIPPA CALVERT Nurse Practitioner Signed: 05/29/2024 13:28 LALA DUNBAR [facility] [place] May 27, 2024 11:00 AM PREVENTIVE MEDICINE NURSING NOTE: LOCAL TITLE: CLINICAL REMINDERS/NURSING STANDARD TITLE: PREVENTIVE MEDICINE NURSING NOTE DATE OF NOTE: MAY 27, 2024@11:00 ENTRY DATE: MAY 27, 2024@11:00:50 AUTHOR: JULIET HENSON COSIGNER: URGENCY: STATUS: COMPLETED Tobacco Use Screening: The patient is a former cigarette smoker. The patient has never used other types of tobacco. Influenza Immunization: Deferral / Refusal The patient declines to receive the recommended dose of seasonal influenza vaccine. Immunization: INFLUENZA, UNSPECIFIED FORMULATION Refusal Reason: PATIENT DECISION Patient refuses all immunization(s) in the FLU group Date Documented: 05/27/24 11:01 Alcohol Use Screen (AUDIT-C): Alcohol Screen: SCREEN FOR ALCOHOL (AUDIT-C) An alcohol screening test (AUDIT-C) was negative (score=0). 1. How often did you have a drink containing alcohol in the past year? Consider a drink to be a 12 ounce can or bottle of regular beer, 8 ounces of malt liquor, a 5 ounce glass of table wine, or a 1.5 ounce shot of liquor (like scotch, gin, or vodka). Never 2. How many drinks containing alcohol did you have on a typical day when you were drinking in the past year? Response not required due to responses to other questions. 3. How often did you have six or more drinks on one occasion in the past year? Response not required due to responses to other questions. /sharla/ Juliet Henson RN Primary Care Staff Nurse Signed: 05/27/2024 11:01 JULIET HENSON
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
--- OUTSIDE RECORDS SUMMARY | 2024-10-04 07:53 | XMS_ITS | Encounter Summary ---
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 Date/Time Encounter Type Encounter Description Reason Provider Source Apr 18, 2024 01:00 PM QNHP OL DIG ASSMT&MGMT 21+ CLINICAL PHARMACY ICD-10-CM Z04.89 Encounter for examination and observation for oth reasons SRIDHAR SHEPARD [facility] Encounter Template Text not used by [place] Assessments - Encounter Diagnoses This section includes the primary and secondary diagnoses documented for the Encounter. Date/Time Primary/Secondary Diagnosis Diagnosis Name Provider Source Apr 18, 2024 01:40 PM PRIMARY Encounter for examination and observation for oth reasons SRIDHAR SHEPARD [facility] [place] [facility] Plan of Treatment: Future Appointments (+ 6 months) and Future Tests (+/- 45 days) The Plan of Treatment section includes future care activities for the patient [facility] [place] [facility] This section includes future appointments and future orders which are active, pending or scheduled. Future Appointments This section includes appointments that were scheduled to occur 6 months from the date of the Encounter, up to a maximum of 20 appointments. The data comes from all [place] treatment facilities. Appointment Date/Time Appointment Type Appointme nt Facility Name Apr 25, 2024 08:30 AM AMBULATORY - NONE [facility] [place] [facility] May 27, 2024 11:00 AM AMBULATORY - MEDICINE [facility] [place] [facility] Jul 11, 2024 01:40 PM AMBULATORY - NONE [facility] [place] [facility] Jul 21, 2024 09:00 AM AMBULATORY - MEDICINE [facility] [place] [facility] Aug 05, 2024 09:30 AM AMBULATORY - MEDICINE [facility] [place] [facility] Aug 27, 2024 09:00 AM AMBULATORY - MEDICINE [facility] [place] [facility] Sep 08, 2024 08:30 AM AMBULATORY - MEDICINE [facility] [place] [facility] Sep 12, 2024 09:30 AM AMBULATORY - PSYCHIATRY [facility] [place] [facility] Sep 16, 2024 02:15 PM AMBULATORY - MEDICINE [facility] [place] [facility] Sep 16, 2024 02:45 PM AMBULATORY - MEDICINE [facility] [place] [facility] Sep 24, 2024 11:00 AM AMBULATORY - MEDICINE [facility] [place] [facility] Oct 07, 2024 09:30 AM AMBULATORY - PSYCHIATRY [facility] [place] [facility] Active, Pending, and Scheduled Orders This section includes a listing of several types of active, pending, and scheduled orders, including clinic medications orders, diagnostic test orders, procedure orders and consult orders; where the start date of the order is 45 days before the date of the Encounter or 45 days after the date of theEncounter. The data comes from all [place] treatment facilities. Test Date/Time Test Type Test Details Facility Name Mar 05, 2024 10:55 AM Consult Order COMMUNITY CARE-COLONOSCOPY SCREENING Cons Label [facility] [place] [facility] May 27, 2024 11:19 AM Consult Order RHEUMATOLO GY/NHM (OUTPT) Cons Label [facility] [place] [facility] Lab Results: +/- 30 days of the [...] Type Comment Mar 25, 2024 03:29 PM [facility] [place] [facility] FERRITIN SERUM Specimen Type: SERUM No comment entered. Ordering Provider: LALA DUNBAR Report Released Date/Time: Mar 25, 2024 03:12 PM Reporting Lab: [facility] [place] [facility] [address] [address] Performing Lab[facility] [place] [facility] [address] [address] FERRITIN 140 ng/mL 20-300 Mar 25, 2024 03:29 PM [facility] [place] [facility] CALCIUM SERUM Specimen Type: SERUM No comment entered. Ordering Provider: LALA DUNBAR Report Released Date/Time: Mar 25, 2024 03:17 PM Reporting Lab: [facility] [place] [facility] [address] [address] Performing Lab: [facility] [place] [address] [address] CALCIUM 8.5 mg/dL 8.5-10.2 Mar 25, 2024 03:29 PM [facility] MAGNESIUM SERUM Specimen Type: SERUM No comment entered. Ordering Provider: LALA DUNBAR Report Released Date/Time: Mar 25, 2024 03:12 PM Reporting Lab: [facility] [address] [address] Performing Lab: [address] [address] MAGNESIUM 2.3 mg/dL 1.6-2.6 Mar 25, 2024 03:29 PM [facility] BASIC METABOLIC PANEL (non-fasting) SERUM Spe cimen Type: SERUM No comment entered. Ordering Provider: LALA DUNBAR Report Released Date/Time: Mar 25, 2024 03:12 PM Reporting Lab: [facility] [address] [address] Performing Lab: [address] [address] UREA NITROGEN 20 mg/dL 7-25 GLUCOSE 94 mg/dL 65-100 SODIUM 140 mmol/L 135-145 POTASSIUM 3.7 mmol/L 3.5-5.0 CHLORIDE 107 mmol/L 100-110 CO2 24 meq/L 20-30 CREATININE, Serum 1.14 mg/dL 0.50-1.40 eGFR(CKD-EPI 2020) 67 mL/min >60 Social History: Smoking Status (Most current) and Tobacco Use (All prior to encounter date) This section includes the most current, and the historical, smoking and tobacco- related health factors from the [place] facility where the Encounter took place. Current Smoking Status This section includes the most current smoking, or tobacco-related health factor, from the [place] facility where the Encounter took place. Date/Time Current Smoking Status Comment Keith orozco May 09, 2023 09:00 AM PA-TOBACCO QUIT 15 YRS OR MORE [facility] Tobacco Use History This section includes a history of the smoking, or tobacco-related health factors, that were collected on or before the date of the Encounter. The data comes from the [place] facility where the Encounter took place. Date/Time [...] [facility] [place] [facility] Encounter Notes: All associated encounter notes This section contains the clinical notes associated to the Encounter. Date/Time Encounter Note(s) Provider Source Apr 18, 2024 01:01 PM PHARMACY NOTE: LOCAL TITLE: [facility] REVIEW STANDARD TITLE: PHARMACY NOTE DATE OF NOTE: APR 18, 2024@13:01 ENTRY DATE: APR 18, 2024@13:01:12 AUTHOR: SRIDHAR SHEPARD COSIGNER: URGENCY: STATUS: COMPLETED [facility] Polypharmacy Review NIGEL VIERA is a 74 year old WHITE MALE. Attempted to contact pt to review medication, unavailable at time of review. PMH (per problem list): Active Problem Benign essential hypertension I10. 08/08/2022 BETTINA,LALA THANG Insomnia G47.00 08/08/2022 BETTINA,LALA THANG Pain of right knee M25.561 08/08/2022 JAMMIE CASH Exposure to potentially hazardous s 06/29/2022 YEFRI GUERRA [facility]BI - Latent tuberculosis infectio 12/29/2020 JIMMY WILLSON Gynecomastia R69., Onset 05/16/2019 LUIS ENRIQUE ZAIDI Recent weight loss R63.4, Onset 09/24/2020 LEONARDO WALLS Osteoporosis M81.8 06/16/2019 MAY,TRINIDAD Villanueva Hernia of abdominal wall K45.8 12/25/2018 LUIS ENRIQUE ZAIDI Adrenal adenoma I10. 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 08/18/2011 ARLENE DELUCA Posterior Vitreous Detachment 379.2 08/26/2010 ARLENE DELUCA Osteoporosis (SNOMED CT 75822901) M 08/17/2021 MARCO ANTONIO LARKIN Low back pain (SNOMED CT 463352081) 11/07/2022 BETTINA,LALA THANG Hyperlipidemia (SNOMED CT 64484505) 02/20/2024 BETTINA,LALA THANG Benign prostatic hypertrophy (SNOME 03/30/2015 JIMMY JASON Gout (SNOMED CT 47364200) M10.9 02/20/2024 BETTINA,LALA THANG Rhinitis (SNOMED CT 69447582) J30.2 08/08/2022 LALA DUNBAR Dermatitis or Eczema * (ICD-9-CM 69 07/07/2008 ERNEJIMMY Saha History of polyp of colon K63.5 04/21/2022 JAMMIE CASH Posttraumatic stress disorder (SNOM 02/20/2024 LALA DUNBAR Erectile dysfunction (SNOMED CT 860 08/08/2022 LALA DUNBAR Gastroesophageal reflux disease (SN 09/15/2015 JIMMY JASON Allergies/ADR: COLCHICINE, OMEPRAZOLE, FLUNISOLIDE, ZOLEDRONIC, PRAVASTATIN, ALENDRONATE CHLORTHALIDONE, CONTRAST MEDIA, SPIRONOLACTONE, EPLERENONE, CETIRIZINE LISINOPRIL, CYCLOBENZAPRINE Active and Recently Outpatient Medications (including Supplies): Active Outpatient Medications [...] MOUTH ONCE DAILY FOR VITAMIN SUPPLEMENTATION 8) DICLOFENAC NA 75MG EC TAB TAKE ONE TABLET BY MOUTH ACTIVE TWICE DAILY FOR PAIN AND INFLAMMATION FOR PAIN/INFLAMMATION 9) DOXAZOSIN MESYLATE 8MG TAB TAKE ONE [...] ACTIVE EVERY MORNING 30 MINUTES BEFORE BREAKFAST 16) [...] FOR ITCHING -MAX 14 DAYS PER MONTH Inactive Outpatient Medications Status 1) AMILORIDE HCL 5MG TAB TAKE TWO TABLETS BY MOUTH TWICE DISCONTINUED DAILY WITH FOOD 2) CALCIUM 500MG (CA CARB-1.25GM) TAB TAKE TWO TABLETS DISCONTINUED BY MOUTH ONCE DAILY 3) CAPSAICIN 0.075% CREAM APPLY A THIN FILM TOPICALLY DISCONTINUED TWICE DAILY FOR BACKACHE 4) CETIRIZINE HCL 10MG TAB TAKE ONE TABLET BY MOUTH ONCE DISCONTINUED DAILY FOR ALLERGIES FOR ALLERGIES 5) CHOLECALCIF 25MCG (D3-1,000UNIT) TAB TAKE ONE TABLET DISCONTINUED BY MOUTH ONCE DAILY FOR VITAMIN SUPPLEMENTATION 6) DENOSUMAB 60MG/ML INJ SYRINGE 1ML INJECT 60MG/1ML SUBCUTANEOUSLY ONE TIME FOR OSTEOPOROSIS 7) GUAIFENESIN 200MG TAB TAKE ONE TABLET BY MOUTH TWICE DISCONTINUED DAILY FOR COUGH 8) METHOCARBAMOL 750MG TAB TAKE ONE TABLET BY MOUTH DISCONTINUED THREE TIMES DAILY NEEDED 9) PANTOPRAZOLE NA 40MG EC TAB TAKE ONE TABLET BY MOUTH DISCONTINUED EVERY MORNING 30 MINUTES BEFORE BREAKFAST 10) POTASSIUM CHLORIDE 10MEQ SA TAB TAKE ONE TABLET BY DISCONTINUED MOUTH ONCE DAILY NEEDED FOR LOW POTASSIUM 11) PREDNISONE 20MG TAB TAKE THREE TABLETS BY MOUTH ONCE DISCONTINUED DAILY FOR 3 DAYS, THEN TAKE TWO TABLETS ONCE DAILY FOR 3 DAYS, THEN TAKE ONE TABLET ONCE DAILY FOR 3 DAYS GOUT FLARE 12) SALICYLIC ACID 17% SOLN,TOP APPLY DIRECTED DISCONTINUED TOPICALLY TWICE DAILY FOR PLANTAR WARTS (APPLY TO WART ONLY) 13) TAMSULOSIN HCL 0.4MG CAP TAKE ONE CAPSULE BY MOUTH DISCONTINUED ONCE DAILY DIRECTED BY PROVIDER 14) TRAZODONE HCL 100MG TAB TAKE TWO TABLETS BY MOUTH AT DISCONTINUED BEDTIME - MAY TAKE A 3RD TABLET IF NOT ASLEEP BY 2AM Active Non-VA Medications Status 1) Non-VA ASPIRIN 81MG EC TAB 81MG BY MOUTH EVERY DAY ACTIVE 2) Non-VA FLAXSEED MISCELLANEOUS EVERY DAY ACTIVE 3) Non-VA FLUTICASONE NASAL SOLN,NASAL INTO EACH ACTIVE NOSTRIL 4) Non-VA GARLIC CAP,ORAL BY MOUTH EVERY DAY ACTIVE 5) Non-VA MULTIVITAMIN W/MINERAL TAB BY MOUTH ACTIVE 39 Total Medications Vitals: Ht: 67 in [170.2 cm] (02/20/2024 08:48) Wt: 156.5 lb [70.99 kg] (03/05/2024 10:19) BP: 147/72 (03/25/2024 14:55) HR: 88 (03/25/2024 14:55) Pain: 10 (03/25/2024 14:55) Pertinent Labs: CRCL IBW: CrCl(est): 51.5 mL/min (Creat:1.14 03/25/24) Medications were reviewed for documented indication, duplication of therapy, and drug/drug interactions. 1. The following medication(s) were identified as VITAL (life sustaining) or IMPORTANT (for quality of life, though not life sustaining): - AMILORIDE HCL 5MG - AMLODIPINE BESYLATE 10MG - ATORVASTATIN CALCIUM 20MG - CALCIUM 500MG - CAPSAICIN 0.075% CREAM - CETIRIZINE HCL 10MG - CHOLECALCIF 25MCG - DENOSUMAB 60MG/ML INJ - DICLOFENAC NA 75MG EC - FLUTICASONE PROP 50MCG - LOSARTAN 25MG TAB - MAGNESIUM OXIDE 400MG - PANTOPRAZOLE NA 40MG EC - PREDNISONE 20MG - TRAZODONE HCL 100MG - TRIAMCINOLONE ACETONIDE 0.1% CREAM 2. The following medication(s) were identified as OPTIONAL (no major difference whether continued or not): - GUAIFENESIN 200MG - SILDENAFIL CITRATE 100MG 3. The following medication(s) were identified as NO LONGER INDICATED (status has changed, causing more harm than helping, therapeutic duplication, or treatment is complete): - DOXAZOSIN MESYLATE 8MG & TAMSULOSIN HCL 0.4MG - this is duplicative that has been on going since 08/2018 when pt was prescribed tamsulosin from urology and doxazosin was not DC'ed. The combination of these medications can lead to syncope and hypotension. Would recommend considering DC doxazosin and could increase dose of tamsulosin if still experiencing LUTS. - KETOCONAZOLE 2% CREAM - therapy completed (x 4 weeks) - PANTOPRAZOLE NA 40MG EC - pt has osteoporosis, PPI's can increase risk of fractures. Although pt has been on for a long time, this may be difficult to change to something like a H2 steven. - Non-VA ASPIRIN 81MG EC - Non-VA FLAXSEED - Non-VA FLUTICASONE NASAL SOLN - duplicate will DC - Non-VA GARLIC CAP,ORAL - Non-VA MULTIVITAMIN W/MINERAL TAB 4. EVERY MEDICATION HAS AN INDICATION - The following medications were identified as not having a diagnosis): - N/A Time Spent: 30 mins /sharla/ SRIDHAR SHEPARD PHARMD,BCPS CLINICAL PHARMACY PRACTITIONER Signed: 04/18/2024 13:42 Receipt Acknowledged By: 04/22/2024 13:44 /sharla/ PIPPA CALVERT Nurse Practitioner [facility] SHEPARD [facility]
--- OUTSIDE RECORDS SUMMARY | 2024-10-04 07:53 | XMS_ITS ---
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 Date/Time Encounter Type Encounter Description Reason Provider Source Aug 05, 2024 09:30 AM OFFICE O/P EST LOW 20 MIN PODIATRY ICD-10-CM S92.424S Nondisp fx of distal phalanx of right great toe, SURINDER Juárez E Encounter Template Text not used by [place] Assessments - Encounter Diagnoses This section includes the primary and secondary diagnoses documented for the Encounter. Date/Time Primary/Secondary Diagnosis Diagnosis Name Provider Source Aug 05, 2024 04:36 PM PRIMARY Nondisp fx of distal phalanx of right great toe, SURINDER Juárez [place] [facility] [place] [facility] Aug 05, 2024 04:36 PM SECONDARY Nail dystrophy SURINDER MONTOYA [place] [facility] [place] [facility] Plan of Treatment: Future Appointments (+ 6 months) and Future Tests (+/- 45 days) The Plan of Treatment section includes future care activities for the patient from all [place] treatmentfacilities. This section includes future appointments and future orders which are active, pending or scheduled. Future Appointments This section includes appointments that were scheduled to occur 6 months from the date of the Encounter, up to a maximum of 20 appointments. The data comes from all [place] treatment facilities. Appointment Date/Time Appointment Type Appointme nt Facility Name Aug 27, 2024 09:00 AM [place]ULATORY [place]IC[place] [facility] [place] [facility] Sep 08, 2024 08:30 AM [place] [facility] [place] [facility] Sep 12, 2024 09:30 AM AMBULATORY [place]CHIATRY [place] [facility] [place] [facility] Sep 16, 2024 02:15 PM [place] [facility] [place] [facility] Sep 16, 2024 02:45 PM [place] [facility] [place] [facility] Sep 24, 2024 11:00 AM AM[place]ULATORY [place]IC[place] [facility] [place] [facility] Oct 07, 2024 09:30 AM [facility] [place] [facility] [place] [facility] October 30, 2024 01:00 PM [place]UL[place]ORY [place] [facility] [place] [facility] November 06, 2024 09:45 AM AMBULATORY - NONE [facility] [place] [facility] Dec 02, 2024 09:30 AM AMBULATORY - NONE [facility] [place] [facility] Dec 03, 2024 10:00 AM AMBULATORY - MEDICINE [facility] [place] [facility] Jan 20, 2025 09:30 AM AMBULATORY - MEDICINE [facility] Jan 21, 2025 09:30 AM AMBULATORY - MEDICINE [facility] Active, Pending, and Scheduled Orders This section includes a listing of several types of active, pending, and scheduled orders, including clinic medications orders, diagnostic test orders, procedure orders and consult orders; where the start date of the order is 45 days before the date of the Encounter or 45 days after the date of theEncounter. The data comes from all [place] treatment facilities. Test Date/Time Test Type Test Details Facility Name Aug 12, 2024 11:50 AM Consult Order [facility] Cons [employer] [facility] Social History: Smoking Status (Most current) and Tobacco Use (All prior to encounter date) This section includes the most current, and the historical, smoking and tobacco- related health factors from the [place] facility where the Encounter took place. Current Smoking Status This section includes the most current smoking, or tobacco-related health factor, from the [place] facility where the Encounter took place. Date/Time Current Smoking Status Comment [facility] May 27, 2024 11:00 AM VA-TOBACCO USE FOR COLLIN CIGARETTES [facility] Tobacco Use History This section includes a history of the smoking, or tobacco-related health factors, that were collected on or before the date of the Encounter. The data comes from the [place] facility where the Encounter took place. Date/Time Smoking Status/Tobac co Use Comment Facility May 27, 2024 11:00 AM VA-TOBACCO USE FORMER CIGARETTES [place] [facility] [place] [facility] May 09, 2023 09:00 AM VA-TOBACCO FORMER USER [place] [facility] [place] [facility] May 09, 2023 09:00 AM VA-TOBACCO QUIT 15 YRS OR MORE [place] [facility] [place] [facility] Mar 30, 2022 09:45 AM VA-TOBACCO FORMER USER [place] [facility] Mar 30, 2022 09:45 AM VA-TOBACCO QUIT 15 YRS OR MORE [facility] Mar 29, 2021 08:30 AM VA-TOBACCO FORMER USER [facility] [place] [facility] Mar 29, 2021 08:30 AM VA-TOBACCO QUIT 15 YRS OR MORE [facility] [place] [facility] Apr 05, 2020 08:00 AM VA-TOBACCO FORMER USER [facility] [place] [facility] Apr 05, 2020 08:00 AM VA-TOBACCO QUIT 15 YRS OR MORE [facility] [place] [facility] Dec 19, 2018 09:16 AM VA-TOBACCO FORMER USER [facility] [place] [facility] Dec 19, 2018 09:16 AM VA-TOBACCO QUIT 15 YRS OR MORE [facility] [place] [facility] Jan 25, 2018 08:57 AM QUIT TOBACCO USE > 7 YEARS AGO [facility] [place] [facility] November 07, 2016 10:23 AM QUIT TOBACCO USE > 7 YEARS AGO [facility] [place] [facility] Sep 15, 2015 09:35 AM LIFETIME NON-TOBACCO USER [facility] [place] [facility] Feb 27, 2005 03:58 PM LIFETIME NON-SMOKER [facility] [place] [facility] October 17, 2002 08:32 AM HISTORY OF SMOKING Smoke free since 1967 (35years) [facility] [place] [facility] Jan 30, 2002 03:15 PM QUIT TOBACCO USE > 7 YEARS AGO [facility] [place] [facility] Jul 25, 2001 03:17 PM HISTORY OF SMOKING [facility] [place] [facility] Jul 25, 2001 03:17 PM NON-TOBACCO USER [place] [facility] [place] [facility] Encounter Notes: All associated encounter notes This section contains the clinical notes associated to the Encounter. Date/Time Encounter Note(s) Provider Source Aug 05, 2024 09:50 AM PODIATRY NOTE: LOCAL TITLE: PODIATRY NOTE STANDARD TITLE: PODIATRY NOTE DATE OF NOTE: AUG 05, 2024@09:50 ENTRY DATE: AUG 05, 2024@09:50:28 AUTHOR: SURINDER MONTOYA EXP COSIGNER: URGENCY: STATUS: COMPLETED Podiatry [facility] Follow up Provider: Surinder Montoya Date: AUG 05, 2024 NIGEL VI[address]A [address], [place] [address] Mar [birth year] M[address] [phone] PATIENT PHONE - Primary Care: LALA DUNBAR Follow up Visit Concern:fu right halux fracture / routine care / metatarsalgia Subjective:I am not having any painful issues now. Occassionally some minor discomfort but short lived. 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 08/18/2011 ARLENE DELUCA Posterior Vitreous Detachment 379.2 08/26/2010 ARLENE DELUCA Osteoporosis (SNOMED CT 32112370) M 08/17/2021 MARCO ANTONIO LARKIN Low back pain (SNOMED CT 697790526) 11/07/2022 BETTINA,LALA THANG Hyperlipidemia (SNOMED CT 83622004) 02/20/2024 BETTINA,LALA THANG Benign prostatic hypertrophy (SNOME 03/30/2015 ERENJIMMY Saha Gout (SNOMED CT 41257588) M10.9 02/20/2024 BETTINA,LALA THANG Rhinitis (SNOMED CT 35440204) J30.2 08/08/2022 BETTINA,LALA THANG Dermatitis or Eczema * (ICD-9-CM 69 07/07/2008 JIMMY JASON Maria A History of polyp of colon K63.5 04/21/2022 JAMMIE CASH Posttraumatic stress disorder (SNOM 02/20/2024 BETTINA,LALA THANG Erectile dysfunction (SNOMED CT 860 08/08/2022 BETTINA,LALA THANG Gastroesophageal reflux disease (SN 09/15/2015 JIMMY JASNO Active mediciation: Active Outpatient Medications (including Supplies): Active Outpatient Medications Status 1) AMILORIDE HCL 5MG TAB TAKE TWO TABLETS BY MOUTH TWICE DAILY ACTIVE WITH FOOD 2) AMLODIPINE BESYLATE 10MG TAB TAKE ONE TABLET BY MOUTH ONCE ACTIVE (S) DAILY FOR BLOOD PRESSURE/HEART, DO NOT TAKE WITH GRAPEFRUIT JUICE 3) ATORVASTATIN CALCIUM 20MG TAB TAKE ONE TABLET BY MOUTH ONCE ACTIVE DAILY FOR CHOLESTEROL 4) CETIRIZINE HCL 10MG TAB TAKE ONE TABLET BY MOUTH ONCE DAILY ACTIVE Indication: FOR ALLERGIES 5) CHOLECALCIF 25MCG (D3-1,000UNIT) TAB TAKE ONE TABLET BY ACTIVE MOUTH ONCE DAILY FOR VITAMIN SUPPLEMENTATION Indication: FOR VITAMIN D DEFICIENCY 6) DICLOFENAC NA 75MG EC TAB TAKE ONE TABLET BY MOUTH TWICE ACTIVE DAILY FOR PAIN/INFLAMMATION Indication: FOR PAIN AND INFLAMMATION 7) DOXAZOSIN MESYLATE 8MG TAB TAKE ONE TABLET BY MOUTH ONCE ACTIVE DAILY DIRECTED BY PRESCRIBER. NOTE TABLET STRENGTH 8) GUAIFENESIN 200MG TAB TAKE ONE TABLET BY MOUTH TWICE DAILY ACTIVE Indication: FOR COUGH 9) KETOCONAZOLE 2% CREAM APPLY A THIN LAYER TOPICALLY TWICE ACTIVE DAILY APPLY TO AFFECTED AREAS ON CHEST FOR 4 WEEKS, THEN NEEDED Indication: FUNGAL RASH 10) LOSARTAN 25MG TAB TAKE ONE TABLET BY MOUTH ONCE DAILY FOR ACTIVE BLOOD PRESSURE/HEART Indication: FOR HIGH BLOOD PRESSURE 11) MAGNESIUM OXIDE 400MG TAB TAKE ONE TABLET BY MOUTH ONCE ACTIVE DAILY Indication: FOR MAGNESIUM SUPPLEMENTATION 12) PANTOPRAZOLE NA 40MG EC TAB TAKE ONE TABLET BY MOUTH EVERY ACTIVE MORNING 30 MINUTES BEFORE BREAKFAST Indication: FOR EXCESSIVE PRODUCTION OF STOMACH ACID 13) SILDENAFIL CITRATE 100MG TAB TAKE ONE TABLET BY MOUTH ONCE ACTIVE DAILY TAKE 1 HOUR PRIOR TO SEXUAL ACTIVITY Indication: FOR ERECTILE DYSFUNCTION 14) SODIUM FLUORIDE 1.1% TOOTHPASTE BRUSH SMALL [...] 14 DAYS PER MONTH Indication: FOR ITCHING Active Non-VA Medications Status 1) Non-VA ASPIRIN 81MG EC TAB 81MG BY MOUTH EVERY DAY ACTIVE 2) Non-VA FLAXSEED MISCELLANEOUS EVERY DAY ACTIVE 3) Non-VA GARLIC CAP,ORAL BY MOUTH EVERY DAY ACTIVE 4) Non-VA MULTIVITAMIN W/MINERAL TAB BY MOUTH ACTIVE 21 Total Medications Allergies: Data on this list may not be complete. Please check JLV. FACILITY ALLERGY/ADR -------- [facility] [place] [facility] ALENDRONATE [facility] [place] [facility] CETIRIZINE [facility] [place] [facility] CHLORTHALIDONE [facility] [place] [facility] CONTRAST MEDIA [facility] [place] [facility] CY[facility]OBENZAPRINE [facility] [place] [facility] EPLERENONE [facility] [place] [facility] FLUNISOLIDE [facility] [place] [facility] L[facility]INOPRIL [facility] [place] [facility] OMEPRAZOLE [facility] [place] [facility] PRAVASTATIN [facility] [place] [facility] SPIRONOLACTONE [facility] [place] [facility] ZOLEDRONIC [facility] PE: Impression: -clinically stable no need for fu xray -no lesions under mets -nails dystrophic Plan: - nail care - vix vapor rub to nails daily - fu january rtc visit Return sooner if any fever chills nausea, vomiting increased redness, swelling, drianage, pain, or flu like symptoms, or go to nearest emergency room / urgent care for evaluation. -all sharpes cleared, processed and or disposed of according to SOP/MCP. -As part of the service the pertinent primary care, specialty care and urgent care notes have been reviewed as well as the patient's medication list, problem list, and current imaging as well as past imaging, laboratory data and other pertinent contributory consults. -All new and discontinued medications have been discussed in detail with the patient and or caregiver, including indications for additions and deletions, as well as possible side effects, interactions as foreseen, and risk of not taking as prescribed If applicable, the patient was advised clearly on application of wound care agents how to apply and when to apply. The patient was able to recitethis information back to the prescriber with good understanding and agreed to the plan of care as indicated above. -Plan of care discuss with the patient and or caregiver, including medical decision making which includes discussion of abnormal lab results, imaging and other diagnostic modalities as well as results of the physical exam and health and safety consultant opinions and recommendations as sought. Alternatives to surgery or outlined care above as appropriate have also been discussed. -The patient/ caregiver has displayed good understanding of above and with no further questions at this time. Patient is aware of next appointment and agrees to follow-up interval. Patient agrees to seek sooner follow up if any irregular events occur in between such as cardinal signs of infection, increased pain or deformity. -The on this visit was given information [facility] service and encouraged to enroll if not already having done so. /sharla/ SURINDER MONTOYA DPM PODIATRY ATTENDING Signed: 08/05/2024 16:36 SURINDER MONTOYA [place] [facility]
--- OUTSIDE RECORDS SUMMARY | 2024-10-04 07:53 | XMS_ITS | Encounter Summary ---
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 Date/Time Encounter Type Encounter Description Reason Provider Source Jan 01, 2024 10:00 AM OFF/OP CNSLTJ NEW/EST LOW 30 GENERAL SURGERY ICD-10-CM B07.0 Plantar wart SHIRA CAPELLAN E Encounter Template Text not used by [place] Assessments - Encounter Diagnoses This section includes the primary and secondary diagnoses documented for the Encounter. Date/Time Primary/Secondary Diagnosis Diagnosis Name Provider Source Jan 01, 2024 08:07 PM PRIMARY Plantar wart SHIRA CAPELLAN [facility] Jan 01, 2024 08:07 PM SECONDARY Corns and callosities SHIRA CAPELLAN [facility] Plan of Treatment: Future Appointments (+ 6 months) and Future Tests (+/- 45 days) The Plan of Treatment section includes future care activities for the patient from all [facility] [place] This section includes future appointments and future orders which are active, pending or scheduled. Future Appointments This section includes appointments that were scheduled to occur 6 months from the date of the Encounter, up to a maximum of 20 appointments. The data comes from all [place] treatment facilities. Appointment Date/Time Appointment Type Appointme nt Facility Name Jan 07, 2024 01:30 PM AMBULATORY - NONE [facility] Feb 20, 2024 09:00 AM AMBULATORY - MEDICINE [facility] Mar 04, 2024 02:00 PM AMBULATORY - MEDICINE [facility] Mar 05, 2024 10:00 AM AMBULATORY - MEDICINE [facility] Mar 25, 2024 02:30 PM AMBULATORY - MEDICINE [facility] Mar 27, 2024 10:30 AM AMBULATORY - MEDICINE [facility] Apr 25, 2024 08:30 AM AMBULATORY - NONE [facility] May 27, 2024 11:00 AM AMBULATORY - MEDICINE [facility] Vital Signs: All taken on the encounter date This section contains inpatient and outpatient Vital Signs collected on the date of the Encounter. Date/Time Temperature Pulse Blood Pressure Respiratory Rate SP02 Pain Height Weight Body Mass Index Source Jan 01, 2024 10:13 AM 98 71 130/65 18 94 0 [facility] Social History: Smoking Status (Most current) and Tobacco Use (All prior to encounter date) This section includes the most current, and the historical, smoking and tobacco- related health factors from the [place] facility where the Encounter took place. Current Smoking Status This section includes the most current smoking, or tobacco-related health factor, from the [place] facility where the Encounter took place. Date/Time Current Smoking Status Comment [facility] May 09, 2023 09:00 AM VA-TOBACCO FORMER [facility]ER [facility] Tobacco Use History This section includes a history of the smoking, or tobacco-related health factors, that were collected on or before the date of the Encounter. The data comes from the [place] facility where the Encounter took place. Date/Time Smoking Status/Tobac co Use Comment Facility May 09, 2023 09:00 AM VA-TOBACCO QUIT 15 YRS OR MORE [facility] Mar 30, 2022 09:45 AM VA-TOBACCO FORMER USER [facility] Mar 30, 2022 09:45 AM VA-TOBACCO QUIT 15 YRS OR MORE [facility] Mar 29, 2021 08:30 AM VA-TOBACCO FORMER USER [facility] Mar 29, 2021 08:30 AM VA-TOBACCO QUIT 15 YRS OR MORE [facility] Apr 05, 2020 08:00 AM VA-TOBACCO FORMER USER [facility] Apr 05, 2020 08:00 AM VA-TOBACCO QUIT 15 YRS OR MORE [facility] Dec 19, 2018 09:16 AM VA-TOBACCO FORMER USER [facility] Dec 19, 2018 09:16 AM VA-TOBACCO QUIT 15 YRS OR MORE [facility] Jan 25, 2018 08:57 AM QUIT TOBACCO USE > 7 YEARS AGO [facility] November 07, 2016 10:23 AM QUIT TOBACCO USE > 7 YEARS AGO [facility] Sep 15, 2015 09:35 AM LIFETIME NON-TOBACCO USER [facility] Feb 27, 2005 03:58 PM LIFETIME NON-SMOKER [facility] October 17, 2002 08:32 AM HISTORY OF SMOKING Smoke free since 1967 (35years) [facility] Jan 30, 2002 03:15 PM QUIT TOBACCO USE > 7 YEARS AGO [facility] Jul 25, 2001 03:17 PM HISTORY OF SMOKING [facility] Jul 25, 2001 03:17 PM NON-TOBACCO USER [facility] Radiology Reports: +/- 30 days of [...] the Encounter. The data comes from all [place] treatment facilities. Date/Time Radiology Report Provider Source Jan 07, 2024 01:11 PM ULTRASOUND EXTREMI TY, NONVASCULAR (COMPLETE): NIGEL VIERA [id number] -1950 M Ex Date: JAN 07, 2024@13:11 Req Phys: GOSHIRA S Pat Loc: CWM/NO/GS (Req'g Loc) Img Loc: ULTRASOUND Service: Unknown [facility] , (Case 39 COMPLETE) ULTRASOUND EXTREMITY, NONVASCULAR(US Detailed) CPT:73224 Proc Modifiers : LEFT Reason for Study: look for foreign body left foot Clinical History: 73 year old man with tender firm area left foot over plantar aspect of 5th metatarsal head. No history of trauma. ?wart ?foreign body Report Status: Verified Date Reported: JAN 08, 2024 Date Verified: JAN 08, 2024 Electrical Subcontractor E-Sig:/ES/CANDI LEZAMA JR Report: Study: Left foot soft tissue foreign body evaluation ultrasound. COMPARISON: Left foot radiographs from November 12, 2023. TECHNIQUE: Grayscale sonography used to evaluate the area of question foreign body in the left foot. FINDINGS: No focal foreign body, mass or soft tissue abnormality is identified. Impression: No foreign body identified, as described above. Primary Diagnostic Code: No immediate attention required Primary Interpreting Staff: CANDI LEZAMA JR, Radiologist (Electrical Subcontractor) /EAD CANDI LEZAMA JR [facility] Encounter Notes: All associated encounter notes This section contains the clinical notes associated to the Encounter. Date/Time Encounter Note(s) Provider Source Jan 08, 2024 05:25 PM PHYSICIAN TELEPHON E ENCOUNTER NOTE: LOCAL TITLE: TELEPHONE NOTE/MD STANDARD TITLE: PHYSICIAN TELEPHONE ENCOUNTER NOTE DATE OF NOTE: JAN 08, 2024@17:25 ENTRY DATE: JAN 08, 2024@17:25:14 AUTHOR: SHIRA CAPELLAN EXP COSIGNER: URGENCY: STATUS: COMPLETED Called patient and informed him of his US results. There is no evidence of a foreign body or other soft tissue abnormality in that area of his left foot. The patient was reassured. He reports feeling well otherwise. He notes that the area regrows and when it does, he has to shave it down , and then the area feels better. This history still sounds like a plantar wart (or perhaps a callus). (He also did not have an exam c/w a foreign body.) Recommended follow up with Podiatry or Dermatology. The patient indicated that he already has an appointment in February with the Percussion Teacher. He was advised to keep that appointment. We will also reach out to Podiatry. ULTRASOUND EXTREMITY, NONVASCULAR (COMPLETE) Exm Date: JAN 07, 2024@13:11 Req Phys: SHIRA CAPELLAN Pat Loc: CWM/NO/GS (Req'g Loc) Img Loc: ULTRASOUND Service: Unknown [facility] , (Case 39 COMPLETE) ULTRASOUND EXTREMITY, NONVASCULAR(US Detailed) CPT:21214 Proc Modifiers : LEFT Reason for Study: look for foreign body left foot Clinical History: 73 year old man with tender firm area left foot over plantar aspect of 5th metatarsal head. No history of trauma. ?wart ?foreign body Report Status: Verified Date Reported: JAN 08, 2024 Date Verified: JAN 08, 2024 Electrical Subcontractor E-Sig:/ES/CANDI LEZAMA JR Report: Study: Left foot soft tissue foreign body evaluation ultrasound. COMPARISON: Left foot radiographs from November 12, 2023. TECHNIQUE: Grayscale sonography used to evaluate the area of question foreign body in the left foot. FINDINGS: No focal foreign body, mass or soft tissue abnormality is identified. Impression: No foreign body identified, as described above. Primary Diagnostic Code: No immediate attention required Primary Interpreting Staff: CANDI LEZAMA JR, Radiologist (Electrical Subcontractor) /ANN /sharla/ SHIRA CAPELLAN MD SURGEON Signed: 01/08/2024 17:34 Receipt Acknowledged By: 01/09/2024 16:53 /sharla/ MISSY LOZOYA DPM PODIATRY ATTENDING SHIRA CAPELLAN [facility] Jan 01, 2024 10:11 AM SURGERY CONSULT: LOCAL TITLE: CONSULT REPORT/SURGICAL EVALUATION STANDARD TITLE: SURGERY CONSULT DATE OF NOTE: JAN 01, 2024@10:11 ENTRY DATE: JAN 01, 2024@10:11:46 AUTHOR: SHIRA CAPELLAN EXP COSIGNER: URGENCY: STATUS: COMPLETED JAN 01, 2024 NIGEL VIERA is a 73 y/o WHITE MALE, previously in the [employer] FROM J[employer] 19, 1967 TO [birth year], 1968 during the [place], who is referred by his PCP with a Chief complaint of a intermittently painful and tender area on his left foot with question of a retained foreign body. The patient reports that for the last 3 months or so, he has noted a tender area on the plantar aspect of his left foot over the 5th metatarsal region. He denies stepping on anything or ever noting any sharp pain in that area of his foot. He denies any trauma. He says that he did buy rubber-soled slippers a few months ago and when walking on a beach or anywhere wet, the soles would get soaked. He wonders whether that somehow caused this left foot problem. He denies any redness or drainage or swelling of that area in his left foot. He denies any fevers or chills. He says that he bought a special nail clipper and has been intermittently cutting the top of it off when it starts hurting. After he does this, the area does not hurt for a while. When it starts hurting again, he has noticed that the area seems to have grown back and so he cuts it off again. He says that he has tried digging in the area and he has not found any foreign body or other abnormality. He notes that when the area is sore, he ends up having to walk in such a way as to not put pressure on it. He saw his PCP on November 11 with these left foot complaints. There was concern that there was a retained foreign body. He had X-rays done which were negative. His PCP also did a superficial exploration with a 18 g needle and found nothing. He has been advised to do warm soaks and to use little donuts in the area to keep pressure off it, but he says that these donuts tend to fall off. Past Medical History: Active problems - Computerized Problem List is [...] deposition disease 13. 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 Posterior Vitreous Detachment 16. Osteoporosis (SNOMED CT 41778021) 17. Low back pain (SNOMED CT 280668862) 18. Hyperlipidemia 19. Benign prostatic hypertrophy (SNOMED CT 858755379) 20. Pseudogout 21. Rhinitis (SNOMED CT 98361149) 22. Dermatitis or Eczema * 23. History of polyp of colon 24. Posttraumatic Stress Disorder 25. Erectile dysfunction (SNOMED CT 061250629) 26. Gastroesophageal reflux disease (SNOMED CT 472497804) Service Connected Disabilities with % Eligibility: SERVICE CONNECTED 50% to 100% VERIFIED Total S/C %: 80 INFLAMMATION OF RETINA 10% S/C SCARS 0% S/C PARALYSIS OF SEVENTH CRANIAL NERVE 10% S/C URTICARIA 10% S/C ECZEMA 10% S/C POST-TRAUMATIC STRESS DISORDER 70% S/C Past Surgical History: 1. Right wrist surgery 2. Eye surgery 3. Surgery to the right cheek area (in [place]) 4. lancing of boils on his face ALLERGIES: COLCHICINE, OMEPRAZOLE, FLUNISOLIDE, ZOLEDRONIC, PRAVASTATIN, ALENDRONATE CHLORTHALIDONE, CONTRAST MEDIA, SPIRONOLACTONE, EPLERENONE, CETIRIZINE LISINOPRIL, CYCLOBENZAPRINE MEDICATIONS: Active Outpatient Medications (including Supplies): AMILORIDE HCL [...] DAILY DIRECTED BY PRESCRIBER. NOTE TABLET STRENGTH FLUTICASONE PROP 50MCG 120D NASAL INHL INSTILL 1 SPRAY ACTIVE INTO EACH NOSTRIL ONCE DAILY KETOCONAZOLE 2% CREAM APPLY A THIN LAYER TOPICALLY TWICE ACTIVE DAILY FUNGAL RASH APPLY TO AFFECTED AREAS ON CHEST FOR 4 WEEKS, THEN NEEDED LOSARTAN 25MG TAB TAKE ONE TABLET BY [...] 3RD TABLET IF NOT ASLEEP BY 2AM TRIAMCINOLONE ACETONIDE 0.1% CREAM APPLY A THIN LAYER ACTIVE TOPICALLY TWICE DAILY NEEDED FOR ITCHING -MAX 14 DAYS PER MONTH Non-VA ASPIRIN 81MG EC TAB 81MG BY MOUTH EVERY DAY ACTIVE Non-VA FLAXSEED MISCELLANEOUS EVERY DAY ACTIVE Non-VA FLUTICASONE NASAL SOLN,NASAL INTO EACH NOSTRIL ACTIVE Non-VA GARLIC CAP,ORAL BY MOUTH EVERY DAY ACTIVE Non-VA MULTIVITAMIN W/MINERAL TAB BY MOUTH ACTIVE NOtE 01/01/2024: states he is not using the capsaicin or taking the flaxseed. He says that sometimes he will take apple cider vinegar purportedly in order to prevent kidney stones. Social History: He is single and . He says that he quit smoking cigarettes 50 years ago. He denies current EtOH use. He says that he never drank heavily, but he did quit 24 years ago He says that he stopped taking drugs like marijuana at age 68 He is retired. 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 MARITAL STATUS - Family History: Non-contributory Review of Systems: Constitutional: (-)fevers (-)chills ENT: (-)sore throat (-)cough (+)reflux Cardiac: (-)CP (-)palpitations (-)edema (+)HTN Pulmonary: (-)SOB (-)PRIETO (-)orthopnea GI: (-)pain (-)N/V Musculoskeletal: (+)back pain (+)knee pain (+)gout Neuro: (-)IRVIN (-)dizziness (-)neuropathy Psychiatric: (+)PTSD Derm: (-)rashes (-)ulcers (-)edema (-)pruritis (-)redness Vitals Enter at: January 01, 2024 @10:13 BP: 130/65 P: 71 R: 18 T: 98 F O2 sat RA=94% EXAM: General: Alert, calm, conversant, [id number]-[id number], NAD. HEENT: NC/AT. Anicteric. Mucous membranes are moist, conjunctivae are clear. Lungs: Clear Heart: RRR Ext: Left foot is without erythema or edema. He has easily palpable 2+ DP and PT pulses. Foot is warm and well-perfused. No neuropathy. On the plantar aspect of the left foot, overlying the 5th metatarsal head area, there is a small 1 mm red-brown spot. (This is no a clot or scab or ulcer.) Surrounding this, there is some slightly thickened skin. There is no definite mass or nodule. Currently, the area is non-tender. There is no erythema, drainage, or evidence of inflammation or infection. There is no evidence of trauma. There is no palpable subcutaneous mass or foreign body. Skin: Warm and dry. Psych: AAO x3. Mood is up, affect is appropriate. Labs/Rads: Collection DT Spec WBC HGB HCT PLT K+/Pot Sodium HGBA1c 07/31/2023 10:56 SERUM 4.0 142 05/09/2023 10:03 BLOOD 5.0 05/09/2023 10:03 BLOOD 7.52 16.4 48.6 227 05/09/2023 10:03 SERUM 4.0 141 03/27/2023 11:01 SERUM 3.9 144 Collection DT Spec GLUCOSE CREATIN AST ALT T BILI ALK ERIK CHOL 07/31/2023 10:56 SERUM 122 H 1.36 05/09/2023 10:03 SERUM 93 1.21 14 14 1.0 60 131 03/27/2023 11:01 SERUM 89 1.29 07/10/2022 12:10 SERUM 103 H 1.36 04/19/2022 10:20 SERUM 92 1.35 12 14 0.9 50 135 Collection DT Spec LDL-c HDL TRIG TSH B12 SR- VIT D25 HIV Ag/ 09/11/2023 08:37 SERUM 70 H 05/09/2023 10:03 SERUM 60 58 65 1.53 03/27/2023 11:01 SERUM 70 H 07/10/2022 12:10 SERUM 1.63 04/19/2022 10:20 SERUM 61 59 75 1.34 Collection DT Spec UR GLUC RBC/HPF 04/19/2022 10:20 URINE 0-2 11/24/2019 07:33 URINE 6-10 H 07/09/2018 12:58 URINE 6-10 H 08/06/2017 07:33 URINE 3-5 06/29/2017 07:21 URINE 0-5 Other Studies and Medical Notes: FOOT 3 OR MORE VIEWS(LEFT) Exm Date: NOV 12, 2023@11:38 Req Phys: BETTINA,LALA THANG Pat Loc: CWM/NO/PACT 5 (Req'g Loc) Img Loc: [facility] Service: Unknown [facility] , (Case 39 COMPLETE) FOOT 3 OR MORE VIEWS(LEFT) (RAD Detailed) CPT:85444 Proc Modifiers : LEFT CPT Modifiers : LT LEFT SIDE Reason for Study: right plantar foot base of pinky Clinical History: Left lateral base of toe pain with center punctum ? Foreign body denies stepping on glass although I know that is not readiopaque Report Status: Verified Date Reported: NOV 12, 2023 Date Verified: NOV 12, 2023 Electrical Subcontractor E-Sig:/ES/CANDI LEZAMA JR Report: Study: AP, lateral, [...] Primary Interpreting Staff: CANDI LEZAMA JR, Radiologist (Electrical Subcontractor)/EAD Outpatient Medication Reconciliation: NO DISCREPANCIES FOUND other than those listed in note. The patient's medication list/medication history to include Active local VA prescriptions, Active remote VA (dispensed from another VA or DoD facility) prescriptions, local non-VA medications,recently VA prescriptions (90-180 days), recently discontinued VA prescriptions (90-180 days), and pending Medication Orders where relevant (e.g., patient is seen by multiple providers on the same day) was compared with CPRS and reviewed with the patient and/or caregiver and reconciled. Any changes in medications and any medications prescribed by this provider and discontinued are documented in this note. Medications not prescribed by this provider will be addressed by pt's PCM or appropriate specialty provider. The patient/caregiver was instructed to update the Medication list, discard old lists, and take the current list to appointments, whether it is with a VA or non-VA communiry provider. MRP - Medication Reconciliation Alphabetized list of outpatient Rx's, inpatient orders, remote and Non-VA meds Legend: OPT = VA issued outpatient prescription, INP = VA issued inpatient order Non-VA Meds Last Documented On: Oct 01, 2023 OPT AMILORIDE HCL 5MG TAB (Status = ACTIVE) TAKE TWO TABLETS BY MOUTH TWICE DAILY WITH FOOD Last Released: Days Supply: 90 Rx Expiration Date: 11/12/24 Refills Remainin OPT AMLODIPINE BESYLATE 10MG TAB (Status = ACTIVE) TAKE ONE TABLET BY MOUTH ONCE DAILY FOR BLOOD PRESSURE/HEART, DO NOT TAKE WITH GRAPEFRUIT JUICE Last Released: 11/26/23 Days Supply: 90 Rx Expiration Date: 11/12/24 Refills Remainin Non VA ASPIRIN 81MG EC TAB TAKE ONE TABLET BY MOUTH DAILY Patient wants to buy from Non-VA pharmacy. Medication prescribed by Non-VA provider. OPT ATORVASTATIN CALCIUM 20MG TAB (Status = ACTIVE) TAKE ONE TABLET BY MOUTH ONCE DAILY FOR CHOLESTEROL Last Released: 12/05/23 Days Supply: 90 Rx Expiration Date: 08/14/24 Refills Remainin OPT CALCIUM 500MG (CA CARB-1.25GM) TAB (Status = ACTIVE) TAKE TWO TABLETS BY MOUTH ONCE DAILY Last Released: 05/02/23 Days Supply: 90 Rx Expiration Date: 01/09/24 Refills Remainin OPT CAPSAICIN 0.075% CREAM (Status = ACTIVE) APPLY A THIN FILM TOPICALLY TWICE DAILY FOR BACKACHE Last Released: 08/02/23 Days Supply: 30 Rx Expiration Date: 08/02/24 Refills Remainin OPT CETIRIZINE HCL 10MG TAB (Status = ACTIVE) TAKE ONE TABLET BY MOUTH ONCE DAILY FOR ALLERGIES FOR ALLERGIES Last Released: 10/31/23 Days Supply: 90 Rx Expiration Date: 05/09/24 Refills Remainin OPT CHOLECALCIF 25MCG (D3-1,000UNIT) TAB (Status = ACTIVE) TAKE ONE TABLET BY MOUTH ONCE DAILY FOR VITAMIN SUPPLEMENTATION Last Released: 12/05/23 Days Supply: 90 Rx Expiration Date: 04/23/24 Refills Remainin OPT DOXAZOSIN MESYLATE 8MG TAB (Status = ACTIVE) TAKE ONE TABLET BY MOUTH ONCE DAILY DIRECTED BY PRESCRIBER. NOTE TABLET STRENGTH Last Released: 10/18/23 Days Supply: 90 Rx Expiration Date: 10/17/24 Refills Remainin Non VA FLAXSEED MISCELLANEOUS EVERY DAY Non VA FLUTICASONE NASAL SOLN,NASAL INSTILL INTO EACH NOSTRIL OPT FLUTICASONE PROP 50MCG 120D NASAL INHL (Status = ACTIVE) INSTILL 1 SPRAY INTO EACH NOSTRIL ONCE DAILY Last Released: 11/14/23 Days Supply: 30 Rx Expiration Date: 11/12/24 Refills Remainin Non VA GARLIC CAP,ORAL TAKE BY MOUTH EVERY DAY OPT KETOCONAZOLE 2% CREAM (Status = ACTIVE) APPLY A THIN LAYER TOPICALLY TWICE DAILY FUNGAL RASH APPLY TO AFFECTED AREAS ON CHEST FOR 4 WEEKS, THEN NEEDED Last Released: 10/18/23 Days Supply: 30 Rx Expiration Date: 10/16/24 Refills Remainin OPT LOSARTAN 25MG TAB (Status = ACTIVE) TAKE ONE TABLET BY MOUTH ONCE DAILY FOR BLOOD PRESSURE/HEART Last Released: 12/05/23 Days Supply: 90 Rx Expiration Date: 05/09/24 Refills Remainin OPT MAGNESIUM OXIDE 400MG TAB (Status = ACTIVE) TAKE ONE TABLET BY MOUTH ONCE DAILY FOR MAGNESIUM SUPPLEMENTATION Last Released: 08/10/23 Days Supply: 90 Rx Expiration Date: 08/08/24 Refills Remainin Non VA MULTIVITAMIN W/MINERAL TAB TAKE BY MOUTH OPT PANTOPRAZOLE NA 40MG EC TAB (Status = ACTIVE) TAKE ONE TABLET BY MOUTH EVERY MORNING 30 MINUTES BEFORE BREAKFAST Last Released: 09/14/23 Days Supply: 90 Rx Expiration Date: 06/15/24 Refills Remainin OPT SILDENAFIL CITRATE 100MG TAB (Status = ACTIVE) TAKE ONE TABLET BY MOUTH ONCE DAILY FOR ERECTILE DYSFUNCTION TAKE 1 HOUR PRIOR TO SEXUAL ACTIVITY Last Released: 05/09/23 Days Supply: 30 Rx Expiration Date: 05/09/24 Refills Remainin OPT TAMSULOSIN HCL 0.4MG CAP (Status = ACTIVE) TAKE ONE CAPSULE BY MOUTH ONCE DAILY DIRECTED BY PROVIDER Last Released: 10/18/23 Days Supply: 90 Rx Expiration Date: 10/17/24 Refills Remainin OPT TRAZODONE HCL 100MG TAB (Status = SUSPENDED) TAKE TWO TABLETS BY MOUTH AT BEDTIME - MAY TAKE A 3RD TABLET IF NOT ASLEEP BY 2AM Last Released: Days Supply: 90 Rx Expiration Date: 02/28/24 Refills Remainin OPT TRIAMCINOLONE ACETONIDE 0.1% CREAM (Status = ACTIVE) APPLY A THIN LAYER TOPICALLY TWICE DAILY NEEDED FOR ITCHING -MAX 14 DAYS PER MONTH Last Released: 10/18/23 Days Supply: 90 Rx Expiration Date: 10/16/24 Refills Remainin Other medications previously dispensed in the last year: OPT DENOSUMAB 60MG/ML INJ SYRINGE 1ML (/30 Days Supply Last Released: 08/14/23) INJECT 60MG/1ML SUBCUTANEOUSLY ONE TIME FOR OSTEOPOROSIS OPT GUAIFENESIN 200MG TAB (/90 Days Supply Last Released: 09/27/23) TAKE ONE TABLET BY MOUTH TWICE DAILY FOR COUGH OPT MAGNESIUM OXIDE 250MG TAB (DISCONTINUED BY PROVIDER/90 Days Supply Last Released: 07/31/23) TAKE ONE TABLET BY MOUTH ONCE DAILY Assessment/Plan JAN 01, 2024: This is a 73 year old man with what I suspect is a likely small plantar wart versus a callus on his left foot. He reports recurrent re-growth or thickening in the area that is tender and feels better when he cuts it off. However, there was a question raised as to whether there may be a foreign body here. There is no evidence of a foreign body on clinical exam today. Plain films did not show any radio-opaque foreign body. However, things like wood or glass would not show up on plain X-ray. It might be reasonable to get an US of the area to be complete. This was all discussed with the patient at length. He would like to have US evaluation and so we will order this to look for evidence of a foreign body. (If this does turntable man to be a wart, however, this could be treated by Dermatology or Podiatry with various options including perhaps cryotherapy.) In the meantime, the patient should continue with local care, off-loading the area, and so forth. Will plan on US evaluation and further recommendations will follow. The patient was happy with this plan. ~30 minutes were spent on reviewing the pertinent medical records, obtaining a history from the patient, performing an exam and assessment, counseling, answering questions, and shared decision-making. Shira Capellan MD Staff General Surgeon Medication Reconciliation: Outpatient: Has the patient been taking medications as documented in the EMLR? YES: The patient has been taking medications as documented in the EMLR. Essential Medication List for Review used to complete this medication reconciliation. INCLUDED IN THIS LIST: Alphabetical list of active outpatient prescriptions dispensed from this AR (local) and dispensed from another AR or [facility] facility (remote) as well as inpatient [...] SPIRONOLACTONE [facility] [place] [facility]OL[facility]RON[facility] COLCHICINE Med Recon [facility] (Tool #1) INCLUDED IN THIS LIST: Alphabetical [...] display of VA prescriptions dispensed from another AR or [facility] facility (remote) is limited to active outpatient prescription entries matched to National Drug File at the originating site and may not include some items such as investigational drugs, compounds, etc. NOT INCLUDED IN THIS LIST: Medications self-entered by the patient into personal health records (i.e. [employer]) are NOT included in this list. Non-VA medications documented outside this AR, remote inpatient orders (regardless of status) and remote clinic medications are NOT included in this list. The patient and provider must always discuss medications the patient is taking, regardless of where the medication was dispensed or obtained. OUTPT AMILORIDE HCL 5MG TAB (Status = Discontinued) TAKE TWO TABLETS BY MOUTH TWICE DAILY WITH FOOD Rx# [id number] Last Released: 10/17/23 Qty/Days Supply: Rx Expiration Date: 01/09/24 Refills Remainin OUTPT AMILORIDE HCL 5MG TAB (Status = Active) TAKE TWO TABLETS BY MOUTH TWICE DAILY WITH FOOD Rx# [id number] Last Released: Qt Supply: Rx Expiration Date: 11/12/24 Refills Remainin OUTPT AMLODIPINE BESYLATE 10MG TAB (Status = Active) TAKE ONE TABLET BY MOUTH ONCE DAILY FOR BLOOD PRESSURE/HEART, DO NOT TAKE WITH GRAPEFRUIT JUICE Rx# [id number] Last Released: 11/26/23 Qty/Days Supply: Rx Expiration Date: 11/12/24 Refills Remainin Non-VA ASPIRIN 81MG EC TAB TAKE ONE TABLET BY MOUTH DAILY Patient wants to buy from Non-VA pharmacy. Medication prescribed by Non-VA provider. OUTPT ATORVASTATIN CALCIUM 20MG TAB (Status = Active) TAKE ONE TABLET BY MOUTH ONCE DAILY FOR CHOLESTEROL Rx# [id number] Last Released: 12/05/23 Qty/Days Supply: Rx Expiration Date: 08/14/24 Refills Remainin OUTPT CALCIUM 500MG (CA CARB-1.25GM) TAB (Status = Active) TAKE TWO TABLETS BY MOUTH ONCE DAILY Rx# [id number] Last Released: 05/02/23 Qty/Days Supply: Rx Expiration Date: 01/09/24 Refills Remainin OUTPT CAPSAICIN 0.075% CREAM (Status = Active) APPLY A THIN FILM TOPICALLY TWICE DAILY FOR BACKACHE Rx# [id number] Last Released: 08/02/23 Qty/Days Supply: Rx Expiration Date: 08/02/24 Refills Remainin Indication: FOR BACKACHE OUTPT CETIRIZINE HCL 10MG TAB (Status = Active) TAKE ONE TABLET BY MOUTH ONCE DAILY FOR ALLERGIES FOR ALLERGIES Rx# [id number] Last Released: 10/31/23 Qty/Days Supply: Rx Expiration Date: 05/09/24 Refills Remainin Indication: FOR ALLERGIES OUTPT CHOLECALCIF 25MCG (D3-1,000UNIT) TAB (Status = Active) TAKE ONE TABLET BY MOUTH ONCE DAILY FOR VITAMIN SUPPLEMENTATION Rx# [id number] Last Released: 12/05/23 Qty/Days Supply: Rx Expiration Date: 04/23/24 Refills Remainin Indication: FOR VITAMIN D DEFICIENCY OUTPT DOXAZOSIN MESYLATE 8MG TAB (Status = Active) TAKE ONE TABLET BY MOUTH ONCE DAILY DIRECTED BY PRESCRIBER. NOTE TABLET STRENGTH Rx# [id number] Last Released: 10/18/23 Qty/Days Supply: Rx Expiration Date: 10/17/24 Refills Remainin Non-VA FLAXSEED MISCELLANEOUS EVERY DAY Non-VA FLUTICASONE NASAL SOLN,NASAL INSTILL INTO EACH NOSTRIL OUTPT FLUTICASONE PROP 50MCG 120D NASAL INHL (Status = Active) INSTILL 1 SPRAY INTO EACH NOSTRIL ONCE DAILY Rx# [id number] Last Released: 11/14/23 Qty/Days Supply: 07/10 Rx Expiration Date: 11/12/24 Refills Remainin Indication: FOR NASAL IRRITATION/INFLAMMATION Non-VA GARLIC CAP,ORAL TAKE BY MOUTH EVERY DAY OUTPT GUAIFENESIN 200MG TAB (Status = ) TAKE ONE TABLET BY MOUTH TWICE DAILY FOR COUGH Rx# [id number] Last Released: 09/27/23 Qty/Days Supply: 180/ Rx Expiration Date: 12/25/23 Refills Remainin Indication: FOR COUGH OUTPT KETOCONAZOLE 2% CREAM (Status = Active) APPLY A THIN LAYER TOPICALLY TWICE DAILY FUNGAL RASH APPLY TO AFFECTED AREAS ON CHEST FOR 4 WEEKS, THEN NEEDED Rx# [id number] Last Released: 10/18/23 Qty/Days Supply: 12030 Rx Expiration Date: 10/16/24 Refills Remainin Indication: FUNGAL RASH OUTPT LOSARTAN 25MG TAB (Status = Active) TAKE ONE TABLET BY MOUTH ONCE DAILY FOR BLOOD PRESSURE/HEART Rx# [id number] Last Released: 12/05/23 Qty/Days Supply: 90 Rx Expiration Date: 05/09/24 Refills Remainin Indication: FOR HIGH BLOOD PRESSURE OUTPT MAGNESIUM OXIDE 400MG TAB (Status = Active) TAKE ONE TABLET BY MOUTH ONCE DAILY FOR MAGNESIUM SUPPLEMENTATION Rx# [id number] Last Released: 08/10/23 Qty/Days Supply: 120/90 Rx Expiration Date: 08/08/24 Refills Remainin Indication: FOR MAGNESIUM SUPPLEMENTATION Non-VA MULTIVITAMIN W/MINERAL TAB TAKE BY MOUTH OUTPT PANTOPRAZOLE NA 40MG EC TAB (Status = Active) TAKE ONE TABLET BY MOUTH EVERY MORNING 30 MINUTES BEFORE BREAKFAST Rx# [id number] Last Released: 09/14/23 Qty/Days Supply: 90 Rx Expiration Date: 06/15/24 Refills Remainin Indication: FOR EXCESSIVE PRODUCTION OF STOMACH ACID OUTPT SILDENAFIL CITRATE 100MG TAB (Status = Active) TAKE ONE TABLET BY MOUTH ONCE DAILY FOR ERECTILE DYSFUNCTION TAKE 1 HOUR PRIOR TO SEXUAL ACTIVITY Rx# [id number] Last Released: 05/09/23 Qty/Days Supply: 12/08 Rx Expiration Date: 05/09/24 Refills Remainin Indication: FOR ERECTILE DYSFUNCTION OUTPT TAMSULOSIN HCL 0.4MG CAP (Status = Discontinued) TAKE ONE CAPSULE BY MOUTH ONCE DAILY DIRECTED BY PROVIDER Rx# [id number] Last Released: 09/27/23 Qty/Days Supply: Rx Expiration Date: 01/09/24 Refills Remainin OUTPT TAMSULOSIN HCL 0.4MG CAP (Status = Active) TAKE ONE CAPSULE BY MOUTH ONCE DAILY DIRECTED BY PROVIDER Rx# [id number] Last Released: 10/18/23 Qty/Days Supply: Rx Expiration Date: 10/17/24 Refills Remainin OUTPT TRAZODONE HCL 100MG TAB (Status = Discontinued) TAKE TWO TABLETS BY MOUTH AT BEDTIME - MAY TAKE A 3RD TABLET IF NOT ASLEEP BY 2AM Rx# [id number] Last Released: 11/28/23 Qty/Days Supply: Rx Expiration Date: 02/17/24 Refills Remainin Indication: FOR INSOMNIA ASSOCIATED WITH DEPRESSION OUTPT TRAZODONE HCL 100MG TAB (Status = Active/Suspended) TAKE TWO TABLETS BY MOUTH AT BEDTIME - MAY TAKE A 3RD TABLET IF NOT ASLEEP BY 2AM Rx# [id number] Last Released: Qt Supply: Rx Expiration Date: 02/28/24 Refills Remainin Indication: FOR INSOMNIA ASSOCIATED WITH DEPRESSION OUTPT TRIAMCINOLONE ACETONIDE 0.1% CREAM (Status = Active) APPLY A THIN LAYER TOPICALLY TWICE DAILY NEEDED FOR ITCHING -MAX 14 DAYS PER MONTH Rx# [id number] Last Released: 10/18/23 Qty/Days Supply: Rx Expiration Date: 10/16/24 Refills Remainin Indication: FOR ITCHING SUPPLIES /sharla/ SHIRA CAPELLAN MD SURGEON Signed: 01/01/2024 20:14 SHIRA CAPELLAN [facility]
--- OUTSIDE RECORDS SUMMARY | 2024-10-04 07:53 | XMS_ITS | Encounter Summary ---
Author Name [facility] Organization [facility] [place] Address [address] [place] [id number] Care Team Providers Care Nurse Behavioral Health Care Name Role Phone LALA DUNBAR Primary Care [...] PART A Mar 11, 2013 PART A [id number] [phone] FR AUGUSTO VIERA PATIENT MEDICARE (WNR) MEDICARE (M) PART A Mar 11, 2013 PART A [id number] [phone] FR [place]O VIERA PATIENT MEDICARE (WNR) MEDICARE (M) PART A Mar 11, 2013 PART A [id number] FR [place]O VIERA PATIENT MEDICARE (WNR) MEDICARE (M) PART A Mar 11, 2013 PART A [id number] [phone] FR AUG[place]O VIERA PATIENT Selected Encounter This section includes the information on record at AR for the Encounter. Date/Time Encounter Type Encounter Description Reason Provider Source Mar 27, 2024 10:30 AM DENOSUMAB INJECTION GENERAL INTERNAL MEDICINE ICD-10-CM M81.8 Other osteoporosis without current pathological fracture MELQUIADES RODRIGUEZ [facility] Encounter Template Text not used by AR Assessments - Encounter Diagnoses This section includes the primary and secondary diagnoses documented for the Encounter. Date/Time Primary/Secondary Diagnosis Diagnosis Name Provider Source Mar 27, 2024 10:15 AM PRIMARY Other osteoporosis without current pathological fracture JENNIFERMELQUIADES Mccullough [facility] [place] [facility] Plan of Treatment: Future Appointments (+ 6 months) and Future Tests (+/- 45 days) The Plan of Treatment section includes future care activities for the patient [facility] This section includes future appointments [...] AMBULATORY - NONE [facility] [place] [facility] May 27, 2024 11:00 AM AMBULATORY - MEDICINE [place] [facility] [place] [facility] Jul 11, 2024 01:40 PM AMBULATORY - NONE [facility] [place] [facility] Jul 21, 2024 09:00 AM AMBULATORY - MEDICINE [facility] [place] [facility] Aug 05, 2024 09:30 AM AMBULATORY - MEDICINE [facility] [place] [facility] Aug 27, 2024 09:00 AM AMBULATORY - MEDICINE [facility] [place] [facility] Sep 08, 2024 08:30 AM AMBULATORY - MEDICINE [facility] [place] [facility] Sep 12, 2024 09:30 AM AMBULATORY - PSYCHIATRY [facility] [place] [facility] Sep 16, 2024 02:15 PM AMBULATORY - MEDICINE [facility] [place] [facility] Sep 16, 2024 02:45 PM AMBULATORY - MEDICINE [facility] [place] [facility] Sep 24, 2024 11:00 AM AMBULATORY - MEDICINE [facility] [place] [facility] Active, Pending, and Scheduled Orders This section includes a listing of several types of active, pending, and scheduled orders, including clinic medications orders, diagnostic test orders, procedure orders and consult orders; where the start date of the order is 45 days before the date of the Encounter or 45 days after the date of theEncounter. The data comes from all [place] treatment facilities. Test Date/Time Test Type Test Details Facility Name Mar 05, 2024 10:55 AM Consult Order [facility]-COLONOSCOPY SCREENING Cons [employer] Operator's Choice [facility] Lab Results: +/- 30 days of the encounter This section includes the Chemistry and Hematology Lab Results on record with AR for the patient. Radiology Reports and Pathology Reports are provided separately, in subsequent sections. Lab Results This section contains the Chemistry/Hematology Results that were resulted 30 days before or 30 daysafter the date of the Encounter. Date/Time Source Result Type Result - Unit Interpretation Reference Range Specimen Type Comment Mar 25, 2024 03:29 PM [facility] FERRITIN SERUM Specimen Type: SERUM No comment entered. Ordering Provider: LALA DUNBAR Report Released Date/Time: Mar 25, 2024 03:12 PM Reporting [facility] [address] [facility] [address] Performing Lab: [facility] [address] FERRITIN 140 ng/mL 20-300 Mar 25, 2024 03:29 PM [facility] MAGNESIUM SERUM Specimen Type: SERUM No comment entered. Ordering Provider: LALA DUNBAR Report Released Date/Time: Mar 25, 2024 03:12 PM Reporting Lab: [facility] [address] [facility] [address] Performing Lab: [facility] [address] [address] MAGNESIUM 2.3 mg/dL 1.6-2.6 Mar 25, 2024 03:29 PM [facility] CALCIUM SERUM Specimen Type: SERUM No comment entered. Ordering Provider: LALA DUNBAR Report Released Date/Time: Mar 25, 2024 03:17 PM Reporting Lab: [facility] [address] [facility] [address] Performing Lab: [facility] [address] [facility] [address] CALCIUM 8.5 mg/dL 8.5-10.2 Mar 25, 2024 03:29 PM [facility] BASIC METABOLIC PANEL (non-fasting) SERUM Spe cimen Type: SERUM No comment entered. Ordering Provider: LALA DUNBAR Report Released Date/Time: Mar 25, 2024 03:12 PM Reporting Lab: [facility] [address] [facility] [address] Performing Lab: [address] [address] UREA NITROGEN 20 mg/dL 7-25 GLUCOSE 94 mg/dL 65-100 SODIUM 140 mmol/L 135-145 POTASSIUM 3.7 mmol/L 3.5-5.0 CHLORIDE 107 mmol/L 100-110 CO2 24 meq/L 20-30 CREATININE, Serum 1.14 mg/dL 0.50-1.40 eGFR(CKD-EPI 2020) 67 mL/min >60 Mar 11, 2024 10:15 AM [facility] BASIC METABOLIC PANEL (non-fasting) SERUM Spe cimen Type: SERUM No comment entered. Ordering Provider: LALA DUNBAR Report Released Date/Time: Mar 05, 2024 10:44 AM Reporting Lab: [address] [address] Performing Lab: [address] [address] UREA NITROGEN 19 mg/dL 7-25 GLUCOSE 218 mg/dL H 65-100 SODIUM 138 mmol/L 135-145 POTASSIUM 4.6 mmol/L 3.5-5.0 CHLORIDE 106 mmol/L 100-110 CO2 18 meq/L L 20-30 CREATININE, Serum 1.41 mg/dL H 0.50-1.40 eGFR(CKD-EPI 2020) 52 mL/min L >60 Mar 05, 2024 08:14 AM [facility] BASIC METABOLIC PANEL (non-fasting) SERUM Spe cimen Type: SERUM No comment entered. Ordering Provider: LALA DUNBAR Report Released Date/Time: Mar 04, 2024 06:37 PM Reporting Lab: [facility] [address] [facility] [address] Performing Lab: [facility] [address] [facility] [address] UREA NITROGEN 17 mg/dL 7-25 GLUCOSE 157 mg/dL H 65-100 SODIUM 143 mmol/L 135-145 POTASSIUM 3.9 mmol/L 3.5-5.0 CHLORIDE 104 mmol/L 100-110 CO2 28 meq/L 20-30 CREATININE, Serum 1.08 mg/dL 0.50-1.40 eGFR(CKD-EPI 2020) 71 mL/min >60 Mar 05, 2024 08:14 AM [facility] RENIN ACTIVITY (PLASMA) PLASMA Specimen Type: PLASMA Comment: This test was developed and its analytical performance characteristics have been determined by [employer] [place], [place]. It has not been cleared or approved by the U.S. Food and Drug Administration. This assay has been validated pursuant to the CLIA regulations and is used for clinical purposes. Test Performed by [facility], [employer] [facility], [address] [place] [address] Pb Gilmore M.D., Ph.D., Director of Laboratories , CLIA [id number] TEST PERFORMED AT: , Ordering Provider: MARCO ANTONIO LARKIN Report Released Date/Time: Mar 05, 2024 07:05 AM Reporting Lab: [facility] [address] [facility] [address] Performing Lab: [facility] [address] [address] RENIN ACTIVITY (PLASMA) 0.47 0.25-5.8 2 Mar 05, 2024 08:14 AM [facility] ALDOSTERONE UPRIGHT,LC/MS/MS SERUM Specimen T ype: SERUM [...] analytical performance characteristics have been determined by [employer] characteristics have been determined by [employer] [place], [place]. It has Diagnostics [employer] [place], [place]. It has not been cleared or approved by the U.S. Food and Drug not been cleared or approved by the U.S. Food and Drug Administration. This assay has been validated pursuant Administration. This assay has been validated pursuant to the CLIA regulations and is used for clinical to the CLIA regulations and is used for clinical purposes. purposes. Test Performed by [employer] [place], Test Performed by [employer], [employer], [employer], [address] [place] [address] [place] [address] Pb Gilmore M.D., Ph.D., Director of Laboratories Pb Gilmore M.D., Ph.D., Director of Laboratories , CLIA [id number] , CLIA [id number] TEST PERFORMED AT: TEST PERFORMED AT: , , Ordering Provider: MARCO ANTONIO LARKIN Report Released Date/Time: Mar 05, 2024 07:05 AM Reporting Lab: [facility] [place] [address] [facility] [address] Performing Lab: [facility] [address] [address] ALDOSTERONE UPRIGHT,LC/MS/MS 18 ng/dL * Mar 04, 2024 01:21 PM [facility] BASIC METABOLIC PANEL (non-fasting) SERUM Spe cimen Type: SERUM Comment: Verified by repeat analysis. POTASSIUM Ordering Provider: LALA DUNBAR Report Released Date/Time: Feb 20, 2024 09:25 AM Reporting Lab: [facility] [address] [facility] [address] Performing Lab: [facility] [address] [facility] [address] UREA NITROGEN 17 mg/dL 7-25 GLUCOSE 103 mg/dL H 65-100 SODIUM 144 mmol/L 135-145 POTASSIUM 2.7 mmol/L LL 3.5-5.0 CHLORIDE 103 mmol/L 100-110 CO2 32 meq/L H 20-30 CREATININE, Serum 1.10 mg/dL 0.50-1.40 eGFR(CKD-EPI 2020) 70 mL/min >60 Social History: Smoking Status (Most [...] took place. Date/Time Current Smoking Status Comment [facility] May 09, 2023 09:00 AM VA-TOBACCO [facility]ER [facility] Tobacco Use History This section includes a history of the smoking, or tobacco-related health factors, that were collected on or before the date of the Encounter. The data comes from the [place] facility where the Encounter took place. Date/Time Smoking Status/Tobac co Use Comment Facility May 09, 2023 09:00 AM VA-TOBACCO QUIT 15 YRS OR MORE [facility] [place] [facility] Mar 30, 2022 09:45 AM VA-TOBACCO FORMER USER [facility] [place] [facility] Mar 30, 2022 09:45 AM VA-TOBACCO QUIT 15 YRS OR MORE [facility] [place] [facility] Mar 29, 2021 08:30 AM VA-TOBACCO FORMER USER [facility] [place] [facility] Mar 29, 2021 08:30 AM VA-TOBACCO QUIT 15 YRS OR MORE [facility] [place] [place] [facility] Apr 05, 2020 08:00 AM VA-TOBACCO FORMER USER [facility] [place] [facility] Apr 05, 2020 08:00 AM VA-TOBACCO QUIT 15 YRS OR MORE [facility] Dec 19, 2018 09:16 AM VA-TOBACCO FORMER USER [facility] Dec 19, 2018 09:16 AM VA-TOBACCO QUIT 15 YRS OR MORE [facility] Jan 25, 2018 08:57 AM QUIT TOBACCO USE > 7 YEARS AGO [facility] [facility] November 07, 2016 10:23 AM QUIT TOBACCO USE > 7 YEARS AGO [facility] Sep 15, 2015 09:35 AM LIFETIME NON-TOBACCO USER [facility] Feb 27, 2005 03:58 PM LIFETIME NON-SMOKER [facility] October 17, 2002 08:32 AM HISTORY OF SMOKING Smoke free since 1967 (35years) [facility] Jan 30, 2002 03:15 PM QUIT TOBACCO USE > 7 YEARS AGO [facility] Jul 25, 2001 03:17 PM HISTORY OF SMOKING [facility] Jul 25, 2001 03:17 PM NON-TOBACCO [facility]ER [facility] Radiology Reports: +/- 30 days of [...] the Encounter. The data comes from all [facility] facilities. Date/Time Radiology Report Provider Source Mar 04, 2024 02:16 PM TOE(S) 2 OR MORE V IEWS: NIGEL VIERA [id number] -[phone] M Exm Date: MAR 04, 2024@14:16 Req Phys: MISSY LOZOYA Loc: CWM/NO/PODIATRY A (Req'g Loc) Img Loc: [facility]/BUILDING 1 Service: Unknown [facility] [address] (Case 128 COMPLETE) TOE(S) 2 OR MORE VIEWS (RAD Detailed) CPT:16111 Proc Modifiers : RIGHT Reason for Study: subbed hallux. r/o fxt Clinical History: 3 weeks ago stubbed on a pallet gum remover, was deeply BnB according to his report. 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 Date/Time Encounter Note(s) Provider Source Mar 27, 2024 10:10 AM NURSING OUTPATIENT NOTE: LOCAL TITLE: NURSING/SPECIALTY CLINIC NOTE STANDARD TITLE: NURSING OUTPATIENT NOTE DATE OF NOTE: MAR 27, 2024@10:10 ENTRY DATE: MAR 27, 2024@10:10:32 AUTHOR: MELQUIADES RODRIGUEZ EXP COSIGNER: URGENCY: STATUS: COMPLETED Pt. here to clinic to receive his Denosumab injection per Dr. Larkin. Labs reviewed by Dr. Larkin prior to injection. Diagnosis: OSTEOPOROSIS Denosumab 60mg/ml given subcutaneous Right upper outer arm for Osteoporosis. LOT:[id number] EXP: 10/08/2026 AMGEN Labs: VITAMIN D 25-OH Collection DT Specimen Test Name Result Units Ref Range 09/11/2023 08:37 SERUM VITAMIN D (25-OH) 70 H ng/mL 20 - 50 03/25/2024 15:29 SERUM CALCIUM 8.5 MG/ML 8.5-10.2 Pt. tolerated procedure well. Instructions given to patient on possible side effects and to call doctor if any occur or seek medical attention if serious side efects. Next injection in 6 months September 2024 Will remind patient one month before next injection to have labs completed. /sharla/ MELQUIADES RODRIGUEZ RN Signed: 03/27/2024 10:16 MELQUIADES RODRIGUEZ [facility]
--- OUTSIDE RECORDS SUMMARY | 2024-10-04 07:54 | XMS_ITS | Continuity of Care Document ---
Author Name [facility] Organization [facility] Care Team Providers Care Senior Nurse Manager Name Role Phone [facility] Unavailable Unavailable Problems Combined list of problems from Department of Defense and Veterans Affairs facilities. It does not include entries that were removed or entered in error. Problem Status Onset Date Problem Type Date of Resolution Comments Source Gynecomastia Active 019 Condition May 16, 2019 Entered By: LUIS ENRIQUE ZAIDI Comment: [facility]nd to [facility] Recent weight loss Active 019 Condition May 15, 2019 Entered By: DOMINIC BAUGH Comment: EGD DR Mckenzie [facility] Impression :Gastritis Await biopsy report to r/u H. pyloriDec 2018 Entered By: DOMINIC BAUGH Comment: [facility] Dr Mckenzie [facility] Adrenal adenoma Active Condition Feb 14, 2019 Entered By: LUIS ENRIQUE ZAIDI Comment: consult: [facility] - Elsy [facility] 2018 Entered By: LUIS ENRIQUE ZAIDI Comment: MED: aldosterone receptor antagonist- ( 05/2019- EPLERENONE) - [facility] Benign essential hypertension Active Condition [facility] BENIGN NEOPLASM LG BOWEL Active Condition [facility] Benign prostatic hypertrophy (SNOMED CT 625337003) Active Condition [facility] Calcium pyrophosphate deposition disease Active Condition Jan 24 014 Entered By: JIMMY JASON Comment: -- by joint aspiration 06/19 [facility] 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 [facility] Dermatitis or Eczema * (ICD-9-CM 692.9) Active Condition [facility] Diarrhea, chronic * (ICD-9-CM 787.91) Active Condition [facility] Erectile dysfunction (SNOMED CT 739129959) Active Condition [facility] Exposure to potentially hazardous substance Active Condition [facility] Gastroesophageal reflux disease (SNOMED CT 679658169) Active Condition [facility] GOUT Active Condition [facility] Gout (SNOMED CT 19977271) Active Condition Aug 08, 2022 Entered By: LALA DUNBAR Comment: Right knee [facility] Hernia of abdominal wall Active Condition Dec 25, 2018 Entered By: LUIS ENRIQUE ZAIDI Comment: SEEn GI surgery 11/2018 - elective surgery - if vet wishes to schedule [facility] History of polyp of colon Active Condition May 14, 2008 Entered By: JIMMY JASON Comment: -- tubular adenoma 2016 Entered By: JIMMY JASON Comment: normal colonoscopy 11/20Nov 2021 Entered By: JAMMIE CASH Comment: last c-scope 2020; due for 2023 due to Hx of tubular adenoma and limited prep on 2020 c-scope [facility] Hyperlipidemia (SNOMED CT 96298203) Active Condition [facility] Insomnia Active Condition [facility] Low back pain (SNOMED CT 407882434) Active Condition May 15, 2017 Entered By: STACEY EDWARDS Comment: chronic. Finds restorative care technician helpful.May 15, 2017 Entered By: STACEY EDWARDS Comment: Sees Chiropracter Dr Surinder Patel at [address] [place] [address] [facility] LTBI - Latent tuberculosis infection Active Condition [facility] Osteoarthritis of knee Active Condition [facility] Osteoporosis Active Condition Feb 14, 2019 Entered By: LUIS ENRIQUE ZAIDI Comment: consult: [facility] - Rupali Ngo 2018 Entered By: LUIS ENRIQUE ZAIDI Comment: MED: Prolia Solution 60mg/ml( approved NON FORM) [facility] Osteoporosis (SNOMED CT 09695863) Active Condition Sep 07, 2009 Entered By: JIMMY JASON Comment: -- hip T-score -2.8, 08/18 [facility] Pain of right knee Active Condition J an 2022 Entered By: JAMMIE CASH Comment: abnml MRI 06/2022- chronic high grade partial thickness tearing of proximal ACL, medial and lateral meniscal tears, distal quad tenidinopathy, mild tricomrtmental degenerative changeFeb 2022 Entered By: LALA DUNBAR Comment: [facility] MRI 06/2022- chronic high grade partial thickness tearing of proximal ACL, medial and lateral meniscal tears, distal quad tenidinopathy, mild tricomrtmental degenerative change [facility] Posterior Vitreous Detachment Active Condition [facility] Posttraumatic stress disorder (SNOMED CT 56551687) Active Condition Apr 19, 2004 Entered By: PALAK SCHMIDT Comment: 2008 Entered By: YENNY JAMES Comment: Reviewed [facility] Pseudophakia Active Condition [facility] Rhinitis (SNOMED CT 53891166) Active Condition [facility] Shoulder pain (SNOMED CT 13792302) Active Condition [facility] Abdominal Pain, Periumbilic (ICD-9-CM 789.05) Inactive Condition 05/14/2008 [facility] Acute bronchitis Inactive Condition 03/06/2018 De c 2016 Entered By: STACEY EDWARDS Comment: 05/11/2017 [facility] Atypical Chest Pain (ICD-9-CM 786.59) Inactive Condition 05/04/2019 [facility] Chorioretinal Scar Inactive Condition 01/11/2009 Nov 20, 2008 Entered By: GONZALO PAUL P OD Comment: 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 [facility] 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, 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 PAUL OD Comment: toxoplasmosis [facility] Dry Eye Syndromes * (ICD-9-CM 375.15) Inactive Condition 01/11/2009 [facility] Gout * (ICD-9-CM 274.9) Inactive Condition 09/07/2008 [facility] Hyperaldosteronism Inactive Condition 01/24/2014 [facility] Lipoma * (ICD-9-CM 214.9/214.0) Inactive Condition 05/14/2008 [facility] Macular Pucker/Epiretinal Membrane (Erm) Inactive Condition 05/14/2008 [facility] ORCHITIS/EPIDIDYMIT NOS Inactive Condition 05/14/2008 [facility] Other chest pain (ICD-9-CM 786.59) Inactive Condition 05/14/2008 [facility] POST SUBCAP SENILE CATAR Inactive Condition 05/14/2008 October 14, 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 PAUL OD Comment: left eye [facility] Pseudophakia Inactive Condition 05/14/2008October Entered By: GONZALO PAUL OD Comment: right [facility] REFRACTION DISORDER NOS Inactive Condition 05/14/2008 [facility] Vitreous Floaters Inactive Condition 01/11/2009 [facility] Diagnosis: ICD-10-CM M25.561 Pain in right knee Active Diagnosis [facility] Diagnosis: ICD-10-CM M81.8 Other osteoporosis without current pathological fracture Active Diagnosis [facility] Diagnosis: ICD-10-CM G47.00 Insomnia, unspecified Active Diagnosis [facility] Diagnosis: ICD-10-CM 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, bilateral Active Diagnosis [facility] Diagnosis: ICD-10-CM S92.424S Nondisp fx of distal phalanx of right great toe, sequela Active Diagnosis [facility] Diagnosis: ICD-10-CM I10 Essential (primary) hypertension Active Diagnosis [facility] Diagnosis: ICD-10-CM M25.562 Pain in left knee Active Diagnosis [facility] Diagnosis: ICD-10-CM K03.6 Deposits [accretions] on teeth Active Diagnosis [facility] Diagnosis: ICD-10-CM Z04.89 Encounter for examination and observation for oth reasons Active Diagnosis [facility] Diagnosis: ICD-10-CM M79.651 Pain in right thigh Active Diagnosis [facility] Diagnosis: ICD-10-CM E87.6 Hypokalemia Active Diagnosis [facility] Diagnosis: ICD-10-CM M77.42 Metatarsalgia, left foot Active Diagnosis [facility] Diagnosis: ICD-10-CM B07.0 Plantar wart Active Diagnosis [facility] Diagnosis: ICD-10-CM K08.491 Partial loss of teeth due to other specified cause, class I Active Diagnosis [facility] Diagnosis: ICD-10-CM M79.672 Pain in left foot Active Diagnosis [facility] Diagnosis: ICD-10-CM K11.5 Sialolithiasis Active Diagnosis [facility] Diagnosis: ICD-10-CM I78.1 Nevus, non-neoplastic Active Diagnosis [facility] Diagnosis: ICD-10-CM M77.02 Medial epicondylitis, left elbow Active Diagnosis [facility] Diagnosis: ICD-10-CM Z46.0 Encounter for fit/adjst of spectacles and contact lenses Active Diagnosis [facility] Diagnosis: ICD-10-CM H31.003 Unspecified chorioretinal scars, bilateral Active Diagnosis [facility] Diagnosis: ICD-10-CM R22.1 Localized swelling, mass and lump, neck Active Diagnosis [facility] Diagnosis: ICD-10-CM Z13.6 Encounter for screening for cardiovascular disorders Active Diagnosis [facility] Diagnosis: ICD-10-CM S29.011A Strain of muscle and tendon of front wall of thorax, init Active Diagnosis [facility] Diagnosis: ICD-10-CM Z04.9 Encounter for examination and observation for unsp reason Active Diagnosis [facility] Diagnosis: ICD-10-CM M54.59 Other low back pain Active Diagnosis [facility] Diagnosis: ICD-10-CM M25.511 Pain in right shoulder Active Diagnosis [facility] Medications Combined list of outpatient medications from Department of Defense and Veterans Affairs facilities.Medications provided include 1) outpatient medications from the last 15 months, and 2) patient-reported medications. Medication Details Route Status Patient Instructions Prescription Expires Prescription Number Last Dispense Date Ordering Provider Order Date Order Qty Source AMILORIDE HCL 5MG TAB TAKE TWO TABLETS BY MOUTH TWICE DAILY WITH FOOD ORAL ACTIVE 03/06/2025 [id number] 5 REYMUNDO DUNBARA THANG 2023 [facility] AMILORIDE HCL 5MG TAB TAKE TWO TABLETS BY MOUTH TWICE DAILY WITH FOOD ORAL DISCONT [facility] 11/12/2024 [id number] 4 BETTINA, LALA THANG 2023 360 [facility] AMILORIDE HCL 5MG TAB TAKE TWO TABLETS BY MOUTH TWICE DAILY WITH FOOD ORAL DISCONT [facility]. [facility] 01/09/2024 [id number] BETTINA, LALA THANG 2022 360 [facility] AMLODIPINE BESYLATE 10MG TAB TAKE ONE TABLET BY MOUTH ONCE DAILY FOR BLOOD PRESSURE /HEART, DO NOT TAKE WITH GRAPEFRU IT JUICE ORAL ACTIVE 11/12/2024 [id number] 5 BETTINA, LALA THANG 2023 90 [facility] AMLODIPINE BESYLATE 10MG TAB TAKE ONE TABLET BY MOUTH ONCE DAILY FOR BLOOD PRESSURE /HEART, DO NOT TAKE WITH GRAPEFRU IT JUICE ORAL DISCONT INUED 09/29/2023 [id number] 4 BETTINA, LALA THANG 2022 90 [facility] ASPIRIN 81MG TAB,EC TAKE ONE TABLET BY MOUTH QD ORAL ACTIVE FELIX BORJAS THEW D 2021 [facility] ATORVASTATI N CA 20MG TAB TAKE ONE TABLET BY MOUTH ONCE DAILY FOR CHOLESTE ROL ORAL ACTIVE 07/22/2025 [id number] 5 BETTINA, LALA THANG 2024 90 [facility] ATORVASTATI N CA 20MG TAB TAKE ONE TABLET BY MOUTH ONCE DAILY FOR CHOLESTE ROL ORAL DISCONT INUED 08/14/2024 [id number] BETTINA, LALA THANG 2023 90 [facility] BUPRENORPHI NE 5MCG/HR PATCH APPLY 1 PATCH TO SKIN EVERY 5 DAYS (REMOVE PATCH BEFORE APPLYING A NEW PATCH) TRANSD ERMAL ACTIVE 03/19/2025 [id number] [facility] 2024 6 [facility] CALCIUM 500MG (CA CARBONATE-1 .25GM) TAB TAKE TWO TABLETS BY MOUTH ONCE DAILY ORAL DISCONT INUED BY PROVIDE R 02/14/2025 [id number] 4 LARKIN,AL ICE 2023 200 [facility] CAPSAICIN 0.075% CREAM,TOP APPLY A THIN FILM TOPICALL Y TWICE DAILY FOR BACKACHE TOPICA L 08/02/2024 [id number] 4 BETTINA, LALA THANG 2023 60 [facility] CETIRIZINE HCL 10MG TAB TAKE ONE TABLET BY MOUTH ONCE DAILY FOR ALLERGIE S FOR ALLERGIE S ORAL ACTIVE 03/06/2025 [id number] BETTINA, LALA THANG 2023 90 [facility] CETIRIZINE HCL 10MG TAB TAKE ONE TABLET BY MOUTH ONCE DAILY FOR ALLERGIE S FOR ALLERGIE S ORAL DISCONT INUED 05/09/2024 [id number] BETTINA, LALA THANG 2022 90 [facility] CHOLECALCIF BEATRIZ 25MCG (1,000UNIT) TAB TAKE ONE TABLET BY MOUTH ONCE DAILY FOR VITAMIN SUPPLEME NTATION ORAL ACTIVE 03/06/2025 [id number] BETTINA, LALA THANG 2023 90 [facility] CHOLECALCIF BEATRIZ 25MCG (1,000UNIT) TAB TAKE ONE TABLET BY MOUTH ONCE DAILY FOR VITAMIN SUPPLEME NTATION ORAL DISCONT INUED 04/23/2024 [id number] BETTINA, LALA THANG 2022 90 [facility] COLCHICINE 0.6MG TAB TAKE TWO TABLETS BY MOUTH ONE TIME THEN TAKE ONE TABLET ONE TIME ONE HOUR LATER FOR ONE DAY, THEN TAKE ONE TABLET TWICE DAILY UNTIL GOUT FLARE RESOLVED ORAL DISCONT INUED BY PROVIDE R 06/28/2024 [id number] BETTINA, LALA THANG 2023 60 [facility] DENOSUMAB 60MG/ML INJ,SYRINGE ,1ML INJECT 60MG/1ML SUBCUTAN EOUSLY ONE TIME SUBCUT ANEOUS ACTIVE 10/09/2024 [id number] LARKIN,AL ICE 2024 1 [facility] DENOSUMAB 60MG/ML INJ,SYRINGE ,1ML INJECT 60MG/1ML SUBCUTAN EOUSLY ONE TIME FOR OSTEOPOR OSIS SUBCUT ANEOUS 04/17/2024 [id number] LARKIN,AL ICE 2023 1 [facility] DENOSUMAB 60MG/ML INJ,SYRINGE ,1ML INJECT 60MG/1ML SUBCUTAN EOUSLY ONE TIME FOR OSTEOPOR OSIS SUBCUT ANEOUS 09/13/2023 [id number] GRACE LARKIN ICE 2023 1 [facility] DICLOFENAC NA 1% GEL,TOP APPLY 2 GRAMS TOPICALL Y FOUR TIMES A DAY FOR OSTEOART HRITIS - USE DOSING CARD PROVIDED IN BOX TOPICA L DISCONT INUED BY PROVIDE R 08/30/2023 [id number] DEJAH PATINO 2023 100 [facility] DICLOFENAC NA 75MG TAB,EC TAKE ONE TABLET BY MOUTH TWICE DAILY FOR PAIN AND INFLAMMA TION FOR PAIN/INF LAMMATIO N ORAL DISCONT INUED BY PROVIDE R 07/22/2025 [id number] 5 BETTINA, LALA THANG 2024 60 [facility] DICLOFENAC NA 75MG TAB,EC TAKE ONE TABLET BY MOUTH TWICE DAILY FOR PAIN AND INFLAMMA TION FOR PAIN/INF LAMMATIO N ORAL DISCONT INUED 04/25/2024 [id number] BETTINA, LALA THANG 2023 14 [facility] DOXAZOSIN MESYLATE 8MG TAB TAKE ONE TABLET BY MOUTH ONCE DAILY DIRECTED BY PRESCRIB ER. NOTE TABLET STRENGTH ORAL ACTIVE 10/17/2024 [id number] 5 BETTINA, LALA THANG 2023 90 [facility] DOXAZOSIN MESYLATE 8MG TAB TAKE ONE TABLET BY MOUTH ONCE DAILY DIRECTED BY PRESCRIB ER. NOTE TABLET STRENGTH ORAL DISCONT INUED 09/29/2023 [id number] BETTINA, LALA THANG 2022 90 [facility] FLAXSEED MISCELLANEO US EVERY DAY ACTIVE TATY JASON 2009 [facility] FLUTICASONE PROPIONATE 50MCG/SPRAY SOLN,NASAL, 16GM INSTILL 1 SPRAY INTO EACH NOSTRIL ONCE DAILY NASAL DISCONT INUED BY PROVIDE R 11/12/2024 [id number] BETTINA, LALA THANG 2023 1 [facility] FLUTICASONE PROPIONATE 50MCG/SPRAY SOLN,NASAL, 16GM INSTILL 1 SPRAY INTO EACH NOSTRIL ONCE DAILY NASAL DISCONT INUED 09/14/2023 [id number] BETTINA, LALA THANG 2023 1 [facility] GARLIC CAP,ORAL TAKE BY MOUTH EVERY DAY ORAL ACTIVE TATY JASON S 2009 [facility] GUAIFENESIN 200MG TAB TAKE ONE TABLET BY MOUTH TWICE DAILY FOR COUGH ORAL DISCONT INUED BY PROVIDE R 02/20/2025 [id number] 5 BETTINA, LALA THANG 2024 180 [facility] GUAIFENESIN 200MG TAB TAKE ONE TABLET BY MOUTH TWICE DAILY FOR COUGH ORAL DISCONT INUED 01/02/2025 [id number] BETTINA, LALA THANG 2023 180 [facility] GUAIFENESIN 200MG TAB TAKE ONE TABLET BY MOUTH TWICE DAILY FOR COUGH ORAL DISCONT INUED 12/25/2023 [id number] CLARISSA VYAS R 2023 180 [facility] KETOCONAZOL E 2% CREAM,TOP APPLY A THIN LAYER TOPICALL Y TWICE DAILY FUNGAL RASH APPLY TO AFFECTED AREAS ON CHEST FOR 4 WEEKS, THEN NEEDED TOPICA L DISCONT INUED BY PROVIDE R 10/16/2024 [id number] SOLO ARAUZ 2023 120 [facility] LOSARTAN 25MG TAB TAKE ONE TABLET BY MOUTH ONCE DAILY FOR BLOOD PRESSURE /HEART ORAL ACTIVE 07/22/2025 [id number] BETTINA, LALA THANG 2024 90 [facility] LOSARTAN 25MG TAB TAKE ONE TABLET BY MOUTH ONCE DAILY FOR BLOOD PRESSURE /HEART ORAL DISCONT INUED 05/09/2024 [id number] BETTINA, LALA THANG 2023 90 [facility] MAGNESIUM OXIDE 250MG TAB TAKE ONE TABLET BY MOUTH ONCE DAILY ORAL DISCONT INUED BY PROVIDE R 10/29/2023 [id number] DEJAH PATINO 2023 90 [facility] MAGNESIUM OXIDE 400MG TAB TAKE ONE TABLET BY MOUTH ONCE DAILY FOR MAGNESIU M SUPPLEME NTATION ORAL ACTIVE 07/22/2025 [id number] BETTINA, LALA THANG 2024 120 [facility] MAGNESIUM OXIDE 400MG TAB TAKE ONE TABLET BY MOUTH ONCE DAILY FOR MAGNESIU M SUPPLEME NTATION ORAL DISCONT INUED 08/08/2024 [id number] BETTINA, LALA THANG 2023 120 [facility] METHOCARBAM OL 750MG TAB TAKE ONE TABLET BY MOUTH THREE TIMES DAILY NEEDED ORAL DISCONT INUED BY PROVIDE R 04/24/2024 [id number] BETTINA, LALA THANG 2023 6 [facility] MIRTAZAPINE 15MG TAB TAKE ONE-HALF TABLET BY MOUTH AT BEDTIME FOR DEPRESSI ON/MOOD ORAL ACTIVE 09/20/2025 [id number] BETTINA, LALA THANG 2024 15 [facility] MULTIVITAMI N W/MINERAL TAB TAKE BY MOUTH ORAL ACTIVE BETTINA, LALA THANG 2022 [facility] PANTOPRAZOL E NA 40MG TAB,EC TAKE ONE TABLET BY MOUTH EVERY MORNING 30 MINUTES BEFORE BREAKFAS T ORAL ACTIVE 02/20/2025 [id number] 5 BETTINA, LALA THANG 2023 90 [facility] PANTOPRAZOL E NA 40MG TAB,EC TAKE ONE TABLET BY MOUTH EVERY MORNING 30 MINUTES BEFORE BREAKFAS T ORAL DISCONT INUED 06/15/2024 [id number] LALA DUNBAR 2023 90 [facility] POTASSIUM CHLORIDE 10MEQ TAB,SA TAKE ONE TABLET BY MOUTH ONCE DAILY NEEDED FOR LOW POTASSIU M ORAL DISCONT INUED BY PROVIDE R 03/06/2025 [id number] LALA DUNBAR 2023 60 [facility] PREDNISONE 20MG TAB TAKE THREE TABLETS BY MOUTH ONCE DAILY FOR 3 DAYS, THEN TAKE TWO TABLETS ONCE DAILY FOR 3 DAYS, THEN TAKE ONE TABLET ONCE DAILY FOR 3 DAYS GOUT FLARE ORAL ACTIVE 02/20/2025 [id number] LALA DUNBAR 2023 18 [facility] PREDNISONE 20MG TAB TAKE THREE TABLETS BY MOUTH ONCE DAILY FOR 3 DAYS, THEN TAKE TWO TABLETS ONCE DAILY FOR 3 DAYS, THEN TAKE ONE TABLET ONCE DAILY FOR 3 DAYS FOR GOUT FLARE ORAL DISCONT INUED 06/26/2024 [id number] 4 LALA DUNBAR 2023 18 [facility] PREDNISONE 20MG TAB TAKE THREE TABLETS BY MOUTH ONCE DAILY FOR 3 DAYS, THEN TAKE TWO TABLETS ONCE DAILY FOR 3 DAYS, THEN TAKE ONE TABLET ONCE DAILY FOR 3 DAYS GOUT FLARE ORAL DISCONT INUED 06/20/2024 [id number] 4 LALA DUNBAR 2023 18 [facility] PREDNISONE 20MG TAB TAKE THREE TABLETS BY MOUTH ONCE DAILY FOR 3 DAYS, THEN TAKE TWO TABLETS ONCE DAILY FOR 3 DAYS, THEN TAKE ONE TABLET ONCE DAILY FOR 3 DAYS GOUT FLARE ORAL DISCONT INUED 04/02/2025 [id number] 4 LALA DUNBAR 2023 18 [facility] PREDNISONE 20MG TAB TAKE THREE TABLETS BY MOUTH ONCE DAILY FOR 3 DAYS, THEN TAKE TWO TABLETS ONCE DAILY FOR 3 DAYS, THEN TAKE ONE TABLET ONCE DAILY FOR 3 DAYS FOR GOUT FLARE ORAL 09/26/2024 [id number] 5 BETTINA, LALA THANG 2024 18 [facility] PREGABALIN 25MG CAP,ORAL TAKE ONE CAPSULE BY MOUTH TWICE DAILY ORAL ACTIVE 03/19/2025 [id number] MEME PORTILLOYENY B 2024 60 [facility] SALICYLIC ACID 17% SOLN,TOP APPLY DIRECTED TOPICALL Y TWICE DAILY FOR PLANTAR WARTS (APPLY TO WART ONLY) TOPICA L DISCONT INUED BY PROVIDE R 03/21/2024 [id number] REYMUNDO DUNBARA THANG 2023 9 [facility] SILDENAFIL CITRATE 100MG TAB TAKE ONE TABLET BY MOUTH ONCE DAILY FOR ERECTILE DYSFUNCT ION TAKE 1 HOUR PRIOR TO SEXUAL ACTIVITY ORAL ACTIVE 07/22/2025 [id number] 5 BETTINA, LALA THANG 2024 6 [facility] SILDENAFIL CITRATE 100MG TAB TAKE ONE TABLET BY MOUTH ONCE DAILY FOR ERECTILE DYSFUNCT ION TAKE 1 HOUR PRIOR TO SEXUAL ACTIVITY ORAL DISCONT INUED 05/09/2024 [id number] BETTINA LALA THANG 2022 6 [facility] SODIUM FLUORIDE 1.1% TOOTHPASTE BRUSH SMALL AMOUNT TO TEETH TWICE DAILY FOR TOOTH DECAY PREVENTI ON DENTAL ACTIVE 04/26/2025 [id number] MIGUEL ZACARIAS 2023 51 [facility] TAMSULOSIN HCL 0.4MG CAP TAKE ONE CAPSULE BY MOUTH ONCE DAILY DIRECTED BY PROVIDER ORAL ACTIVE 10/17/2024 [id number] 5 BETTINA LALA THANG 2023 90 [facility] TAMSULOSIN HCL 0.4MG CAP TAKE ONE CAPSULE BY MOUTH ONCE DAILY DIRECTED BY PROVIDER ORAL DISCONT INUED 01/09/2024 [id number] 4 BETTINA, LALA THANG 2022 30 [facility] TRAMADOL HCL 50MG TAB TAKE ONE TABLET BY MOUTH AT BEDTIME NEEDED FOR PAIN ORAL 09/26/2024 [id number] BETTINA, LALA THANG 2024 28 [facility] TRAZODONE HCL 100MG TAB TAKE TWO TABLETS BY MOUTH AT BEDTIME - MAY TAKE A 3RD TABLET IF NOT ASLEEP BY 2AM - MAY TAKE A 3RD TABLET IF NOT ASLEEP BY 2AM ORAL DISCONT INUED BY PROVIDE R 02/20/2025 [id number] 5 REYMUNDO DUNBARA THANG 2023 180 [facility] TRAZODONE HCL 100MG TAB TAKE TWO TABLETS BY MOUTH AT BEDTIME - MAY TAKE A 3RD TABLET IF NOT ASLEEP BY 2AM - MAY TAKE A 3RD TABLET IF NOT ASLEEP BY 2AM ORAL DISCONT INUED 02/28/2024 [id number] DEJAH PATINO 2023 180 [facility] TRAZODONE HCL 100MG TAB TAKE TWO TABLETS BY MOUTH AT BEDTIME - MAY TAKE A 3RD TABLET IF NOT ASLEEP BY 2AM - MAY TAKE A 3RD TABLET IF NOT ASLEEP BY 2AM ORAL DISCONT INUED 02/17/2024 [id number] LALA DUNBAR 2022 180 [facility] TRIAMCINOLO NE ACETONIDE 0.1% CREAM,TOP APPLY A THIN LAYER TOPICALL Y TWICE DAILY NEEDED FOR ITCHING -MAX 14 DAYS PER MONTH TOPICA Jules DISCONT INUED BY PROVIDE R 10/16/2024 [id number] SOLO ARAUZ 2023 [address] [facility] Allergies, Adverse Reactions, Alerts Combined list of allergies from Department of Defense and [facility] facilities. It does not include entries that were removed or entered in error. Substance Category Reaction Severity Reaction type Status Date Reported Comments Source ALENDRONATE Propensity to adverse reactions to drug (finding) Finding of vomiting active 5 [facility] CETIRIZINE Propensity to adverse reactions to drug (finding) Drowsy, Dizziness active 0 [facility] CHLORTHALIDO NE Propensity to adverse reactions to drug (finding) Hypokalemia MODERATE active 5 [facility] COLCHICINE Propensity to adverse reactions to drug (finding) Eruption active 4 [facility] CONTRAST MEDIA Propensity to adverse reactions to drug (finding) Anxiety, Delirium active 9 [facility] CYCLOBENZAPR INE Propensity to adverse reactions to drug (finding) Taste sense altered active 3 [facility] EPLERENONE Propensity to adverse reactions to drug (finding) Eruption active 0 [facility] FLUNISOLIDE Propensity to adverse reactions to drug (finding) Headache active 9 [facility] LISINOPRIL Propensity to adverse reactions to drug (finding) Cough active 1 [facility] OMEPRAZOLE Propensity to adverse reactions to drug (finding) Eruption active 5 [facility] PRAVASTATIN Propensity to adverse reactions to drug (finding) Taste sense altered active 2 [facility] SPIRONOLACTO NE Propensity to adverse reactions to drug (finding) Gynecomasti a MILD active 9 [facility] ZOLEDRONIC Propensity to adverse reactions to drug (finding) Itching, Eruption active 1 [facility] Immunizations Combined list of available immunizations from the Department of Defense and Veterans Affairs facilities. Immunization Series Date Given Administered By Site Reaction Lot Number CVX Code Drug Key Maker Status Comments Source COVID-19 (PAUL), VECTOR-NR, [id number], PF, 0.5 ML 1 2020 212 complet ed JSN; [id number]; [facility] IN[facility], SEASONAL, INJECTABLE 2018 141 complet ed [facility] [place] TD (ADULT), 2 LF TETANUS TOXOID, PRESERVATIVE FREE, ADSORBED 2017 09 complet ed Site: Right [facility] DTAP, UNSPECIFIED FORMULATION 2010 107 complet ed Site: Left [facility]toid [facility] [place] TETANUS TOXOID, UNSPECIFIED FORMULATION 1999 [place] 112 complet ed [facility] [place] [facility] Results Combined list of recent chemistry, hematology and other laboratory results from Department of Defense and Veterans Affairs, ranging from 15 months to all on record, depending upon the facility. Order Name Results Value Reference Range Date Interpretation Specimen Comments Source CALCIUM CALCIUM [MASS/VOLUM E] IN SERUM OR PLASMA 8.6 mg/dL 8.5 - 10.2 09/12 Specimen Type: SERUM No comment entered. Ordering Provider: ADAM LARKIN Report Released Date/Time: Sep 09, 2024 01:54 PM Reporting Lab: [facility] [address] [facility] [address] Performing Lab: [facility] [address] [facility] [address] [facility] VITAMIN D (25-OH) 25-HYDROXYV ITAMIN D3+25-HYDRO XYVITAMIN D2 [MASS/VOLUM E] IN SERUM OR PLASMA 72 ng/mL 20 - 50 09/12 H Specimen Type: SERUM No comment entered. Ordering Provider: ADAM LARKIN Report Released Date/Time: Sep 09, 2024 01:54 PM Reporting Lab: [facility] [address] [facility] [address] Performing Lab: [facility] [address] [facility] [address] [facility] BASIC METABOLIC PANEL (non-fast ing) UREA NITROGEN [MASS/VOLUM E] IN SERUM OR PLASMA 11 mg/dL 7 - 25 09/12 Specimen Type: SERUM No comment entered. Ordering Provider: ADAM LARKIN Report Released Date/Time: Sep 09, 2024 01:54 PM Reporting Lab: [facility] [address] [facility] [address] Performing Lab: [facility]PITALRGRANDVIEW MEDICAL CENTERTRN [facility] [address] [facility] [address] [facility]ITALRUSA [facility] UNIVERSITY HOSPITALN [facility] BASIC METABOLIC PANEL (non-fast ing) GLUCOSE [MASS/VOLUM E] IN SERUM OR PLASMA 90 mg/dL 65 - 100 09/12 Specimen Type: SERUM No comment entered. Ordering Provider: ADAM LARKIN Report Released Date/Time: Sep 09, 2024 01:54 PM Reporting Lab: [facility]ITALRGRANDVIEW MEDICAL CENTERTRN [facility] [address] [facility] [address] Performing Lab: [facility] HOSPITALRUSA [facility] UNIVERSITY HOSPITALN [address] [address] [facility] BASIC METABOLIC PANEL (non-fast ing) SODIUM [MOLES/VOLU ME] IN SERUM OR PLASMA 140 mmol/L 135 - 145 09/12 Specimen Type: SERUM No comment entered. Ordering Provider: ADAM LARKIN Report Released Date/Time: Sep 09, 2024 01:54 PM Reporting Lab: [facility]ITALRGRANDVIEW MEDICAL CENTERTRN [facility] [address] [facility] [address] Performing Lab: [facility]ITALRL TRN [address] [address] [facility]ITALRGRANDVIEW MEDICAL CENTERTRN [facility] BASIC METABOLIC PANEL (non-fast ing) POTASSIUM [MOLES/VOLU ME] IN SERUM OR PLASMA 4.0 mmol/L 3.5 - 5.0 09/12 Specimen Type: SERUM No comment entered. Ordering Provider: ADAM LARKIN Report Released Date/Time: Sep 09, 2024 01:54 PM Reporting Lab: [facility]PITALRL TRN [facility]ITALUSEMETROP[facility] [address] [facility] [address] Performing Lab: [facility] HOSPITALRGRANDVIEW MEDICAL CENTERTRN [facility]PITALUSE[address] [address] [facility]ITALF[facility] BASIC METABOLIC PANEL (non-fast ing) CHLORIDE [MOLES/VOLU ME] IN SERUM OR PLASMA 106 mmol/L 100 - 110 09/12 Specimen Type: SERUM No comment entered. Ordering Provider: ADAM LARKIN Report Released Date/Time: Sep 09, 2024 01:54 PM Reporting Lab: [address] [address] Performing Lab: [address] [address] [facility] BASIC METABOLIC PANEL (non-fast ing) CARBON DIOXIDE, TOTAL [MOLES/VOLU ME] IN SERUM OR PLASMA 23 meq/L 20 - 30 09/12 Specimen Type: SERUM No comment entered. Ordering Provider: ADAM LARKIN Report Released Date/Time: Sep 09, 2024 01:54 PM Reporting Lab: [address] [address] Performing Lab: [address] [address] [facility] BASIC METABOLIC PANEL (non-fast ing) CALCIUM [MASS/VOLUM E] IN SERUM OR PLASMA 8.6 mg/dL 8.5 - 10.2 09/12 Specimen Type: SERUM No comment entered. Ordering Provider: ADAM LARKIN Report Released Date/Time: Sep 09, 2024 01:54 PM Reporting Lab: [address] [address] Performing Lab: [address] [address] [facility] BASIC METABOLIC PANEL (non-fast ing) CREATININE [MASS/VOLUM E] IN SERUM OR PLASMA 0.98 mg/dL 0.50 - 1.40 09/12 Specimen Type: SERUM No comment entered. Ordering Provider: ADAM LARKIN Report Released Date/Time: Sep 09, 2024 01:54 PM Reporting Lab: [address] [address] Performing Lab: [place] [facility] [place] [facility] [address] [facility] [address] [facility] HOSPITALRL TRN [place] [facility] BASIC METABOLIC PANEL (non-fast ing) GLOMERULAR FILTRATION RATE/1.73 SQ M.PREDICTED [VOLUME RATE/AREA] IN SERUM, PLASMA OR BLOOD BY CREATININE- BASED FORMULA (CKD-EPI 2020) 79 mL/min 60 09/12 Specimen Type: SERUM No comment entered. Ordering Provider: ADAM LARKIN Report Released Date/Time: Sep 09, 2024 01:54 PM Reporting Lab: [facility]OSPITALRGRANDVIEW MEDICAL CENTERTRN [facility]OSPITALUSETS [facility] [address] [facility] [address] Performing Lab: [facility] HOSPITALRL TRN [facility]OSPITALUSETS [facility] [address] [facility] [address] [facility]OS[facility]ITALUSE [facility] FERRITIN FERRITIN [MASS/VOLUM E] IN SERUM OR PLASMA 140 ng/mL 20 - 300 03/25 Specimen Type: SERUM No comment entered. Ordering Provider: DEEPTI DUNBAR SA Report Released Date/Time: Mar 25, 2024 03:12 PM Reporting Lab: [facility] HOSPITALRGRANDVIEW MEDICAL CENTERTRN [facility]ITALUSEMETROPOLIT[facility]OS[facility] [address] [facility] [address] Performing Lab: [facility] HOSPITALRL TRN [facility] HOSPITALUSETS [facility] [address] [facility] [address] [facility] HOSPITALUSE [facility] CALCIUM CALCIUM [MASS/VOLUM E] IN SERUM OR PLASMA 8.5 mg/dL 8.5 - 10.2 03/25 Specimen Type: SERUM No comment entered. Ordering Provider: DEEPTI DUNBAR SA Report Released Date/Time: Mar 25, 2024 03:17 PM Reporting Lab: [facility]OSPITALRGRANDVIEW MEDICAL CENTERTRN [facility]OSPITALUSETS [facility] [address] [facility] [address] Performing Lab: [facility]OSPITALRL TRN [facility] HOSPITALUSETS [facility] [address] [facility] [address] [facility]OS[facility]ITALUSE [facility] MAGNESIUM MAGNESIUM [MASS/VOLUM E] IN SERUM OR PLASMA 2.3 mg/dL 1.6 - 2.6 03/25 Specimen Type: SERUM No comment entered. Ordering Provider: DEEPTI DUNBAR SA Report Released Date/Time: Mar 25, 2024 03:12 PM Reporting Lab: [facility] [place] [facility] [address] [facility] [address] Performing Lab: [place] [facility] [place] [facility] [address] [facility] [address] [facility] HOSPITALRL WSTRN [place] [facility] BASIC METABOLIC PANEL (non-fast ing) UREA NITROGEN [MASS/VOLUM E] IN SERUM OR PLASMA 20 mg/dL 7 - 25 03/25 Specimen Type: SERUM No comment entered. Ordering Provider: DEEPTI DUNBAR SA Report Released Date/Time: Mar 25, 2024 03:12 PM Reporting Lab: [facility] HOSPITALRL WSTRN [facility]OSPITALUSEMETROPOLIT[facility]OS[facility] C[facility] [address] [address] Performing Lab: [facility] HOSPITALRL WSTRN [facility]PITALUSE[address] [address] [facility]ERN [facility] HOSPITALUSE [facility] BASIC METABOLIC PANEL (non-fast ing) GLUCOSE [MASS/VOLUM E] IN SERUM OR PLASMA 94 mg/dL 65 - 100 03/25 Specimen Type: SERUM No comment entered. Ordering Provider: DEEPTI DUNBAR SA Report Released Date/Time: Mar 25, 2024 03:12 PM Reporting Lab: [facility] HOSPITALRL WSTRN [facility]SUSEMETROPOLITAN HOSP[facility] C[facility] [address] [address] Performing Lab: [place] [facility] [facility]OSPITALUSEMETROPOLITAN HOSPITAL CENTER [address] [address] [facility] HOSPITALRL TRN [facility]OSPITALUSE [facility] BASIC METABOLIC PANEL (non-fast ing) SODIUM [MOLES/VOLU ME] IN SERUM OR PLASMA 140 mmol/L 135 - 145 03/25 Specimen Type: SERUM No comment entered. Ordering Provider: DEEPTI DUNBAR SA Report Released Date/Time: Mar 25, 2024 03:12 PM Reporting Lab: [facility] [facility] [address] [address] Performing Lab: [place] [facility] [place] [address] [address] [facility] HOSPITALRGRANDVIEW MEDICAL CENTERTRN [facility] HOSPITALUSE [facility] BASIC METABOLIC PANEL (non-fast ing) POTASSIUM [MOLES/VOLU ME] IN SERUM OR PLASMA 3.7 mmol/L 3.5 - 5.0 03/25 Specimen Type: SERUM No comment entered. Ordering Provider: DEEPTI DUNBAR SA Report Released Date/Time: Mar 25, 2024 03:12 PM Reporting Lab: [facility]OSPITALRGRANDVIEW MEDICAL CENTERTRN [facility]OSPITALUSEMETROPOLITAN HOSPITAL C[facility] [address] [facility] [address] Performing Lab: [facility] [address] [address] [facility]ERN [facility] HOSPITALUSE [facility] BASIC METABOLIC PANEL (non-fast ing) CHLORIDE [MOLES/VOLU ME] IN SERUM OR PLASMA 107 mmol/L 100 - 110 03/25 Specimen Type: SERUM No comment entered. Ordering Provider: DEEPTI DUNBAR SA Report Released Date/Time: Mar 25, 2024 03:12 PM Reporting Lab: [facility] [address] [address] Performing Lab: [facility] HOSPITALRUSA HEALTH UNIVERSITY HOSPITALN [address] [address] [facility] BASIC METABOLIC PANEL (non-fast ing) CARBON DIOXIDE, TOTAL [MOLES/VOLU ME] IN SERUM OR PLASMA 24 meq/L 20 - 30 03/25 Specimen Type: SERUM No comment entered. Ordering Provider: DEEPTI DUNBAR SA Report Released Date/Time: Mar 25, 2024 03:12 PM Reporting Lab: [facility] [address] [address] Performing Lab: [facility] HOSPITALRGRANDVIEW MEDICAL CENTERTRN [facility]ITALUSE[address] [address] [facility]OSPITALRUSA HEALTH UNIVERSITY HOSPITALN [facility] BASIC METABOLIC PANEL (non-fast ing) CREATININE [MASS/VOLUM E] IN SERUM OR PLASMA 1.14 mg/dL 0.50 - 1.40 03/25 Specimen Type: SERUM No comment entered. Ordering Provider: DEEPTI DUNBAR SA Report Released Date/Time: Mar 25, 2024 03:12 PM Reporting Lab: [facility] HOSPITALRUSA HEALTH UNIVERSITY HOSPITALN [address] [address] Performing Lab: [facility] HOSPITALRMIRAVISTA BEH[facility] [address] [facility] [address] [facility] BASIC METABOLIC PANEL (non-fast ing) GLOMERULAR FILTRATION RATE/1.73 SQ M.PREDICTED [VOLUME RATE/AREA] IN SERUM, PLASMA OR BLOOD BY CREATININE- BASED FORMULA (CKD-EPI 2020) 67 mL/min 60 03/25 Specimen Type: SERUM No comment entered. Ordering Provider: DEEPTI DUNBAR SA Report Released Date/Time: Mar 25, 2024 03:12 PM Reporting Lab: [address] [address] Performing Lab: [address] [address] [facility] BASIC METABOLIC PANEL (non-fast ing) UREA NITROGEN [MASS/VOLUM E] IN SERUM OR PLASMA 19 mg/dL 7 - 25 03/11 Specimen Type: SERUM No comment entered. Ordering Provider: DEEPTI DUNBAR SA Report Released Date/Time: Mar 05, 2024 10:44 AM Reporting Lab: [address] [address] Performing Lab: [address] [address] [facility] BASIC METABOLIC PANEL (non-fast ing) GLUCOSE [MASS/VOLUM E] IN SERUM OR PLASMA 218 mg/dL 65 - 100 03/11 H Specimen Type: SERUM No comment entered. Ordering Provider: DEEPTI DUNBAR SA Report Released Date/Time: Mar 05, 2024 10:44 AM Reporting Lab: [address] [address] Performing Lab: [address] [address] [facility] BASIC METABOLIC PANEL (non-fast ing) SODIUM [MOLES/VOLU ME] IN SERUM OR PLASMA 138 mmol/L 135 - 145 03/11 Specimen Type: SERUM No comment entered. Ordering Provider: DEEPTI DUNBAR SA Report Released Date/Time: Mar 05, 2024 10:44 AM Reporting Lab: [facility] [place] [facility] [address] [facility] [facility] [address] Performing Lab: [facility] [place] [facility] [address] [facility] [address] [facility] [place] [facility] BASIC METABOLIC PANEL (non-fast ing) POTASSIUM [MOLES/VOLU ME] IN SERUM OR PLASMA 4.6 mmol/L 3.5 - 5.0 03/11 Specimen Type: SERUM No comment entered. Ordering Provider: DEEPTI DUNBAR SA Report Released Date/Time: Mar 05, 2024 10:44 AM Reporting Lab: [facility] [place] [facility] [address] [facility] [facility] [address] Performing Lab: [facility] [place] [address] [address] [facility] [place] [facility] BASIC METABOLIC PANEL (non-fast ing) CHLORIDE [MOLES/VOLU ME] IN SERUM OR PLASMA 106 mmol/L 100 - 110 03/11 Specimen Type: SERUM No comment entered. Ordering Provider: DEEPTI DUNBAR SA Report Released Date/Time: Mar 05, 2024 10:44 AM Reporting Lab: [facility] [place] [facility] [address] [facility] [address] Performing Lab: [facility] [place] [address] [address] [facility] [place] [facility] BASIC METABOLIC PANEL (non-fast ing) CARBON DIOXIDE, TOTAL [MOLES/VOLU ME] IN SERUM OR PLASMA 18 meq/L 20 - 30 03/11 L Specimen Type: SERUM No comment entered. Ordering Provider: DEEPTI DUNBAR SA Report Released Date/Time: Mar 05, 2024 10:44 AM Reporting Lab: [facility] [place] [facility] [address] [facility] [address] Performing Lab: [facility] [place] [facility] [address] [facility] [address] [facility] [place] [facility] BASIC METABOLIC PANEL (non-fast ing) CREATININE [MASS/VOLUM E] IN SERUM OR PLASMA 1.41 mg/dL 0.50 - 1.40 03/11 H Specimen Type: SERUM No comment entered. Ordering Provider: DEEPTI DUNBAR SA Report Released Date/Time: Mar 05, 2024 10:44 AM Reporting Lab: [address] [address] Performing Lab: [address] [address] [facility] BASIC METABOLIC PANEL (non-fast ing) GLOMERULAR FILTRATION RATE/1.73 SQ M.PREDICTED [VOLUME RATE/AREA] IN SERUM, PLASMA OR BLOOD BY CREATININE- BASED FORMULA (CKD-EPI 2020) 52 mL/min 60 03/11 L Specimen Type: SERUM No comment entered. Ordering Provider: DEEPTI DUNBAR SA Report Released Date/Time: Mar 05, 2024 10:44 AM Reporting Lab: [address] [address] Performing Lab: [address] [address] [facility] BASIC METABOLIC PANEL (non-fast ing) UREA NITROGEN [MASS/VOLUM E] IN SERUM OR PLASMA 17 mg/dL - 03/05 Specimen Type: SERUM No comment entered. Ordering Provider: DEEPTI DUNBAR SA Report Released Date/Time: Mar 04, 2024 06:37 PM Reporting Lab: [address] [address] Performing Lab: [address] [address] [facility] BASIC METABOLIC PANEL (non-fast ing) GLUCOSE [MASS/VOLUM E] IN SERUM OR PLASMA 157 mg/dL 65 - 100 03/05 H Specimen Type: SERUM No comment entered. Ordering Provider: DEEPTI DUNBAR SA Report Released Date/Time: Mar 04, 2024 06:37 PM Reporting Lab: [address] [place] [address] Performing Lab: [facility] [place] [facility] [address] [facility] [address] [facility] [place] [facility] BASIC METABOLIC PANEL (non-fast ing) SODIUM [MOLES/VOLU ME] IN SERUM OR PLASMA 143 mmol/L 135 - 145 03/05 Specimen Type: SERUM No comment entered. Ordering Provider: DEEPTI DUNBAR SA Report Released Date/Time: Mar 04, 2024 06:37 PM Reporting Lab: [facility] [place] [facility] [address] [facility] [facility] [address] Performing Lab: [place] [facility] [facility] [address] [facility] [address] [facility]PITALRL WSTRN [place] [facility] BASIC METABOLIC PANEL (non-fast ing) POTASSIUM [MOLES/VOLU ME] IN SERUM OR PLASMA 3.9 mmol/L 3.5 - 5.0 03/05 Specimen Type: SERUM No comment entered. Ordering Provider: DEEPTI DUNBAR SA Report Released Date/Time: Mar 04, 2024 06:37 PM Reporting Lab: [facility]ITALRL WSTRN [place] [facility] [address] [facility] [address] Performing Lab: [facility]ITALUSETS [facility] [address] [facility] [address] [facility]PITALRL WSTRN [facility]OSPITALUSE [facility] BASIC METABOLIC PANEL (non-fast ing) CHLORIDE [MOLES/VOLU ME] IN SERUM OR PLASMA 104 mmol/L 100 - 110 03/05 Specimen Type: SERUM No comment entered. Ordering Provider: DEEPTI DUNBAR SA Report Released Date/Time: Mar 04, 2024 06:37 PM Reporting Lab: [facility]ITALRL WSTRN [place] [facility] [address] [facility] [address] Performing Lab: [place] [facility] [facility] [address] [facility] [facility] [address] [facility]PITALRL WSTRN [place] [facility] BASIC METABOLIC PANEL (non-fast ing) CARBON DIOXIDE, TOTAL [MOLES/VOLU ME] IN SERUM OR PLASMA 28 meq/L 20 - 30 03/05 Specimen Type: SERUM No comment entered. Ordering Provider: DEEPTI DUNBAR SA Report Released Date/Time: Mar 04, 2024 06:37 PM Reporting Lab: [address] [address] Performing Lab: [address] [address] [facility] BASIC METABOLIC PANEL (non-fast ing) CREATININE [MASS/VOLUM E] IN SERUM OR PLASMA 1.08 mg/dL 0.50 - 1.40 03/05 Specimen Type: SERUM No comment entered. Ordering Provider: DEEPTI DUNBAR SA Report Released Date/Time: Mar 04, 2024 06:37 PM Reporting Lab: [address] [address] Performing Lab: [address] [address] [facility] BASIC METABOLIC PANEL (non-fast ing) GLOMERULAR FILTRATION RATE/1.73 SQ M.PREDICTED [VOLUME RATE/AREA] IN SERUM, PLASMA OR BLOOD BY CREATININE- BASED FORMULA (CKD-EPI 2020) 71 mL/min 60 03/05 Specimen Type: SERUM No comment entered. Ordering Provider: DEEPTI DUNBAR SA Report Released Date/Time: Mar 04, 2024 06:37 PM Reporting Lab: [address] [address] Performing Lab: [address] [address] [facility] RENIN ACTIVITY (PLASMA) RENIN [ENZYMATIC ACTIVITY/VO LUME] IN PLASMA 0.47 0.25 - 5.82 03/05 Specimen Type: PLASMA Comment: This test was developed and its analytical performance characteris tics have been determined by [facility] [place], [place]. It has not been cleared or approved by the U.S. Food and Drug Administrat ion. This assay has been validated pursuant to the CLIA regulations and is used for clinical purposes. Test Performed by [facility], [address] [place], [place] Pb Gilmore M.D., Ph.D., Director of Laboratorie s , CLIA [id number] TEST PERFORMED AT: , Ordering Provider: ADAM LARKIN Report Released Date/Time: Mar 05, 2024 07:05 AM Reporting Lab: [facility] [place] [facility] [address] [facility] [address] Performing Lab: [facility] [place] [facility] [address] [address] [facility] [place] [facility] Vital Signs Combined list of inpatient and outpatient Vital Signs from Department of Defense and Veterans Affairs, ranging from 12 months to all on record, depending upon the facility. Vital Sign Value Date Comments Source SYSTOLIC BLOOD PRESSURE 159 08/27/2024 08:59:19 [facility] [place] [facility] DIASTOLIC BLOOD PRESSURE 76 08/27/2024 08:59:19 [facility] [place] [facility] PULSE OXIMETRY 94 08/27/2024 08:59:19 [facility] [place] [facility] WEIGHT 08/27/2024 08:59:19 [facility] [place] [facility] PAIN 10 08/27/2024 08:59:19 [facility] [place] [facility] TEMPERATURE 97.6 08/27/2024 08:59:19 [facility] [place] [facility] PULSE 84 08/27/2024 08:59:19 [facility] [place] [facility] RESPIRATION 16 08/27/2024 08:59:19 [facility] [place] [facility] SYSTOLIC BLOOD PRESSURE 147 07/21/2024 09:00:17 [facility] [place] [facility] DIASTOLIC BLOOD PRESSURE 75 07/21/2024 09:00:17 [facility] [place] [facility] PULSE OXIMETRY 95 07/21/2024 09:00:17 [facility] [place] [facility] WEIGHT 07/21/2024 09:00:17 [facility] [place] [facility] PAIN 10 07/21/2024 09:00:17 [facility] TEMPERATURE 97.6 07/21/2024 09:00:17 [facility] PULSE 90 07/21/2024 09:00:17 [facility] RESPIRATION 16 07/21/2024 09:00:17 [facility] SYSTOLIC BLOOD PRESSURE 125 05/27/2024 10:58:17 [facility] DIASTOLIC BLOOD PRESSURE 71 05/27/2024 10:58:17 [facility] PULSE OXIMETRY 95 05/27/2024 10:58:17 [facility] PULSE 82 05/27/2024 10:58:17 [facility] RESPIRATION 19 05/27/2024 10:58:17 [facility] SYSTOLIC BLOOD PRESSURE 147 03/25/2024 14:55:23 [facility] DIASTOLIC BLOOD PRESSURE 72 03/25/2024 14:55:23 [facility] PULSE OXIMETRY 94 03/25/2024 14:55:23 [facility] PAIN 10 03/25/2024 14:55:23 [facility] TEMPERATURE 98.5 03/25/2024 14:55:23 [facility] PULSE 88 03/25/2024 14:55:23 [facility] RESPIRATION 16 03/25/2024 14:55:23 [facility] SYSTOLIC BLOOD PRESSURE 136 03/05/2024 10:15:15 [facility] DIASTOLIC BLOOD PRESSURE 75 03/05/2024 10:15:15 [facility] PULSE OXIMETRY 94 03/05/2024 10:15:15 [facility] PULSE 82 03/05/2024 10:15:15 [facility] RESPIRATION 16 03/05/2024 10:15:15 [facility] Encounters Combined list of: 1) [facility] going backup to the last 18 months, not all [facility] encounters are included; 2) Encounters from the Department of [facility] facilities going backup to 280 months. Location Location Details Encounter Type Encounter Number Reason For Visit Attending Provider ADM Date DC Date Status Disposition Source [facility] DENTURES ADJUST PART MANDBL [id number] Diagnos is: ICD-10- CM K08.491 Partial loss of teeth due to other specifi ed cause, class I BASANDRA KATZ, [place] J [facility] [facility] [id number] 04/23 [facility] OFFICE O/P EST MOD 30-39 MIN [id number] Diagnos is: ICD-10- CM M25.511 Pain in right shoulde r Jules DUNBAR ION THANG 05/09 [facility] Out[facility] Encounter [id number] 05/15 [facility] MECHANICAL TRACTION THERAPY [id number] Diagnos is: ICD-10- CM M54.59 Other low back pain FRANDY RODRIGUEZ RA 05/21 [facility] DENTURES ADJUST PART MANDBL [id number] Diagnos is: ICD-10- CM K08.491 Partial loss of teeth due to other specifi ed cause, class I BAEGER DAFFNER, CTORIA J 05/21 [facility] Out[facility] Encounter [id number] 06/13 [facility] Out[facility] Encounter [id number] 06/14 [facility] Encounter [id number] 06/18 [facility] OFF/OP EST MAY X REQ PHY/QHP [id number] Diagnos is: ICD-10- CM Z04.9 Encount er for examina tion and observa tion for unsp reason JOSE LEMUS YOSEPHLien L 07/31 [facility] OFFICE O/P EST LOW 20 MIN [id number] Diagnos is: ICD-10- CM S29.011 A Strain of muscle and tendon of front wall of thorax, FAMILIA MorrisonH 07/31 [facility] ELECTROCAR DIOGRAM REPORT [id number] Diagnos is: ICD-10- CM Z13.6 Encount er for screeni ng for cardiov ascular disorde rs SHIRLEY GONSALVES E 07/31 [facility] Outpatient Encounter [id number] GERARD RAGSDALE 08/01 [facility] OFFICE O/P EST MOD 30 MIN [id number] Diagnos is: ICD-10- CM R22.1 Localiz ed swellin g, mass and lump, neck BETTINA,L ION THANG 08/02 [facility] OFFICE O/P EST MOD 30 MIN [id number] Diagnos is: ICD-10- CM R22.1 Localiz ed swellin g, mass and lump, neck BETTINA,L ION THANG 08/08 [facility] Out[facility] Encounter [id number] 08/09 [facility] Out[facility] Encounter [id number] 08/13 [facility] Out[facility] Encounter [id number] 08/14 [facility] Out[facility] Encounter [id number] 08/19 [facility] COMPRE OPH EXAM EST PT 1/> [id number] [id number] Diagnos is: ICD-10- CM 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, bilater al SOLITARIO DELUCA 09/06 [facility] FIT SPECTACLES BIFOCAL [id number] [id number] Diagnos is: ICD-10- CM Z46.0 Encount er for fit/adj st of spectac les and contact lenses SOLITARIO DELUCA 09/09 [facility] Out[facility] Encounter [id number] 09/10 [facility] Outpatient Encounter [id number] 09/10 [facility] OFFICE O/P EST MOD 30 MIN [id number] Diagnos is: ICD-10- CM M77.02 Medial epicond ylitis, left elbow BETTINA,L ION THANG 09/13 [facility] OFF/OP CONSLTJ NEW/EST HI 55 [id number] Diagnos is: ICD-10- CM K11.5 Sialoli thiasis IRMA VYAS R 09/25 [facility] Outpatient Encounter [id number] 09/25 [facility] DENOSUMAB INJECTION [id number] 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 VIETS,DONAL E M 09/25 [facility] CLEAN/INSP ECT ANTONIO PART DENT [id number] Diagnos is: ICD-10- CM K03.6 Deposit s [accret ions] on teeth MERVINYSHEEmreN ADEZHDA 09/26 [facility] INTRAORAL PERIAPICAL EA ADD [id number] Diagnos is: ICD-10- CM K08.491 Partial loss of teeth due to other specifi ed cause, class I BAEGER ALEXANDRAFNER, CTORIA J 09/26 [facility] Out[facility] Encounter [id number] 09/26 [facility] MANUAL THERAPY 1/> REGIONS [id number] Diagnos is: ICD-10- CM M77.02 Medial epicond ylitis, left elbow MACHON,NEAL LIE E 10/08 [facility] OFFICE O/P EST MOD 30 MIN [id number] [id number] Diagnos is: ICD-10- CM 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, non-geraldine plastic IZABEL ARAUZIN 10/15 [facility] Out[facility] Encounter [id number] 10/15 [facility] Out[facility] Encounter [id number] 10/30 [facility] OFFICE O/P EST MOD 30 MIN [id number] Diagnos is: ICD-10- CM K11.5 Sialoli thiasis IRMA VYAS 10/31 [facility] OFFICE O/P EST MOD 30 MIN [id number] Diagnos is: ICD-10- CM M79.672 Pain in left foot Jules DUNBAR 11/11 [facility] Out[facility] Encounter [id number] 11/13 [facility] OFFICE VISIT DURING HOURS [id number] Diagnos is: ICD-10- CM K08.491 Partial loss of teeth due to other specifi ed cause, class I BAEGER ALEXANDRAFNER, CTORIA J 11/14 [facility] Out[facility] Encounter [id number] 11/15 [facility] Out[facility] Encounter [id number] 11/15 [facility] Out[facility]counter [id number] 11/15 [facility] Out[facility]counter [id number] 11/28 [facility] Out[facility] Encounter [id number] 11/29 [facility] Out[facility] Encounter [id number] 12/18 [facility] OFF/OP CNSLTJ NEW/EST LOW 30 [id number] Diagnos is: ICD-10- CM B07.0 Plantar DANIELLE Laureano S 12/31 [facility] Out[facility] Encounter [id number] 12/31 [facility] Out[facility] Encounter [id number] Diagnos is: ICD-10- CM I10 Essenti al (primar y) hyperte nsion LARKIN,ALI CE 02/17 [facility] OFFICE O/P EST MOD 30 MIN [id number] 1. Diagnos is: ICD-10- CM I10 Essenti al (primar y) hyperte nsion BETTINA,L ION THANG 02/19 [facility] OFFICE O/P EST MOD 30 MIN [id number] Diagnos is: ICD-10- CM M77.42 Metatar salgia, left foot LEONCIO LOZOYA D 03/04 [facility] Out[facility] Encounter [id number]/05 [facility] Out[facility] Encounter [id number]/05 [facility] OFFICE O/P EST MOD 30 MIN [id number] 1. Diagnos is: ICD-10- CM E87.6 Hypokal emia BETTINA,L ION THANG 03/05 [facility] Out[facility] Encounter [id number] 1.03/11 [facility] Out[facility] Encounter [id number] 1.03/13 [facility] Out[facility]counter [id number]/25 [facility] OFFICE O/P EST MOD 30 MIN [id number] 1. Diagnos is: ICD-10- CM M79.651 Pain in right thigh Jules DUNBAR 03/25 [facility] Out[facility] Encounter [id number] 03/26 [facility] Out[facility] Encounter [id number] 03/27 [facility] Out[facility] Encounter [id number] 03/27 [facility] DENOSUMAB INJECTION [id number] 1. 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 VIETS,DONAL E M 03/27 [facility] Outpatient Encounter [id number] 03/28 [facility] QNHP OL DIG ASSMT&MGMT 21+ [id number] [id number] Diagnos is: ICD-10- CM Z04.89 Encount er for examina tion and observa tion for oth reasons SRIDHAR SHEPARD 04/18 [facility] Outpatient Encounter [id number] 1.04/24 [facility] CLEAN/INSP ECT ANTONIO PART DENT [id number] Diagnos is: ICD-10- CM K03.6 Deposit s [accret ions] on teeth BELYSHEV,N ADEZHDA 04/25 [facility] Out[facility] Encounter [id number]/20 [facility] Out[facility] Encounter [id number] 05/27 [facility] OFFICE O/P EST MOD 30 MIN [id number] Diagnos is: ICD-10- CM M25.562 Pain in left knee BETTINA,L ION THANG 05/27 [facility] Out[facility] Encounter [id number] 05/29 [facility] OFFICE O/P EST MOD 30 MIN [id number] Diagnos is: ICD-10- CM I10 Essenti al (primar y) hyperte nsion BETTINA,L ION THANG 07/21 [facility] Outpatient Encounter [id number] 07/22 [facility] OFFICE O/P EST LOW 20 MIN [id number] Diagnos is: ICD-10- CM S92.424 S Nondisp fx of distal phalanx of right great toe, sequela LEONCIO LOZOYA D 08/05 [facility] Encounter [id number] 08/11 [facility] Out[facility]counter [id number] 08/27 [facility] OFFICE O/P EST MOD 30 MIN [id number] Diagnos is: ICD-10- CM G47.00 Insomni a, unspeci fied BETTINA,L ION THANG 08/27 [facility] COMPRE OPH EXAM EST PT 1/ [id number] Diagnos is: ICD-10- CM 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, bilater SOLITARIO Escobar JESSICA E 09/08 [facility] PH1 ASSMT&MGMT NQHP 5-10 [id number] 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 VIETS,DONAL E M 09/09 [facility] PH1 ASSMT&MGMT NQHP 11-20 [id number] Diagnos is: ICD-10- CM G47.00 Insomni a, unspeci fied LABELLA,KE RI CAPRI 09/12 [facility] Outpatient Encounter [id number] 09/12 [facility] Out[facility] Encounter [id number] 09/12 [facility] Out[facility] Encounter [id number] 09/15 [facility] Out[facility] Encounter [id number] 09/16 [facility] DENOSUMAB INJECTION [id number] 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 Social History Type Response Date Comment Source Tobacco smoking status MTIS VA-TOBACCO USE FORMER CIGARETTES 05/27/2024 [facility] History of tobacco use VA-TOBACCO NEVER USED OTHER TYPE 05/27/2024 [facility] History of tobacco use VA-TOBACCO QUIT 15 YRS OR MORE 05/09/2023 [facility] History of tobacco use VA-TOBACCO FORMER USER 03/30/2022 [facility] History of tobacco use VA-TOBACCO QUIT 15 YRS OR MORE 03/29/2021 [facility] History of tobacco use VA-TOBACCO FORMER USER 04/05/2020 [facility] History of tobacco use VA-TOBACCO QUIT 15 YRS OR MORE 12/19/2018 [facility] History of tobacco use QUIT TOBACCO USE > 7 YEARS AGO 01/25/2018 [facility] History of tobacco use QUIT TOBACCO USE > 7 YEARS AGO 11/07/2016 [facility] History of tobacco use LIFETIME NON-TOBACCO USER 09/15/2015 [facility] History of tobacco use LIFETIME NON-SMOKER 02/27/2005 [facility] RN [facility] History of tobacco use HISTORY OF SMOKING 10/17/2002 Smoke free since 1968 (33years) [facility] History of tobacco use QUIT TOBACCO USE > 7 YEARS AGO 01/30/2002 [facility] History of tobacco use NON-TOBACCO USER 07/25/2001 [facility] Plan of Care List of future care activities from Department of [facility] Affairs facilities. Additional future care activities may be listed in the Assessment and Plan section. Date/Time Care Activity Care Activity Detail Facili ty 10/07/2024 AMBULATORY - PSYCHIATRY AMBULATORY - PSYC HIATRY [facility]
== END 2024-10-04 07:47 | disposition home or self-care (01) ==
LOC: HO.MRI 07:46
PROVIDERS: PCP Nurse Practitioner Family; Visit Provider Orthopaedic Surgery
DX: Z13.89 Encounter for screening for other disorder (principal)

== ENCOUNTER 2024-12-31 09:55 | Outpatient (REF) | payer OTHER, SELFPAY ==
--- OUTSIDE RECORDS SUMMARY | 2024-07-11 09:40 | XMS_ITS ---
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 Name Role Phone Alfreda Self N.P Primary Care Provider Ashley vicente RosenbergKevyn [phone] REASON FOR VISIT Patient presents today for a screening colon Encounters Encounter Location Date Provider Diagnosis [facility] [address] [place] [address] 07/11/2024 Kevyn Rosenberg Plan Of Treatment Next Appt Details Provider Name:Kevyn Rosenberg , 03/11/2025 01:40:00 PM, [address], [address], [place], [address], Progress Notes * NIGEL VIERADOB: [birth year] (74 yo M)Acc No.[id number]:07/11/2024 Progress Notes Patient: NIGEL IYER Provider: Karen Rosenberg MD :1950 A ge:74 Y S ex:Male Date:07/11/2024 Address: [address] [place], [place] [id number] Pcp:Alfreda Self N.P Subjective: * Chief Complaints: [...] provider. Sign off status: Pending * Provider: Karen Rosenberg MD Date: 0 07/11/2024 Generated for Lauren steele/Yumiko/Malika on: 0 12/31/2024 10:40 AM EDT
--- NOTE | 2024-12-31 09:59 | EMG_ITS ---
Chief complaint: Chronic right neck pain. Numbness also in right 3rd and 4th digits with locking. Remote history of wrist fracture, right, status post ORIF. Reason for referral: Evaluate for Carpal Tunnel Syndrome Referred by: Dr. Jefferson Procedure done: Right upper extremity NCS/EMG Precautions and/or limitations: None The limb temperature was monitored continuously and remained between 32-36 degrees C during the performance of the NCS. Ulnar motor NCS was performed with moderate elbow flexion between 70-90 degrees, with across-elbow distance of 10 cm. Nerve Conduction Studies Anti Sensory Summary Table ?Stim Site NR Onset (ms) Norm Onset (ms) Peak (ms) Norm Peak (ms) O-P Amp (?V) Norm O-P Amp Site1 Site2 Delta-0 (ms) Dist (cm) Marques (m/s) Norm Marques (m/s) Right Median Anti Sensory (2nd Digit) Wrist ? 4.0 4.9 <3.6 5.8 >10 Wrist 2nd Digit 4.0 14.0 35 Right Radial Anti Sensory (Thumb) Forearm ? 1.7 2.2 <3.1 14.3 Forearm Thumb 1.7 0.0 Right Ulnar Anti Sensory (5th Digit) Wrist ? 2.2 3.3 <3.7 6.5 >15.0 Wrist 5th Digit 2.2 14.0 64 Motor Summary Table ?Stim Site NR Onset (ms) Norm Onset (ms) O-P Amp (mV) Norm O-P Amp iAmp (mV) Amp (1st) (%) Site1 Site2 Delta-0 (ms) Dist (cm) Marques (m/s) Norm Marques (m/s) Right Median Motor (Abd Poll Brev) Wrist ? 6.5 <3.9 3.5 >4.5 4.1 100.0 Elbow Wrist 4.4 24.0 55 >45 Elbow ? 10.9 2.9 3.4 82.9 Right Ulnar Motor (Abd Dig Minimi) Wrist ? 2.8 <3.0 5.6 >5 7.0 100.0 B Elbow Wrist 3.7 22.0 59 >45 B Elbow ? 6.5 5.2 6.7 92.9 A Elbow B Elbow 1.2 10.0 83 >45 A Elbow ? 7.7 4.8 6.3 85.7 Right Ulnar (FDI) Motor (FDI) Wrist ? 3.8 <3.0 6.5 >5 8.0 100.0 B Elbow Wrist 3.6 21.0 58 >45 B Elbow ? 7.4 6.0 7.4 92.3 A Elbow B Elbow 1.4 10.0 71 >45 A Elbow ? 8.8 6.1 7.5 93.8 EMG ?Side Muscle Nerve Root Ins Act Fibs Psw Amp Dur Poly Recrt Int Pat Comment Right 1stDorInt Ulnar C8-T1 Nml Nml Nml Nml Nml 0 Nml Complete Right Biceps Musculocut C5-6 Nml Nml Nml Nml Nml 0 Nml Complete Right Triceps Radial C6-7-8 Nml Nml Nml Nml Nml 0 Nml Complete Right Deltoid Axillary C5-6 Nml Nml Nml Nml Nml 0 Nml Complete Right FlexCarpiUln Ulnar C8,T1 Nml Nml Nml Nml Nml 0 Nml Complete FINDINGS: Right median motor nerve showed prolonged distal latency, small amplitude and normal conduction velocity. Right ulnar motor nerve, recording FDI, showed prolonged distal latency, normal amplitude and normal conduction velocity. No conduction block across the elbow. Right median sensory nerve showed prolonged peak latency and small amplitude. Right ulnar sensory nerve showed normal peak latency but small amplitude.. All other nerves tested were within normal. Concentric needle EMG was performed in selected muscles of the right upper extremity. Study did not reveal signs of electric abnormalities as shown in the table above. IMPRESSION: 1. This is an abnormal study. 2. There is electrodiagnostic evidence for right moderate-severe median neuropathy at the wrist, consistent with carpal tunnel syndrome. 3. There is electrodiagnostic evidence for chronic right ulnar neuropathy, suspect distally or at the wrist. 4. There is no electrodiagnostic evidence for brachial plexopathy or cervical radiculopathy. Thank you for your kind referral. Letha Sena MD, SLY Board Certified, [place] Board of Physical Medicine and Rehabilitation (ABPMR) Board Certified, [place] Board of Electrodiagnostic Medicine (ABEM) CODIN [id number] [facility]
--- OUTSIDE RECORDS SUMMARY | 2024-12-31 10:40 | XMS_ITS | Clinical Summary ---
Author Organization [facility] Address [address] [place] [address] Phone Care Team Providers Care Rougher Helper Name Role Phone Pcp, Unknown Primary Care Provider Unavailabl e Social History Tobacco Use Types Packs/Day Years Used Date Smoking Tobacco: Never Assessed Education Answer Date Recorded Are you interested in more education? Not on giuliano e 10/06/2022 Are you concerned about learning? Not on file 10/06/2022 No 10/06/2022 No 10/06/2022 Digital Access Answer Date Recorded No 11/06/2022 No 11/06/2022 No 11/06/2022 Reliable internet access at home? Not on file 11/06/2022 Device with a working camera? Not on file Sex and Gender Information Value Date Recorded Sex Assigned at Not on file Legal Sex Male 10:05 PM EDT Gender Identity Not on file Sexual Orientation Not on file Last Filed Vital Signs Vital Sign Reading Time Taken Comments Blood Pressure - - Pulse - - Temperature - - Respiratory Rate - - Oxygen Saturation - - Inhaled Oxygen Concentration - - Weight 68 kg (150 lb) 05/12/2022 1:58 PM EST Height 170.2 cm (5' 7 ) 05/12/2022 1:58 PM EST Body Mass Index 23.49 05/12/2022 1:58 PM EST Plan of Treatment Not on file Medical Devices Not on file Insurance [facility] Care Teams [employer] Relationship Specialty Start Date End Date Pcp, Unknown PCP - General 04/21/22 Additional Source Comments The information contained in this document represents components of the legal health record. It is not the complete legal health record.[facility]
== END 2024-12-31 09:56 | disposition home or self-care (01) ==
LOC: HO.NEURO 09:55
PROVIDERS: PCP Nurse Practitioner Family; Visit Provider Orthopaedic Surgery
DX: G56.01 Carpal tunnel syndrome, right upper limb (principal); Z87.81 Personal history of (healed) traumatic fracture; Z98.890 Other specified postprocedural states
CPT/HCPCS: 95886; 95909

== ENCOUNTER → 2024-12-31 09:59 | Outpatient (BNV) | payer OTHER, SELFPAY | PROVIDERS: PCP Nurse Practitioner Family; Visit Provider Physical Medicine & Rehabilitation | DX: G56.01 Carpal tunnel syndrome, right upper limb (principal); G56.21 Lesion of ulnar nerve, right upper limb | CPT/HCPCS: 95886; 95909 ==

== ENCOUNTER 2025-01-28 11:05 | Outpatient (AMB) | payer OTHER, SELFPAY ==
--- OUTSIDE RECORDS SUMMARY | 2024-07-11 09:40 | XMS_ITS ---
Author Organization [facility] Address [address] [place] [address] Care Team Providers Care Cow Buyer Name Role Phone Alfreda Self N.P Primary Care Provider Ashley vicente RosenbergKevyn [phone] REASON FOR VISIT Patient presents today for a screening colon Encounters Encounter Location Date Provider Diagnosis [facility] [address] [place] [address] 07/11/2024 Kevyn Rosenberg Plan Of Treatment Next Appt Details Provider Name:Kevyn Rosenberg , 03/11/2025 01:40:00 PM, [address], [address], [place], [address], Progress Notes * NIGEL VIERADOB: [birth year] (74 yo M)Acc No.[id number]:07/11/2024 Progress Notes Patient: NIGEL IYER Provider: Karen Rosenberg MD :1950 A ge:74 Y S ex:Male Date:07/11/2024 [id number] Pcp:Alfreda Self N.P Subjective: * Chief Complaints: * 1 . Patient presents today for a screening colon. * Medical History: Objective: * Vitals: Assessment: Plan: * Treatment: * * The named appointment provid er may or may not be the originator of this progress note, and it is not deemed complete until electronically signed by the appointment provider. Sign off status: Pending * Provider: Karne Rosenberg MD Date: 0 07/11/2024 Generated for Lauren steele/Yumiko/Malika on: 0 01/28/2025 12:29 PM EDT
--- NOTE | 2025-01-28 11:14 | A.OFFVIS_ITS ---
Vital Signs 01/28/25 11:18 Height 5 ft 7 in Weight 142 lb BMI 22.2 Intake Visit Reasons: New prob-Rt upper extremity CTS Intake Note: Jah is a 74 year old male right hand dominant who presents today as a new problem for his Right upper extremity CTS. At today's visit he states that the pain has been going on for about 6 to 7 months. He reports that his pointer and middle finger have a constant numbness and tingling. Patient added that he has not tried OT or injections to help relieve the pain, he reports no injury. Patient added that he has a quick shock or jolt of pain in the palm of his hand that causes the fingers to lock up. EMG Done: IMPRESSION: 1. This is an abnormal study. 2. There is electrodiagnostic evidence for right moderate-severe median neuropathy at the wrist, consistent with carpal tunnel syndrome. 3. There is electrodiagnostic evidence for chronic right ulnar neuropathy, suspect distally or at the wrist. 4. There is no electrodiagnostic evidence for brachial plexopathy or cervical radiculopathy. Allergies allopurinol Allergy (Unknown, Verified 01/28/25 11:18) Rash chlorthalidone Allergy (Unknown, Verified 01/28/25 11:18) Unknown colchicine (COLCHICINE) Allergy (Unknown, Verified 01/28/25 11:18) RASH flunisolide (FLUNISOLIDE) Allergy (Unknown, Verified 01/28/25 11:18) RASH meloxicam (MELOXICAM) Allergy (Unknown, Verified 01/28/25 11:18) SEVERE HIVES omeprazole (OMEPRAZOLE) Allergy (Unknown, Verified 01/28/25 11:18) RASH pravastatin Allergy (Unknown, Verified 01/28/25 11:18) Unknown zoledronic acid (ZOLEDRONIC ACID) Allergy (Unknown, Verified 01/28/25 11:18) RASH lisinopril Adverse Reaction (Verified 01/28/25 11:18) Cough Alendronate Sodium Allergy (Unknown, Uncoded 09/24/24 11:00) Unknown Contrast media Allergy (Unknown, Uncoded 09/24/24 11:00) Unknown HPI HPI New prob-Rt upper extremity CTS: Details: Jah is a 74 year old right hand dominant man who presents for a NCS review of his right hand numbness. He complains of constant numbness in his index & middle fingers, along with an occasional painful shocking sensation in her hand, which he says makes his fingers lock up . He has locking & catching of the index & middle fingers. He has a Hx of Gout and is on Colchicine [facility] Medical History (Updated 01/28/25 @ 12:01 by Rom Wilcox) Benign prostatic hyperplasia with lower urinary tract symptoms Gynecomastia Orthostatic hypotension Osteoarthritis Abdominal hernia without obstruction and without gangrene Polyp of colon Vitreous degeneration PTSD (post-traumatic stress disorder) Back pain BPH (benign prostatic hyperplasia) Former smoker Gout GERD (gastroesophageal reflux disease) Hx of migraines Elevated cholesterol HTN (hypertension) Vitamin D deficiency Hyperparathyroidism Osteoporosis Adrenal cortical adenoma of right adrenal gland Hyperaldosteronism Surgical History Hx of cataract surgery Hx of esophagogastroduodenoscopy Hx of colonoscopy History of surgery on wrist Family History Father No problems noted. Mother No problems noted. Social History (Updated 09/24/24 @ 11:03 by SUMMER Penn) Patient Tobacco Use Status: Former Tobacco user Second Hand Smoke Exposure: No Current occupation: rt handed Review of Systems Const All systems reviewed & are unremarkable except as noted in HPI and below Physical Exam Vital Signs: BMI result Body Mass Index 22.2 Const General: cooperative, healthy appearing and no acute distress Orientation/consciousness: patient oriented x3 HEENT Head: Yes normocephalic and Yes atraumatic Eyes EOM: EOMs intact bilaterally Resp Effort & Inspection: normal respiratory effort and able to speak in complete sentences Cardio Jugular venous distension: no JVD Skin General skin exam: turgor normal Rashes: no rashes Neuro General: patient oriented x3 Extrem Other: Evaluation of Right Upper Extremity: The patient is alert, oriented, and in no acute distress Neuro: Dense numbness index & middle fingers. Normal sensation to the thumb, ring, and small fingers Vascular: Cap refill brisk ROM: He can make a fist and extend all his digits Visible & palpable locking & catching of the index & middle fingers Tender over the index & middle finger a1 puleys Skin: No lacerations or abrasions. General: No Ecchymosis. No Erythema or evidence of infection. Nerve Conduction Study: Right-side only IMPRESSION: 1. This is an abnormal study. 2. There is electrodiagnostic evidence for right moderate-severe median neuropathy at the wrist, consistent with carpal tunnel syndrome. 3. There is electrodiagnostic evidence for chronic right ulnar neuropathy, suspect distally or at the wrist. 4. There is no electrodiagnostic evidence for brachial plexopathy or cervical radiculopathy. Letha Sena MD, SLY 12/31/24 Psych Appearance: grossly normal Affect: normal affect Attitude: cooperative Assessment & Plan Assessment & Plan (1) Right carpal tunnel syndrome: Code(s): G56.01 - Carpal tunnel syndrome, right upper limb Category: Medical (2) Gout: Code(s): M10.9 - Gout, unspecified Category: Medical (3) Trigger finger, right index finger: Code(s): M65.321 - Trigger finger, right index finger Category: Medical (4) Trigger middle finger of right hand: Code(s): M65.331 - Trigger finger, right middle finger Category: Medical Plan Assessment & Plan: 1. Right carpal tunnel syndrome, moderate-severe With dense numbness in the index & middle fingers 2. Right index finger trigger finger 2. Right middle finger trigger finger I educated him about these conditions I discussed operative and non-operative treatment options The patient would like to proceed with surgery The risks and benefits of operative treatment were discussed with the patient and the patient wishes to proceed with surgery. These risks include, but are not limited to risk of damage to blood vessels, nerves, tendons, infection, recurrence, incomplete relief of preoperative symptoms, persistent pain, possible need for further surgery and the risks associated with regional blocks and anesthesia. The plan is to take the patient to the operating room sometime in the next few weeks for the following procedures: 1. Right carpal tunnel release, under local 2. Right index finger trigger release, under local 3. Right middle finger trigger release, under local All of the preoperative paperwork including the consent was reviewed today. All the patient's questions were answered. The patient understands that they will be contacted by our care team coordinator scheduler demetrius mitchell to schedule this procedure He denies Diabetes, blood thinners, asthma, heart, lung, kidney issues He has a Hx of Gout 4. Right cubital tunnel syndrome, versus compression at the wrist No complaints of numbness and tingling in the ulnar nerve distribution Scribed for Sonali Retana MD by Rom Wilcox, medical center manager, on 01/28/25 at 11:45 AM, EST. Coding Level of Care Code New Pt Level 4 (88746) Diagnoses Right carpal tunnel syndrome G56.01 Gout M10.9 Trigger finger, right index finger M65.321 Trigger middle finger of right hand M65.331
[2025-01-28 11:18] VITALS: BMI 22.2
--- OUTSIDE RECORDS SUMMARY | 2025-01-28 12:29 | XMS_ITS | Clinical Summary ---
Author Organization [facility] Address [address] [place] [address] Phone Care Team Providers Care Securities And Real Estate Director Name Role Phone Pcp, Unknown Primary Care [...] file Medical Devices Not on file Insurance [facility] Care Teams Securities And Real Estate Director Relationship Specialty Start Date End Date Pcp, Unknown PCP - General 04/21/22 Additional Source Comments The information contained in this document represents components of the legal health record. It is not the complete legal health record.[facility]
== END 2025-01-28 12:02 | disposition home or self-care (01) ==
LOC: HO.HOS 11:06
PROVIDERS: PCP Nurse Practitioner Family; Visit Provider Orthopaedic Surgery
DX: G56.01 Carpal tunnel syndrome, right upper limb (principal); M10.9 Gout, unspecified; M65.321 Trigger finger, right index finger; M65.331 Trigger finger, right middle finger
CPT/HCPCS: 99204

== ENCOUNTER → 2025-01-28 11:05 | Outpatient (BNVA) | payer OTHER, SELFPAY | PROVIDERS: PCP Nurse Practitioner Family; Visit Provider Orthopaedic Surgery | DX: G56.01 Carpal tunnel syndrome, right upper limb (principal); M10.9 Gout, unspecified; M65.321 Trigger finger, right index finger; M65.331 Trigger finger, right middle finger | CPT/HCPCS: 99202 ==

== ENCOUNTER 2025-03-16 06:50 | Day surgery (SDC) | payer OTHER, SELFPAY ==
--- OUTSIDE RECORDS SUMMARY | 2024-08-27 05:00 | XMS_ITS | Encounter Summary ---
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 This section includes the names of all active insurance providers for the patient. Insurance Provider Type of Coverage Plan Name Start of Policy Coverage End of Policy Coverage Group Number Member ID Insurance Provider's Telephone Number Policy Momin's Name Patient's Relationship to Policy Momin MEDICARE (WNR) MEDICARE (M) PART A Mar 11, 2013 PART A [id number] [phone] FR [place]O VIERA PATIENT MEDICARE (WNR) MEDICARE (M) PART A Mar 11, 2013 PART A [id number] [phone] [place] PATIENT MEDICARE (WNR) MEDICARE (M) PART A Mar 11, 2013 PART A [id number] [phone] FR [place] VIERA PATIENT MEDICARE (WNR) MEDICARE (M) PART A Mar 11, 2013 PART A [id number] [phone] FR [place] VIERA PATIENT Selected Encounter This section includes the information on record at [place] for the Encounter. Date/Time Encounter Type Encounter Description Reason Provider Source Aug 27, 2024 09:00 AM OFFICE O/P EST MOD 30 MIN PRIMARY CARE/MEDICINE ICD-10-CM G47.00 Insomnia, unspecified BETTINAALFREDA [facility] Encounter Template Text not used by [place] Assessments - Encounter Diagnoses This section includes the primary and secondary diagnoses documented for the Encounter. Date/Time Primary/Secondary Diagnosis Diagnosis Name Provider Source Aug 29, 2024 08:08 AM PRIMARY Insomnia, unspecified BETTINA,ALFREDA DESIR [place] [facility] [place] [facility] Aug 29, 2024 08:08 AM SECONDARY Pain in unspecified joint BETTINAALFREDA IRWIN [place] [facility] [place] [facility] Plan of Treatment: Future Appointments (+ 6 months) and Future Tests (+/- 45 days) The Plan of Treatment section includes future care activities for the [facility] [place] [facility] This section includes future appointments and future orders which are active, pending or scheduled. Future Appointments This section includes appointments that were scheduled to occur 6 months from the date of the Encounter, up to a maximum of 20 appointments. The data comes from all [place] treatment facilities. Appointment Date/Time Appointment Type Appointme nt Facility Name Sep 08, 2024 08:30 AM AMBULATORY - MEDICINE [place] [facility] [place] [facility] Sep 12, 2024 09:30 AM [facility]UL[facility]ATRY [facility] [place] [facility] Sep 16, 2024 02:15 PM AMBULATORY [facility] MEDICINE [facility] [place] [facility] Sep 16, 2024 02:45 PM AMBULATORY - MEDICINE [facility] [place] [facility] Sep 24, 2024 11:00 AM AMBULATORY - MEDICINE [facility] [place] [facility] Oct 07, 2024 09:30 AM AMBULATORY - PS[facility]CHIATRY [facility] [place] [facility] October 15, 2024 10:00 AM AMBULATORY - PSYCHIATRY [facility] [place] [facility] October 28, 2024 09:30 AM AMBULATORY - PS[facility]CHIATRY [facility] [place] [facility] October 30, 2024 01:00 PM AMBULATORY - MEDICINE [facility] [place] [facility] November 04, 2024 09:30 AM AMBULATORY - PS[facility]CHIATRY [facility] [place] [facility] November 05, 2024 08:15 AM AMBULATORY - NONE [facility] [place] [facility] November 05, 2024 10:00 AM [facility] [place] [facility] Dec 01, 2024 09:30 AM [facility] [place] [facility] Dec 02, 2024 09:30 AM AMBULATORY - NONE [facility] [place] [facility] Dec 03, 2024 10:00 AM [facility] [place] [facility] Dec 17, 2024 11:30 AM AMBULATORY - NONE [facility] [place] [facility] Jan 20, 2025 09:30 AM [facility] [place] [facility] Jan 21, 2025 09:30 AM AMBULATORY - MEDICINE [place] [facility] [place] [facility] Lab Results: +/- 30 days of the encounter This section includes the Chemistry and Hematology Lab Results on record with [place] for the patient. Radiology Reports and Pathology Reports are provided separately, in subsequent sections. Lab Results This section contains the Chemistry/Hematology Results that were resulted 30 days before or 30 daysafter the date of the Encounter. Date/Time Source Result Type Result - Unit Interpretation Reference Range Specimen Type Comment Sep 12, 2024 07:31 AM [facility] CALCIUM SERUM Specimen Type: SERUM No comment entered. Ordering Provider: MARCO ANTONIO LARKIN Report Released Date/Time: Sep 09, 2024 01:54 PM Reporting [facility] [address] [facility] [address] Performing Lab: [facility] [address] [address] CALCIUM 8.6 mg/dL 8.5-10.2 Sep 12, 2024 07:31 AM [facility] VITAMIN D (25-OH) SERUM Specimen Type: SERUM No comment entered. Ordering Provider: MARCO ANTONIO LARKIN Report Released Date/Time: Sep 09, 2024 01:54 PM Reporting Lab: [facility] [address] [facility] [phone] Performing Lab: [facility] [address] VITAMIN D (25-OH) 72 ng/mL H 20-50 Sep 12, 2024 07:31 AM [facility] BASIC METABOLIC PANEL (non-fasting) SERUM Spe cimen Type: SERUM No comment entered. Ordering Provider: MARCO ANTONIO LARKIN Report Released Date/Time: Sep 09, 2024 01:54 PM Reporting Lab: [facility] [address] [facility] [phone] Performing Lab: [facility] [address] [facility] [address] UREA NITROGEN 11 mg/dL 7-25 GLUCOSE 90 mg/dL 65-100 SODIUM 140 mmol/L 135-145 POTASSIUM 4.0 mmol/L 3.5-5.0 CHLORIDE 106 mmol/L 100-110 CO2 23 meq/L 20-30 CALCIUM 8.6 mg/dL 8.5-10.2 CREATININE, Serum 0.98 mg/dL 0.50-1.40 eGFR(CKD-EPI 2020) 79 mL/min >60 Vital Signs: All taken on the encounter date This section contains inpatient and outpatient Vital Signs collected on the date of the Encounter. Date/Time Temperature Pulse Blood Pressure Respiratory Rate SP02 Pain Height Weight Body Mass Index Source Aug 27, 2024 08:59 AM 97.6 84 159/76 16 94 10 [facility] Social History: Smoking Status (Most current) and Tobacco Use (All prior to encounter date) This section includes the most current, and the historical, smoking and tobacco- related health factors from the [place] facility where the Encounter took place. Current Smoking Status This section includes the most current smoking, or tobacco-related health factor, from the [place] facility where the Encounter took place. Date/Time Current Smoking Status Comment [facility] it May 27, 2024 11:00 AM VA-TOBACCO USE FOR COLLIN CIGARETTES [facility] Tobacco Use History This section includes a history of the smoking, or tobacco-related health factors, that were collected on or before the date of the Encounter. The data comes from the [place] facility where the Encounter took place. Date/Time Smoking Status/Tobac co Use Comment Facility May 27, 2024 11:00 AM VA-TOBACCO USE FORMER CIGARETTES [facility] May 09, 2023 09:00 AM VA-TOBACCO FORMER USER [facility] [place] [facility] May 09, 2023 09:00 AM VA-TOBACCO QUIT 15 YRS OR MORE [facility] [place] [facility] Mar 30, 2022 09:45 AM VA-TOBACCO FORMER USER [facility] [place] [facility] Mar 30, 2022 09:45 AM VA-TOBACCO QUIT 15 YRS OR MORE [facility] [place] [facility] Mar 29, 2021 08:30 AM VA-TOBACCO FORMER USER [facility] [place] [facility] Mar 29, 2021 08:30 AM VA-TOBACCO QUIT 15 YRS OR MORE [facility] [place] [facility] Apr 05, 2020 08:00 AM VA-TOBACCO FORMER USER [facility] [place] [facility] Apr 05, 2020 08:00 AM VA-TOBACCO QUIT 15 YRS OR MORE [facility] [place] [facility] Dec 19, 2018 09:16 AM VA-TOBACCO FORMER USER [facility] [place] [facility] Dec 19, 2018 09:16 AM VA-TOBACCO QUIT 15 YRS OR MORE [facility] [place] [facility] Jan 25, 2018 08:57 AM QUIT TOBACCO USE > 7 YEARS AGO [facility] [place] [facility] November 07, 2016 10:23 AM QUIT TOBACCO USE > 7 YEARS AGO [facility] [place] [facility] Sep 15, 2015 09:35 AM LIFETIME NON-TOBACCO USER [facility] [place] [facility] Feb 27, 2005 03:58 PM LIFETIME NON-SMOKER [facility] [place] [facility] October 17, 2002 08:32 AM HISTORY OF SMOKING Smoke free since 1967 (35years) [facility] [place] [facility] Jan 30, 2002 03:15 PM QUIT TOBACCO USE > 7 YEARS AGO [facility] [place] [facility] Jul 25, 2001 03:17 PM HISTORY OF SMOKING [facility] [place] [facility] Jul 25, 2001 03:17 PM NON-TOBACCO USER [facility] [place] [facility] Encounter Notes: All associated encounter notes This section contains the clinical notes associated to the Encounter. Date/Time Encounter Note(s) Provider Source Aug 27, 2024 09:33 AM ACCOUNTING OF DISCLOSURES NOTE: LOCAL TITLE: STATE PRESCRIPTION DRUG MONITORING PROGRAM STANDARD TITLE: ACCOUNTING OF DISCLOSURES NOTE DATE OF NOTE: AUG 27, 2024@09:33:36 ENTRY DATE: AUG 27, 2024@09:33:36 AUTHOR: SRINI ISAAC EXP COSIGNER: ALFREDA SELF URGENCY: STATUS: COMPLETED This PDMP query was submitted by Srini Isaac on behalf of Alfreda Self. The clinical justification for this PDMP query is to review controlled substances prescribed outside of the [facility], and any additional information that may become available, as an important component of standard clinical care, and in accordance with [facility] policy. Patient information was shared with the PDMP [place]. The VA prescriber, for which I am a delegate, will be alerted of these PDMP findings through co-signature of this progress note. No prescription(s) for controlled substances outside the [facility] were found in the last 90 days. /sharla/ SRINI ISAAC REGISTERED NURSE Signed: 08/27/2024 09:33 /PIPPA Mae Nurse Practitioner Cosigned: 08/27/2024 09:34 [facility]I ISAAC [facility] Aug 27, 2024 09:31 AM PREVENTIVE MEDICINE NURSING NOTE: LOCAL TITLE: CLINICAL REMINDERS/NURSING STANDARD TITLE: PREVENTIVE MEDICINE NURSING NOTE DATE OF NOTE: AUG 27, 2024@09:31 ENTRY DATE: AUG 27, 2024@09:31:13 AUTHOR: SRINI ISAAC EXP COSIGNER: URGENCY: STATUS: COMPLETED Follow Up Colonoscopy: Colonoscopy is due based on information available to this reminder. Defer reminder for 4 months Reason for deferral: scheduled has hot happened Tdap Immunization: The patient declines to receive the recommended dose of Tdap vaccine. Immunization: TDAP Refusal Reason: OTHER Patient refuses all immunization(s) in the TDAP group Comment: Sick visit Date Documented: 08/27/24 09:32 /celia ISAAC REGISTERED NURSE Signed: 08/27/2024 09:33 SRINI ISAAC [facility] Aug 27, 2024 09:28 AM PRIMARY CARE NURSE PRACTITIONER OUTPATIENT NOTE: LOCAL TITLE: NURSE PRACTITIONER OUTPATIENT NOTE STANDARD TITLE: PRIMARY CARE NURSE PRACTITIONER OUTPATIENT NOTE DATE OF NOTE: AUG 27, 2024@09:28 ENTRY DATE: AUG 27, 2024@09:28:09 AUTHOR: ALFREDA SELF EXP COSIGNER: URGENCY: STATUS: COMPLETED NURSE PRACTITIONER OUTPATIENT NOTE Has ADDENDA Pt is a 74 who comes in for follow up of medical problems as noted below. HPI: Right knee pain, right shoulder pain and back pain . Cannot sleep 2/2 the pain already has insomnia at baseline, he was given trazodone years ago currently on 200mg at night sometimes take a total of 300mg and that does not work all the time. Filiberto was seen by rheumatology in 2008 and diagnosed with pseudogout. He reports Prednisone taper is the only thing that works, has many allergies and states he cannot tolerate Colchicine or allopurinol. He has had a few rounds of prednisone over the last 6 months but am concerned because he already has known osteoporosis. Last month I strongly encouraged he see both Rheumatology again and to get in with pain to better manage this all. He has upcoming appts for those today his right knee pain is so intense he cannot sleep and his gait is off. He also has Adrenal adenoma was seeing Dr Larkin but reluctant to take medications and do any follow up. Hypokalemia is on amiloride last K+ was normal HTN is controlled today slightly elevated 2/2 pain Insomnia on trazodone 200mg nightly, encouraged MH consult and or CBT for insomnia he will think about it for now wants to get pain in control and hoping that will help his sleep, pain worse at night He has many appts upcoming Shoulder pain, right has ortho appt on 09/24/24 Pain clinic has appt 09/16/24 Rheum 10/30/24 PMH: Active problems - Computerized Problem List is the source for the followin. Benign essential hypertension 2. Insomnia 3. Pain of right knee abnml MRI 06/2022- chronic high grade partial thickness tearing of proximal ACL, medial and lateral meniscal tears, distal quad tendinopathy, mild tricomrtmental degenerative change abnml MRI 06/2022- chronic high grade partial thickness tearing of proximal ACL, medial and lateral meniscal tears, distal quad tendinopathy, mild tricomrtmental degenerative change 4. Exposure to potentially hazardous substance 5. LTBI - Latent tuberculosis infection 6. Gynecomastia 2nd to 7. Recent weight loss EGD DR Mckenzie [facility] Impression :Gastritis Await biopsy report to r/u H. pylori [facility] Dr Mckenzie 8. Osteoporosis consult: [facility] ENDOCRINE - Elsy Keane, MED: Prolia Solution 60mg/ml( approved NON FORM) 9. Hernia of abdominal wall SEEn GI surgery 11/2018 - elective surgery - if vet wishes to schedule 10. Adrenal adenoma consult: [facility] ENDOCRINE - Elsychelsey Keane, DO MED: aldosterone receptor antagonist- ( 05/2019- EPLERENONE) - 11. Osteoarthritis of knee 12. Calcium pyrophosphate deposition disease -- by joint aspiration 06/19 13. 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 Posterior Vitreous Detachment 16. Osteoporosis (SNOMED CT 19690329) -- hip T-score -2.8, 08/18 17. Low back pain (SNOMED CT 812470914) chronic. Finds personal carer helpful. Sees Chiropractor Dr Surinder Patel at [address] [place] [address] 18. Hyperlipidemia (SNOMED CT 40081841) 19. Benign prostatic hypertrophy (SNOMED CT 995251817) 20. Gout (SNOMED CT 13435205) Right knee 21. Rhinitis (SNOMED CT 31610948) 22. Dermatitis or Eczema * 23. History of polyp of colon -- tubular adenoma 05/16 normal colonoscopy 11/20 last c-scope 2020; due for 2023 due to Hx of tubular adenoma and limited prep on 2020 c-scope 24. Posttraumatic stress disorder (SNOMED CT 42347206) update Reviewed 25. Erectile dysfunction (SNOMED CT 796562949) 26. Gastroesophageal reflux disease (SNOMED CT 526693793) Allergies: OMEPRAZOLE, FLUNISOLIDE, ZOLEDRONIC, PRAVASTATIN, ALENDRONATE, CHLORTHALIDONE CONTRAST MEDIA, SPIRONOLACTONE, EPLERENONE, CETIRIZINE, LISINOPRIL CYCLOBENZAPRINE The following VA and Non-VA meds were reconciled with patient: Active and Recently Outpatient Medications (excluding Supplies): Active Outpatient Medications Status 1) AMILORIDE HCL 5MG TAB TAKE TWO TABLETS BY MOUTH TWICE DAILY ACTIVE WITH FOOD 2) AMLODIPINE BESYLATE 10MG TAB TAKE ONE TABLET BY MOUTH ONCE ACTIVE DAILY FOR BLOOD PRESSURE/HEART, DO NOT TAKE WITH GRAPEFRUIT JUICE 3) ATORVASTATIN CALCIUM 20MG TAB TAKE ONE TABLET BY MOUTH ONCE ACTIVE DAILY FOR CHOLESTEROL 4) CETIRIZINE HCL 10MG TAB TAKE ONE TABLET BY MOUTH ONCE DAILY ACTIVE Indication: FOR ALLERGIES 5) CHOLECALCIF 25MCG (D3-1,000UNIT) TAB TAKE ONE TABLET BY ACTIVE MOUTH ONCE DAILY FOR VITAMIN SUPPLEMENTATION Indication: FOR VITAMIN D DEFICIENCY 6) DOXAZOSIN MESYLATE 8MG TAB TAKE ONE TABLET BY MOUTH ONCE ACTIVE DAILY DIRECTED BY PRESCRIBER. NOTE TABLET STRENGTH 7) LOSARTAN 25MG TAB TAKE ONE TABLET BY MOUTH ONCE DAILY FOR ACTIVE BLOOD PRESSURE/HEART Indication: FOR HIGH BLOOD PRESSURE 8) MAGNESIUM OXIDE 400MG TAB TAKE ONE TABLET BY MOUTH ONCE ACTIVE DAILY Indication: FOR MAGNESIUM SUPPLEMENTATION 9) PANTOPRAZOLE NA 40MG EC TAB TAKE ONE TABLET BY MOUTH EVERY ACTIVE MORNING 30 MINUTES BEFORE BREAKFAST Indication: FOR EXCESSIVE PRODUCTION OF STOMACH ACID 10) SILDENAFIL CITRATE 100MG TAB TAKE ONE TABLET BY MOUTH ONCE ACTIVE DAILY TAKE 1 HOUR PRIOR TO SEXUAL ACTIVITY Indication: FOR ERECTILE DYSFUNCTION 11) SODIUM FLUORIDE 1.1% TOOTHPASTE BRUSH SMALL AMOUNT TO TEETH ACTIVE TWICE DAILY Indication: FOR TOOTH DECAY PREVENTION 12) TAMSULOSIN HCL 0.4MG CAP TAKE ONE CAPSULE BY MOUTH ONCE ACTIVE DAILY DIRECTED BY PROVIDER 13) TRAZODONE HCL 100MG TAB TAKE TWO TABLETS BY MOUTH AT BEDTIME ACTIVE - MAY TAKE A 3RD TABLET IF NOT ASLEEP BY 2AM Indication: FOR INSOMNIA ASSOCIATED WITH DEPRESSION Pending Outpatient Medications Status 1) PREDNISONE 20MG TAB TAKE THREE TABLETS BY MOUTH ONCE DAILY PENDING FOR 3 DAYS, THEN TAKE TWO TABLETS ONCE DAILY FOR 3 DAYS, THEN TAKE ONE TABLET ONCE DAILY FOR 3 DAYS FOR Indication: GOUT FLARE 2) TRAMADOL HCL 50MG TAB TAKE ONE TABLET BY MOUTH AT BEDTIME PENDING NEEDED Indication: FOR PAIN Inactive Outpatient Medications Status 1) CAPSAICIN 0.075% CREAM APPLY A THIN FILM TOPICALLY TWICE DAILY Indication: FOR BACKACHE Active Non-VA Medications Status 1) Non-VA ASPIRIN 81MG EC TAB 81MG BY MOUTH EVERY DAY ACTIVE 2) Non-VA FLAXSEED MISCELLANEOUS EVERY DAY ACTIVE 3) Non-VA GARLIC CAP,ORAL BY MOUTH EVERY DAY ACTIVE 19 Total Medications Allergies: OMEPRAZOLE, FLUNISOLIDE, ZOLEDRONIC, PRAVASTATIN, ALENDRONATE, CHLORTHALIDONE CONTRAST MEDIA, SPIRONOLACTONE, EPLERENONE, CETIRIZINE, LISINOPRIL CYCLOBENZAPRINE VITAL SIGNS: 97.6 F [36.4 C] (08/27/2024 08:59) 84 (08/27/2024 08:59) 16 (08/27/2024 08:59) 159/76 (08/27/2024 08:59) 10 (08/27/2024 08:59) 67 in [170.2 cm] (02/20/2024 08:48) Refused (08/27/2024 08:59) BMI: 0.0 ROS General: no fever, no unexplained weight loss or gain CV: denies CP, palpitations Lung: denies Dyspnea or wheezing Psych: denies SI PHYSI MIHAELA EXAM GENERAL: well appearing [place] in NAD, speaking in clear sentences. RESP: CTAB, no wheezing or Rales. Cards: S1 S2 RRR, No m/r/g no JVD, No Pedal Edema, Distal Pulses palpable Musculo: antalgic gait, mild edema in right knee compared to left not hot to touch no erythema NEURO CN II-XII grossly intact MENTAL A&Ox3 Appropriate, Pleasant, Cooperative LAB RESULTS LAST 1440 HRS - NONE FOUND Future Clinic Visits 09/08/2024 08:30 [facility] OPTOMETRY 4 09/16/2024 14:45 [facility] PAIN MD 2 09/24/2024 11:00 COM CARE-ORTHO GEN 10/09/2024 10:00 [facility] DERMATOLOGY FILTER WASHER 1 AM 10/30/2024 13:00 [facility] RHEUMATOLOGY MD 2 11/06/2024 09:45 [facility] DENTAL RDH 2 AM 12/02/2024 09:30 [facility]-COLO SCRN 01/20/2025 09:30 [facility] PODIATRY 1 01/21/2025 09:30 [facility] PACT 5 FILTER WASHER ASSESSMENT AND PLAN: 1) Joint pain Predominantly R knee pain requesting another taper of prednisone last was in Jun concern for how often he takes pred-will give this time until we have better plan for possible flares pain worse at night will Rx very short course low dose tramadol HS until he can get into pain clinic has rheum appt in a few months Ortho appt for shoulder scheduled Has many allergies and concern for polypharmacy, consider CPP to review meds 2) Insomnia on high dose tramadol not working, consider med change appreciate input from he wants to wait until pain improves before changing meds Return to clinic to see me in Jan , RTC sooner if needed. Clinical Reminders Medication Reconciliation: Outpatient: Has the patient been taking medications as documented in the EMLR? YES: The patient has been taking medications as documented in the EMLR. Essential Medication List for Review used to complete this medication reconciliation. INCLUDED IN THIS LIST: Alphabetical list of active outpatient prescriptions dispensed from this [facility] (local) and dispensed from another [place] or [facility] facility (remote) as well as inpatient orders (local, pending and active), local clinic medications, locally documented non-VA medications, and local prescriptions that have or been discontinued in the past 90 days. - All changes in medications, including all non-VA/Herbal/OTC medications were entered into CPRS. - If there were any medications the patient should no longer take, they were discontinued. - The patient/caregiver was instructed to update this list, discard old lists, and take this list to the next appointment, whether with a VA or non-VA provider. /PIPPA Mae Nurse Practitioner Signed: 08/29/2024 08:07 09/19/2024 ADDENDUM STATUS: COMPLETED Will take over DenoSumab from Dr Larkin who is retiring soon, Next denosumab dose due early March, with BMP, calcium, vitamin D and serum osmoles prior. /PIPPA Mae Nurse Practitioner Signed: 09/19/2024 10:31 ALFREDA SELF [facility]
--- OUTSIDE RECORDS SUMMARY | 2024-12-02 05:30 | XMS_ITS ---
Author Organization [facility] Address [address] [place] [address] Care Team Providers Care Bearing Inspector Name Role Phone Alfreda Self N.P Primary Care Provider Kevyn Harris [phone] REASON FOR VISIT patient presents today for screening colonoscopy Encounters Encounter Location Date Provider Diagnosis [facility] [address] [place] [address] 12/02/2024 Kevyn Rosenberg Plan Of Treatment Next Appt Details Provider Name:Kevyn Rosenberg , 03/11/2025 01:40:00 PM, [address], [place], [address], Progress Notes * NIGEL VIERADOB: [birth year] (74 yo M)Acc No.[id number]:12/02/2024 Progress Notes Patient: NIGEL IYER Provider: Karen Rosenberg MD :1950 A ge:74 Y S ex:Male Date:12/02/2024 [address] Pcp:Alfreda Self N.P Subjective: * Chief Complaints: * 1 . Patient presents today for screening colonoscopy. * Medical History: Objective: * Vitals: Assessment: Plan: * Treatment: * * The named appointment provid er may or may not be the originator of this progress note, and it is not deemed complete until electronically signed by the appointment provider. Sign off status: Pending * Provider: Karen Rosenberg MD Date: 0 12/02/2024 Generated for Lauren steele/Yumiko/Radhaitting on: 0 01/30/2025 07:43 AM EDT
--- OUTSIDE RECORDS SUMMARY | 2025-01-30 07:44 | XMS_ITS | Clinical Summary ---
Author Organization [facility] Address [address] [place] [address] Phone Care Team Providers Care Car Supplier Name Role Phone Pcp, Unknown Primary Care [...] file Medical Devices Not on file Insurance [facility] Care Teams Car Supplier Relationship Specialty Start Date End Date Pcp, Unknown PCP - General 04/21/22 Additional Source Comments The information contained in this document represents components of the legal health record. It is not the complete legal health record.[facility]
--- NOTE | 2025-03-16 08:14 | W.PM.OPN ---
Operative Note Operative Note Date of Service: 03/16/25 Narrative: Preop diagnosis: 1. Right Carpal tunnel syndrome 2. Right index finger trigger finger 3. Right middle finger trigger finger Postop diagnosis: same Procedure: 1. Right Carpal tunnel release 2. Right index finger trigger release 3. Right middle finger trigger release Surgeon: Sonali Retana MD Strapping Machine Tender: None Anesthesia: local block using 1% lidocaine with epinephrine Findings: Thickened transverse carpal ligament. EBL: Less than 5 mL Specimens: None Complications: None Disposition: Brought to recovery room in stable condition Plan: Follow-up for 10-14 days for wound check and suture removal Indications: The patient is 74 years old, with right carpal tunnel syndrome and right index finger and middle finger trigger fingers that have been unresponsive to nonoperative management. The risks and benefits of operative treatment including but not limited to risk of damage to blood vessels, nerves, tendons, infection, persistent pain, persistent symptoms, or possible need for additional surgery were discussed with the patient and the patient wishes to proceed with surgery. Procedure: Once consent was obtained a local block was performed using a combination of 1% lidocaine with epinephrine. The patient was then brought back to the operating suite and placed on the operative table in supine position. The right upper extremity was prepped and draped in a standard surgical fashion. Once assured that we had a good block, a 1.5 cm oblique incision was made centered over the A1 jelena of the right index finger . The incision was made through the skin to the subcutaneous tissues using a #15 blade. Careful dissection was made down to the level of the A1 jelena using tenotomy scissors, with care being taken to protect the nearby neurovascular structures. A longitudinal incision was made in the A1 jelena 1st using a #15 blade, then using tenotomy scissors under direct visualization. The A1 jelena was noted to be thickened. Following our A1 jelena release, we no longer saw any locking or catching of the digit with flexion and extension. Once assured that we had a good block, a 1.5 cm oblique incision was made centered over the A1 jelena of the right middle finger . The incision was made through the skin to the subcutaneous tissues using a #15 blade. Careful dissection was made down to the level of the A1 jelena using tenotomy scissors, with care being taken to protect the nearby neurovascular structures. A longitudinal incision was made in the A1 jelena 1st using a #15 blade, then using tenotomy scissors under direct visualization. The A1 jelena was noted to be thickened. Following our A1 jelena release, we no longer saw any locking or catching of the digit with flexion and extension. Once assured that we had a good block, a 2.0 cm longitudinal incision was made centered over the carpal tunnel. The incision was made through the skin to the subcutaneous tissues using a #15 blade. Dissection was made down to the level of the transverse carpal ligament with care being taken to protect the palmar cutaneous nerve. Once the transverse carpal ligament was clearly visualized, a longitudinal incision was made in the transverse carpal ligament 1st using a #15 blade, then using tenotomy scissors under direct visualization. Care was taken to look for and protect the motor branch of the median nerve when seen in this area. Once satisfied with our carpal tunnel release the wound was copiously irrigated with normal saline and hemostasis was obtained with a brief period of local pressure. The skin edges were reapproximated with some 5.0 nylon suture material and a sterile dressing was applied. The patient appears to have tolerated the procedure well and with no complications. All digits were well vascularized at the conclusion of the case.
[2025-03-16 08:37] VITALS: BP 163/76; PULSE 78; RESP 14; TEMP 36.8; O2SAT 95; BMI 23.2
--- NOTE | 2025-03-16 08:56 | MHC.SHP ---
Pre-Procedural Eval Section A - 24 Hr Update-Section A only Date of Service: 03/16/25 The patient is an INPATIENT: No Changes since office visit: No Cold of Flu in the past 2 weeks, No New Medical Problems, No Changes in Medication and No Patient answered all questions The patient has been examined within 24 hours of the surgical procedure. The History & Physical has been completed within 30 days and I have reviewed it.: Yes Section B - Complete if H&P > 30 days Chief Complaint: carpal tunnel,Index and Middle trigger Allergies: Allergies Allergy/AdvReac Type Severity Reaction Status Date / Time allopurinol Allergy Unknown Rash Verified 03/16/25 08:36 chlorthalidone Allergy Unknown Unknown Verified 03/16/25 08:36 colchicine (COLCHICINE) Allergy Unknown RASH Verified 03/16/25 08:36 flunisolide (FLUNISOLIDE) Allergy Unknown RASH Verified 03/16/25 08:36 meloxicam (MELOXICAM) Allergy Unknown SEVERE Verified 03/16/25 08:36 HIVES omeprazole (OMEPRAZOLE) Allergy Unknown RASH Verified 03/16/25 08:36 pravastatin Allergy Unknown Unknown Verified 03/16/25 08:36 zoledronic acid (ZOLEDRONIC Allergy Unknown RASH Verified 03/16/25 08:36 ACID) lisinopril AdvReac Cough Verified 03/16/25 08:36 Alendronate Sodium Allergy Unknown Unknown Uncoded 03/16/25 08:36 Contrast media Allergy Unknown Unknown Uncoded 03/16/25 08:36 Plan Diagnosis/Plan: Unchanged I have reviewed the history and physical and performed a pertinent physical examination on my patient. No changes have occurred unless specified. Time Spent With Patient Time: Total time managing care of this patient today ____ minutes.
[2025-03-16 09:53] VITALS: BP 141/78; PULSE 98; RESP 18; O2SAT 95
== END 2025-03-16 11:15 | disposition home or self-care (01) ==
PROVIDERS: PCP Nurse Practitioner Family; Visit Provider Orthopaedic Surgery
PROC: (CPT 64721; principal; 2025-03-16 08:50)
PROC: (CPT 26055; 2025-03-16 08:50)
DX: G56.01 Carpal tunnel syndrome, right upper limb (principal); M65.321 Trigger finger, right index finger; M65.331 Trigger finger, right middle finger; I10 Essential (primary) hypertension; Z88.8 Allergy status to other drugs, medicaments and biological substances
CPT/HCPCS: 64721; 26055 ×2; J0165; J2003

== ENCOUNTER → 2025-03-16 06:50 | Outpatient (BNV) | payer OTHER, SELFPAY | PROVIDERS: PCP Nurse Practitioner Family; Visit Provider Orthopaedic Surgery | DX: G56.01 Carpal tunnel syndrome, right upper limb (principal); M65.321 Trigger finger, right index finger; M65.331 Trigger finger, right middle finger | CPT/HCPCS: 26055; 64721 ==

== ENCOUNTER 2025-04-01 10:31 | Outpatient (AMB) | payer OTHER, SELFPAY ==
[2025-04-01 10:35] VITALS: BMI 23.2
--- NOTE | 2025-04-01 10:35 | A.OFFVIS_ITS ---
Vital Signs 04/01/25 10:35 Height 5 ft 7 in Weight 148 lb BMI 23.2 Intake Visit Reasons: PO-Rt CTR/IF/MF triggers 03/16/25 Intake Note: Jah is a 75 year old right hand dominant male who presents today for a Post-operative visit status post Right Carpal Tunnel Release, Right Index & Right Middle Trigger Finger Release, DOS: 03/16/[address] Retana. Patient reports most of his sutures came out on their own probably washing my hands , otherwise patient denies any further concerns. He denies numbness, tingling, or finger locking. Patient states he did not need any pain medications. Remainder sutures left in place for provider review. Allergies allopurinol Allergy (Unknown, Verified 04/01/25 10:35) Rash chlorthalidone Allergy (Unknown, Verified 04/01/25 10:35) Unknown colchicine (COLCHICINE) Allergy (Unknown, Verified 04/01/25 10:35) RASH flunisolide (FLUNISOLIDE) Allergy (Unknown, Verified 04/01/25 10:35) RASH meloxicam (MELOXICAM) Allergy (Unknown, Verified 04/01/25 10:35) SEVERE HIVES omeprazole (OMEPRAZOLE) Allergy (Unknown, Verified 04/01/25 10:35) RASH pravastatin Allergy (Unknown, Verified 04/01/25 10:35) Unknown zoledronic acid (ZOLEDRONIC ACID) Allergy (Unknown, Verified 04/01/25 10:35) RASH lisinopril Adverse Reaction (Verified 04/01/25 10:35) Cough Alendronate Sodium Allergy (Unknown, Uncoded 04/01/25 10:35) Unknown Contrast media Allergy (Unknown, Uncoded 04/01/25 10:35) Unknown HPI HPI PO-Rt CTR/IF/MF triggers 03/16/25: Details: Jah is a 75 year old right hand dominant male who presents today for a Post-operative visit status post Right Carpal Tunnel Release, Right Index & Right Middle Trigger Finger Release, DOS: 03/16/[address] Retana. Patient reports most of his sutures came out on their own probably washing my hands , otherwise patient denies any further concerns. He denies numbness, tingling, or finger locking. Patient states he did not need any pain medications. Remainder sutures left in place for provider review. 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 Mother No problems noted. Social History (Updated 09/24/24 @ 11:03 by SUMMER Penn) Comment: counts correct Patient Tobacco Use Status: Former Tobacco user Second Hand Smoke Exposure: No Current occupation: rt handed Review of Systems Const All systems reviewed & are unremarkable except as noted in HPI and below Physical Exam Vital Signs: BMI result Body Mass Index 23.2 Const General: cooperative, healthy appearing and no acute distress Orientation/consciousness: patient oriented x3 HEENT Head: Yes normocephalic and Yes atraumatic Eyes EOM: EOMs intact bilaterally Resp Effort & Inspection: normal respiratory effort and able to speak in complete sentences Cardio Jugular venous distension: no JVD Skin General skin exam: turgor normal Rashes: no rashes Neuro General: patient oriented x3 Extrem Other: Evaluation of Right Upper Extremity: The patient is alert, oriented, and in no acute distress Neuro: Patient reports some mild numbness in the median nerve distribution of the ring finger, no other numbness or tingling noted in the right hand Vascular: Cap refill brisk ROM: He can make a fist and extend all his digits No further Visible & palpable locking & catching of the index & middle fingers No longer Tender over the index & middle finger a1 puleys Skin: No lacerations or abrasions. General: No Ecchymosis. No Erythema or evidence of infection. Psych Appearance: grossly normal Affect: normal affect Attitude: cooperative Assessment & Plan Assessment & Plan (1) Trigger middle finger of right hand: Code(s): M65.331 - Trigger finger, right middle finger Category: Medical (2) Trigger finger, right index finger: Code(s): M65.321 - Trigger finger, right index finger Category: Medical (3) Right carpal tunnel syndrome: Code(s): G56.01 - Carpal tunnel syndrome, right upper limb Category: Medical Plan 1. Status post right carpal tunnel release 2. Status post right of middle and ring finger trigger releases DOS 03/16/2025 Patient appears to be recovering well postoperatively Patient is educated about the typical recovery course Remaining sutures removed in the office today without issue No under water for one-week, 2 lb weight limit x2 weeks Patient may resume normal activity at that time Patient understands this is amenable to this plan Follow-up as needed Coding Level of Care Code Global (75364) Diagnoses Trigger middle finger of right hand M65.331 Trigger finger, right index finger M65.321 Right carpal tunnel syndrome G56.01
== END 2025-04-01 10:53 | disposition home or self-care (01) ==
LOC: HO.HOS 10:33
PROVIDERS: PCP Nurse Practitioner Family
DX: M65.331 Trigger finger, right middle finger (principal); M65.321 Trigger finger, right index finger; G56.01 Carpal tunnel syndrome, right upper limb
CPT/HCPCS: 99024

== ENCOUNTER → 2025-04-01 10:31 | Outpatient (BNVA) | payer OTHER, SELFPAY | PROVIDERS: PCP Nurse Practitioner Family | DX: G56.01 Carpal tunnel syndrome, right upper limb (principal); M65.321 Trigger finger, right index finger; M65.331 Trigger finger, right middle finger | CPT/HCPCS: 99212 ==